=== PATIENT | female | born 1940 | race Caucasian/White ===

== ENCOUNTER 2019-05-05 12:39 | Inpatient (IN) | payer MEDICARE, OTHER, SELFPAY ==
[2019-05-05] VITALS (7 sets, daily range): BP systolic 130–175; BP diastolic 50–62; PULSE 75–90; RESP 14–16; TEMP 36.8–36.9; O2SAT 96–100; BMI 29.8; BMI 29.5
--- NOTE | 2019-05-05 12:52 | DI.RAD.S_ITS ---
PROCEDURE: XR HIP W PEL IF DONE LT 2V INDICATIONS: mechanical fall with L hip pain TECHNIQUE: AP pelvis with lateral view(s) of the left hip(s). COMPARISON: None. FINDINGS: Bones: Right femoral pin fixation is present. There is an intertrochanteric fracture of the left femur with minimal displacement. Fracture extends to the proximal humerus. Soft tissues: The visualized bowel gas pattern is normal. No suspicious soft tissue calcifications. IMPRESSION: Intertrochanteric left hip fracture. Dictated by: Karmen Denis M.D. on 05/05/2019 at 13:41 Approved by: Karmen Denis M.D. on 05/05/2019 at 13:42
--- NOTE | 2019-05-05 13:44 | ED_ITS ---
HPI - Extremity Injury (Lower) General Chief Complaint: Fall Stated Complaint: Mechanical Fall Time Seen by Provider: 05/05/19 12:40 Source: patient and EMS Mode of arrival: EMS Limitations: no limitations History of Present Illness HPI Narrative: 79-year-old female nonsmoker with history of diabetes presents by EMS for evaluation of a ground level fall and left hip pain as the result. She was at a local cultural event when she was walking, turned and caught her feet on the ground and fell forward striking her left hip. She denies any head neck or back pain. She also says that her left elbow hurts a bit but she has full range of motion. She denies any numbness, tingling or weakness. She takes no blood thinners. MD complaint: hip injury Onset (ago): minute(s) Type of Injury: blunt Place: street/outdoors Severity: moderate Relieving factors: immobilization Exacerbating factors: movement Context: fall Associated symptoms: swelling and unable to bear weight Other symptoms: none Related Data Home Medications Medication Instructions Recorded Confirmed atorvastatin [Lipitor] 20 mg PO HS #0 02/11/12 calcium carbonate 1,500 mg PO QDAY #0 02/11/12 ibuprofen 400 mg PO PRN #0 02/11/12 insulin aspart U-100 [Novolog 0 unit SQ TIDCC #0 02/11/12 Flexpen U-100 Insulin] insulin glargine [Lantus U-100 13 unit SQ QDAY #0 02/11/12 Insulin] latanoprost [Xalatan] 1 drp OPHTH HS #0 02/11/12 lisinopril 20 mg PO QDAY #0 02/11/12 prednisolone acetate 2 drp OPHTH BID #0 02/11/12 triamterene-hydrochlorothiazid 1 cap PO QDAY #0 02/11/12 [Dyazide] Allergies Allergy/AdvReac Type Severity Reaction Status Date / Time No Known Drug Allergies Allergy Verified 05/05/19 14:18 Review of Systems Constitutional Constitutional: Denies chills, Denies fatigue, Denies fever(s), Denies frequent falls, Denies lethargy and Denies weakness Eyes Eyes: Denies change in vision, Denies eye discharge, Denies irritation and Denies loss of vision ENT Ears, Nose, Mouth, and Throat: Denies change in voice, Denies dizziness, Denies neck pain, Denies sore throat and Denies throat swelling Cardiovascular Cardiovascular: Denies chest pain, Denies irregular heart rhythm, Denies lightheadedness, Denies palpitations, Denies dyspnea, Denies dyspnea on exertion and Denies orthopnea Respiratory Respiratory: Denies cough, Denies dyspnea, Denies dyspnea on exertion and Denies wheezing Gastrointestinal Gastrointestinal: Denies abdominal pain, Denies change in bowel habits, Denies diarrhea, Denies nausea and Denies vomiting Genitourinary Genitourinary: Denies hematuria, Denies flank pain, Denies urinary incontinence and Denies urinary urgency Musculoskeletal Musculoskeletal: Denies back pain, Reports joint swelling, Reports limited range of motion, Denies muscle weakness, Denies neck pain, Denies numbness and Denies tingling Integumentary/Breasts Skin/Breast: Denies pruritus, Denies erythema, Denies rash and Denies wounds Neurologic Neurologic: Denies behavioral changes, Denies confusion, Denies dizziness, Denies frequent falls, Denies loss of vision, Denies numbness, Denies tingling and Denies weakness Psychiatric Psychiatric: Denies anxiety, Denies behavioral changes, Denies confusion, Denies depression, Denies homicidal ideation and Denies suicidal ideation Endocrine Endocrine: Denies fatigue, Denies flushing and Denies palpitations Hematologic/Lymphatic Hematologic/Lymphatic: Denies easy bruising Allergic/Immunologic Allergic/Immunologic: Denies urticaria, Denies throat swelling and Denies wheezing Patient History Medical History Blindness left eye category 4, normal vision right eye (Acute) Glaucoma (Acute) Hyperlipidemia (Acute) Hypertension (Acute) Left tibial fracture (Acute) Type 1 diabetes (Acute) Surgical History History of total right hip arthroplasty (Acute) Family History (Updated 05/05/19 @ 18:05 by Mary Ann Garcia MD) Father Suicide Mother Myocardial infarction Social History household members: none Smoking Status: Never smoker alcohol intake: current Exam Narrative Exam Narrative: GENERAL: [79] year old patient appears stated age. Well- nourished, well-developed patient, in mild distress. HEAD: Atraumatic. Normocephalic. EYES: Pupils equal round and reactive. Extraocular motions intact. No scleral icterus. No injection or drainage. ENT: Nose without bleeding, purulent drainage. Throat without erythema, tonsillar hypertrophy or exudate. Airway patent. NECK: Trachea midline. Non tender CARDIOVASCULAR: Regular rate and rhythm without murmurs, gallops, or rubs. RESPIRATORY: Clear to auscultation. Breath sounds equal bilaterally. No wheezes, rales, or rhonchi. GASTROINTESTINAL: Abdomen soft, non-tender, nondistended. EXTREMITIES: Left hip tender to palpate anteriorly with shortening and external rotation. Closed and neurovascularly intact. Also pain in the left elbow with full but painful range of motion, closed and neurovascularly intact. BACK: Nontender without deformity or crepitance. No flank tenderness. NEURO: AOx3. SKIN: No rash or erythema of visible areas Initial Vital Signs Initial Vital Signs: Vital Signs Temperature 98.4 F 05/05/19 12:45 Pulse Rate 84 05/05/19 12:45 Respiratory Rate 16 05/05/19 12:45 Blood Pressure 175/53 H 05/05/19 12:45 Pulse Oximetry 96 05/05/19 12:45 Procedures Orthopedic Splinting/Casting Injury #1: Side: left Upper Extremity Injury Location: elbow Upper Extremity Immobilizer: sling/shoulder immobilizer Post splinting neuro exam: intact Post splinting vascular exam: intact Placed by: Nursing Course Orders Ordered: ED Orders 05/05/19 12:52 XR hip w pel if done LT 2V Stat 05/05/19 13:50 Basic Metabolic Panel Stat Complete Blood Count AUTO DIFF Stat 05/05/19 14:45 CT abdomen pelvis w con Stat Acetaminophen (Tylenol) 650 mg PO Q6HR PRN PRN Reason: As Needed for Fever/Mild Pain Atorvastatin Calcium (Lipitor) 20 mg PO BEDTIME ROBERT Bisacodyl (Dulcolax) 10 mg LA DAILY PRN PRN Reason: Constipation Dextrose (D50w) 25 gm IV PRN PRN; Protocol PRN Reason: Hypoglycemia Hydromorphone HCl (Dilaudid) 0.5 mg IV Q6HR PRN PRN Reason: Pain, Moderate (4-6) Lactated Ringer's (Lactated Ringers) 1,000 mls @ 100 mls/hr IV CONT ROBERT Last Admin: 05/05/19 17:54 Dose: 100 mls/hr Documented by: BRITTANYANTJennifer Insulin Aspart (Novolog Flexpen) 4 unit SUBCUT AC [facility] Insulin Glargine (Lantus Solostar (Pen)) 8 unit SUBCUT BEDTIME [facility] Latanoprost (Xalatan 0.005% Ophth) 1 drops EYE-BOTH BEDTIME [facility] Lisinopril (Zestril) 30 mg PO DAILY [facility] Magnesium Hydroxide (Milk Of Magnesia) 30 ml PO DAILY PRN PRN Reason: Constipation Naloxone HCl (Narcan) 0.2 mg IV Q2MIN PRN PRN Reason: Opiate Reversal Ondansetron HCl (Zofran) 4 mg IV Q8HR PRN PRN Reason: Nausea And Vomiting Oxycodone/Acetaminophen (Percocet 5/325) 1 tab PO Q4HR PRN PRN Reason: Pain, Moderate (4-6) Sennosides (Senna) 17.2 mg PO BEDTIME [facility] Discontinued Medications Fentanyl (Sublimaze) 25 mcg IV NOW ONE Stop: 05/05/19 15:42 Last Admin: 05/05/19 15:52 Dose: 25 mcg Documented by: DONTE Hydromorphone HCl (Dilaudid) 0.5 mg IV Q6HR PRN PRN Reason: Pain, Moderate (4-6) Last Admin: 05/05/19 17:53 Dose: 0.5 mg Documented by: HENNY Insulin Aspart (Novolog Flexpen) 0 unit SUBCUT AC [facility]; Protocol Insulin Glargine (Lantus Solostar (Pen)) 12 unit SUBCUT BEDTIME [facility] Consultations Consultation #1: orthopedics called, will admit to medicine and be available in consult. Consultation #2: Dr. Garcia happy to admit Vital Signs Vital signs: Vital Signs - 8 hr 05/05/19 12:45 05/05/19 13:32 05/05/19 14:11 Temperature 98.4 F 98.4 F Pulse Rate 84 84 84 Respiratory Rate 16 15 15 Blood Pressure [Left Arm] 175/53 H 168/52 H Pulse Oximetry 96 100 100 MDM - Extremity Injury (Lower) Lab Data Result diagrams: 05/05/19 13:50 05/05/19 13:50 Labs: Lab Results 05/05/19 05/05/19 Range/Units 13:50 13:50 WBC 7.7 (4.5-11.0) X10^3/uL RBC 3.32 L (4.0-5.2) X10^6/uL Hgb 10.2 L (12.0-16.0) g/dL Hct 30.2 L (36-46) % MCV 91.0 (80-100) fL MCH 30.6 (26-34) PG MCHC 33.6 (30-36) % RDW 13.7 (11.6-14.8) % Plt Count 223 (150-400) X10^3/uL Neut % (Auto) 59.7 (50-75) % Lymph % (Auto) 28.8 (25-40) % [place] % (Auto) 9.0 (3-14) % Eos % (Auto) 1.9 L (2-4) % Baso % (Auto) 0.6 (0-2) % Neut # (Auto) 4600 (6232-5630) /uL Lymph # (Auto) 2200 (4781-8752) /uL [place] # (Auto) 700 (0-900) /uL Eos # (Auto) 100 (0-450) /uL Baso # (Auto) 0 (0-100) /uL Sodium 138 (137-145) mmol/L Potassium 4.9 (3.4-5.1) mmol/L Chloride 105 (98-107) mmol/L Carbon Dioxide 25 (22-32) mmol/L BUN 45 H (7-17) mg/dL Creatinine 1.10 H (0.52-1.04) mg/dL Estimated GFR 48.2 L (>60) mL/min BUN/Creatinine Ratio 40.9 H (6-22) Glucose 254 H (80-110) mg/dL Calcium 9.4 (8.4-10.2) mg/dL Imaging Data Pelvis / Hip: Radiologist's impression: [address] [address] XRay Report Signed Patient: Meredith Fuentes [facility]#: [id number] : 2Acct:[id number] Age/Sex: 79 / FDate of Service: 05/05/19 Loc: ED Accession Number: [id number] Procedure: XR hip w pel if done LT 2V Ordering Provider: Joshua Allen D.O. PROCEDURE: XR HIP W PEL IF DONE LT 2V INDICATIONS: mechanical fall with L hip pain TECHNIQUE: AP pelvis with lateral view(s) of the left hip(s). COMPARISON: None. FINDINGS: Bones: Right femoral pin fixation is present. There is an intertrochanteric fracture of the left femur with minimal displacement. Fracture extends to the proximal humerus. Soft tissues: The visualized bowel gas pattern is normal. No suspicious soft tissue calcifications. IMPRESSION: Intertrochanteric left hip fracture. Dictated by: Karmen Denis M.D. on 05/05/2019 at 13:41 Approved by: Karmen Denis M.D. on 05/05/2019 at 13:42 CT scan - pelvis: Radiologist's impression: [place] [address] CT Scan Report Signed Patient: Meredith Fuentes SMR#: [id number] : 2Acct:[id number] Age/Sex: 79 / FDate of Service: 05/05/19 Loc: GP50D-6 Accession Number: [id number] Procedure: CT abdomen pelvis w con Ordering Provider: Joshua Allen D.O. PROCEDURE: CT ABDOMEN PELVIS W CON INDICATIONS: Left hip fracture,fell TECHNIQUE: After the administration of intravenous contrast, 5 mm thick sections acquired from the diaphragm to the symphysis. 5 mm coronal and sagittal reformats were acquired. For radiation dose reduction, the following was used: automated exposure control, adjustment of mA and/or kV according to patient size. [facility], 05/05/2019, 12:56. FINDINGS: Image quality: Excellent. ABDOMEN: Lung bases: Lung bases are clear. Heart size is normal. A small hiatal hernia is incidentally noted. Solid organs: Liver is normal in size and enhancement. Gallbladder demonstrates no significant CT abnormality. Biliary system is non dilated. Pancreas enhances normally. Spleen is normal in size and enhancement. No adrenal nodules. Kidneys demonstr ate normal size and enhancement, without hydronephrosis. Peritoneum and bowel: Bowel loops demonstrate normal wall thickness and caliber. No free fluid or air. Incidental note is made of a normal-appearing appendix. Nodes and vessels: No retroperitoneal or mesenteric adenopathy by size c riteria. Aorta and inferior vena cava are normal in size. Dense atherosclerotic calcification is seen. Miscellaneous: No ventral hernias. PELVIS: Genitourinary: Bladder wall thickness is normal. Miscellaneous: No inguinal hernias or adenopathy. Bones: There is a comminuted, moderately displaced fracture of the intertrochanteric left femoral neck, as is demonstrated by plain film. No dislocation can be seen. There is hardware seen of the contralateral right proximal femur, without nik abnormality seen. Relatively prominent lumbar spine degenerative changes are seen. There are several levels of bridging endplate osteophytes throughout the visualized spine. No suspicious bony lesions. No significant vertebral body compression fractures. IMPRESSION: There is a moderately displaced, comminuted fractures of the intertrochanteric left femoral neck, as previously demonstrated. No additional acute fractures are detected. Incidental note is made of: Small hiatal hernia Numerous levels of bridging spinal endplate osteophytes are seen. Normal appendix Unremarkable right proximal femur hardware Dictated by: Jose Armando Marie M.D. on 05/05/2019 at 13:48 Approved by: Jose Armando Marie M.D. on 05/05/2019 at 13:53 Elbow Xray: Radiologist's impression: [place] [address] XRay Report Signed Patient: Meredith Fuentes [facility]#: [id number] : 2Acct:[id number] Age/Sex: 79 / FDate of Service: 05/05/19 Loc: LQ55E-2 Accession Number: [id number] Procedure: XR elbow LT min 3V Ordering Provider: Joshua Allen D.O. PROCEDURE: XR ELBOW LT MIN 3V INDICATIONS: fall with elbow pain TECHNIQUE: 3 views of the elbow were acquired. COMPARISON: None. FINDINGS: Bones: Radial head fracture with intra-articular extension. There is suspected olecranon fracture, markedly displaced however evaluation of the suboptimal due to difficulties with patient positioning in particular the lateral view Soft tissues: No elbow joint effusion. No suspicious soft tissue calcifications. IMPRESSION: Intra-articular radial head fracture. Prominent soft tissue swelling. Also suspect markedly displaced olecranon fracture however suboptimal evaluation due to positioning. Recommend followup short interval radiographs after pain is better controlled, or cross-sectional imaging could be performed. Dictated by: Hugo Gay M.D. on 05/05/2019 at 15:35 Approved by: Hugo Gay M.D. on 05/05/2019 at 15:39 Discharge Plan Departure Patient Disposition: Admitted As Inpatient Clinical Impression: Closed fracture of left hip Qualifiers: Encounter type: initial encounter Qualified Code(s): S72.002A - Fracture of unspecified part of neck of left femur, initial encounter for closed fracture Discharge Date/Time: 05/05/19 16:18 Admit Date/Time: 05/05/19 14:25 Admit Provider: Mary Ann Garcia
[2019-05-05 14:16] LABS: Add Manual Diff / Slide Review NO; Basophils Absolute Auto 0 /uL (0-100); Basophils Percent Auto 0.6 % (0-2); Eosinophils Absolute Auto 100 /uL (0-450); Eosinophils Percent Auto 1.9 % (2-4); Hematocrit 30.2 % (36-46); Hemoglobin 10.2 g/dL (12.0-16.0); Lymphocytes Absolute Auto 2200 /uL (1100-4500); Lymphocytes Percent Auto 28.8 % (25-40); Mean Corpuscular HGB Conc 33.6 % (30-36); Mean Corpuscular Hemoglobin 30.6 PG (26-34); Monocytes Absolute Auto 700 /uL (0-900); Neutrophils Absolute Auto 4600 /uL (1500-7000); Neutrophils Percent Auto 59.7 % (50-75); Platelet Count 223 X10^3/uL (150-400); Red Blood Cell Count 3.32 X10^6/uL (4.0-5.2); Red Cell Distribution Width 13.7 % (11.6-14.8); White Blood Cell Count 7.7 X10^3/uL (4.5-11.0)
[2019-05-05 14:22] LABS: BUN Creatinine Ratio 40.9 (6-22); Blood Urea Nitrogen 45 mg/dL (7-17); Calcium 9.4 mg/dL (8.4-10.2); Carbon Dioxide 25 mmol/L (22-32); Chloride 105 mmol/L (98-107); Estimated Glomerular Filt Rate 48.2 mL/min (>60); Glucose 254 mg/dL (80-110); HEMOLYSIS < 15 (0-50); Potassium 4.9 mmol/L (3.4-5.1); Sodium 138 mmol/L (137-145)
--- NOTE | 2019-05-05 14:45 | DI.CT.S_ITS ---
PROCEDURE: CT ABDOMEN PELVIS W CON INDICATIONS: Left hip fracture,fell TECHNIQUE: After the administration of intravenous contrast, 5 mm thick sections acquired from the diaphragm to the symphysis. 5 mm coronal and sagittal reformats were acquired. For radiation dose reduction, the following was used: automated exposure control, adjustment of mA and/or kV according to patient size. COMPARISON: [facility], [facility], XR HIP W PEL IF DONE LT 2V, 05/05/2019, 12:56. FINDINGS: Image quality: Excellent. ABDOMEN: Lung bases: Lung bases are clear. Heart size is normal. A small hiatal hernia is incidentally noted. Solid organs: Liver is normal in size and enhancement. Gallbladder demonstrates no significant CT abnormality. Biliary system is non dilated. Pancreas enhances normally. Spleen is normal in size and enhancement. No adrenal nodules. Kidneys demonstrate normal size and enhancement, without hydronephrosis. Peritoneum and bowel: Bowel loops demonstrate normal wall thickness and caliber. No free fluid or air. Incidental note is made of a normal-appearing appendix. Nodes and vessels: No retroperitoneal or mesenteric adenopathy by size criteria. Aorta and inferior vena cava are normal in size. Dense atherosclerotic calcification is seen. Miscellaneous: No ventral hernias. PELVIS: Genitourinary: Bladder wall thickness is normal. Miscellaneous: No inguinal hernias or adenopathy. Bones: There is a comminuted, moderately displaced fracture of the intertrochanteric left femoral neck, as is demonstrated by plain film. No dislocation can be seen. There is hardware seen of the contralateral right proximal femur, without nik abnormality seen. Relatively prominent lumbar spine degenerative changes are seen. There are several levels of bridging endplate osteophytes throughout the visualized spine. No suspicious bony lesions. No significant vertebral body compression fractures. IMPRESSION: There is a moderately displaced, comminuted fractures of the intertrochanteric left femoral neck, as previously demonstrated. No additional acute fractures are detected. Incidental note is made of: Small hiatal hernia Numerous levels of bridging spinal endplate osteophytes are seen. Normal appendix Unremarkable right proximal femur hardware Dictated by: Jose Armando Marie M.D. on 05/05/2019 at 13:48 Approved by: Jose Armando Marie M.D. on 05/05/2019 at 13:53
--- NOTE | 2019-05-05 14:48 | DI.RAD.S_ITS ---
PROCEDURE: XR ELBOW LT MIN 3V INDICATIONS: fall with elbow pain TECHNIQUE: 3 views of the elbow were acquired. COMPARISON: None. FINDINGS: Bones: Radial head fracture with intra-articular extension. There is suspected olecranon fracture, markedly displaced however evaluation of the suboptimal due to difficulties with patient positioning in particular the lateral view Soft tissues: No elbow joint effusion. No suspicious soft tissue calcifications. IMPRESSION: Intra-articular radial head fracture. Prominent soft tissue swelling. Also suspect markedly displaced olecranon fracture however suboptimal evaluation due to positioning. Recommend followup short interval radiographs after pain is better controlled, or cross-sectional imaging could be performed. Dictated by: Hugo Gay M.D. on 05/05/2019 at 15:35 Approved by: Hugo Gay M.D. on 05/05/2019 at 15:39
[2019-05-05] MEDS: fentaNYL 100 MCG/2 ML INJ 25 MCG IV (15:52)
--- NOTE | 2019-05-05 16:39 | PC.NURSE ---
Addendum entered by Brittany Mesa R.N. 05/05/19 23:36: Tearful @ 2145 and reports pain 9/10. States pain meds worked up until this time and now is in significant pain. Discussed with hospitalist Luis TREVINO, and dilluis eduardo iv order changed from every 6 hours to every 4 hours prn. Pt reports immediate relief upon being medicated. Able to rest quietly. Anticipates surgery in a.m. Pt reports is now taking nothing by mouth in preparation for surgery and declines any oral intake. Discussed with pt nothing after midnight as option for surgery, but pt declines stating taking nothing by mouth until after a.m. surgery. IV fluids infusing as ordered to right ac iv site. BL calf scd's in place. Addendum entered by Brittany Mesa R.N. 05/05/19 23:36: Tearful @ [id number] Addendum entered by Brittany Mesa R.N. 05/05/19 19:53: Sling placed to LUE as per ortho orders. Skin assessment completed with assistance turning pt in bed. Lengthwise pillows placed under legs BL. Calf scd's in place. Ice to left groin where pt confirms pain 5/10 and left arm. Pt reports pain most significant to LLE with movement. No neurovascular compromise or deficit. Pt has h/o impaired eyesight and hearing. Requests frequently explanations of care/interventions by staff. Addendum entered by Brittany Mesa R.N. 05/05/19 17:14: Dr. Garcia in to see patient. Original Note: Pt to room 215 from E.R. awake, alert, conversant. Increase in pain to LLE and LUE with movement. Transfer board and several staff members to transfer pt from stretcher to bed. Prefers flat lying in bed. 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 States able to read lips. States pain in affected extremities 3-4/10 when movement ceases. Son is present @ bedside.
--- NOTE | 2019-05-05 17:42 | P.HP_ITS ---
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 The patient reports she has difficulty with ambulation ( chronically). She is unsteady on her feet and has difficulty with her balance. She goes to outpatient therapy for this.. [place] she went to step up on the curb, it was slippery, she lost her balance ,and fell. The patient had an x-ray of her hip and sustained a left intratrochanteric fracture, she has also sustained a nondisplaced radial head fracture on the left as well. Patient denies loss of consciousness, headache, shortness of breath, chest pain or palpitations. She is blind in her left eye. Her only medical complaint is intermittant urinary urgency at night. She has no fever, chills, or cough. She is essentially pain free lying in bed. She does get occassional sharp spasms of pain. CT Scan of the hip confirmed the intratrochanteric fracture. Patient is admitted to the hospital for definitive surgical treatment. As the patient is a type 1 diabetic requiring managment of her insulin, the hospitalists will assist with management of her perioperative course. Patient History Medical History (Updated 05/05/19 @ 18:13 by Mary Ann Garcia MD) Blindness left eye category 4, normal vision right eye (Acute) Glaucoma (Acute) Hyperlipidemia (Acute) Hypertension (Acute) Left tibial fracture (Acute) Type 1 diabetes (Acute) Surgical History (Updated 05/05/19 @ 18:03 by Mary Ann Garcia MD) History of total right hip arthroplasty (Acute) Family & Social History Family History (Updated 05/05/19 @ 18:04 by Mary Ann Garcia MD) Father Suicide Mother Myocardial infarction Safety & Behavioral: Feels Safe in Current Yes Environment Been Physically Hurt or No Threatened By a Person Tobacco & Substance use: Smoking Status Never smoker alcohol intake frequency 0-2 drinks per day Substance Use Type does not use Meds Home Medications and Allergies Home Medications Medication Instructions Recorded Confirmed Type atorvastatin [Lipitor] 20 mg PO HS #0 02/11/12 History calcium carbonate 1,500 mg PO QDAY #0 02/11/12 History ibuprofen 400 mg PO PRN #0 02/11/12 History insulin aspart U-100 [Novolog 0 unit SQ TIDCC #0 02/11/12 History Flexpen U-100 Insulin] insulin glargine [Lantus U-100 13 unit SQ QDAY #0 02/11/12 History Insulin] latanoprost [Xalatan] 1 drp OPHTH HS #0 02/11/12 History lisinopril 20 mg PO QDAY #0 02/11/12 History prednisolone acetate 2 drp OPHTH BID #0 02/11/12 History triamterene-hydrochlorothiazid 1 cap PO QDAY #0 02/11/12 History [Dyazide] Allergies Allergy/AdvReac Type Severity Reaction Status Date / Time No Known Drug Allergies Allergy Verified 05/05/19 14:18 Review of Systems Review of Systems ROS Unobtainable: All systems reviewed & are unremarkable except as noted in HPI and below Exam Vital Signs (past 8 hours): - 05/05/19 12:45 05/05/19 13:32 05/05/19 14:11 Temperature 98.4 F 98.4 F Pulse Rate 84 84 84 Respiratory Rate 16 15 15 Blood Pressure [Left Arm] 175/53 H 168/52 H Pulse Oximetry 96 100 100 05/05/19 15:58 05/05/19 16:01 Temperature Pulse Rate 75 77 Respiratory Rate 16 Blood Pressure [Left Arm] 143/50 H Pulse Oximetry 99 99 Oxygen Delivery Method Room Air Narrative Exam Narrative: Pleasant elderly female lying in bed in no obvious distress HEENT: Normocephalic atraumatic, left eye with a dense cataract, patient is blind in the left eye right eye reveals no erythema or exudate, oropharynx is clear, neck is supple, there is no appreciable adenopathy Lungs: Clear to auscultation without crackles rhonchi or wheezes Cardiac exam: Regular rate and rhythm normal S1-S2 with a 2/6 systolic ejection murmur Abdomen: Soft nontender nondistended, no hepatosplenomegaly Extremities: Left leg externally rotated, right leg with no edema, pulses are intact, left forearm tender to palpation Musculature: Normal bulk and tone of upper and lower extremities Skin exam: No lesion Psychiatric exam: Patient is awake alert appropriate, she has no delusions or hallucinations Neuro exam: Patient is blind in the left eye, extraocular muscles are intact, she has no facial asymmetry, tongue is midline, strength is symmetric and equal in the lower extremity on the right and right upper extremity, she is unable to move the left leg due to her fracture or left arm is weak due to her fracture, sensation is grossly intact, gait is not assessed Objective Labs Result Diagrams: 05/05/19 13:50 05/05/19 13:50 Labs: Laboratory Results - last 24 hr 05/05/19 05/05/19 13:50 13:50 WBC 7.7 RBC 3.32 L Hgb 10.2 L Hct 30.2 L MCV 91.0 MCH 30.6 MCHC 33.6 RDW 13.7 Plt Count 223 Neut % (Auto) 59.7 Lymph % (Auto) 28.8 [place] % (Auto) 9.0 Eos % (Auto) 1.9 L Baso % (Auto) 0.6 Neut # (Auto) 4600 Lymph # (Auto) 2200 [place] # (Auto) 700 Eos # (Auto) 100 Baso # (Auto) 0 Sodium 138 Potassium 4.9 Chloride 105 Carbon Dioxide 25 BUN 45 H Creatinine 1.10 H Estimated GFR 48.2 L BUN/Creatinine Ratio 40.9 H Glucose 254 H Calcium 9.4 Assessment & Plan Assessment and plan (1) Closed fracture of left hip: Problem details: Impression 1. 79-year-old female status post ground level fall admitted for a left intertrochanteric fracture, most likely related to underlying osteoporosis. -patient is here for definitive surgery, -anticipate surgery tomorrow, orthopedic surgery, Dr. Pitts has been consulted by the ER, -DVT prophylaxis per surgery, anticipate b.i.d. dosing of aspirin -low-dose Dilaudid, Tylenol, Percocet for pain -pelvic x-ray confirms a left intratrochanteric fracture, CT of the abdomen and pelvis confirms of left intertrochanteric fracture as well 2. Nondisplaced left radial head fracture, sling will be put in place. -pain medications as above 3. Type 1 diabetes, will continue the patient's home dosing of basal bolus insulin. -patient will get blood sugars AC and HS, continue her Lantus at 12 units, will continue her pre meal insulin she was taking at home. 4. Hypertension, blood pressure elevated, likely related to underlying pain. Will continue her usual dosing of lisinopril. Will hold her hydrochlorothiazide here in the hospital 5. Hyperlipidemia, present on admission -continue home dose of atorvastatin 6. Osteoporosis, present on admission, likely the etiology of her fracture. Will resume calcium at discharge. Consider vitamin-D as an outpatient, will defer bisphosphonates at this time 7 anemia, etiology unclear, -will obtain iron studies, consider oral iron with vitamin-C postoperatively 8. Stage III chronic renal insufficiency, present on admission -will avoid nephrotoxin agents and continue to monitor closely Patient reports she is DNR, will note that on her record accordingly. Qualifiers: Encounter type: initial encounter Qualified Code(s): S72.002A - Fracture of unspecified part of neck of left femur, initial encounter for closed fracture Current visit: Yes Status: Acute
[2019-05-05] MEDS: HYDROMORPHONE 1 MG INJ 0.5 MG IV (17:53)
[2019-05-05] MEDS: LACTATED RINGERS 1,000 ML 100 ML IV (17:54)
--- NOTE | 2019-05-05 19:16 | PM.CN ---
History of Present Illness Consult details Date Patient Seen: 05/05/19 Time Patient Seen: 19:16 Chief complaint: Mechanical Fall Reason for consult: Left intertrochanteric hip fracture, left olecranon fracture Narrative: Patient is a 79-year-old female who had a ground level fall onto her left side. She sustained a left intertrochanteric femur fracture as well as a displaced left olecranon fracture. Pain is well controlled the patient is resting comfortably in bed. She is neurovascular intact in the left upper extremity and left lower extremities. [facility] Medical History Blindness left eye category 4, normal vision right eye (Acute) Glaucoma (Acute) Hyperlipidemia (Acute) Hypertension (Acute) Left tibial fracture (Acute) Type 1 diabetes (Acute) Surgical History History of total right hip arthroplasty (Acute) Family History (Updated 05/05/19 @ 18:05 by Mary Ann Garcia MD) Father Suicide Mother Myocardial infarction Social History household members: none Smoking Status: Never smoker alcohol intake: current Meds Home Medications and Allergies Home Medications Medication Instructions Recorded Confirmed Type atorvastatin [Lipitor] 20 mg PO HS #0 02/11/12 History calcium carbonate 1,500 mg PO QDAY #0 02/11/12 History ibuprofen 400 mg PO PRN #0 02/11/12 History insulin aspart U-100 [Novolog 0 unit SQ TIDCC #0 02/11/12 History Flexpen U-100 Insulin] insulin glargine [Lantus U-100 13 unit SQ QDAY #0 02/11/12 History Insulin] latanoprost [Xalatan] 1 drp OPHTH HS #0 02/11/12 History lisinopril 20 mg PO QDAY #0 02/11/12 History prednisolone acetate 2 drp OPHTH BID #0 02/11/12 History triamterene-hydrochlorothiazid 1 cap PO QDAY #0 02/11/12 History [Dyazide] Allergies Allergy/AdvReac Type Severity Reaction Status Date / Time No Known Drug Allergies Allergy Verified 05/05/19 14:18 Review of Systems Review of Systems ROS Unobtainable: All systems reviewed & are unremarkable except as noted in HPI and below Exam Vital Signs (past 8 hours): - 05/05/19 12:45 05/05/19 13:32 05/05/19 14:11 Temperature 98.4 F 98.4 F Pulse Rate 84 84 84 Respiratory Rate 16 15 15 Blood Pressure Blood Pressure [Left Arm] 175/53 H 168/52 H Pulse Oximetry 96 100 100 05/05/19 15:58 05/05/19 16:01 05/05/19 17:30 Temperature 98.2 F Pulse Rate 75 77 89 Respiratory Rate 16 16 Blood Pressure 138/51 L Blood Pressure [Left Arm] 143/50 H Pulse Oximetry 99 99 98 Oxygen Delivery Method Room Air Oxygen Flow Rate 0 Narrative Exam Narrative: No skin breaks the left hip. Neurovascular intact left lower extremity 5/5 dorsiflexion plantar flexion EHL. Large ecchymosis and swelling of the left elbow. With palpable defect in the olecranon. Objective Imaging CT scan - pelvis: My impression: CT scan of pelvis reveals a left intertrochanteric femur fracture 3 part in nature with displacement of the lesser trochanter. pelvis x-ray: My impression: Intact right DHS plate with healed intertrochanteric fracture right hip. Displaced 3 part intertrochanteric fracture of the left hip. elbow x-ray: My impression: Displaced olecranon fracture. Small nondisplaced fracture of the radial head. The elbow is reduced. Labs Result Diagrams: 05/05/19 13:50 05/05/19 13:50 Labs: Laboratory Results - last 24 hr 05/05/19 05/05/19 13:50 13:50 WBC 7.7 RBC 3.32 L Hgb 10.2 L Hct 30.2 L MCV 91.0 MCH 30.6 MCHC 33.6 RDW 13.7 Plt Count 223 Neut % (Auto) 59.7 Lymph % (Auto) 28.8 [place] % (Auto) 9.0 Eos % (Auto) 1.9 L Baso % (Auto) 0.6 Neut # (Auto) 4600 Lymph # (Auto) 2200 [place] # (Auto) 700 Eos # (Auto) 100 Baso # (Auto) 0 Sodium 138 Potassium 4.9 Chloride 105 Carbon Dioxide 25 BUN 45 H Creatinine 1.10 H Estimated GFR 48.2 L BUN/Creatinine Ratio 40.9 H Glucose 254 H Calcium 9.4 Assessment & Plan Assessment & Plan narrative: Patient is a 79-year-old female who had a ground level fall earlier today. She sustained a displaced 3 part intertrochanteric hip fracture. She also sustained a displaced olecranon fracture of the left elbow. Plan is to go to the OR tomorrow for supplementary nail of the intertrochanteric femur fracture as well as open reduction internal fixation left olecranon fracture. I had a long discussion with the patient regarding the risks and benefits of surgery. Patient demonstrates understanding of these risks. Nonweightbearing left upper extremity nonweightbearing left lower extremity Time Spent With Patient Time with patient: 15-24 minutes
[2019-05-05 21:18] LABS: Cholesterol 200 mg/dL (140-199); HDL Cholesterol 72 mg/dL (40-60); LDL Cholesterol Calculated 117 mg/dL (<100); Triglycerides 55 mg/dL (35-150)
[2019-05-05 21:32] LABS: Hemoglobin A1C% w Est Avg Glu 6.8 % (4.0-6.0)
[2019-05-05] MEDS: HYDROMORPHONE 0.5 MG INJ IV (21:56)
[2019-05-05] MEDS: LATANOPROST 0.005% OPHTH 2.5 ML 1 DROPS EYE-BOTH (22:00)
[2019-05-05] MEDS: INSULIN GLARGINE 100 UNIT/ML 3ML PEN 8 UNIT SUBCUT (22:03)
--- NOTE | 2019-05-05 23:40 | PC.NURSE ---
Pt to room 215 from E.R. @ 2845. Requires slider board to transfer from stretcher to bed. Pain to left hip with movement. LUE immobilized in splint as per ortho instructions. Strong left radial pulse. Left LE externally rotated and shortened. Skin assessment done with second RN. Scattered bruises to thighs/abdomen r/t pt's own insulin injections. Ice to left UE and LLE. Pillow to support LLE for comfort and left elbow for comfort. Pt's son comes and goes in pt's room. Pt was medicated with dilaudid for pain with good results. Required additional pain meds prior to 6 hour order as per Dr. Garcia. This was discussed with hospitalist Luis TREVINO, and ordered changed to every 4 hours. Pt reports nothing by mouth in preparation for a.m. surgery. Declines evening meds. Took bites of evening meal prior to 2100. Lantus insulin given. IV fluids infusing as ordered with BL calf scd's in place. Pt admits to full sensation to all extremities. No neurovascular compromise or deficit. 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 This remains unchanged.
[2019-05-06] VITALS (21 sets, daily range): BP systolic 100–153; BP diastolic 48–102; PULSE 79–100; RESP 10–19; TEMP 36.3–37.3; O2SAT 85–100; BMI 29.5
--- NOTE | 2019-05-06 | DI.RAD.S_ITS ---
PROCEDURE: XR HIP W PEL IF DONE RT 2V INDICATIONS: LT HIP NAILING FINDINGS: 6 limited intraoperative fluoroscopic restored images of the left hip were obtained for intraoperative hardware localization purposes. These images are not meant for diagnostic purposes. Intraoperative findings related to an open reduction and internal fixation procedure of an intertrochanteric proximal left femur fracture are evident. IMPRESSION: Intraoperative images obtained during the patient's left hip ORIF. Dictated by: Avinash Canales M.D. on 05/06/2019 at 11:20 Approved by: Avinash Canales M.D. on 05/06/2019 at 11:22
[2019-05-06] MEDS: HYDROMORPHONE 0.5 MG INJ IV ×2 (01:44→06:01)
[2019-05-06] MEDS: LACTATED RINGERS 1,000 ML 100 ML IV ×3 (03:41→22:15)
[2019-05-06 06:11] LABS: Add Manual Diff / Slide Review NO; Basophils Absolute Auto 100 /uL (0-100); Basophils Percent Auto 0.9 % (0-2); Eosinophils Absolute Auto 0 /uL (0-450); Eosinophils Percent Auto 0.8 % (2-4); Hemoglobin 8.9 g/dL (12.0-16.0); Lymphocytes Absolute Auto 1700 /uL (1100-4500); Mean Corpuscular HGB Conc 34.1 % (30-36); Mean Corpuscular Volume 91.1 fL (80-100); Monocytes Absolute Auto 600 /uL (0-900); Monocytes Percent Auto 9.9 % (3-14); Neutrophils Absolute Auto 3500 /uL (1500-7000); Neutrophils Percent Auto 59.4 % (50-75); Platelet Count 185 X10^3/uL (150-400); Red Blood Cell Count 2.86 X10^6/uL (4.0-5.2); Red Cell Distribution Width 13.8 % (11.6-14.8); White Blood Cell Count 5.8 X10^3/uL (4.5-11.0)
[2019-05-06 06:20] LABS: Blood Urea Nitrogen 36 mg/dL (7-17); Calcium 9.1 mg/dL (8.4-10.2); Carbon Dioxide 25 mmol/L (22-32); Chloride 107 mmol/L (98-107); Estimated Glomerular Filt Rate > 60.0 mL/min (>60); Glucose 287 mg/dL (80-110); HEMOLYSIS < 15 (0-50); Potassium 4.8 mmol/L (3.4-5.1); Sodium 138 mmol/L (137-145)
[2019-05-06] MEDS: INSULIN ASPART 100 UNIT/ML INSULN PEN SUBCUT ×4 (08:30→22:12)
--- NOTE | 2019-05-06 08:42 | PT-IP ANOTE ---
pt scheduled to have surgery today. will f/u after surgery
[2019-05-06] MEDS: LACTATED RINGERS 1,000 ML 42 ML IV ×2 (09:06→15:21)
--- NOTE | 2019-05-06 09:30 | OT.IP.TRT ---
Current Diagnoses Fracture of unspecified part of neck of left femur, initial encounter for closed fracture (05/05/19) Surgery Performed Operation Date: 05/06/19 09:00 Actual Procedures p Intertrochanteric femur nail(Left) - Armani Pitts MD s Open reduction internal fixation of olecranon(Left) - Armani Pitts MD Occupational Therapy Treatment Note M3 OT- IP Subjective and Pain Start: 05/06/19 09:33 Freq: Status: Active Protocol: Document 05/06/19 09:34 CGR (Rec: 05/06/19 09:34 CGR [id number]) OT- Subjective Occupational Therapy Visit Type Type Administrative Note Notes Per chart review, pt is planned for 05/06/19 L hip nailing and ORIF of the L olecranon. Will hold today and see s/p sx.
[2019-05-06] MEDS: CEFAZOLIN 2 GM/100 ML FROZ.PIGGY IV ×2 (09:45→17:39)
--- NOTE | 2019-05-06 10:35 | PC.NURSE ---
Patient is A&Ox3. She states that [place] and [place] on [place] stairs, or did not see that a stair was present and then just fell. She stated that her pain was 5/10 when comfortable and 10/10 with moving. She did have some pain medication prior on noc shift. Did not complain of pain before leaving for surgery, she left her room at 0840 and was comfortable when leaving. BS this morning 282 and 4u of novolog given and aware and okayed to give.
--- NOTE | 2019-05-06 10:46 | SUR.OPER ---
Head on donut. Supine on fracture table with operative leg secured in traction. Other leg secured in padded stirrup. Left arm across chest on pillow, secured with sheet. Right arm secured on armboard with foam.
--- NOTE | 2019-05-06 12:51 | SUR.OPER ---
Lateral on padded OR bed, head on pillow, gel axillary roll in place, bottom leg bent with gel pad under knee to foot, upper leg straight and supported with pillows. Upper arm supported by pillows and secured over bottom arm to padded arm board. Safety belt at hip, tape over blanket lower legs.
[2019-05-06] MEDS: BUPIVACAINE 0.25% W/ EPI 30 ML VIAL INJ (12:56)
--- NOTE | 2019-05-06 14:12 | P.OP_ITS ---
Operative Date/Time/Diagnoses Date of procedure: 05/06/19 Time of procedure: 14:12 Pre-op diagnosis: Left intertrochanteric fracture, left olecranon fracture Post-op diagnosis: same Procedure & Clinicians Procedure: Surgical stabilization of left intertrochanteric fracture with a short cephalomedullary nail. Open reduction internal fixation of left olecranon fracture. Same procedure as scheduled: Yes Indications: Left intertrochanteric femur fracture Left olecranon fracture Surgeon: Armani Pitts Care Assistant: Roland Laird Anesthesia Type: General Operative Notes Findings: Displaced left intertrochanteric femur fracture displaced left olecranon fracture. Closure Type: primary Specimen(s): none sent Prosthetic devices, grafts, tissues, transplants, or devices: Zuimmer natural nail 130 degree CCD short nail 105 mm lag screw 22.5 mm bolt Resendiz and Nephew E the OS left olecranon 2 hole plate 3x 2.7 mm cortical screws: 24 mm, 50 mm, 50 mm 2 x 3.5 mm cortical screws: 24 mm, 26 mm, 2x 2.7 mm locking screws: 12 mm, 16 mm, Applied: cast(s) Estimated Blood Loss (mL): 200 Blood products transfused: none Procedure in detail: The patient was met in the preoperative holding area where the site and side of surgery were marked by the MD. All last minute questions were answered. Patient was brought back in the operating room. She was induced under general anesthesia and intubated. After this was complete she was transferred onto the [place] table. The right leg was placed in a well leg marcos. Taking care not to flex past 90?. The left foot was placed into a 100 table boot. C-arm was then brought in and the intertrochanteric fracture was reduced using gentle traction internal rotation and adduction. The site was prepped with ChloraPrep. Next a shower drape was placed. A 5 cm incision just proximal to the greater trochanter was made over the left hip in line with the femur. A starting awl was then used to gain a start site for our threaded drill tip guidewire. Starting site was at the tip of the greater trochanter in the posterior aspect of the middle 1/3. The wire was then advanced down to the level of the lesser troch, checked on tangential views. The starting Reamer was then used to open the canal over the guidewire and the guidewire and starting Reamer were removed. A ball-tip guidewire was then placed down the center of the femur and flexible reamers were used to ream up from a a starting 10 mm to 12.5 mm flexible Reamer going up by half sizes. A 130 degree CCD short nail was then selected and placed over the guidewire and malleted into place. The guidewire was removed The guidance arm was then used to place a guidewire through the nail up into the head through the 130 degree slot. The tip of the wire was then checked on tangential views making sure not to enter into the joint. The wire length was measured at 110 mm. We reamed to 105 mm of depth. We then selected 105 mm lag screw this was placed under fluoroscopic guidance. We then placed the locking bolt through the top of the nail to full tightness, and then turned it back 1/2 turn to allow the screw to compress. We then used this guidance arm again to place a 22.5 both through the end of the nail. The guide arm was then removed final x-rays were obtained the wounds were thoroughly irrigated the proximal incision was closed using a 1. Vicryl in the deep fascial layer followed by 2 0 Vicryl in subcutaneous layer and a 3 0 nylon in a horizontal mattress fashion the stab incisions for the lag screw in interlock bolts were closed using 2 0 Vicryl in the subcutaneous layer followed by 3-0 nylon. Aquacel dressings were placed. Drapes were then removed patient was then transferred from the [place] table onto a operating table. A beanbag was used to place the patient in a right lateral decubitus position all bony prominences were well padded. Back table instrumentation was then all changed. The left upper extremity is then prepped and draped in the normal sterile fashion a curvilinear incision over the olecranon was then made centered over the fracture site and curving to the radial side to avoid making incision right through the tip of the skin at the olecranon. Electrocautery dissection was then used down to the layer of periosteum at the olecranon the fracture site was then cleaned using a 15. Blade and irrigation the fracture was distracted we will look inside the elbow joint I did not see any cartilage pieces or any other loose bodies within the joint we irrigated the joint thoroughly with normal saline. We then reduced the olecranon fracture with the elbow in extension and a [id number] clamp. A left Resendiz Nephew EOS olecranon 2 hole plate was then selected. This was provisionally placed with K-wires. Fluoroscopy was used to check our positioning and were satisfied with our reduction and placement of the plate. The proximal screw holes were used in a compression fashion to reduce the fracture and hold the plate down to bone. We then placed a distal cortical screw to pull the plate down to the ulnar shaft. We then placed 1 more cortical screw distally followed by 2 locking screws in the proximal segment of the o lecranon fracture. K-wires were then removed. The elbow had free range of motion without any crepitance or mechanical blocks. The wound was then irrigated and 1. Vicryl was used to close the deep fascial layer over the olecranon plate and 2 0 Vicryl in the subcutaneous layer followed by 3 0 nylons in horizontal mattress fashion. Xeroform and 4 x 4 were placed and then a posterior slab splint was placed in 90 degree position. Drapes were then removed patient was transferred onto a hospital bed and taken to PACU in stable condition. Complications: none Post-operative Condition: stable Disposition: PACU Plan for aftercare: Patient is weight-bearing as tolerated on the left lower extremity. She is nonweightbearing on the left upper extremity. We will have her return to clinic in 2 weeks time for suture removal and wound check.
[2019-05-06] MEDS: BENZOCAINE/MENTHOL 1 LOZ PKT 1 EACH PO (14:15)
[2019-05-06] MEDS: HYDROMORPHONE 2 MG INJ 0.5 MG IV ×4 (14:15→14:35)
[2019-05-06] MEDS: fentaNYL 100 MCG/2 ML INJ 50 MCG IV ×2 (14:30→14:40)
--- NOTE | 2019-05-06 14:58 | SUR.PHASEI ---
pt continues to c/o sore throat, comfort measures ice chips, throat lozenge, medication and respiratory treatment given for sore throat.
[2019-05-06] MEDS: RACEPINEPHRINE 0.5 ML NEB INH (15:02)
--- NOTE | 2019-05-06 15:13 | SUR.PHASEI ---
pt appears more comfortable , is able to drift off to sleep. remains on 2 L O2 by NC, no further drainage noted on hip dressing, foot is warm and pink with brisk capillary refill, left arm remains on pillow, sling on, able to wiggle fingers and thumb freely.
--- NOTE | 2019-05-06 16:08 | PM.PN.1 ---
Subjective Subjective Date Patient Seen: 05/06/19 Interval history: The patient is a 79-year-old female type 1 diabetic, hypertension hyperlipidemia, left eye blind this who is status post ORIF of the left olecranon and intramedullary nail placed of the left hip. The patient just return from the perioperative area. Blood sugars are elevated at 349. She will be receiving insulin currently. She apparently had difficult intubation. She is unsure whether she will be able to eat her dinner. She is cold but does not have any complaints of pain. Exam Vital Signs (past 8 hours): - 05/06/19 09:13 05/06/19 14:07 05/06/19 14:12 Temperature 98.6 F 97.8 F Pulse Rate 83 100 H 81 Respiratory Rate 15 19 18 Blood Pressure 136/50 L 140/48 L 153/102 H Pulse Oximetry 97 98 97 05/06/19 14:20 05/06/19 14:30 05/06/19 14:40 Temperature Pulse Rate 81 82 87 Respiratory Rate 18 12 12 Blood Pressure 142/58 H 137/63 125/50 L Pulse Oximetry 96 100 99 05/06/19 14:59 05/06/19 15:03 05/06/19 15:15 Temperature 97.6 F 98.3 F Pulse Rate 87 90 86 Respiratory Rate 15 10 L Blood Pressure 144/67 H 121/54 L Pulse Oximetry 100 96 95 05/06/19 15:30 05/06/19 15:45 Temperature 97.7 F Pulse Rate 85 87 Respiratory Rate 14 16 Blood Pressure 130/53 L 145/66 H Pulse Oximetry 95 95 Oxygen Delivery Method Nasal Cannula Oxygen Flow Rate 0 Narrative Exam Narrative: Pleasant female lying in bed Lungs: Clear to auscultation Cardiac exam: Regular rate and rhythm normal S1-S2 with a 2/6 systolic ejection murmur Abdomen: Soft nontender nondistended Extremities: Left arm and bandage, left hip dressing is dry Objective Labs Result Diagrams: 05/06/19 05:58 05/06/19 05:58 Labs: Laboratory Results - last 24 hr 05/05/19 05/05/19 05/06/19 13:50 13:50 05:58 WBC 5.8 RBC 2.86 L Hgb 8.9 L Hct 26.0 L MCV 91.1 MCH 31.0 MCHC 34.1 RDW 13.8 Plt Count 185 Neut % (Auto) 59.4 Lymph % (Auto) 29.0 [place] % (Auto) 9.9 Eos % (Auto) 0.8 L Baso % (Auto) 0.9 Neut # (Auto) 3500 Lymph # (Auto) 1700 [place] # (Auto) 600 Eos # (Auto) 0 Baso # (Auto) 100 Sodium Potassium Chloride Carbon Dioxide BUN Creatinine Estimated GFR BUN/Creatinine Ratio Glucose Hemoglobin A1c 6.8 H Calcium Triglycerides 55 Cholesterol 200 H LDL Cholesterol, Calc 117 H HDL Cholesterol 72 H 05/06/19 05:58 WBC RBC Hgb Hct MCV MCH MCHC RDW Plt Count Neut % (Auto) Lymph % (Auto) [place] % (Auto) Eos % (Auto) Baso % (Auto) Neut # (Auto) Lymph # (Auto) [place] # (Auto) Eos # (Auto) Baso # (Auto) Sodium 138 Potassium 4.8 Chloride 107 Carbon Dioxide 25 BUN 36 H Creatinine 0.90 Estimated GFR > 60.0 BUN/Creatinine Ratio 40.0 H Glucose 287 H Hemoglobin A1c Calcium 9.1 Triglycerides Cholesterol LDL Cholesterol, Calc HDL Cholesterol Assessment & Plan Assessment & Plan narrative: Impression 1. 79-year-old female who had a ground level fall resulting in a left hip and left elbow fracture. The patient is status post left olecranon ORIF, in addition to placement of a left hip nail. Patient likely has low velocity fall with fractures related to underlying osteoporosis. She previously was on calcium but developed hypercalcemia. She is not on a bisphosphonate. She is not on vitamin-D. Discussed with the patient. Would consider adding a bisphosphonate 2 weeks postop, and adding vitamin-D and calcium at this time if she can tolerate . 2. Type 1 diabetes, present on admission. The patient is normally on Lantus 12 units at night, 4 units of aspirate before breakfast, 8 units of aspirate before lunch, and 8 units of aspirate before dinner. Her appetite is somewhat poor after surgery. The blood sugars remain elevated. The patient will be placed back on her usual nighttime Lantus dosing. Her pre meal insulin will be adjusted based on her diet. In addition the patient has correctional insulin as needed as well. 3. Hypertension, will resume lisinopril 4. Hyperlipidemia, resume atorvastatin 5. Anemia, suspect acute blood loss anemia, hemoglobin 8.9, should her hemoglobin drop any further would consider a transfusion at that time. Will repeat her laboratory studies in the morning. Will transfuse for hemoglobin of less than 8.
--- NOTE | 2019-05-06 18:23 | PC.NURSE ---
Addendum entered by Addie Key R.N. 05/06/19 23:31: Pt desat with sleep, 2L NC applied sats increased to 99%. R.T. notified for eval. Sats return to high 90's while awake. Original Note: Pt arrived from PACU at approx 1600; Awake but drowsy. Able to follow commands. Aquacel to L Hip with small drainage. L arm in sling. Weak L pedal pulse. strong L. radial pulse. Denies pain. Dr. Garcia in for rounding. IVF reconnected and infusing at 100 ml/hr. Bed alarm on. Supportive family at bedside.
[2019-05-06 19:29] LABS: HEMOLYSIS 20 (0-50); Iron 27 ug/dL (37-170)
[2019-05-06 19:39] LABS: Percent Iron Saturation 11 % (15-50); Total Iron Binding Capacity 236 ug/dL (265-497); Transferrin 182 mg/dL (206-381)
[2019-05-06] MEDS: INSULIN GLARGINE 100 UNIT/ML 3ML PEN 12 UNIT SUBCUT (22:11)
[2019-05-06] MEDS: LATANOPROST 0.005% OPHTH 2.5 ML 1 DROPS EYE-BOTH (22:13)
[2019-05-06] MEDS: ATORVASTATIN 20 MG TABLET PO (22:13)
[2019-05-06] MEDS: SENNOSIDES 8.6 MG TABLET 17.2 MG PO (22:14)
[2019-05-07] VITALS (12 sets, daily range): BP systolic 102–145; BP diastolic 43–62; PULSE 88–100; RESP 14–22; TEMP 36.6–37.5; O2SAT 94–100
[2019-05-07] MEDS: CEFAZOLIN 2 GM/100 ML FROZ.PIGGY IV (01:59)
[2019-05-07] MEDS: ONDANSETRON 4 MG/2 ML INJ IV (02:48)
[2019-05-07] MEDS: INSULIN ASPART 100 UNIT/ML INSULN PEN SUBCUT ×7 (03:05→21:17)
--- NOTE | 2019-05-07 03:48 | PC.NURSE ---
Addendum entered by Lora Atkins R.N. 05/07/19 06:40: 0430 Patient started complaining again of feeling as though something stuck in throat/chest. Trying to make herself vomit with use of yankour and pushing on throat. Perspiring and anxious. Jumana TREVINO, called to bedside for exam. Verbal order to place NG but unsuccessful. Patient denies nausea and drainage in suction cannister is a adams/green color. Is coughing but not vomiting. Denies SOB and O2 sat is 97%. Administered Solu-medrol after which patient became more calm and stated sensation of something being stuck has resolved. Administered Ativan for anxiety. Also rechecked CBG and was 378. Xray taken. Patient fell asleep and noted sat dropped to 83% so restarted oxygen; cannula placed in mouth as patient is breathing through her mouth. Currently asleep. 0635 Jumana TREVINO, informed of critical h&h as well as low UOP of 150cc this shift. Original Note: Patient is alert and oriented. 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 Breath sounds CTA. Was on oxygen at shift change with sat of 99% and currently has oxygen off and sats 92-96%. HRR and telemetry reading at 0000 was SR. Earlier skin was warm and moist and patient thought blood sugar was low so was checked and was at 370. Was continually clearing throat with drooling and occasional spitting up of clear fluid. Stated she shouldn't have eaten the meatloaf last evening and claims she has something stuck. Intermittently pressing on throat trying to get it unstuck. Patient denying nausea but did administer Zofran to see if would help to alleviate the problem. Discussed situation with Jumana TREVINO, who came to patient room to assess. BIOLOGY DEPARTMENT CHAIR used Yankour to suction back of mouth which caused patient to gag and vomited 100+cc adams liquid after which she felt that the problem had resolved and is no longer clearing throat. CBG rechecked since was elevated earlier and now is 386 so consulted with BELINDA and patient was given addtional sliding scale coverage per verbal order of BELINDA. BT present and abdomen is soft; passing flatus. Indwelling catheter is patent. Splint/dressing to left UE is intact with no noted drainage; arm is in sling and patient has good CMS. Upper left hip Aquacel dressing with previous outlined drainage noted with no increase. Lower left hip Aquacel dressing is CDI. CMS intact bilateral LE. Had RN take off SCD's at shift change and refusing them at this time. Fall risk score is high and bed alarm is activated.
[2019-05-07] MEDS: HYDROMORPHONE 0.5 MG INJ IV (04:19)
--- NOTE | 2019-05-07 04:45 | DI.RAD.S_ITS ---
PROCEDURE: XR ACUTE ABDOMEN SERIES INDICATIONS: vomiting, difficulty breathing TECHNIQUE: One view chest and two views of the abdomen were acquired. COMPARISON: [facility], CT, CT ABDOMEN PELVIS W CON, 05/05/2019, 14:27. FINDINGS: Surgical changes and devices: Postoperative changes related to previous bilateral humeral ORIF's and bilateral femoral ORIF's are evident. Chest: Lungs are clear. Heart size is normal. No pleural effusions. No pneumoperitoneum. Abdomen: No air-filled distended small bowel loops are identified demonstrating air-fluid levels. Air and stool are seen overlying the expected locations of the colon. No suspicious calcifications. Visualized solid organ contours appear normal. Bones: No suspicious bony lesions. Severe degenerative changes of the lumbar spine are noted. IMPRESSION: 1. No acute cardiopulmonary process. 2. No bowel obstruction. Dictated by: Avinash Canales M.D. on 05/07/2019 at 7:43 Approved by: Avinash Canales M.D. on 05/07/2019 at 7:44
[2019-05-07] MEDS: SODIUM CHLORIDE NASAL SPRAY 1 SPRAY NASAL (05:00)
[2019-05-07] MEDS: methylPREDNISolone 125 MG/2 ML VIAL IV (05:03)
[2019-05-07] MEDS: LORazepam 2 MG/ML INJ 1 MG IV (05:25)
--- NOTE | 2019-05-07 05:39 | PM.EVENT ---
Event Note Date Patient Seen: 05/07/19 Time Patient Seen: 05:39 Event Note: Patient has had to acute overnight events related to which causes something being stuck in her chest, pointing to midsternum. Initially was concerned that it may the dinner she had last evening. States she has difficulty breathing. Having some dry heaving and vomiting. Yanker to suction was hooked up and attempted to suction patient, she did have approximatelly 200-300 cc of emesis (bile, non-bloody) with stimulation of gag reflex. She felt better, she sensation she was feeling earlier improved. She was able to rest. In about an hour, had second event with similar complaints, but felt it was worse. She is hoarse, coughing, trying to clear her throught. No overt vomiting (just dry heaving) this time or stridor. No overt stridor. However, she is feelign as if something is stuck in her throat. She did have difficult intubation. Thoat was examined, there is swelling and erythema, but no occuusion noted. Patient is now also anxious due to difficulty breathing. She is not hypoxic. Attempted to suction not helpful this time. Also try to put NGT down to potentially decompress the abdomen, but unable to advance. Patient was given 125 mg of Solu-Medrol. Stat xr of chest abdomen ordered. She seemed to have improved with a dose of steroids. Patient was also given 1 mg of Ativan. Able to rest afterwards. Her blood sugars have been elevated earlier in the evening and she received an additional dose per sliding scale insulin. She is type 1 diabetic. Will add serum ketones to make sure she is not going into DKA.
[2019-05-07 06:21] LABS: Add Manual Diff / Slide Review NO; Basophils Absolute Auto 0 /uL (0-100); Basophils Percent Auto 0.3 % (0-2); Eosinophils Absolute Auto 0 /uL (0-450); Eosinophils Percent Auto 0.2 % (2-4); Lymphocytes Absolute Auto 1400 /uL (1100-4500); Lymphocytes Percent Auto 17.9 % (25-40); Mean Corpuscular HGB Conc 33.9 % (30-36); Mean Corpuscular Hemoglobin 31.1 PG (26-34); Mean Corpuscular Volume 91.8 fL (80-100); Monocytes Absolute Auto 800 /uL (0-900); Monocytes Percent Auto 9.6 % (3-14); Neutrophils Absolute Auto 5800 /uL (1500-7000); Platelet Count 152 X10^3/uL (150-400); Red Blood Cell Count 2.14 X10^6/uL (4.0-5.2); Red Cell Distribution Width 13.4 % (11.6-14.8)
[2019-05-07 06:25] LABS: Hematocrit 19.7 % (36-46); Hemoglobin 6.7 g/dL (12.0-16.0)
[2019-05-07 06:28] LABS: Blood Urea Nitrogen 42 mg/dL (7-17); Calcium 7.8 mg/dL (8.4-10.2); Carbon Dioxide 26 mmol/L (22-32); Chloride 95 mmol/L (98-107); Estimated Glomerular Filt Rate 36.5 mL/min (>60); Glucose 363 mg/dL (80-110); HEMOLYSIS < 15 (0-50); Potassium 4.6 mmol/L (3.4-5.1); Sodium 127 mmol/L (137-145)
[2019-05-07 06:29] LABS: Ketones (Beta-Hydroxybutyrate) 0.46 mmol/L (<0.27)
--- NOTE | 2019-05-07 08:50 | PT-IP ANOTE ---
On chart review, pt's Hgb 6.7 and Hct 19.7. She will be transfused this morning. Will check for appropriateness of PT eval this afternoon.
--- NOTE | 2019-05-07 09:01 | OT.IP.TRT ---
Current Diagnoses Fracture of unspecified part of neck of left femur, initial encounter for closed fracture (05/05/19) Surgery Performed Operation Date: 05/06/19 09:00 Actual Procedures p Intertrochanteric femur nail(Left) - Armani Pitts MD s Open reduction internal fixation of olecranon(Left) - Armani Pitts MD Occupational Therapy Treatment Note M3 OT- IP Subjective and Pain Start: 05/06/19 09:33 Freq: Status: Active Protocol: Document 05/07/19 09:00 CGR (Rec: 05/07/19 09:01 CGR [id number]) OT- Subjective Occupational Therapy Visit Type Type Administrative Note Notes On chart review, pt's Hgb 6.7 and Hct 19.7. She will be transfused this morning. Pt also had an event last night with difficulty breathing. Will hold at this time and follow up as able.
--- NOTE | 2019-05-07 09:38 | PM.PN.1 ---
Subjective Subjective Date Patient Seen: 05/07/19 Time Patient Seen: 09:38 Interval history: Patient states that her throat was feeling better. She does not have significant pain in her elbow. And she does not have any significant pain in her left hip. She is neurovascular intact distally. Exam Vital Signs (past 8 hours): - 05/07/19 04:00 05/07/19 07:40 Temperature 98.1 F 98.9 F Pulse Rate 91 H 100 H Respiratory Rate 18 22 Blood Pressure 102/43 L 121/56 L Pulse Oximetry 94 100 Oxygen Delivery Method Room Air Oxygen Flow Rate 2 Narrative Exam Narrative: Neurovascularly intact in the left hand. Splint in place to left elbow. Patient is able dorsiflex plantar flex and fire EHL of the left foot. Dressings at the left hip are clean dry intact without strike-through Objective Labs Result Diagrams: 05/07/19 06:45 05/07/19 05:58 Labs: Laboratory Results - last 24 hr 05/06/19 05/06/19 05/07/19 18:01 18:01 05:58 WBC 8.0 RBC 2.14 L Hgb 6.7 L* Hct 19.7 L* MCV 91.8 MCH 31.1 MCHC 33.9 RDW 13.4 Plt Count 152 Neut % (Auto) 72.0 Lymph % (Auto) 17.9 L [place] % (Auto) 9.6 Eos % (Auto) 0.2 L Baso % (Auto) 0.3 Neut # (Auto) 5800 Lymph # (Auto) 1400 [place] # (Auto) 800 Eos # (Auto) 0 Baso # (Auto) 0 Sodium Potassium Chloride Carbon Dioxide BUN Creatinine Estimated GFR BUN/Creatinine Ratio Glucose Calcium Iron 27 L TIBC 236 L % Saturation 11 L Transferrin 182 L Ferritin 438.0 H Ketones Blood Type Antibody Screen Crossmatch 05/07/19 05/07/19 05/07/19 05:58 05:58 06:45 WBC RBC Hgb Hct MCV MCH MCHC RDW Plt Count Neut % (Auto) Lymph % (Auto) [place] % (Auto) Eos % (Auto) Baso % (Auto) Neut # (Auto) Lymph # (Auto) [place] # (Auto) Eos # (Auto) Baso # (Auto) Sodium 127 L D Potassium 4.6 Chloride 95 L Carbon Dioxide 26 BUN 42 H Creatinine 1.40 H Estimated GFR 36.5 L BUN/Creatinine Ratio 30.0 H Glucose 363 H Calcium 7.8 L Iron TIBC % Saturation Transferrin Ferritin Ketones 0.46 H Blood Type A Positive Antibody Screen Negative Crossmatch See Detail 05/07/19 06:45 WBC RBC Hgb 7.0 L Hct MCV MCH MCHC RDW Plt Count Neut % (Auto) Lymph % (Auto) [place] % (Auto) Eos % (Auto) Baso % (Auto) Neut # (Auto) Lymph # (Auto) [place] # (Auto) Eos # (Auto) Baso # (Auto) Sodium Potassium Chloride Carbon Dioxide BUN Creatinine Estimated GFR BUN/Creatinine Ratio Glucose Calcium Iron TIBC % Saturation Transferrin Ferritin Ketones Blood Type Antibody Screen Crossmatch Assessment & Plan Assessment & Plan narrative: Patient is a 79-year-old female who sustained a ground level fall and sustained a left olecranon fracture and a left intertrochanteric femur fracture. She is now postop day 1 from open reduction internal fixation of her olecranon fracture and a cephalo-medullary nail for left hip. Transfuse patient Nonweightbearing left upper extremity Weightbearing as tolerated left lower extremity Time Spent With Patient Time with patient: less than 15 minutes
--- NOTE | 2019-05-07 11:28 | P.PN_ITS ---
Subjective Subjective Date Patient Seen: 05/07/19 Interval history: The patient had difficult night. During her surgery yesterday she required multiple attempts at intubation. Last night she developed a sensation like something was stuck in her throat. She had emesis multiple times. And received Solu-Medrol for throat swelling her symptoms have resolved. It she is now able to eat. She reports that her pain in her elbow and left hip are well controlled. She is not short of breath. She has no abdominal pain. The patient is concerned about her elevated blood but otherwise is in no acute distress Exam Vital Signs (past 8 hours): - 05/07/19 04:00 05/07/19 07:40 05/07/19 09:00 Temperature 98.1 F 98.9 F 98.9 F Pulse Rate 91 H 100 H 100 H Respiratory Rate 18 22 22 Blood Pressure 102/43 L 121/56 L 121/56 L Pulse Oximetry 94 100 05/07/19 10:29 05/07/19 10:44 Temperature 98.9 F 99.3 F Pulse Rate 100 H 98 H Respiratory Rate 22 16 Blood Pressure 121/56 L 138/56 L Pulse Oximetry Oxygen Delivery Method Room Air Oxygen Flow Rate 2 Narrative Exam Narrative: Pleasant female resting comfortably in no obvious distress Lungs: Clear to auscultation Cardiac exam: Regular rate and rhythm normal S1-S2 with a 2/6 systolic ejection Abdomen: Soft and nontender Extremities: Left arm in a sling, left lower extremity with a dressing in place, no edema noted in the lower extremities Objective Labs Result Diagrams: 05/07/19 06:45 05/07/19 05:58 Labs: Laboratory Results - last 24 hr 05/06/19 05/06/19 05/07/19 18:01 18:01 05:58 WBC 8.0 RBC 2.14 L Hgb 6.7 L* Hct 19.7 L* MCV 91.8 MCH 31.1 MCHC 33.9 RDW 13.4 Plt Count 152 Neut % (Auto) 72.0 Lymph % (Auto) 17.9 L [place] % (Auto) 9.6 Eos % (Auto) 0.2 L Baso % (Auto) 0.3 Neut # (Auto) 5800 Lymph # (Auto) 1400 [place] # (Auto) 800 Eos # (Auto) 0 Baso # (Auto) 0 Sodium Potassium Chloride Carbon Dioxide BUN Creatinine Estimated GFR BUN/Creatinine Ratio Glucose Calcium Iron 27 L TIBC 236 L % Saturation 11 L Transferrin 182 L Ferritin 438.0 H Ketones Blood Type Antibody Screen Crossmatch 05/07/19 05/07/19 05/07/19 05:58 05:58 06:45 WBC RBC Hgb Hct MCV MCH MCHC RDW Plt Count Neut % (Auto) Lymph % (Auto) [place] % (Auto) Eos % (Auto) Baso % (Auto) Neut # (Auto) Lymph # (Auto) [place] # (Auto) Eos # (Auto) Baso # (Auto) Sodium 127 L D Potassium 4.6 Chloride 95 L Carbon Dioxide 26 BUN 42 H Creatinine 1.40 H Estimated GFR 36.5 L BUN/Creatinine Ratio 30.0 H Glucose 363 H Calcium 7.8 L Iron TIBC % Saturation Transferrin Ferritin Ketones 0.46 H Blood Type A Positive Antibody Screen Negative Crossmatch See Detail 05/07/19 06:45 WBC RBC Hgb 7.0 L Hct MCV MCH MCHC RDW Plt Count Neut % (Auto) Lymph % (Auto) [place] % (Auto) Eos % (Auto) Baso % (Auto) Neut # (Auto) Lymph # (Auto) [place] # (Auto) Eos # (Auto) Baso # (Auto) Sodium Potassium Chloride Carbon Dioxide BUN Creatinine Estimated GFR BUN/Creatinine Ratio Glucose Calcium Iron TIBC % Saturation Transferrin Ferritin Ketones Blood Type Antibody Screen Crossmatch Assessment & Plan Assessment & Plan narrative: Impression 1. Acute blood loss anemia, patient is receiving 2 units of packed RBCs now. She also has evidence of iron deficiency. The patient will receive IV Venofer, in addition to her blood. 2. Dysphagia, odynophagia, a following difficult intubation during surgery yesterday. This is completely resolved. The patient is able to eat this morning and has no more complaints of difficulty swallowing. Suspect she may have had some laryngeal swelling after multiple intubation attempts. This seems to have resolved. 3. Status post ground level fall, resulting in a left olecranon fracture and left hip fracture. The patient is postop day 1 ORIF of the left elbow and pinning of the left hip. This most likely is related to underlying osteoporosis. The patient will be started on calcium a 1000 mg per day, will continue her on vitamin-D. Would recommend starting a bisphosphonate as an outpatient 2 weeks after surgery. 4. Hypertension, continue usual antihypertensive therapy 5. Hyperlipidemia continue statin 6. Type 1 diabetes, suboptimal will secondary to NPO status, steroids, hospitalization now that the patient's diet has resumed will continue her usual home insulin regimen. Patient is on basal insulin of 12 units of Lantus at night which will be continued. She will continue with pre meal Humalog, and have added correctional insulin to this as well. Expect that her blood sugars will be elevate briefly over the next few days given the steroids. However once she is eating and back on her regular regimen would expect that her sugars to improved. 7. Disposition anticipate the patient will be discharged to alf once fully recovered from her surgeries and transfusion.
--- NOTE | 2019-05-07 11:45 | PC.NURSE ---
Addendum entered by Sneha Benítez R.N. 05/07/19 13:13: Pt's bs at lunch time 420s. 9U of novolog insulin given. Pt will also have an iv iron infusion after 2u of blood is infused, was timed for 1130 but okayed this to be done after 2nd unit of blood infused. Just checked patients blood pressure on her r.upper arm and readings were low 100s/28 and 90s /28. Pt is a&ox3 and talking, no complaints of feeling dizzy. First unit of blood almost done, pt has been tolerating this well. Dr is aware of low bp and states that this does not sound correct. Rechecked BP in l.lower ankle and reading was 90s/40s and pt is stable. Resting comfortably at this time. Original Note: Pt is A&Ox3. She was on 2l of O2 and sats 100%. Taken off of nasal cannula and sats have remained above 94%. Pt npo this am as her throat was soar from being intubated several times before going in to surgery. She has not had any nausea or emesis. 5u of Novolog insulin given, 4u held as pt was npo this morning. Pts dressings x2 to L.hip cdi, with small amount of drainage to upper dressing. L.arm is in splint that is intact. Sling is present. Pts son in room, He is slightly anxious in the room and this makes pt more anxious but he helpful to his mother. First unit of blood infusing and pt is tolerating well. Park patent putting out yellow urine. Family members in visiting pt now.
[2019-05-07] MEDS: CHOLECALCIFEROL (VITAMIN D3) 1,000 UNIT TABLET 2000 UNIT PO (13:02)
--- NOTE | 2019-05-07 13:39 | CM.DANOTE ---
DCP Assessment: EMR reviewed: Patient is a 79 yr old female who was admitted to for fractures and surgical repairs to both the Lt arm and Lt Hip. Patient doesn't currently have a PCP. CM/RN gave patient a Senior resources guide to patient as well as a list of medicare approved providers in [facility]. CM/RN met with patient at the bedside and explained CM Role. Patient was alert and oriented x3 during CM visit. Patients Son (DPOA) Jeffrey was present at meeting. Patient currently lives alone in a one story house. Patient has osteoporosis and has fallen multiple times in the recent past. CM/RN asked the patient and family what their idea would be for when the patient D/C from the hospital. Patient stated she wanted to go home but is open to a short stay at a SNF if needed. CM/RN provided the patient with medicare approved SNF list and patients first choice is [facility] and then [facility]. PT/OT evaluations pending. CM/RN sent clinicals to [facility] and spoke with Christelle who is going to review patients clinicals for possible admission. PASRR completed. CM/RN also contacted [facility] to have [facility] review patients clinicals as well. Insurance: Medicare, [address] [place] [address]. Plan: D/C to SNF when medically stable. CM/RN will follow closely to work on and D/C planning needs that arise to facilitate D/C to SNF when patient is medically cleared. Mavis Resendiz RN Discharge Planning/Care Management Advanced directive, confirm from FAMILY Start: 05/05/19 17:48 Freq: Q24H Status: Active Protocol: Document 05/06/19 12:30 CLL (Rec: 05/06/19 12:32 CLL [id number]) Advance Directive, confirm on record Time 08:00 Person contacted Patient Copy received No Copy received No CM Discharge Assessment Start: 05/07/19 13:34 Freq: Status: Active Protocol: Document 05/07/19 13:35 HS (Rec: 05/07/19 13:39 HS [id number]) Discharge Planning Assessment Assigned Technical Data Analyst Mavis Resendiz RN DPOA/Assigned Designee Name Jeffrey Fuentes (son) Contact Information [phone] Advance Directives? No History Provided By Patient,Family Member Has Patient been admitted in last 30 No days? Prior Living Arrangements House Household Members none Type of transporation used prior to Relies on Others admit Independent with ADL's Yes Is patient alert and oriented? Yes Caregiver for Another No DME Already Rented / Owned FWW / Walker,Cane Patient/Family Preference [facility] Discharge Plan [facility] Facility Referrals Initiated [facility]it[facility]iary If patient plan is SNF: Has PASSR been Yes completed? Medicare Choice List Provided Yes SNF/ Preference [facility] mathieu asha Contact Name/Phone Christelle [phone] Has Agency SNF been contacted Yes Whiteboard Updated in Patient Room with Yes name and ext. # of Technical Data Analyst Review Status In Process Next Review Type Continued Stay Review
--- NOTE | 2019-05-07 16:15 | PT-IP ANOTE ---
Attempted to contact pt for evaluation. Second unit still transfusing with no repeat H&H. Will hold therapy and check again in the morning.
--- NOTE | 2019-05-07 17:01 | PC.NURSE ---
1700: Bailey shift note: End of second unit of PRBCs, no s/sx of transfusion reaction. VSS and afebrile.
[2019-05-07] MEDS: IRON SUCROSE 200 MG in SODIUM CHLORIDE 0.9% 100 ML 220 ML IV (17:19)
[2019-05-07] MEDS: LATANOPROST 0.005% OPHTH 2.5 ML 1 DROPS EYE-BOTH (21:14)
[2019-05-07] MEDS: CALCIUM CARBONATE 500 MG TAB PO (21:14)
[2019-05-07] MEDS: ATORVASTATIN 20 MG TABLET PO (21:14)
[2019-05-07] MEDS: SENNOSIDES 8.6 MG TABLET 17.2 MG PO (21:14)
[2019-05-07] MEDS: ASPIRIN EC 325 MG TABLET PO (21:14)
[2019-05-07] MEDS: INSULIN GLARGINE 100 UNIT/ML 3ML PEN 12 UNIT SUBCUT (21:17)
[2019-05-08] VITALS (7 sets, daily range): BP systolic 106–129; BP diastolic 42–74; PULSE 78–89; RESP 16–18; TEMP 36.6–37.2; O2SAT 91–95
--- NOTE | 2019-05-08 03:16 | PC.NURSE ---
Addendum entered by Kacie Presley R.N. 05/08/19 06:32: recheck BG of 379, no further orders. Pt rested in bed without complaints of pain overnight. Turned q2hrs with use of bonnie bed. Dressing to left hip x2 intact, shadow on upper dressing stable, no increase in amount noted. H&H improved overnight, values rising. Na level improved to 136 this morning, remains in 1200cc FWR. Original Note: Pt 0300 BG 388, recheck at this time for BG value of 324. BELINDA Watson notified. Verbal order to treat BG with sliding scale order for BG >350. Will admin insulin and recheck in one hour. Pt asymptomatic for hyperglycemia.
[2019-05-08] MEDS: SODIUM CHLORIDE 0.9% FLUSH 10 ML IV ×3 (03:22→21:55)
[2019-05-08] MEDS: INSULIN ASPART 100 UNIT/ML INSULN PEN SUBCUT ×8 (03:25→21:59)
[2019-05-08 05:27] LABS: Add Manual Diff / Slide Review NO; Basophils Absolute Auto 0 /uL (0-100); Basophils Percent Auto 0.1 % (0-2); Eosinophils Absolute Auto 0 /uL (0-450); Hematocrit 28.7 % (36-46); Lymphocytes Absolute Auto 1500 /uL (1100-4500); Lymphocytes Percent Auto 16.1 % (25-40); Mean Corpuscular HGB Conc 34.8 % (30-36); Mean Corpuscular Hemoglobin 30.7 PG (26-34); Mean Corpuscular Volume 88.2 fL (80-100); Monocytes Absolute Auto 1400 /uL (0-900); Monocytes Percent Auto 14.5 % (3-14); Neutrophils Absolute Auto 6600 /uL (1500-7000); Neutrophils Percent Auto 69.3 % (50-75); Platelet Count 165 X10^3/uL (150-400); Red Blood Cell Count 3.25 X10^6/uL (4.0-5.2); Red Cell Distribution Width 14.9 % (11.6-14.8); White Blood Cell Count 9.5 X10^3/uL (4.5-11.0)
[2019-05-08 05:43] LABS: BUN Creatinine Ratio 37.8 (6-22); Blood Urea Nitrogen 34 mg/dL (7-17); Calcium 8.2 mg/dL (8.4-10.2); Carbon Dioxide 28 mmol/L (22-32); Chloride 101 mmol/L (98-107); Estimated Glomerular Filt Rate > 60.0 mL/min (>60); Glucose 386 mg/dL (80-110); HEMOLYSIS < 15 (0-50); Potassium 4.5 mmol/L (3.4-5.1); Sodium 136 mmol/L (137-145)
[2019-05-08] MEDS: CHOLECALCIFEROL (VITAMIN D3) 1,000 UNIT TABLET 2000 UNIT PO (08:33)
[2019-05-08] MEDS: CALCIUM CARBONATE 500 MG TAB PO ×2 (08:33→21:54)
[2019-05-08] MEDS: LISINOPRIL 10 MG TABLET 30 MG PO (08:34)
[2019-05-08] MEDS: ASPIRIN EC 325 MG TABLET PO ×2 (08:34→21:54)
--- NOTE | 2019-05-08 09:47 | PM.PNPO.1 ---
Subjective Subjective Date Patient Seen: 05/08/19 Time Patient Seen: 09:47 Interval history: Pain is [id number]. Denies fever chills. No nausea vomiting Exam Vital Signs (past 8 hours): - 05/08/19 03:00 05/08/19 08:00 Temperature 97.9 F 97.8 F Pulse Rate 78 78 Respiratory Rate 16 16 Blood Pressure 129/48 L 116/42 L Pulse Oximetry 91 93 Oxygen Delivery Method Room Air Oxygen Flow Rate 0 Narrative Exam Narrative: 79-year-old female in no apparent distress resting comfortably in bed. Motor functions intact distal left upper extremity. Sensation grossly intact to light touch. Left arm as warm and dry. Left lower leg motor function is grossly intact as well as sensation. Dressings are clean, dry and intact. Objective Labs Result Diagrams: 05/08/19 05:14 05/08/19 05:14 Labs: Laboratory Results - last 24 hr 05/07/19 05/08/19 05/08/19 06:45 05:14 05:14 WBC 9.5 RBC 3.25 L Hgb 10.0 L Hct 28.7 L MCV 88.2 D MCH 30.7 MCHC 34.8 RDW 14.9 H Plt Count 165 Neut % (Auto) 69.3 Lymph % (Auto) 16.1 L [place] % (Auto) 14.5 H Eos % (Auto) 0.0 L Baso % (Auto) 0.1 Neut # (Auto) 6600 Lymph # (Auto) 1500 [place] # (Auto) 1400 H Eos # (Auto) 0 Baso # (Auto) 0 Sodium 136 L Potassium 4.5 Chloride 101 Carbon Dioxide 28 BUN 34 H Creatinine 0.90 Estimated GFR > 60.0 BUN/Creatinine Ratio 37.8 H Glucose 386 H Calcium 8.2 L Blood Type A Positive Antibody Screen Negative Crossmatch See Detail Assessment & Plan Post-op Postoperative Procedures: Procedures Operation Date: 05/06/19 09:00 Actual Procedures Side Surgeon p Intertrochanteric femur nail Left Armani Pitts MD s Open reduction internal fixation of olecranon Left Armani Pitts MD Postop day 2. Patient to be nonweightbearing left upper extremity. Patient may be weight-bearing as tolerated left lower extremity. Patient has acute blood loss anemia and received 2 units of packed red blood cells yesterday. Patient will need retirement facility placement and will be discharged in the next day or 2 once medically stable per hospitalist.
--- NOTE | 2019-05-08 10:33 | PC.NURSE ---
Addendum entered by Lisa Hanks R.N. 05/08/19 14:35: PAIN - states buttock area discomfort 5 on scale 0/10, discussed medications and given percocet 5/325mg x 1 tab prior to mobilization with phys therapy. Addendum entered by Lisa Hanks R.N. 05/08/19 11:39: MS/PAIN - phys and occup therapy in and pt was able to dangle, using a quad walker, stood and tsf to chair, discussed pain mgt and declines tylenol or any narcotic at this time. Original Note: AM NOTE - pt awake, repositioned for breakfast, supported l elbow w/pillow, wearing osorio wrap w/spint over, aquacell dsgs x2 l hip w/small shadow drainage, +cms feet, wiggles toes, some edema fingers, skin color pink, LUMBEE L ear, communicates easily w/lip reading, denies pain and declines any pain medication or tylenol, will let RN know if needed, whitmore w/clear yellow urine.
--- NOTE | 2019-05-08 10:54 | CM.DPC ---
Addendum entered by Gina Jordan R.N. 05/08/19 14:05: Spoke to Kelly at [facility] [place]. She would like to come and see patient tomorrow, if able. Let her know that she originally wanted [facility], but is going back and forth between [facility] and [facility]. Both facilities will accept. Original Note: DCP Cont: Met with patient, sister was in room as well. Introduced self and role. Patient stated, she wishes she could just go home, but understands that skilled may be needed for short term. Patient stated, [facility] is her first choice, confirmed. [facility] could also accept. Spoke with Queta at [facility] and mentioned that patient should be discharged tomorrow. P: DCP to follow closely. Patient will go to [facility] when she is medically stable. Gina Jordan RN/[employer]
--- NOTE | 2019-05-08 11:01 | OT.IP.EVAL ---
Current Diagnoses Fracture of unspecified part of neck of left femur, initial encounter for closed fracture (05/05/19) Surgery Performed Operation Date: 05/06/19 09:00 Actual Procedures p Intertrochanteric femur nail(Left) - Armani Pitts MD s Open reduction internal fixation of olecranon(Left) - Armani Pitts MD Past Medical History (Last Reviewed 05/05/19 @ 19:17 by Armani Pitts MD) Blindness left eye category 4, normal vision right eye (Acute) Glaucoma (Acute) Hyperlipidemia (Acute) Hypertension (Acute) Left tibial fracture (Acute) Type 1 diabetes (Acute) Surgical History (Last Reviewed 05/05/19 @ 19:17 by Armani Pitts MD) History of total right hip arthroplasty (Acute) Occupational Therapy Inpatient Evaluation/Re-Eval M1 PT/OT-IP Prior Functional Status Start: 05/07/19 08:27 Freq: NEEDED Status: Active Protocol: Document 05/08/19 13:05 [facility] (Rec: 05/08/19 13:34 [facility] [id number]) Medical Review Prior Functional Status Medical History Reviewed Yes Communication Independent. Mobility and Gait Pt states independent without a device. Activities of Daily Living and IADL's Pt states independent with ADL and IADl needs. Social History Household Members none Living Arrangements House Number of Floors (Floors) One Floor Number of Stairs To Enter/Railing? 1 step and left rail going up. Home Environment High Toilet,Walk in Shower Home Equipment Front Wheel Walker,Straight Cane,Grab Bars In Shower M2 OT-IP Current Condition Start: 05/06/19 09:33 Freq: Status: Active Protocol: Document 05/08/19 13:05 [facility] (Rec: 05/08/19 13:34 [facility] [id number]) Occupational Therapy Current Condition Current Condition Evaluation Date 05/08/19 Treatment Diagnosis Left intertrocanteric hp fx, left olecranon fx Diagnosis Onset Date 05/05/19 Post Operative Precautions Other Precautions LUE in sling, left elbow with posterior slab splint on. Weight Bearing Status Weight Bearing Status Non-Weight Bearing Allowed Weight Bearing Amount (enter % NWB for LUE or #) (%) WBAT for LLE M3 OT- IP Subjective and Pain Start: 05/06/19 09:33 Freq: Status: Active Protocol: Document 05/08/19 13:05 [facility] (Rec: 05/08/19 13:34 [facility] [id number]) OT- Subjective Occupational Therapy Visit Type Type Initial Evaluation Visit Start Time 11:01 Visit Stop Time 11:52 Total Visit Minutes 51 Occupational Therapy Visit Comments Patient Comments Pt wanting to get up. PT and OT present for Ot/PT evals. Patient/Caregiver Goals Pt wanting to go home but realizes will need to go to skilled rehab prior to going home. OT Pain Assessment Pain When Pain Assessed At Rest Pain Present Pain Present Denied Pain M4 OT- IP ADL's Start: 05/06/19 09:33 Freq: Status: Active Protocol: Document 05/08/19 13:05 [facility] (Rec: 05/08/19 13:34 [facility] [id number]) OT [id number] Comments OT Self-Feeding Comments Pt able to bring cup to mouth independently. Pt needing assist for set-up for tray items as left arm in sling. OT ADL-Grooming General Evaluation Grooming Ability Standby Assistance Areas Needing Assistance Retrieving/Set-up of Grooming Items Comments OT Grooming Comments Grooming while seated in recliner. OT ADL-Oral Care General Eval Oral Care Ability Independent OT ADL-Dressing General Eval Upper Body Dressing Ability Maximum Assistance Lower Body Dressing Ability Maximum Assistance Comments OT Dressing Comments MAXA for all sling management needs and able to readjust sling for proper fit. Educated pt that the sling can be taken off daily for hygiene needs. OT ADL-Toileting Comments OT Toileting Comments Pt has whitmore in. OT ADL-Bathing Comments OT Bathing Comments Not performed. M6 OT- IP Functional Cognition Start: 05/06/19 09:33 Freq: Status: Active Protocol: Document 05/08/19 13:05 [facility] (Rec: 05/08/19 13:34 [facility] [id number]) Cognitive Factors Limiting Selfcare Function Cognitive Ability Level of Alertness Alert Patient Orientation Name,Place,Situation Attention Span Ability Capable of Focused Attention, Capable of Sustained Attention Ability to Follow Commands Able to Follow One Step Commands Problem Solving Ability Needs Assist to Identify Solutions Cognitive Comments Cognitive Assessment Comments Pt needing concrete simple commands to follow. Pt needing step by step instructions to use van-walker and for safety awareness of coming to stand and lower herself to recliner. OT- Vision and Hearing OT- Hearing Assessment OT- Hearing Assessment Left Ear Impaired OT- Vision Assessment Vision History Blindness Visual Acuity Glasses All The Time Vision Assessment Comments Left eye blind. M7 OT- IP Mobility and Balance Start: 05/06/19 09:33 Freq: Status: Active Protocol: Document 05/08/19 13:05 [facility] (Rec: 05/08/19 13:34 [facility] [id number]) OT- Bed Mobility Assessment Supine to Sit Supine to Sit Assist Maximum Assistance,2 Person Assistance OT-Transfer Assessment Sit to and From Stand Sit to and from Stand Moderate Assistance,2 Person Assistance Transfers Transfer Ability Moderate Assistance,2 Person Assistance Technique Transfer Destination Bed,Chair Devices Transfer Assistive Devices Van Walker Orthotic/Prosthetic Devices or Brace: No Comments Mobility Comments Assist to stand and assist to hold and guide van-walker and to assist for balance and help lower to the recliner. OT- Gait Assessment Comments Gait Ability Comments Transfer only at this time. OT- Balance Assessment Sitting Balance and Reactions Static Sitting Balance Ability Fair Comments Other Balance Tests/Deviations/Treatment Initially sitting at the edge : of the bed needing CHANEL to help keep forwards, however pt feet not able to touch the foot due to bed too high. M8 OT- IP Objective Assessments Start: 05/06/19 09:33 Freq: Status: Active Protocol: Document 05/08/19 13:05 [facility] (Rec: 05/08/19 13:34 [facility] [id number]) OT Gross Range of Motion Upper Extremity Range of Motion Assessment Bilaterally Impaired ROM Impairments RUE shoulder flexion 0-75 LUE shoulder flexion 0-70. OT Strength Comments Strength Comments RUE 4/5 OT- Coordination Assessment Upper Extremity Finger Tapping Test Within Functional Limits OT-Muscle Tone Assessment Muscle Tone WNL Yes OT Sensation Assessment Edema Edema Present Edema Comments Left hand and arm swollen. M9 OT- IP Assessment and Plan Start: 05/06/19 09:33 Freq: Status: Active Protocol: Document 05/08/19 13:05 [facility] (Rec: 05/08/19 13:34 [facility] [id number]) OT Summary Assessment and Plan Potential Rehabilitation Potential Good Analytic Complexity at Evaluation Moderate Summary OT Impairments Pain,Range of Motion,Strength, Balance,Functional Cognition, Functional Mobility,Self- Feeding,Grooming,Dressing, Toileting,Bathing,Toilet Transfers,Shower Transfers Progress Towards Goals Slow Progress due to Medical Issues,Slow Progress due to Activity Tolerance Assessment Summary Pt MOD complexity due to recent fall with left intertrocanteric hip and olecranon fx and now needing extensive assist for ADl and functional mobility needs. Pt NWB to LUE will benefit from skilled rehab to increase safety, independence with mobility and ADl needs prior to going home. Goals Self-Feeding Goal Independent Grooming Goal Independent Dressing Goal Independent Toileting Goal Independent Bathing Goal Standby Assistance Toilet Transfer Goal Independent Shower Transfer Goal Standby Assistance Patient/Caregiver Education Goal Demonstrate Post-Op Precautions Days to Meet Goals 15 Frequency of Treatment Frequency Of Treatment Once a Day Treatment Plan OT Treatment Plan ADL Training,Functional Cognition Training,Functional Mobility,Patient/Family Education,Discharge Planning Other Treatment Recommendations and Next Training for sling management Treatment Focus needs. Discharge Recommendations OT Discharge Recommendations SNF Rehab Home Equipment Needs defer to SNF
--- NOTE | 2019-05-08 11:47 | PT.IIE ---
Current Diagnoses Fracture of unspecified part of neck of left femur, initial encounter for closed fracture (05/05/19) Surgery Performed Operation Date: 05/06/19 09:00 Actual Procedures p Intertrochanteric femur nail(Left) - Armani Pitts MD s Open reduction internal fixation of olecranon(Left) - Armani Pitts MD Surgical History (Last Reviewed 05/05/19 @ 19:17 by Armani Pitts MD) History of total right hip arthroplasty (Acute) Medical History (Last Reviewed 05/05/19 @ 19:17 by Armani Pitts MD) Blindness left eye category 4, normal vision right eye (Acute) Glaucoma (Acute) Hyperlipidemia (Acute) Hypertension (Acute) Left tibial fracture (Acute) Type 1 diabetes (Acute) Physical Therapy Inpatient Evaluation/Re-Eval M1 PT/OT-IP Prior Functional Status Start: 05/07/19 08:27 Freq: NEEDED Status: Active Protocol: Document 05/08/19 13:05 [facility] (Rec: 05/08/19 13:34 [facility] [id number]) Medical Review Prior Functional Status Medical History Reviewed Yes Communication Independent. Mobility and Gait Pt states independent without a device. Activities of Daily Living and IADL's Pt states independent with ADL and IADl needs. Social History Household Members none Living Arrangements House Number of Floors (Floors) One Floor Number of Stairs To Enter/Railing? 1 step and left rail going up. Home Environment High Toilet,Walk in Shower Home Equipment Front Wheel Walker,Straight Cane,Grab Bars In Shower M2 PT-IP Current Condition Start: 05/07/19 08:27 Freq: NEEDED Status: Active Protocol: Document 05/08/19 11:47 [facility] (Rec: 05/08/19 18:59 [facility] [id number]) Physical Therapy Current Condition Current Condition Evaluation Date 05/08/19 Treatment Diagnosis left femur fx with nailing, left olecranon fx with ORIF Onset Date 05/05/19 Precautions Brace left elbow is splinted post-op , sling in use to discourage use of left elbow, no shoulder restrictions Other Precautions left hip is WBAT left elbow is NWB Blood transfusion needed after surgery 05/07/19 Weight Bearing Status Weight Bearing Status Non-Weight Bearing M3 PT-IP Subjective Start: 05/07/19 08:27 Freq: NEEDED Status: Active Protocol: Document 05/08/19 11:47 [facility] (Rec: 05/08/19 18:59 DL [id number]) Subjective Physical Therapy Visit Type Type Initial Evaluation Visit Start Time 11:00 Visit Stop Time 11:47 Total Visit Minutes 47 Number of GIN OPERATOR Visits 0 Physical Therapy Visit Comments Patient Comments She reports feeling better over-all Patient Goals Get better so she can go home Therapy Pain Assessment Pain When Pain Assessed During Mobility Pain Present Pain Present Pain Reported Location Left Hip Intensity 2 Scale Used Numeric (1 - 10) Description Aching Pain Management Techniques Re-positioning M4 PT-IP Mobility and Gait Start: 05/07/19 08:27 Freq: NEEDED Status: Active Protocol: Document 05/08/19 11:47 [facility] (Rec: 05/08/19 18:59 [facility] [id number]) PT-Bed Mobility Assessment Supine to Sit Supine to Sit Moderate Assistance Scooting Scooting to Edge of Bed Moderate Assistance Scooting Up and Down in Bed Dependent PT-Transfer Assessment Sit to and From Stand Sit to and from Stand Minimal Assistance,Moderate Assistance,2 Person Assistance ,Use of Upper Extremities Equipment Transfer Assistive Device Gait Belt,Van Walker Transfers Transfer Destination Chair Transfer Technique Stand Step Pivot Transfer Ability Level of Assist Minimal Assistance,Moderate Assistance,2 Person Assistance Comments Mobility Comments pt up to recliner, she prefers to sit upright due to buttock pain after days in bed, she has friends/family visiting, Transfer performed to right side this visit with pt scooting feet and small steps. Gait Assessment Comments Gait Comments pt unable to advance to gait today due to difficulty taking steps, weakness with weight bearing on left LE PT-Balance Assessment Sitting Balance and Reactions Static Sitting Balance Ability Good Dynamic Sitting Balance Ability Fair Standing Balance and Reactions Static Standing Balance Ability Fair Dynamic Standing Balance Ability Poor Device Used van-walker M5 PT-IP Objective Assessments Start: 05/07/19 08:27 Freq: NEEDED Status: Active Protocol: Document 05/08/19 11:47 [facility] (Rec: 05/08/19 18:59 [facility] [id number]) Orientation Orientation/Cognition Level of Alertness Alert Orientation Name,Age,Birthday,Month,Date, Year,Day of Week,Place, Situation Language Function Ability Hard of Hearing Safety Awareness Understands Safety Issues Memory Description No Deficits Noted Comments blind left eye, pt wearing glasses, she is talkative and motivated to increase her activity Gross Range of Motion Upper Extremity ROM Assessment Bilaterally Impaired Impairments shoulder elevation limited bilaterally, right 90-100 degrees and left 80-90 degrees , no ROM left elbow post-op with splint in place Lower Extremity ROM Assessment Left Impaired Impairments pain limits left hip ROM and knee flexion Strength Upper Extremity Strength Assessment Left Impaired Shoulder left moving functionally, hx shoulder fx Elbow unable post-op on left Lower Extremity Strength Assessment Left Impaired Hip flexion 3-/5, needs assist to move left LE in bed Knee ext 4-/5 Ankle DF 4+/5 Coordination Assessment Gross Coordination Gross Coordination WNL Sensation Assessment Sensation Gross Sensation Right LE Impaired,Left LE Impaired Light Touch Intact Sensation Description Numbness Comments Sensation Comments 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 Muscle Tone Muscle Tone WNL Yes M6 PT-IP Treatment Start: 05/07/19 08:27 Freq: NEEDED Status: Active Protocol: Document 05/08/19 11:47 [facility] (Rec: 05/08/19 18:59 [facility] [id number]) Physical Therapy Treatment Exercises Exercises Ankle Pumps Education Education Provided Weight Bearing Status,Safety Other Treatments Other Treatment Performed reviewed wearing of her sling and limitations of left UE post-op M7 PT-IP Assessment and Plan Start: 05/07/19 08:27 Freq: NEEDED Status: Active Protocol: Document 05/08/19 11:47 [facility] (Rec: 05/08/19 18:59 [facility] [id number]) PT Summary Assessment and Plan Potential Rehabilitation Potential Good Status of Condition at Evaluation Evolving Summary Impairments Pain,ROM,Strength,Balance, Sensation,Bed Mobility, Transfers,Gait,Activity Tolerance Assessment Summary Meredith is alert and very motivated to get out of bed. She reports very little pain today except for her buttock area from prolonged time in bed. She needs two person assist to transfer up to recliner with hemiwalker. She has significant functional weakness in left LE post-op and is unable to use left UE functionally due to post-op restrictions. Pt left up in recliner with nursing aware. She is unable to go home alone at this time. She could benefit from SNF rehab at discharge. Goals Bed Mobility Goal Minimal Assistance Transfer Goal Moderate Assistance Gait Goal Moderate Assistance,Van Walker Gait Distance 5 feet Other Goals all mobility with van-walker Days to Meet Goals 4 Frequency of Treatment Frequency Of Treatment Twice a Day Treatment Plan Physical Therapy Treatment Plan Bed Mobility Training,Transfer Training,Gait Training, Therapeutic Exercise,Balance Retraining,Post Op Education, Discharge Planning,Hot or Cold Pack,Neuromuscular Re-ed Recommendations To Nursing Amount of Assist Needed 2 Person Assist Discharge Recommendations PT Discharge Recommendations SNF Rehab Equipment Needed for Home Before defer to SNF rehab Discharge
[2019-05-08] MEDS: OXYCODONE/ACETAMINOPHEN 5/325 TABLET 1 TAB PO ×2 (14:34→21:54)
--- NOTE | 2019-05-08 15:15 | PT.IPTN ---
Current Diagnoses Fracture of unspecified part of neck of left femur, initial encounter for closed fracture (05/05/19) Surgery Performed Operation Date: 05/06/19 09:00 Actual Procedures p Intertrochanteric femur nail(Left) - Armani Pitts MD s Open reduction internal fixation of olecranon(Left) - Armani Pitts MD Physical Therapy Treatment Note M2 PT-IP Current Condition Start: 05/07/19 08:27 Freq: NEEDED Status: Active Protocol: Document 05/08/19 11:47 DLM (Rec: 05/08/19 18:59 DLM [id number]) Physical Therapy Current Condition Current Condition Evaluation Date 05/08/19 Treatment Diagnosis left femur fx with nailing, left olecranon fx with ORIF Onset Date 05/05/19 Precautions Brace left elbow is splinted post-op , sling in use to discourage use of left elbow, no shoulder restrictions Other Precautions left hip is WBAT left elbow is NWB Blood transfusion needed after surgery 05/07/19 Weight Bearing Status Weight Bearing Status Non-Weight Bearing M3 PT-IP Subjective Start: 05/07/19 08:27 Freq: NEEDED Status: Active Protocol: Document 05/08/19 15:15 DLM (Rec: 05/08/19 19:09 DL [id number]) Subjective Physical Therapy Visit Type Type Treatment Note Visit Start Time 14:50 Visit Stop Time 15:15 Total Visit Minutes 25 Number of INSURANCE OFFICE MANAGER Visits 0 Physical Therapy Visit Comments Patient Comments She took pain medication and she feels it helped Therapy Pain Assessment Pain When Pain Assessed During Mobility Pain Present Pain Present Pain Reported Location Left Hip Intensity 2 Scale Used Numeric (1 - 10) Description Aching Pain Management Techniques Re-positioning M4 PT-IP Mobility and Gait Start: 05/07/19 08:27 Freq: NEEDED Status: Active Protocol: Document 05/08/19 15:15 DLM (Rec: 05/08/19 19:09 DL [id number]) PT-Bed Mobility Assessment Scooting Scooting to Edge of Bed Moderate Assistance,Maximum Assistance PT-Transfer Assessment Sit to and From Stand Sit to and from Stand Moderate Assistance,1 Person Assistance,Use of Upper Extremities Equipment Transfer Assistive Device Gait Belt,Van Walker Transfers Transfer Destination Bed,Chair Transfer Technique Stand Step Pivot Transfer Ability Level of Assist Moderate Assistance,2 Person Assistance,Use of Upper Extremities Comments Mobility Comments She has more difficulty with transfers to her left side. She needs mod assist of two people to transfer to left and min assist of two people to transfer to her right side. Recommend nursing use right transfers whenever possible. Pt scoots feet and takes small steps with left during transfers but has difficulty weight bearing on left LE to take functional steps with right. Pt left up in recliner this visit per her request. Gait Assessment Comments Gait Comments pt unable to advance to gait today due to difficulty taking steps, weakness with weight bearing on left LE PT-Balance Assessment Sitting Balance and Reactions Static Sitting Balance Ability Good Dynamic Sitting Balance Ability Fair Standing Balance and Reactions Static Standing Balance Ability Fair Dynamic Standing Balance Ability Fair Device Used van-walker M5 PT-IP Objective Assessments Start: 05/07/19 08:27 Freq: NEEDED Status: Active Protocol: Document 05/08/19 11:47 DLM (Rec: 05/08/19 18:59 DLM [id number]) Orientation Orientation/Cognition Level of Alertness Alert Orientation Name,Age,Birthday,Month,Date, Year,Day of Week,Place, Situation Language Function Ability Hard of Hearing Safety Awareness Understands Safety Issues Memory Description No Deficits Noted Comments blind left eye, pt wearing glasses, she is talkative and motivated to increase her activity Gross Range of Motion Upper Extremity ROM Assessment Bilaterally Impaired Impairments shoulder elevation limited bilaterally, right 90-100 degrees and left 80-90 degrees , no ROM left elbow post-op with splint in place Lower Extremity ROM Assessment Left Impaired Impairments pain limits left hip ROM and knee flexion Strength Upper Extremity Strength Assessment Left Impaired Shoulder left moving functionally, hx shoulder fx Elbow unable post-op on left Lower Extremity Strength Assessment Left Impaired Hip flexion 3-/5, needs assist to move left LE in bed Knee ext 4-/5 Ankle DF 4+/5 Coordination Assessment Gross Coordination Gross Coordination WNL Sensation Assessment Sensation Gross Sensation Right LE Impaired,Left LE Impaired Light Touch Intact Sensation Description Numbness Comments Sensation Comments 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 Muscle Tone Muscle Tone WNL Yes M6 PT-IP Treatment Start: 05/07/19 08:27 Freq: NEEDED Status: Active Protocol: Document 05/08/19 15:15 DLM (Rec: 05/08/19 19:09 DLM [id number]) Physical Therapy Treatment Exercises Exercises Ankle Pumps Education Education Provided Weight Bearing Status,Safety Other Treatments Other Treatment Performed reviewed wearing of her sling and limitations of left UE post-op Ther EX- seated knee extension Static standing training with van-walker and CG/min of two people. M7 PT-IP Assessment and Plan Start: 05/07/19 08:27 Freq: NEEDED Status: Active Protocol: Document 05/08/19 15:15 DLM (Rec: 05/08/19 19:09 DLM [id number]) PT Summary Assessment and Plan Summary Impairments Pain,ROM,Strength,Balance, Sensation,Bed Mobility, Transfers,Gait,Activity Tolerance Progress Towards Goals Progressing Toward Goals Assessment Summary Meredith has tolerated sitting up in recliner well today. She is happy to be out of bed. She continues to need two person assist for transfers. She shows improved ability to transfer to right side and needs more assistance to transfer to her left side. Continue to recommend SNF rehab at discharge. Goals Bed Mobility Goal Minimal Assistance Transfer Goal Moderate Assistance Gait Goal Moderate Assistance,Van Walker Gait Distance 5 feet Other Goals all mobility with van-walker Days to Meet Goals 4 Frequency of Treatment Frequency Of Treatment Twice a Day Treatment Plan Physical Therapy Treatment Plan Bed Mobility Training,Transfer Training,Gait Training, Therapeutic Exercise,Balance Retraining,Post Op Education, Discharge Planning,Hot or Cold Pack,Neuromuscular Re-ed Recommendations To Nursing Amount of Assist Needed 2 Person Assist Discharge Recommendations PT Discharge Recommendations SNF Rehab
--- NOTE | 2019-05-08 17:29 | P.PN_ITS ---
Subjective Subjective Date Patient Seen: 05/08/19 Interval history: Patient is a 79-year-old female status post left hip fracture repair and ORIF of left olecranon fracture. Also postop had developed laryngeal edema which was treated with Solu-Medrol and has resolved. Patient able to get out of bed to chair this morning with assistance. She denies pain. Exam Vital Signs (past 8 hours): - 05/08/19 12:00 Temperature 98.3 F Pulse Rate 89 Respiratory Rate 16 Blood Pressure 116/46 L Pulse Oximetry 94 Oxygen Delivery Method Room Air Oxygen Flow Rate 0 Narrative Exam Narrative: General: Alert and pleasant in no acute distress Lungs: Clear to auscultation Heart: Regular rhythm Extremities: Left elbow dressing and arm in sling, left thigh dressing is dry and intact with expected postop left thigh swelling Objective Labs Result Diagrams: 05/08/19 05:14 05/08/19 05:14 Labs: Laboratory Results - last 24 hr 05/08/19 05/08/19 05:14 05:14 WBC 9.5 RBC 3.25 L Hgb 10.0 L Hct 28.7 L MCV 88.2 D MCH 30.7 MCHC 34.8 RDW 14.9 H Plt Count 165 Neut % (Auto) 69.3 Lymph % (Auto) 16.1 L [place] % (Auto) 14.5 H Eos % (Auto) 0.0 L Baso % (Auto) 0.1 Neut # (Auto) 6600 Lymph # (Auto) 1500 [place] # (Auto) 1400 H Eos # (Auto) 0 Baso # (Auto) 0 Sodium 136 L Potassium 4.5 Chloride 101 Carbon Dioxide 28 BUN 34 H Creatinine 0.90 Estimated GFR > 60.0 BUN/Creatinine Ratio 37.8 H Glucose 386 H Calcium 8.2 L Assessment & Plan Assessment & Plan narrative: Patient is a 79-year-old female status post left hip fracture repair and ORIF of left olecranon fracture. Also postop had developed laryngeal edema which was treated with Solu-Medrol and has resolved. 1. 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 Acute laryngeal edema postop, resolved 3. Type 1 diabetes -hemoglobin A1c 6.8 indicating good long-term control -blood sugars elevated greater than 300 associated with postop status and dose of Solu-Medrol, expect sugars will gradually improved -continue basal and bolus insulin 4. Hypertension and hyperlipidemia, chronic and controlled -continue current medication 5. Acute blood loss anemia secondary to fractures -improved H&H status post 2 units PRBC Patient is medically stable and likely ready for discharge to rehab facility tomorrow, Wednesday
[2019-05-08] MEDS: ATORVASTATIN 20 MG TABLET PO (21:54)
[2019-05-08] MEDS: SENNOSIDES 8.6 MG TABLET 17.2 MG PO (21:54)
[2019-05-08] MEDS: LATANOPROST 0.005% OPHTH 2.5 ML 1 DROPS EYE-BOTH (21:54)
[2019-05-08] MEDS: INSULIN GLARGINE 100 UNIT/ML 3ML PEN 12 UNIT SUBCUT (21:59)
[2019-05-09 05:30] VITALS: BP 126/49; PULSE 80; RESP 18; TEMP 36.7; O2SAT 96
[2019-05-09 08:00] VITALS: BP 135/52; PULSE 82; RESP 15; TEMP 36.9; O2SAT 95
[2019-05-09] MEDS: INSULIN ASPART 100 UNIT/ML INSULN PEN SUBCUT ×4 (08:25→12:03)
[2019-05-09] MEDS: CALCIUM CARBONATE 500 MG TAB PO (08:29)
[2019-05-09] MEDS: LISINOPRIL 10 MG TABLET 30 MG PO (08:29)
[2019-05-09] MEDS: SODIUM CHLORIDE 0.9% FLUSH 10 ML IV (08:30)
[2019-05-09] MEDS: ASPIRIN EC 325 MG TABLET PO (08:30)
[2019-05-09] MEDS: CHOLECALCIFEROL (VITAMIN D3) 1,000 UNIT TABLET 2000 UNIT PO (08:30)
[2019-05-09] MEDS: MAGNESIUM HYDROXIDE 30 ML UDC PO (08:31)
--- NOTE | 2019-05-09 09:37 | PC.NURSE ---
Addendum entered by Lisa Hanks R.N. 05/09/19 12:40: DC - report called to NICOLETTE Lamb at [facility] [phone]. Addendum entered by Lisa Hanks R.N. 05/09/19 12:15: TSF - after pt ate soup and roll, given 8 units novalog, 650mg tylenol for the transport to [facility], pt did not have clothing that would fit over leg, occup therapy dressed in new gown and bed bath provided, belongings gathered, including cell phone, glasses, hearing aid and x 1 spare battery, personal care items, no scripts, packet info provided to transport personnel. Addendum entered by Lisa Hanks R.N. 05/09/19 09:55: GI - with phys therapy assistance, rolled to side and dulcolax suppos admin, phys therapy to mobilize to chair. Original Note: AM NOTE - pt is alert, denies pain now, discussed medications and declines this am prior to phys therapy, hr reg, +bt, discussed bm, narcotics and constipation, given mom at breakfast, and suppos later if needed, [place] w/clear, conc urine.
--- NOTE | 2019-05-09 09:45 | PT.IPTN ---
Current Diagnoses Fracture of unspecified part of neck of left femur, initial encounter for closed fracture (05/05/19) Surgery Performed Operation Date: 05/06/19 09:00 Actual Procedures p Intertrochanteric femur nail(Left) - Armani Pitts MD s Open reduction internal fixation of olecranon(Left) - Armani Pitts MD Physical Therapy Treatment Note M2 PT-IP Current Condition Start: 05/07/19 08:27 Freq: NEEDED Status: Discharge Protocol: Document 05/08/19 11:47 DLM (Rec: 05/08/19 18:59 DLM [id number]) Physical Therapy Current Condition Current Condition Evaluation Date 05/08/19 Treatment Diagnosis left femur fx with nailing, left olecranon fx with ORIF Onset Date 05/05/19 Precautions Brace left elbow is splinted post-op , sling in use to discourage use of left elbow, no shoulder restrictions Other Precautions left hip is WBAT left elbow is NWB Blood transfusion needed after surgery 05/07/19 Weight Bearing Status Weight Bearing Status Non-Weight Bearing M3 PT-IP Subjective Start: 05/07/19 08:27 Freq: NEEDED Status: Discharge Protocol: Document 05/09/19 09:45 CLB (Rec: 05/09/19 12:54 CLB [id number]) Subjective Physical Therapy Visit Type Type Treatment Note Visit Start Time 09:45 Visit Stop Time 10:21 Total Visit Minutes 36 Number of SHELLFISH MEAT SEPARATOR OPERATOR Visits 1 Physical Therapy Visit Comments Patient Comments Pt's buttocks hurting and pt wanted to transfer to chair. Therapy Pain Assessment Pain When Pain Assessed During Mobility Pain Present Pain Present Pain Reported M4 PT-IP Mobility and Gait Start: 05/07/19 08:27 Freq: NEEDED Status: Discharge Protocol: Document 05/09/19 09:45 CLB (Rec: 05/09/19 12:54 CLB [id number]) PT-Bed Mobility Assessment Rolling Type of Rolling Bilateral Level of Assist Maximal Assistance Supine to Sit Supine to Sit Moderate Assistance Scooting Scooting to Edge of Bed Moderate Assistance,Maximum Assistance PT-Transfer Assessment Sit to and From Stand Sit to and from Stand Moderate Assistance,1 Person Assistance,Use of Upper Extremities Equipment Transfer Assistive Device Gait Belt,Van Walker Transfers Transfer Destination Bed,Chair,Bedside Commode Transfer Ability Level of Assist Moderate Assistance,2 Person Assistance,Use of Upper Extremities Comments Mobility Comments Assisted RN with bed mobility to give pt suppository. Pt improving with use of van walker. Pt uses shuffle of feet to stand pivot to chair. Pt felt the need for BM, chair was moved and BSC was placed behind pt. Pt had BM and required Mod A x2 for standing balance while LOGISTICS MANAGER performed pericare. Left pt in chair with LOGISTICS MANAGER present in room to assist pt. RN informed pt had BM. Gait Assessment Comments Gait Comments pt unable to advance to gait today due to difficulty taking steps, weakness with weight bearing on left LE M5 PT-IP Objective Assessments Start: 05/07/19 08:27 Freq: NEEDED Status: Discharge Protocol: Document 05/08/19 11:47 DLM (Rec: 05/08/19 18:59 DLM [id number]) Orientation Orientation/Cognition Level of Alertness Alert Orientation Name,Age,Birthday,Month,Date, Year,Day of Week,Place, Situation Language Function Ability Hard of Hearing Safety Awareness Understands Safety Issues Memory Description No Deficits Noted Comments blind left eye, pt wearing glasses, she is talkative and motivated to increase her activity Gross Range of Motion Upper Extremity ROM Assessment Bilaterally Impaired Impairments shoulder elevation limited bilaterally, right 90-100 degrees and left 80-90 degrees , no ROM left elbow post-op with splint in place Lower Extremity ROM Assessment Left Impaired Impairments pain limits left hip ROM and knee flexion Strength Upper Extremity Strength Assessment Left Impaired Shoulder left moving functionally, hx shoulder fx Elbow unable post-op on left Lower Extremity Strength Assessment Left Impaired Hip flexion 3-/5, needs assist to move left LE in bed Knee ext 4-/5 Ankle DF 4+/5 Coordination Assessment Gross Coordination Gross Coordination WNL Sensation Assessment Sensation Gross Sensation Right LE Impaired,Left LE Impaired Light Touch Intact Sensation Description Numbness Comments Sensation Comments 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 Muscle Tone Muscle Tone WNL Yes M6 PT-IP Treatment Start: 05/07/19 08:27 Freq: NEEDED Status: Discharge Protocol: Document 05/08/19 15:15 DLM (Rec: 05/08/19 19:09 DLM [id number]) Physical Therapy Treatment Exercises Exercises Ankle Pumps Education Education Provided Weight Bearing Status,Safety Other Treatments Other Treatment Performed reviewed wearing of her sling and limitations of left UE post-op Ther EX- seated knee extension Static standing training with van-walker and CG/min of two people. M7 PT-IP Assessment and Plan Start: 05/07/19 08:27 Freq: NEEDED Status: Discharge Protocol: Document 05/09/19 09:45 CLB (Rec: 05/09/19 12:54 CLB [id number]) PT Summary Assessment and Plan Summary Impairments Pain,ROM,Strength,Balance, Sensation,Bed Mobility, Transfers,Gait,Activity Tolerance Progress Towards Goals Progressing Toward Goals Assessment Summary Pt continues to require Mod A x2 with bed mobility and transfers. Pt requires cues for hand placement during sit< >stand for safety. Pt able to transfer to right well but fatigued quickly today and didn't tolerate further therapy. Goals Bed Mobility Goal Minimal Assistance Transfer Goal Moderate Assistance Gait Goal Moderate Assistance,Van Walker Gait Distance 5 feet Other Goals all mobility with van-walker Days to Meet Goals 4 Frequency of Treatment Frequency Of Treatment Twice a Day Treatment Plan Physical Therapy Treatment Plan Bed Mobility Training,Transfer Training,Gait Training, Therapeutic Exercise,Balance Retraining,Post Op Education, Discharge Planning,Hot or Cold Pack,Neuromuscular Re-ed Recommendations To Nursing Amount of Assist Needed 2 Person Assist Discharge Recommendations PT Discharge Recommendations SNF Rehab
[2019-05-09] MEDS: BISACODYL 10 MG SUPP PR (09:46)
--- NOTE | 2019-05-09 10:18 | P.DS_ITS ---
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 The patient reports she has difficulty with ambulation ( chronically). She is unsteady on her feet and has difficulty with her balance. She goes to outpatient therapy for this.. [place] went to step up on the curb, it was slippery, she lost her balance ,and fell. The patient had an x-ray of her hip and sustained a left intratrochanteric fracture, she has also sustained a nondisplaced radial head fracture on the left as well. Patient denies loss of consciousness, headache, shortness of breath, chest pain or palpitations. She is blind in her left eye. Her only medical complaint is intermittant urinary urgency at night. She has no fever, chills, or cough. She is essentially pain free lying in bed. She does get occassional sharp spasms of pain. CT Scan of the hip confirmed the intratrochanteric fracture. Patient is admitted to the hospital for definitive surgical treatment. As the patient is a type 1 diabetic requiring managment of her insulin, the hospitalists will assist with management of her perioperative course. Discharge Providers Provider Date of admission: 05/05/19 14:25 Discharge Date: 05/09/19 Consults: 05/05/19 17:32 Consult to Occupational Therapy Evaluate & Treat Comment: Physician Instructions: Evaluate and treat Consult to Physical Therapy Evaluate & Treat Comment: Physician Instructions: Evaluate and Treat Consult to Physician Routine Comment: Consulting Provider: Armani Pitts Reason for consultation: hip fracture Has provider been notified: Yes 05/06/19 14:07 Consult to Physical Therapy Evaluate & Treat Comment: MADELINE THURSTON Physician Instructions: Evaluate and Treat Discharge provider: Tarik Patino MD Summary Hospital Course Discharge Diagnosis: 1. Acute osteoporotic fracture of the left olecranon 2. Acute osteoporotic fracture of the left hip 3. Acute blood loss anemia secondary to fractures 4. Acute laryngeal edema postop secondary to difficult intubation 5. Type 1 diabetes with acute hyperglycemia, long-term good control Surgeon: Dr. Armani Pitts Procedures: ORIF left olecranon fracture Left hip fracture repair with cephalomedullary nail Hospital Course: Patient had successful repair of left hip fracture and left olecranon fracture. Postop complicated by laryngeal edema secondary to in tubation and causing difficulty swallowing. Patient received 1 dose of Solu- Medrol 125 mg IV. She is doing fine since then. Blood sugars have been persistently elevated postop in 300 range. Patient's long-term diabetes control is very good with hemoglobin A1c 6.8 and I expect sugars will gradually normalized over the course of next 1-2 weeks. Blood pressure has been well controlled on medication. She did received 2 units PRBC for blood loss anemia secondary to fractures. She is getting PT and OT which will be continued at rehab. Patient requested we keep the Park catheter in as she still has difficulty getting up to commode but catheter should be removed at nursing facility in the next couple of days when patient hopefully more ambulatory. Exam Vital Signs (past 8 hours): - 05/09/19 05:30 05/09/19 08:00 Temperature 98.1 F 98.5 F Pulse Rate 80 82 Respiratory Rate 18 15 Blood Pressure 126/49 L 135/52 L Pulse Oximetry 96 95 Oxygen Delivery Method Room Air Oxygen Flow Rate 0 Objective Labs Result Diagrams: 05/08/19 05:14 05/08/19 05:14 Discharge Plan Discharge Plan Patient Disposition: SNF Transfer to: [facility] Consult as needed: Dental, Hearing, Mental health, Podiatry and Vision Discharge orders & Medications Prescriptions: New acetaminophen 325 mg Tablet 650 mg PO Q6HR PRN (Reason: As Needed For Fever/Mild Pain) Qty: 30 RF: 0 Novolog Flexpen U-100 Insulin 100 unit/mL (3 mL) Insulin Pen See Rx Instructions .ROUTE .COMPLEX Qty: 15 RF: 0 Continued atorvastatin [Lipitor] 20 MG tablet 20 mg PO BEDTIME Qty: 0 RF: 0 latanoprost [Xalatan] 0.005 % drops 1 drp OPHTH BEDTIME Qty: 0 RF: 0 calcium carbonate 500 MG tablet 1,500 mg PO QDAY Qty: 0 RF: 0 lisinopril 30 mg tablet 30 mg PO DAILY RF: 0 triamterene-hydrochlorothiazid 37.5-25 mg tablet 1 tab PO DAILY RF: 0 Changed Lantus U-100 Insulin 100 UNIT/1 ML solution 13 unit SQ BEDTIME Qty: 0 RF: 0 ibuprofen 400 MG tablet 400 mg PO TID PRN (Reason: pain) Qty: 0 RF: 0 Novolog Flexpen U-100 Insulin 100 UNIT/1 ML insulin pen 4 unit subcut TIDCC Qty: 0 RF: 0 Discontinued insulin lispro [Humalog KwikPen Insulin] 100 unit/mL insulin pen 0 unit SUBCUT DIRECTED RF: 0 Follow up/Referrals: Armani Pitts MD [Physician] - 2 Weeks Discharge Health Status Multidrug resistant organism: No MDRO Precautions: [place] Diet/Activity/Treatments Diet: Diet as Tolerated Liquid consistency: Normal/Thin Food texture: Regular Catheter: 2-way Park Catheter comment: remove catheter in 1-2 days when pt more ambulatory [facility] Reason for rehabilitation: Post-operative therapy Rehab type: Physical therapy and Occupational therapy
--- NOTE | 2019-05-09 11:27 | OT.IP.TRT ---
Current Diagnoses Fracture of unspecified part of neck of left femur, initial encounter for closed fracture (05/05/19) Surgery Performed Operation Date: 05/06/19 09:00 Actual Procedures p Intertrochanteric femur nail(Left) - Armani Pitts MD s Open reduction internal fixation of olecranon(Left) - Armani Pitts MD Occupational Therapy Treatment Note M2 OT-IP Current Condition Start: 05/06/19 09:33 Freq: Status: Active Protocol: Document 05/08/19 13:05 [facility] (Rec: 05/08/19 13:34 [facility] [id number]) Occupational Therapy Current Condition Current Condition Evaluation Date 05/08/19 Treatment Diagnosis Left intertrocanteric hp fx, left olecranon fx Diagnosis Onset Date 05/05/19 Post Operative Precautions Other Precautions LUE in sling, left elbow with posterior slab splint on. Weight Bearing Status Weight Bearing Status Non-Weight Bearing Allowed Weight Bearing Amount (enter % NWB for LUE or #) (%) WBAT for LLE M3 OT- IP Subjective and Pain Start: 05/06/19 09:33 Freq: Status: Active Protocol: Document 05/09/19 12:24 [facility] (Rec: 05/09/19 12:32 [facility] [id number]) OT- Subjective Occupational Therapy Visit Type Type Treatment Note Visit Start Time 11:27 Visit Stop Time 11:51 Total Visit Minutes 24 Occupational Therapy Visit Comments Patient Comments Pt getting ready to go to skilled rehab today. OT Pain Assessment Pain When Pain Assessed At Rest Pain Present Pain Present Denied Pain M4 OT- IP ADL's Start: 05/06/19 09:33 Freq: Status: Active Protocol: Document 05/09/19 12:24 [facility] (Rec: 05/09/19 12:32 [facility] [id number]) OT ADL-Dressing General Eval Upper Body Dressing Ability Maximum Assistance Comments OT Dressing Comments Educated pt on the sequence to be able to richelle/doff arm sling. Due to limited mobility of LUE, pt will continue to need at least MODA to richelle the arm sling. OT ADL-Toileting Comments OT Toileting Comments Pt has [place] in. OT ADL-Bathing General Evaluation Bathing Ability Moderate Assistance Comments OT Bathing Comments Assist to wash/ dry under right arm due to limited use of LUE. Pt able to sponge top half of her body while sitting in the recliner. M6 OT- IP Functional Cognition Start: 05/06/19 09:33 Freq: Status: Active Protocol: Document 05/09/19 12:24 [facility] (Rec: 05/09/19 12:32 [facility] [id number]) Cognitive Factors Limiting Selfcare Function Cognitive Ability Level of Alertness Alert Patient Orientation Name,Place,Situation Attention Span Ability Capable of Focused Attention, Capable of Sustained Attention Ability to Follow Commands Able to Follow One Step Commands Memory Description Short Term Impaired Problem Solving Ability Unable to Identify Errors, Needs Assist to Identify Solutions Cognitive Comments Cognitive Assessment Comments Pt very forgetful and immediately forgot what she was doing after getting distracted by conversation with PA. M9 OT- IP Assessment and Plan Start: 05/06/19 09:33 Freq: Status: Active Protocol: Document 05/09/19 12:24 [facility] (Rec: 05/09/19 12:32 [facility] [id number]) OT Summary Assessment and Plan Potential Rehabilitation Potential Good Analytic Complexity at Evaluation Moderate Summary OT Impairments Pain,Range of Motion,Strength, Balance,Functional Cognition, Functional Mobility,Self- Feeding,Grooming,Dressing, Toileting,Bathing,Toilet Transfers,Shower Transfers Progress Towards Goals Slow Progress due to Activity Tolerance,Slow Progress due to Cognition Assessment Summary Pt needing more cues to follow directions today and more distracted. Pt motivated to go to skilled rehab to get stronger and improve with independence for ADl and functional mobility needs. Goals Self-Feeding Goal Independent Grooming Goal Independent Dressing Goal Independent Toileting Goal Independent Bathing Goal Standby Assistance Toilet Transfer Goal Independent Shower Transfer Goal Standby Assistance Patient/Caregiver Education Goal Demonstrate Post-Op Precautions Days to Meet Goals 14 Frequency of Treatment Frequency Of Treatment Once a Day Treatment Plan OT Treatment Plan ADL Training,Functional Cognition Training,Functional Mobility,Patient/Family Education,Discharge Planning Discharge Recommendations OT Discharge Recommendations SNF Rehab Home Equipment Needs defer to SNF
--- NOTE | 2019-05-09 11:40 | CM.DPC ---
DCP Cont: Patient is to go to [facility] today. Did received discharge orders. Spoke to Queta at [facility] who is expecting patient today. She stated that they can pick her up at 12:30 or 1630. Stated that ideal time would be 12:30. Updated nurse, Lisa, she is aware. Patient is aware as well. Faxed over signed med sheet, PASSR, and discharge summary to [facility]. Gave nurse, Lisa, name and number to give report. P: Patient will be discharged today to [facility]. Gina Jordan RN/Department Mgr
[2019-05-09 12:00] VITALS: BP 105/51; PULSE 82; TEMP 37.1; O2SAT 95
[2019-05-09] MEDS: ACETAMINOPHEN 325 MG TABLET 650 MG PO (12:02)
--- NOTE | 2019-05-09 17:38 | PM.PN.1 ---
Subjective Subjective Date Patient Seen: 05/09/19 Time Patient Seen: 08:00 Interval history: No acute events overnight. Patient doing well, with no complaints. Patient denies fever, chills, shortness of breath, chest pain, calf pain. Exam Vital Signs (past 8 hours): - 05/09/19 12:00 Temperature 98.7 F Pulse Rate 82 Blood Pressure 105/51 L Pulse Oximetry 95 Oxygen Delivery Method Room Air Oxygen Flow Rate 0 Narrative Exam Narrative: Pleasant 79 year old female is sitting comfortably in chair, in no apparent distress. A&Ox3. Splint on L elbow is in place with sling. L Radial pulse 2+. Sensory function grossly intact to light touch on L UE/LE. Posterior tibialis 2+ LE b/l. Calves soft, warm, compressible, nttp. Patient can actively dorsiflex/plantar flex b/l. Dressings CDI on L LE. Objective Labs Result Diagrams: 05/08/19 05:14 05/08/19 05:14 Assessment & Plan Assessment & Plan narrative: Patient will be discharged to SNF today. Patient will arrange follow up with office in 2 weeks.
== END 2019-05-09 12:20 | DRG 481 ==
LOC: ED 14:23 → AC 14:25
PROVIDERS: Nurse Practitioner Gerontology; Orthopaedic Surgery Adult Reconstructive Orthopaedic Surgery; Admitting Provider Internal Medicine; Emergency Provider Emergency Medicine; Visit Provider Internal Medicine
PROC: 0QS706Z Reposition Left Upper Femur with Intramedullary Internal Fixation Device, Open Approach (ICD-10-PCS; CPT 27245; principal; 2019-05-06 09:00)
PROC: 0RSM04Z Reposition Left Elbow Joint with Internal Fixation Device, Open Approach (ICD-10-PCS; 2019-05-06 09:00)
DX: M80.052A Age-related osteoporosis with current pathological fracture, left femur, initial encounter for fracture (principal); D62 Acute posthemorrhagic anemia; E87.1 Hypo-osmolality and hyponatremia; M80.032A Age-related osteoporosis with current pathological fracture, left forearm, initial encounter for fracture; I12.9 Hypertensive chronic kidney disease with stage 1 through stage 4 chronic kidney disease, or unspecified chronic kidney disease; N18.3 Chronic kidney disease, stage 3 (moderate); E10.22 Type 1 diabetes mellitus with diabetic chronic kidney disease; R13.10 Dysphagia, unspecified; J38.4 Edema of larynx; E78.5 Hyperlipidemia, unspecified; H54.40 Blindness, one eye, unspecified eye; H40.9 Unspecified glaucoma; W18.30XA Fall on same level, unspecified, initial encounter; T88.4XXA Failed or difficult intubation, initial encounter
CPT/HCPCS: 36415; 36430; 51701; 73080; 73502; 74022; 74177; 76000; 80048; 80061; 82009; 82728; 82962; 83036; 83540; 83550; 85018; 85025; 86850; 86900; 86901; 93005; 94640; 94762; 96374; 97162; 97166; 97530; 97535; 99283; 99284; P9016; J0330; J0690; J1100; J1170; J1756; J2060; J2405; J2704; J2930; J3010

== ENCOUNTER → 2019-09-05 11:32 | Outpatient (CLI) | payer MEDICARE, OTHER, SELFPAY ==
[2019-05-05 17:24] VITALS: BMI 29.5
[2019-09-05 12:36] LABS: Hematocrit 33.3 % (36-46)
[2019-09-05 12:48] LABS: Hemoglobin A1C% w Est Avg Glu 6.7 % (4.0-6.0)
[2019-09-05 13:28] LABS: BUN Creatinine Ratio 40.5 (6-22); Blood Urea Nitrogen 34 mg/dL (7-17); Carbon Dioxide 26 mmol/L (22-32); Chloride 103 mmol/L (98-107); Estimated Glomerular Filt Rate > 60.0 mL/min (>60); Glucose 170 mg/dL (80-110); HEMOLYSIS < 15 (0-50); Sodium 137 mmol/L (137-145)
[2019-09-05 13:29] LABS: Potassium 5.5 mmol/L (3.4-5.1)
== END ==
PROVIDERS: PCP Student in an Organized Health Care Education/Training Program; Referring Provider Student in an Organized Health Care Education/Training Program; Visit Provider Student in an Organized Health Care Education/Training Program
DX: E10.9 Type 1 diabetes mellitus without complications (principal); I10 Essential (primary) hypertension; D50.0 Iron deficiency anemia secondary to blood loss (chronic)
CPT/HCPCS: 36415; 80048; 83036; 85014; 85018

== ENCOUNTER → 2020-02-29 09:34 | Outpatient (CLI) | payer MEDICARE, OTHER, SELFPAY ==
[2019-05-05 17:24] VITALS: BMI 29.5
[2020-02-29 10:00] LABS: Hemoglobin 10.6 g/dL (12.0-16.0); Mean Corpuscular HGB Conc 33.2 % (30-36); Mean Corpuscular Hemoglobin 30.6 PG (26-34); Mean Corpuscular Volume 92.3 fL (80-100); Platelet Count 260 X10^3/uL (150-400); Red Blood Cell Count 3.47 X10^6/uL (4.0-5.2); Red Cell Distribution Width 14.3 % (11.6-14.8); White Blood Cell Count 6.8 X10^3/uL (4.5-11.0)
[2020-02-29 10:11] LABS: Creatinine Urine Random 34.3 mg/dL
[2020-02-29 10:15] LABS: Microalbumi Creatinin Ratio Ur 75.8 ug/mg CR (<30); Microalbumin Urine Random 2.6 mg/dL (0-1.6)
[2020-02-29 10:18] LABS: Hemoglobin A1C% w Est Avg Glu 6.4 % (4.0-6.0)
[2020-02-29 10:22] LABS: Alanine Aminotransferase 15 IU/L (<35); Albumin 4.4 g/dL (3.5-5.0); Albumin Globulin Ratio 1.4 (1.0-2.8); Alkaline Phosphatase 125 U/L (38-126); Aspartate Aminotransferase 23 IU/L (14-36); BUN Creatinine Ratio 37.2 (6-22); Bilirubin Total 0.6 mg/dL (0.2-1.3); Blood Urea Nitrogen 35 mg/dL (7-17); Calcium 9.8 mg/dL (8.4-10.2); Carbon Dioxide 28 mmol/L (22-32); Chloride 102 mmol/L (98-107); Cholesterol 206 mg/dL (140-199); Estimated Glomerular Filt Rate 57.6 mL/min (>60); Globulin 3.2 g/dL (1.7-4.1); Glucose 94 mg/dL (80-110); HDL Cholesterol 95 mg/dL (40-60); HEMOLYSIS < 15 (0-50); LDL Cholesterol Calculated 95 mg/dL (<100); Potassium 4.9 mmol/L (3.4-5.1); Sodium 138 mmol/L (137-145); Total Protein 7.6 g/dL (6.3-8.2); Triglycerides 78 mg/dL (35-150)
[2020-03-01 09:33] LABS: Reticulocyte Count, Percent 0.8 % (1.06-2.63)
[2020-03-01 09:37] LABS: HEMOLYSIS < 15 (0-50); Iron 82 ug/dL (37-170)
[2020-03-01 09:48] LABS: Percent Iron Saturation 29 % (15-50); Total Iron Binding Capacity 283 ug/dL (265-497); Transferrin 229 mg/dL (206-381)
[2020-03-01 10:14] LABS: Ferritin 458 ng/mL (11-264)
[2020-03-01 10:45] LABS: Vitamin B12 417 pg/mL (239-931)
== END ==
PROVIDERS: PCP Student in an Organized Health Care Education/Training Program; Referring Provider Student in an Organized Health Care Education/Training Program; Visit Provider Student in an Organized Health Care Education/Training Program
DX: D64.9 Anemia, unspecified (principal); E10.9 Type 1 diabetes mellitus without complications; E78.5 Hyperlipidemia, unspecified; I10 Essential (primary) hypertension; Z79.899 Other long term (current) drug therapy
CPT/HCPCS: 36415; 80053; 80061; 82043; 82570; 82607; 82728; 82746; 83036; 83540; 83550; 85027; 85045

== ENCOUNTER → 2020-06-11 09:32 | Outpatient (CLI) | payer MEDICARE, OTHER, SELFPAY ==
[2019-05-05 17:24] VITALS: BMI 29.5
[2020-06-11 10:54] LABS: Creatinine Urine Random 31.5 mg/dL
[2020-06-11 10:58] LABS: Microalbumi Creatinin Ratio Ur 177.7 ug/mg CR (<30); Microalbumin Urine Random 5.6 mg/dL (0-1.6)
== END ==
PROVIDERS: PCP Student in an Organized Health Care Education/Training Program; Referring Provider Student in an Organized Health Care Education/Training Program; Visit Provider Student in an Organized Health Care Education/Training Program
DX: E10.9 Type 1 diabetes mellitus without complications (principal)
CPT/HCPCS: 82043; 82570

== ENCOUNTER → 2020-09-05 12:46 | Outpatient (CLI) | payer MEDICARE, OTHER, SELFPAY ==
[2019-05-05 17:24] VITALS: BMI 29.5
--- NOTE | 2020-09-05 12:49 | DI.RAD.S_ITS ---
PROCEDURE: XR HIP W PEL IF DONE LT 2V INDICATIONS: L HIP PAIN TECHNIQUE: AP pelvis with lateral view(s) of the left hip(s). COMPARISON: [facility], CR, XR PELVIS WITH LATERAL HIP LEFT, 07/04/2019, 12:04. [facility], CR, XR HIP W PEL IF DONE RT 2V, 05/06/2019, 11:15. FINDINGS: Bones: Patient is status post bilateral hip internal fixation. Healed left intertrochanteric fracture is seen. No gross hardware loosening or failure. No acute fracture or dislocation. Bilateral hip joint osteoarthritic changes are seen. No evidence of avascular necrosis of femoral head. Degenerative disc disease in visualized lower lumbar spine is seen. Soft tissues: The visualized bowel gas pattern is normal. No suspicious soft tissue calcifications. IMPRESSION: Healed left intertrochanteric fracture. No gross hardware complication. No acute fracture or dislocation. Bilateral hip joint osteoarthritis. No evidence of avascular necrosis of femoral head. Dictated by: Gabe Turner M.D. on 09/05/2020 at 13:24 Approved by: Gabe Turner M.D. on 09/05/2020 at 13:26
== END ==
PROVIDERS: PCP Student in an Organized Health Care Education/Training Program; Referring Provider Physician Assistant; Visit Provider Physician Assistant
DX: M25.552 Pain in left hip (principal); M16.0 Bilateral primary osteoarthritis of hip
CPT/HCPCS: 73502

== ENCOUNTER → 2020-09-13 17:26 | Outpatient (CLI) | payer MEDICARE, OTHER, SELFPAY ==
[2019-05-05 17:24] VITALS: BMI 29.5
[2020-09-13 18:20] LABS: Hematocrit 32.2 % (36-46); Hemoglobin 10.6 g/dL (12.0-16.0); Mean Corpuscular HGB Conc 32.9 % (30-36); Mean Corpuscular Hemoglobin 30.5 PG (26-34); Mean Corpuscular Volume 92.5 fL (80-100); Platelet Count 317 X10^3/uL (150-400); Red Blood Cell Count 3.48 X10^6/uL (4.0-5.2); Red Cell Distribution Width 13.1 % (11.6-14.8); White Blood Cell Count 7.3 X10^3/uL (4.5-11.0)
[2020-09-13 18:49] LABS: BUN Creatinine Ratio 40.2 (6-22); Blood Urea Nitrogen 37 mg/dL (7-17)
[2020-09-13 18:50] LABS: Hemoglobin A1C% w Est Avg Glu 6.3 % (4.0-6.0)
== END ==
PROVIDERS: PCP Student in an Organized Health Care Education/Training Program; Referring Provider Student in an Organized Health Care Education/Training Program; Visit Provider Student in an Organized Health Care Education/Training Program
DX: E10.9 Type 1 diabetes mellitus without complications (principal); D64.9 Anemia, unspecified
CPT/HCPCS: 36415; 82565; 83036; 84520; 85027

== ENCOUNTER → 2021-03-12 11:17 | Outpatient (CLI) | payer MEDICARE, OTHER, SELFPAY ==
[2019-05-05 17:24] VITALS: BMI 29.5
[2021-03-12 12:20] LABS: Hematocrit 32.8 % (36-46); Hemoglobin 10.7 g/dL (12.0-16.0); Mean Corpuscular HGB Conc 32.5 % (30-36); Mean Corpuscular Hemoglobin 30.3 PG (26-34); Platelet Count 254 X10^3/uL (150-400); Red Blood Cell Count 3.52 X10^6/uL (4.0-5.2); Red Cell Distribution Width 14.2 % (11.6-14.8); White Blood Cell Count 6.5 X10^3/uL (4.5-11.0)
[2021-03-12 12:26] LABS: Appearance Urine UA CLEAR; Bilirubin Urine UA NEGATIVE (NEGATIVE); Color Urine UA YELLOW; Glucose Urine UA NEGATIVE (Negative); Ketones Urine UA NEGATIVE (NEGATIVE); Leukocyte Esterase Urine UA 3+ (NEGATIVE); Nitrite Urine UA NEGATIVE (Negative); Occult Blood Urine UA TRACE-LYSED (Negative); Protein Urine UA NEGATIVE (Negative); Specific Gravity Urine UA <=1.005 (1.000-1.035); Urobilinogen Urine UA 0.2 E.U./dL (0.2)
[2021-03-12 12:29] LABS: pH Urine UA 6.5 (4.5-8.0)
[2021-03-12 12:42] LABS: Hemoglobin A1C% w Est Avg Glu 6.6 % (4.0-6.0)
[2021-03-12 12:43] LABS: Amorphous Sediment Urine 2+; Bacteria Urine Moderate (10-30); Culture Indicated Urine Cult Not Indicated; RBC Urine 1-5/HPF (0-5/HPF); Squamous Epithelial Cell Urine 10-30 /HPF (0-5/HPF); WBC Urine 5-10/HPF (0-5/HPF)
[2021-03-12 12:49] LABS: BUN Creatinine Ratio 42.2 (6-22); Blood Urea Nitrogen 35 mg/dL (7-17); Calcium 9.8 mg/dL (8.4-10.2); Carbon Dioxide 28 mmol/L (22-32); Chloride 103 mmol/L (98-107); Estimated Glomerular Filt Rate > 60.0 mL/min (>60); Glucose 202 mg/dL (80-110); HEMOLYSIS < 15 (0-50); Potassium 4.9 mmol/L (3.4-5.1); Sodium 137 mmol/L (137-145)
[2021-03-12 18:14] LABS: Creatinine Urine Random 37.7 mg/dL
[2021-03-12 18:19] LABS: Microalbumi Creatinin Ratio Ur 95.4 ug/mg CR (<30); Microalbumin Urine Random 3.6 mg/dL (0-1.6)
== END ==
PROVIDERS: PCP Student in an Organized Health Care Education/Training Program; Referring Provider Student in an Organized Health Care Education/Training Program; Visit Provider Student in an Organized Health Care Education/Training Program
DX: N18.30 Chronic kidney disease, stage 3 unspecified (principal); D63.1 Anemia in chronic kidney disease; E10.9 Type 1 diabetes mellitus without complications; I10 Essential (primary) hypertension; M18.30 Unilateral post-traumatic osteoarthritis of first carpometacarpal joint, unspecified hand; N18.31 Chronic kidney disease, stage 3a; R30.0 Dysuria
CPT/HCPCS: 36415; 80048; 81001; 82043; 82570; 83036; 85027

== ENCOUNTER → 2021-07-01 08:56 | Outpatient (CLI) | payer MEDICARE, OTHER, SELFPAY ==
[2019-05-05 17:24] VITALS: BMI 29.5
[2021-07-01 10:16] LABS: Hemoglobin A1C% w Est Avg Glu 6.5 % (4.0-6.0)
[2021-07-01 10:32] LABS: BUN Creatinine Ratio 34.3 (6-22); Blood Urea Nitrogen 34 mg/dL (7-17); Estimated Glomerular Filt Rate 54.1 mL/min (>60)
== END ==
PROVIDERS: PCP Student in an Organized Health Care Education/Training Program; Referring Provider Student in an Organized Health Care Education/Training Program; Visit Provider Student in an Organized Health Care Education/Training Program
DX: E10.22 Type 1 diabetes mellitus with diabetic chronic kidney disease (principal); N18.30 Chronic kidney disease, stage 3 unspecified; N18.2 Chronic kidney disease, stage 2 (mild)
CPT/HCPCS: 36415; 82565; 83036; 84520

== ENCOUNTER → 2022-01-22 09:47 | Outpatient (CLI) | payer MEDICARE, OTHER, SELFPAY ==
[2019-05-05 17:24] VITALS: BMI 29.5
[2022-01-22 11:22] LABS: Creatinine Urine Random 15.3 mg/dL
[2022-01-22 11:27] LABS: Microalbumi Creatinin Ratio Ur 169.9 ug/mg CR (<30); Microalbumin Urine Random 2.6 mg/dL (0-1.6)
[2022-01-22 11:32] LABS: Hematocrit 31.6 % (36-46); Hemoglobin 10.5 g/dL (12.0-16.0); Mean Corpuscular HGB Conc 33.1 % (30-36); Mean Corpuscular Hemoglobin 31.1 PG (26-34); Platelet Count 220 X10^3/uL (150-400); Red Blood Cell Count 3.36 X10^6/uL (4.0-5.2); White Blood Cell Count 5.8 X10^3/uL (4.5-11.0)
[2022-01-22 11:38] LABS: Hemoglobin A1C% w Est Avg Glu 6.9 % (4.0-6.0)
[2022-01-22 12:43] LABS: BUN Creatinine Ratio 40.2 (6-22); Blood Urea Nitrogen 33 mg/dL (7-17); Cholesterol 205 mg/dL (140-199); Estimated Glomerular Filt Rate > 60 mL/min (>60); HDL Cholesterol 85 mg/dL (40-60); LDL Cholesterol Calculated 109 mg/dL (<100); Triglycerides 57 mg/dL (35-150)
== END ==
PROVIDERS: PCP Student in an Organized Health Care Education/Training Program; Referring Provider Student in an Organized Health Care Education/Training Program; Visit Provider Student in an Organized Health Care Education/Training Program
DX: E10.22 Type 1 diabetes mellitus with diabetic chronic kidney disease (principal); E10.69 Type 1 diabetes mellitus with other specified complication; E78.2 Mixed hyperlipidemia; N18.2 Chronic kidney disease, stage 2 (mild); N18.30 Chronic kidney disease, stage 3 unspecified; D63.1 Anemia in chronic kidney disease
CPT/HCPCS: 36415; 80061; 82043; 82565; 82570; 83036; 84520; 85027

== ENCOUNTER → 2022-08-24 09:58 | Outpatient (CLI) | payer MEDICARE, OTHER, SELFPAY ==
[2019-05-05 17:24] VITALS: BMI 29.5
[2022-08-24 11:15] LABS: Creatinine Urine Random 21.5 mg/dL
[2022-08-24 11:16] LABS: BUN Creatinine Ratio 30.6 (6-22); Blood Urea Nitrogen 19 mg/dL (7-17); Estimated Glomerular Filt Rate > 60 mL/min (>60)
[2022-08-24 11:33] LABS: Microalbumi Creatinin Ratio Ur 1730.2 ug/mg CR (<30); Microalbumin Urine Random 37.2 mg/dL (0-1.6)
== END ==
PROVIDERS: PCP Student in an Organized Health Care Education/Training Program; Referring Provider Student in an Organized Health Care Education/Training Program; Visit Provider Student in an Organized Health Care Education/Training Program
DX: E10.22 Type 1 diabetes mellitus with diabetic chronic kidney disease (principal); N18.31 Chronic kidney disease, stage 3a
CPT/HCPCS: 36415; 82043; 82565; 82570; 83036; 84520

== ENCOUNTER 2022-12-02 01:39 | Inpatient (IN) | payer MEDICARE, OTHER, SELFPAY ==
[2022-11-09 16:42] VITALS: BMI 29.5
[2022-12-02] VITALS (11 sets, daily range): BP systolic 142–168; BP diastolic 55–86; PULSE 73–96; RESP 16–30; TEMP 36.6; O2SAT 93–97; BMI 27.4
--- NOTE | 2022-12-02 01:50 | ED.GENADULT ---
HPI - General Adult General Chief complaint: Upper Respiratory Symptoms Stated complaint: SOB Time Seen by Provider: 12/02/22 01:46 Source: patient and family Mode of arrival: Wheelchair Limitations: no limitations History of Present Illness HPI narrative: Patient is an 82-year-old female. She is an insulin-dependent diabetic. History of hypertension. No prior cardiac history. Is here for evaluation of shortness of breath. She states she was at a normal state of health until about 0700 hours last evening. She would a fairly sudden onset of shortness of breath. She denies any cough. Denies chest pain. No fevers. She states that it is feels like she can take a deep breath. She does have some lower extremity swelling but this is not necessarily new for her. No prior history of coronary artery disease. No prior history of heart failure. No recent travel. She denies abdominal pain nausea vomiting or diarrhea. No urinary symptoms. No skin rashes. No prior underlying lung pathology. Related Data Home Medications Medication Instructions Recorded Confirmed latanoprost 0.005 % eye drops 1 drp OPHTH BEDTIME ##0 02/10/11/09/22 (Xalatan) prednisolone acetate 1 % eye 1 drp EYE-LEFT .QD 06/11/21 11/09/22 drops,suspension insulin lispro sliding scale SUBCUT 05/21/22 11/09/22 Previous Rx's Medication Instructions Recorded [employer] Insulin Syringe #100 ea 05/04/22 Unifine Pen Tips #250 ea 05/04/22 atorvastatin 20 mg tablet (Lipitor) 20 mg PO BEDTIME #90 tabs 05/04/22 hydralazine 50 mg tablet 50 mg PO QID #120 tabs 08/12/22 insulin glargine 100 unit/mL 8 unit (0.08 mL) SUBCUT BEDTIME 08/24/22 subcutaneous solution (Lantus #10 mL U-100 Insulin) insulin lispro 100 unit/mL 5 unit (0.05 mL) SUBCUT TIDWMEAL 08/24/22 subcutaneous pen (Humalog KwikPen #15 mL (U-100) Insulin) Allergies Allergy/AdvReac Type Severity Reaction Status Date / Time No Known Drug Allergies Allergy Verified 11/09/22 16:13 Review of Systems Review of Systems ROS Unobtainable: All systems reviewed & are unremarkable except as noted in HPI and below Patient History Medical History Blindness left eye category 4, normal vision right eye Closed fracture of left hip Essential hypertension Glaucoma Hearing loss (~1944) Left tibial fracture Osteoporosis (~1999) Ptosis of both eyelids Retinal detachment (~2000) Thyroid nodule (~2019) Surgical History Anesthesia History of cataract removal with insertion of prosthetic lens History of elbow surgery History of eye surgery History of shoulder surgery History of total right hip arthroplasty Family History Father Suicide Mother Myocardial infarction Grandfather History of heart disease Family/Other Diabetes mellitus Social History household members: none Smoking Status: Never smoker alcohol intake: current Smoking Status: Never smoker alcohol intake frequency: 0-2 drinks per day Alcohol type: wine Substance Use Type: does not use Exam Initial Vital Signs Initial Vital Signs: Vital Signs Temperature 97.8 F 12/02/22 01:50 Pulse Rate 95 H 12/02/22 01:50 Respiratory Rate 20 12/02/22 01:50 Blood Pressure 144/66 H 12/02/22 01:50 Pulse Oximetry 97 12/02/22 01:50 Oxygen Delivery Method Room Air 12/02/22 01:50 Const General: cooperative, comfortable and No ill appearing HENMT Head: normal to inspection and normocephalic Resp Effort & Inspection: normal respiratory effort Auscultation: clear to auscultation bilaterally, no rhonchi and no wheezes Cardio Rate: regular rate Rhythm: regular rhythm GI Inspection: normal to inspection and non-distended Neuro General: patient alert, patient awake, patient oriented x3 and moves all extremities Speech: speech normal Extrem General: normal to inspection and capillary refill normal Scores GCS Esthela coma scale eye opening: Spontaneous Esthela coma scale verbal response: Orientated Esthela coma scale motor response: Obey commands Harrison coma scale total score: 15 Course Orders Ordered: ED Orders 12/02/22 01:56 XR chest 1V Stat EKG-12 Lead Stat 12/02/22 02:05 Complete Blood Count AUTO DIFF Stat Comprehensive Metabolic Panel Stat D Dimer Stat Lipase Stat MG [Magnesium] Stat NT-proBNP (BNP-Adult 18+) Stat Procalcitonin Stat Troponin & CK Cardiac Panel Stat 12/02/22 03:21 CT angio chest PE protocol Stat 12/02/22 04:10 Troponin & CK Cardiac Panel Stat 12/02/22 05:10 Respiratory Panel (Film Array) Stat Acetaminophen (Acetaminophen 325 Mg Tablet) 650 mg PO Q6H PRN PRN Reason: Fever/Mild Pain (1-3) Calcium Carbonate (Calcium Carbonate 500 Mg Tab) 1,000 mg PO Q4HR PRN PRN Reason: Dyspepsia Dextrose (Dextrose 50 % In Water 25 Gm/50 Ml Syringe) 25 gm IV PRN PRN; Protocol PRN Reason: Hypoglycemia Heparin Sodium (Porcine) (Heparin 5,000 Unit/Ml Vial) 5,000 unit SUBCUT BID ROBERT Insulin Human Lispro (Insulin Lispro 100 Unit/Ml 3ml Vial) 0 unit SUBCUT ACHS ROBERT; Protocol Magnesium Hydroxide (Magnesium Hydroxide 30 Ml Udc) 30 ml PO DAILY PRN PRN Reason: Constipation Naloxone HCl (Naloxone 0.4 Mg/Ml Vial) 0.2 mg IV Q2MIN PRN PRN Reason: Opiate Reversal Discontinued Medications Furosemide (Furosemide 40 Mg/4 Ml Vial) 40 mg IV NOW ONE Stop: 12/02/22 05:03 Last Admin: 12/02/22 05:09 Dose: 40 mg Documented By: LIZZETTE Vital Signs Vital signs: Vital Signs - 8 hr 12/02/22 01:50 12/02/22 03:06 12/02/22 03:30 Temperature 97.8 F Pulse Rate 95 H 90 92 H Respiratory Rate 20 21 25 H Blood Pressure 144/66 H Pulse Oximetry 97 95 95 Oxygen Delivery Method Room Air 12/02/22 04:00 12/02/22 04:30 12/02/22 04:47 Temperature Pulse Rate 89 87 Respiratory Rate 25 H 20 Blood Pressure 151/68 H Pulse Oximetry 94 96 Oxygen Delivery Method 12/02/22 04:47 12/02/22 05:00 12/02/22 05:00 Temperature Pulse Rate 96 H 94 H Respiratory Rate 23 30 H Blood Pressure 168/81 H Pulse Oximetry 95 95 Oxygen Delivery Method Medical Decision Making Medical Records Medical records reviewed: Yes I reviewed the patient's medical records. Lab Data Lab results reviewed: Yes I reviewed the patient's lab results. 12/02/22 02:05 12/02/22 02:05 Labs: Lab Results 12/02/22 12/02/22 12/02/22 Range/Units 02:05 02:05 02:05 WBC 5.4 (4.5-11.0) X10^3/uL RBC 3.26 L (4.0-5.2) X10^6/uL Hgb 9.6 L (12.0-16.0) g/dL Hct 29.0 L (36-46) % MCV 88.9 (80-100) fL MCH 29.6 (26-34) PG MCHC 33.3 (30-36) % RDW 16.2 H (11.6-14.8) % Plt Count 218 (150-400) X10^3/uL Neut % (Auto) 55.2 (50-75) % Lymph % (Auto) 31.6 (25-40) % Hutchinson % (Auto) 10.5 (3-14) % Eos % (Auto) 2.4 (2-4) % Baso % (Auto) 0.3 (0-2) % Neut # (Auto) 3000 (2260-1755) /uL Lymph # (Auto) 1700 (3998-8893) /uL Hutchinson # (Auto) 600 (0-900) /uL Eos # (Auto) 100 (0-450) /uL Baso # (Auto) 0 (0-100) /uL D-Dimer 2360 H (<500) ng/ml Sodium 134 L (137-145) mmol/L Potassium 4.3 (3.4-5.1) mmol/L Chloride 103 (98-107) mmol/L Carbon Dioxide 25 (22-32) mmol/L BUN 27 H (7-17) mg/dL Creatinine 0.92 (0.52-1.04) mg/dL Estimated GFR > 60 (>60) mL/min BUN/Creatinine Ratio 29.3 H (6-22) Glucose 287 H (80-110) mg/dL Calcium 8.7 (8.4-10.2) mg/dL Magnesium (1.6-2.3) mg/dL Total Bilirubin 0.8 (0.2-1.3) mg/dL AST 33 (14-36) IU/L ALT 25 (<35) IU/L Alkaline Phosphatase 139 H (38-126) U/L Total Creatine Kinase 79 (30-135) U/L CK-MB (CK-2) TNP CK-MB (CK-2) Rel Index TNP Troponin I 0.054 H (0.01-0.034) ng/mL NT-Pro-B Natriuret Pep 4600 H (<450) pg/mL Total Protein 7.2 (6.3-8.2) g/dL Albumin 3.9 (3.5-5.0) g/dL Globulin 3.3 (1.7-4.1) g/dL Albumin/Globulin Ratio 1.2 (1.0-2.8) Lipase 345 H (23-300) U/L 12/02/22 12/02/22 Range/Units 02:05 04:10 WBC (4.5-11.0) X10^3/uL RBC (4.0-5.2) X10^6/uL Hgb (12.0-16.0) g/dL Hct (36-46) % MCV (80-100) fL MCH (26-34) PG MCHC (30-36) % RDW (11.6-14.8) % Plt Count (150-400) X10^3/uL Neut % (Auto) (50-75) % Lymph % (Auto) (25-40) % Hutchinson % (Auto) (3-14) % Eos % (Auto) (2-4) % Baso % (Auto) (0-2) % Neut # (Auto) (5575-6770) /uL Lymph # (Auto) (7139-0412) /uL Hutchinson # (Auto) (0-900) /uL Eos # (Auto) (0-450) /uL Baso # (Auto) (0-100) /uL D-Dimer (<500) ng/ml Sodium (137-145) mmol/L Potassium (3.4-5.1) mmol/L Chloride (98-107) mmol/L Carbon Dioxide (22-32) mmol/L BUN (7-17) mg/dL Creatinine (0.52-1.04) mg/dL Estimated GFR (>60) mL/min BUN/Creatinine Ratio (6-22) Glucose (80-110) mg/dL Calcium (8.4-10.2) mg/dL Magnesium 1.6 (1.6-2.3) mg/dL Total Bilirubin (0.2-1.3) mg/dL AST (14-36) IU/L ALT (<35) IU/L Alkaline Phosphatase (38-126) U/L Total Creatine Kinase 75 (30-135) U/L CK-MB (CK-2) TNP CK-MB (CK-2) Rel Index TNP Troponin I 0.060 H (0.01-0.034) ng/mL NT-Pro-B Natriuret Pep (<450) pg/mL Total Protein (6.3-8.2) g/dL Albumin (3.5-5.0) g/dL Globulin (1.7-4.1) g/dL Albumin/Globulin Ratio (1.0-2.8) Lipase (23-300) U/L Imaging Data Chest x-ray: Radiologist's Impression: Findings most consistent with congestive heart failure versus fluid overload with a right pleural effusion Right lower lobe airspace disease which may be secondary to pneumonia/aspiration or asymmetric pulmonary edema. An infectious/inflammatory process is favored CT scan - chest: Radiologist's Impression: No evidence of pulmonary embolism Bilateral pleural effusions with right lower lobe consolidation and bilateral ground-glass opacities. Airspace disease maybe secondary to pulmonary edema or maybe infectious in etiology ECG Data Attestation: I personally reviewed and interpreted this ECG as follows: Prior ECG tracings: available for review Interpretation: Sinus rhythm Ventricular rate 89 Normal axis Normal QRS Normal QTC ST depressions V5 V6 MDM Narrative Medical decision making narrative: Patient denies chest pain. She is not hypoxic. Respiratory rates in the low 20s. She is afebrile. Has a nonproductive cough. I have low suspicion for an infectious etiology. No antibiotics were administered here in the emergency department. She does have ST depressions in V5 and V6 which are new compared to prior EKG however there are no ST elevations. She does have a troponin that is greater than the 99th percentile however less than the acute myocardial infarction cut off. A 2 hour repeat is relatively unchanged. She does have an elevated BNP. She does have lower extremity edema which she states is not necessarily new for her. She has a chest x-ray which shows pulmonary edema. CT scan of the chest shows no signs of pulmonary embolism but once again shows what is most likely pulmonary edema. Patient states she is no history of coronary artery disease. Has never had a heart attack. No history of heart failure. She is not on diuretics. Given her age, elevated troponin, elevated BNP in her symptoms patient does require admission to the hospital for further evaluation to include diuresis and also echocardiogram. I did discuss this with the patient and her son who is at bedside. The patient is a full code per discussion here in the ER. I then discussed the case with Dr. Chiu hospitalist who is on-call who will admit for further evaluation and treatment. Discharge Plan Departure Patient Disposition: Admitted As Inpatient Clinical Impression: Breath shortness, Elevated troponin, Pulmonary edema Admit Date/Time: 12/02/22 05:06 Admit Provider: Tarik Chiu
--- NOTE | 2022-12-02 01:56 | DI.RAD.S_ITS ---
PROCEDURE: XR CHEST 1V INDICATIONS: SOB TECHNIQUE: One view of the chest was acquired. COMPARISON: [facility], CT, CT ANGIO CHEST PE PROTOCOL, 12/02/2022, 3:38. FINDINGS: Surgical changes and devices: Bilateral hardware at the humeri. Lungs and pleura: Prominent pulmonary markings. Small right pleural effusion. Trace left pleural effusion. No pneumothorax. Mild opacity at the right lower lobe. Mediastinum: Mediastinal contours appear normal. Heart size is prominent. Bones and chest wall: No suspicious bony lesions. Prior rib fractures. Overlying soft tissues appear unremarkable. IMPRESSION: Findings most consistent with fluid overload/CHF. Small right and trace left pleural effusions. Right lower lobe airspace opacity. This could be due to atelectasis, pneumonia, or aspiration pneumonia. This report is concordant with the overnight preliminary interpretation. Dictated by: Otoniel Willams M.D. on 12/02/2022 at 8:12 Approved by: Otoniel Willams M.D. on 12/02/2022 at 8:17
[2022-12-02 02:09] LABS: Add Manual Diff / Slide Review NO; Basophils Absolute Auto 0 /uL (0-100); Basophils Percent Auto 0.3 % (0-2); Eosinophils Absolute Auto 100 /uL (0-450); Eosinophils Percent Auto 2.4 % (2-4); Hemoglobin 9.6 g/dL (12.0-16.0); Lymphocytes Absolute Auto 1700 /uL (1100-4500); Lymphocytes Percent Auto 31.6 % (25-40); Mean Corpuscular HGB Conc 33.3 % (30-36); Mean Corpuscular Hemoglobin 29.6 PG (26-34); Mean Corpuscular Volume 88.9 fL (80-100); Monocytes Absolute Auto 600 /uL (0-900); Monocytes Percent Auto 10.5 % (3-14); Neutrophils Absolute Auto 3000 /uL (1500-7000); Neutrophils Percent Auto 55.2 % (50-75); Platelet Count 218 X10^3/uL (150-400); Red Blood Cell Count 3.26 X10^6/uL (4.0-5.2); Red Cell Distribution Width 16.2 % (11.6-14.8); White Blood Cell Count 5.4 X10^3/uL (4.5-11.0)
[2022-12-02 02:21] LABS: Alanine Aminotransferase 25 IU/L (<35); Albumin 3.9 g/dL (3.5-5.0); Albumin Globulin Ratio 1.2 (1.0-2.8); Alkaline Phosphatase 139 U/L (38-126); Aspartate Aminotransferase 33 IU/L (14-36); BUN Creatinine Ratio 29.3 (6-22); Bilirubin Total 0.8 mg/dL (0.2-1.3); Blood Urea Nitrogen 27 mg/dL (7-17); Calcium 8.7 mg/dL (8.4-10.2); Carbon Dioxide 25 mmol/L (22-32); Chloride 103 mmol/L (98-107); Creatine Kinase 79 U/L (30-135); Estimated Glomerular Filt Rate > 60 mL/min (>60); Globulin 3.3 g/dL (1.7-4.1); Glucose 287 mg/dL (80-110); HEMOLYSIS < 15 (0-50); Lipase 345 U/L (23-300); Potassium 4.3 mmol/L (3.4-5.1); Sodium 134 mmol/L (137-145); Total Protein 7.2 g/dL (6.3-8.2)
[2022-12-02 02:32] LABS: NT-proBNP (BNP-Adult 18+) 4600 pg/mL (<450); Troponin I 0.054 ng/mL (0.01-0.034)
[2022-12-02 03:11] LABS: D Dimer 2360 ng/ml (<500)
[2022-12-02 03:12] LABS: Magnesium 1.6 mg/dL (1.6-2.3)
--- NOTE | 2022-12-02 03:21 | DI.CT.S_ITS ---
PROCEDURE: CT ANGIO CHEST PE PROTOCOL INDICATIONS: sudden shortenss of breath TECHNIQUE: After the administration of intravenous contrast, 2 mm thick sections acquired from the pulmonary apices to the posterior costophrenic angles. 3-dimensional maximum intensity projection (MIP) coronal and sagittal reformats were then acquired through the thorax. For radiation dose reduction, the following was used: automated exposure control, adjustment of mA and/or kV according to patient size. COMPARISON: [facility], CR, XR CHEST 1V, 12/02/2022, 1:53. FINDINGS: Image quality: Excellent. Pulmonary arteries: Pulmonary arteries are normal in size, and demonstrate no intraluminal filling defects to suggest central pulmonary embolism. Lungs and pleura: Moderate right and small left pleural effusions. Interlobular septal thickening. Bronchial wall thickening. Bibasilar opacity. Platelike opacity at the right major fissure in the right middle lobe. Expiratory image acquisition. Central airways are clear. Right lower lobe pulmonary nodule measuring 0.4 cm, (5/176). Mediastinum: Heart size is prominent, without pericardial effusion. Three-vessel coronary artery calcifications. Precarinal node measuring 1.2 cm, (4/49), favor reactive etiology. Thoracic aorta is normal in caliber and enhancement. Esophagus is normal in caliber, without hiatal hernia. Bones and chest wall: No suspicious bony lesions. Ribs and thoracic spine appear intact throughout. Humeri hardware. Subcentimeter right thyroid nodule. No axillary or supraclavicular adenopathy. Abdomen: Visualized upper abdominal solid organs appear normal in the early arterial phase of enhancement. IMPRESSION: 1. No pulmonary embolism. 2. Platelike and bibasilar opacity. Favor atelectasis and/or edema over pneumonia. 3. Fluid overload/CHF. Moderate right and small left pleural effusions. 4. Precarinal lymph node measuring 1.2 cm. Favor reactive etiology. This report is concordant with the overnight preliminary interpretation. Dictated by: Otoniel Willams M.D. on 12/02/2022 at 8:17 Approved by: Otoniel Willams M.D. on 12/02/2022 at 8:29
[2022-12-02 04:29] LABS: Creatine Kinase 75 U/L (30-135)
[2022-12-02] MEDS: FUROSEMIDE 40 MG/4 ML VIAL IV (05:09)
--- NOTE | 2022-12-02 05:27 | DI.ECHO.S_ITS ---
[place] [facility]---------+ [facility] +---------+ : : [address] : : : : [id number] : : : : Phone: [phone]+ Echocardiogram Report + + :Name: CHILO FERGUSON Study Date: 12/02/2022 Height: 63.5 in: :[facility] ReadingLocation: Weight: 160 lb : : Gender: Female BSA: 1.8 m2 : :: 1940 Age: 82 yrs BP: 166/73 mmHg: :Reason For Study: PULMONARY EDEMA : :Ordering Physician: SALONI, : :ALBER Neri Performed By: Abi Fong : :Referring: ALBER GUALLPA : + + Interpretation Summary The patient had occasional PVCs during the exam. The ejection fraction is estimated to be 45-50%. Grade II diastolic dysfunction. The left atrium is mildly dilated. The right ventricle is normal in size and function. There is mild mitral regurgitation. Pulmonary artery pressures cannot be estimated because of the lack of a measurable TR jet velocity but the IVC suggests a CVP of around 8 mmHg. Procedure: A two-dimensional transthoracic echocardiogram with color flow and Doppler was performed. The study quality was technically adequate. There is no prior echocardiogram noted for this patient. The patient had occasional PVCs during the exam. The heart rate ranged between 82-94 bpm during the study. Left Ventricle: The left ventricle is normal in size and wall thickness. The ejection fraction is estimated to be 45-50%. Diastolic parameters suggest a pseudonormalization pattern, consistent with probable elevated filling pressures. Right Ventricle: The right ventricle is normal in size and function. Atria: The left atrium is mildly dilated. Right atrial size is normal. There is no Doppler evidence for an interatrial shunt. Mitral Valve: The mitral valve leaflets appear mildly thickened, but open well. There is mild mitral annular calcification. There is mild mitral regurgitation. Aortic Valve: The aortic valve is not well visualized. The aortic valve is slightly calcified. There is no aortic valve stenosis. No aortic regurgitation is present. Tricuspid Valve: The tricuspid valve is normal in structure and function. Pulmonary artery pressures cannot be estimated because of the lack of a measurable TR jet velocity but the IVC suggests a CVP of around 8 mmHg. There is trace tricuspid regurgitation. Pulmonic Valve: The pulmonic valve is not well visualized. There is no pulmonic valvular regurgitation. Great Vessels: The aortic root is normal size. The dimensions of the ascending aorta are normal. The IVC is dilated (diameter is greater than 2.1 cm) and it collapses less than 50% with a sniff. This suggests a high right atrial pressure of 15 mm Hg. Pericardium/ Pleura There is no pericardial effusion. There is a small left- sided pleural effusion. MMode/2D Measurements & Calculations LVIDd: 4.6 cm LVOT diam: 2.2 cm LVIDs: 3.4 cm Ao root diam: 2.7 cm FS: 25.5 % asc Aorta Diam: 2.8 cm IVSd: 0.85 cm LVPWd: 0.95 cm LV barclay. diameter/BSA (cm/m^2): 2.6 LV sys. diameter/BSA (cm/m^2): 1.9 LA A2 area: 19.0 cm2 RA long axis: 4.9 cm LA A4 area: 19.2 cm2 RA area: 15.4 cm2 LA length (vol): 5.1 cm RA vol: 41.2 ml LA vol: 61.0 ml RA : 23.3 ml/m2 LA vol index: 34.4 ml/m2 IVC diam: 2.0 cm RVD1 (basal): 3.5 cm RVD2 (mid): 2.9 cm TAPSE: 2.4 cm Doppler Measurements & Calculations Ao V2 max: 121.0 cm/sec LVOT Max Lyndon: 94.6 cm/sec Ao V2 mean: 89.1 cm/sec LV V1 max P.6 mmHg Ao max P.9 mmHg LV V1 VTI: 21.5 cm Ao mean P.5 mmHg SALO(I,D): 2.8 cm2 Ao V2 VTI: 28.2 cm SALO(V,D): 2.9 cm2 sev ratio: 0.76 SALO indexed to BSA (cm^2/m^2): 1.6 MV E max lyndon: 118.6 cm/sec SV(LVOT): 80.1 ml MV A max lyndon: 138.3 cm/sec MV E/A: 0.86 Med Peak E' Lyndon: 6.5 cm/sec E/E' med: 18.2 Lat Peak E' Lyndon: 4.8 cm/sec E/E' lat: 24.6 E/e' average: 21.4 MV dec time: 0.14 sec Reading Physician:08:50 AM
--- NOTE | 2022-12-02 05:29 | PM.HP.1 ---
History of Present Illness History of Present Illness Date Patient Seen: 12/02/22 Time Patient Seen: 05:29 Date of Onset of Symptoms: 12/01/22 Chief complaint: SOB Narrative: The patient is an 82-year-old female with a history of insulin-dependent diabetes and hypertension acute shortness of breath and orthopnea last evening. She had no chest pain. She tried to lie down but her sensation of dyspnea worsened. She got up for a while and then tried to lie down again and had the the same issue. She had no palpitations cardiac problems. She denies recent leg edema. She also denies recent URI symptoms. Because of inability to breathe while lying flat she called her son who then brought her to the hospital. Her chest x-ray revealed pulmonary edema. She would a non acute ECG. She had mild troponin elevated. Her initial troponin was 0.054, her 2nd was 0.060. Her dimer was elevated and her CTPA was negative for pulmonary embolism. It did indicate a possible right lower lobe consolidation, although her procalcitonin was unremarkable and she was afebrile. She was given Lasix in the emergency department, and antibiotics were withheld. She has had some recent changes in blood pressure medications. He notes that recent blood pressures have been low, not she takes very low Ca insulin, 4 or 5 units of short-acting with meals and 5 units of Lantus in the evening. REPLACED BY [facility] Medical History Blindness left eye category 4, normal vision right eye Closed fracture of left hip Essential hypertension Glaucoma Hearing loss (~1944) Left tibial fracture Osteoporosis (~1999) Ptosis of both eyelids Retinal detachment (~2000) Thyroid nodule (~2019) Surgical History Anesthesia History of cataract removal with insertion of prosthetic lens History of elbow surgery History of eye surgery History of shoulder surgery History of total right hip arthroplasty Family History Father Suicide Mother Myocardial infarction Grandfather History of heart disease Family/Other Diabetes mellitus Social History household members: none Smoking Status: Never smoker alcohol intake: current Meds Home Medications and Allergies Home Medications Medication Instructions Recorded Confirmed Type latanoprost 0.005 % eye drops 1 drp OPHTH BEDTIME ##0 02/11/12 11/09/22 History (Xalatan) prednisolone acetate 1 % eye 1 drp EYE-LEFT .QD 06/11/21 11/09/22 History drops,suspension [employer] Insulin Syringe #100 ea 05/04/22 11/09/22 Rx Unifine Pen Tips #250 ea 05/04/22 11/09/22 Rx atorvastatin 20 mg tablet (Lipitor) 20 mg PO BEDTIME #90 tabs 05/04/22 11/09/22 Rx insulin lispro sliding scale SUBCUT 05/21/22 11/09/22 History hydralazine 50 mg tablet 50 mg PO QID #120 tabs 08/12/22 11/09/22 Rx insulin glargine 100 unit/mL 8 unit (0.08 mL) SUBCUT BEDTIME 08/24/22 11/09/22 Rx subcutaneous solution (Lantus #10 mL U-100 Insulin) insulin lispro 100 unit/mL 5 unit (0.05 mL) SUBCUT TIDWMEAL 08/24/22 11/09/22 Rx subcutaneous pen (Humalog KwikPen #15 mL (U-100) Insulin) Allergies Allergy/AdvReac Type Severity Reaction Status Date / Time No Known Drug Allergies Allergy Verified 11/09/22 16:13 Review of Systems Review of Systems Narrative: She denies diarrhea, or urinary symptoms. No recent fevers or chills. No neurologic symptoms. All else reviewed and otherwise unremarkable. Exam Vital Signs (past 8 hours): - 12/02/22 01:50 12/02/22 03:06 12/02/22 03:30 Temperature 97.8 F Pulse Rate 95 H 90 92 H Respiratory Rate 20 21 25 H Blood Pressure 144/66 H Pulse Oximetry 97 95 95 Oxygen Delivery Method Room Air 12/02/22 04:00 12/02/22 04:30 12/02/22 04:47 Temperature Pulse Rate 89 87 Respiratory Rate 25 H 20 Blood Pressure 151/68 H Pulse Oximetry 94 96 Oxygen Delivery Method 12/02/22 04:47 12/02/22 05:00 12/02/22 05:00 Temperature Pulse Rate 96 H 94 H Respiratory Rate 23 30 H Blood Pressure 168/81 H Pulse Oximetry 95 95 Oxygen Delivery Method Oxygen Delivery Method Room Air Const Other: No acute distress. Speaking comfortably. HENMT Other: Atraumatic skull. Normal nose.. Eyes Other: Symmetric pupils. EOMI. Neck Other: Supple, normal range of motion, no JVP. Resp Other: Clear to auscultation. Normal effort. Cardio Other: Regular, without murmur or gallop. GI Other: Soft and nontender. Skin Other: No rash or lesions. Extrem Other: No edema. Normal pulses. Objective ECG Impression: Normal sinus rhythm without acute findings. Imaging Chest x-ray: My impression: Pulmonary edema Radiologist's impression: Pulmonary edema CT scan - chest: Radiologist's impression: Negative for pulmonary embolism, possible right lower lobe opacity. Bilateral ground-glass opacities. Labs 12/02/22 02:05 12/02/22 02:05 Labs: Laboratory Results - last 24 hr 12/02/22 12/02/22 12/02/22 02:05 02:05 02:05 WBC 5.4 RBC 3.26 L Hgb 9.6 L Hct 29.0 L MCV 88.9 MCH 29.6 MCHC 33.3 RDW 16.2 H Plt Count 218 Neut % (Auto) 55.2 Lymph % (Auto) 31.6 [place] % (Auto) 10.5 Eos % (Auto) 2.4 Baso % (Auto) 0.3 Neut # (Auto) 3000 Lymph # (Auto) 1700 [place] # (Auto) 600 Eos # (Auto) 100 Baso # (Auto) 0 D-Dimer 2360 H Sodium 134 L Potassium 4.3 Chloride 103 Carbon Dioxide 25 BUN 27 H Creatinine 0.92 Estimated GFR > 60 BUN/Creatinine Ratio 29.3 H Glucose 287 H Calcium 8.7 Magnesium Total Bilirubin 0.8 AST 33 ALT 25 Alkaline Phosphatase 139 H Total Creatine Kinase 79 CK-MB (CK-2) TNP CK-MB (CK-2) Rel Index TNP Troponin I 0.054 H NT-Pro-B Natriuret Pep 4600 H Total Protein 7.2 Albumin 3.9 Globulin 3.3 Albumin/Globulin Ratio 1.2 Lipase 345 H 12/02/22 12/02/22 02:05 04:10 WBC RBC Hgb Hct MCV MCH MCHC RDW Plt Count Neut % (Auto) Lymph % (Auto) [place] % (Auto) Eos % (Auto) Baso % (Auto) Neut # (Auto) Lymph # (Auto) [place] # (Auto) Eos # (Auto) Baso # (Auto) D-Dimer Sodium Potassium Chloride Carbon Dioxide BUN Creatinine Estimated GFR BUN/Creatinine Ratio Glucose Calcium Magnesium 1.6 Total Bilirubin AST ALT Alkaline Phosphatase Total Creatine Kinase 75 CK-MB (CK-2) TNP CK-MB (CK-2) Rel Index TNP Troponin I 0.060 H NT-Pro-B Natriuret Pep Total Protein Albumin Globulin Albumin/Globulin Ratio Lipase Assessment & Plan Assessment & Plan narrative: -Acute dyspnea with pulmonary edema x-ray, present on admission and active. We will give aspirin, and follow clinically after 1st diuretic dose given. 2D echo to assess status cardiac function, probable discussion with Cardiology after echo results. -Mildly elevated troponin, present on admission and active. Unclear if this represents demand ischemia versus true ischemia. Will trend troponins, start aspirin and assess with echo. -Diabetes mellitus 2, present on admission and active. Carb controlled diet and correctional lispro. -Essential hypertension, present on admission and active. We will continue home med for her med history is confirmed. -Possible right lower lobe consolidation and ground-glass opacities, present on admission and active. Will hold on antibiotics and follow clinically. The patient is full resuscitation. Time Spent With Patient Time with patient: 30 to 49 minutes with 50% spent counseling/coordinating care
[2022-12-02 05:48] LABS: Procalcitonin 0.06 ng/mL (<0.5)
[2022-12-02 06:09] LABS: Add Manual Diff / Slide Review NO; Basophils Absolute Auto 100 /uL (0-100); Basophils Percent Auto 1.4 % (0-2); Eosinophils Absolute Auto 100 /uL (0-450); Eosinophils Percent Auto 0.9 % (2-4); Hematocrit 30.2 % (36-46); Hemoglobin 9.9 g/dL (12.0-16.0); Lymphocytes Absolute Auto 1500 /uL (1100-4500); Lymphocytes Percent Auto 23.6 % (25-40); Mean Corpuscular Hemoglobin 28.8 PG (26-34); Mean Corpuscular Volume 87.4 fL (80-100); Monocytes Absolute Auto 500 /uL (0-900); Monocytes Percent Auto 7.4 % (3-14); Neutrophils Absolute Auto 4200 /uL (1500-7000); Neutrophils Percent Auto 66.7 % (50-75); Platelet Count 208 X10^3/uL (150-400); Red Blood Cell Count 3.45 X10^6/uL (4.0-5.2); Red Cell Distribution Width 16.3 % (11.6-14.8); White Blood Cell Count 6.3 X10^3/uL (4.5-11.0)
[2022-12-02 06:28] LABS: Adenovirus Not Detected (Not Detect); B. parapertussis Not Detected (Not Detecte); Bordetella pertussis Not Detected (Not Detecte); Chlamydophila pneumoniae Not Detected (Not Detect); Coronavirus 229E Not Detected (Not Detect); Coronavirus HKU1 Not Detected (Not Detect); Coronavirus NL 63 Not Detected (Not Detect); Coronavirus OC43 Not Detected (Not Detect); Human Metapneumovirus Not Detected (Not Detect); Human Rhinovirus/Enterovirus Not Detected (Not Detect); Influenza A Not Detected (Not Detect); Influenza B Not Detected (Not Detect); Mycoplasma pneumoniae Not Detected (Not Detect); Parainfluenza Virus 1 Not Detected (Not Detect); Parainfluenza Virus 2 Not Detected (Not Detect); Parainfluenza Virus 3 Not Detected (Not Detect); Parainfluenza Virus 4 Not Detected (Not Detect); Respiratory Syncytial Virus Not Detected (Not Detect); SARS- CoV-2 Not Detected (Not Detecte)
[2022-12-02 06:28] LABS: BUN Creatinine Ratio 34.7 (6-22); Blood Urea Nitrogen 26 mg/dL (7-17); Calcium 8.7 mg/dL (8.4-10.2); Carbon Dioxide 23 mmol/L (22-32); Chloride 102 mmol/L (98-107); Estimated Glomerular Filt Rate > 60 mL/min (>60); Glucose 298 mg/dL (80-110); HEMOLYSIS < 15 (0-50); Potassium 4.4 mmol/L (3.4-5.1); Sodium 135 mmol/L (137-145)
[2022-12-02 06:40] LABS: Troponin I 0.108 ng/mL (0.01-0.034)
[2022-12-02] MEDS: INSULIN LISPRO 100 UNIT/ML 3ML VIAL SUBCUT ×2 (08:43→16:54)
[2022-12-02] MEDS: HEPARIN 5,000 UNIT/ML VIAL 5000 UNIT SUBCUT (08:43)
--- NOTE | 2022-12-02 10:10 | PM.EVENT ---
Event Note Event Note (Rapid Response, Code, or fall): 82 F admitted overnight with acute dyspnea. Troponins rising this morning. Had nausea and brief episode of chest pain. 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 There are new ST depressions inferolateral leads along with new q-waves. Asa 324 ordered, along with heparin infusion and statin. Recommended for transfer to higher level of care for urgent LHC. EF 45-50% with grade II diastolic dysfunction. Bed search underway. Will make NPO.
[2022-12-02 10:34] LABS: PTT Partial Thromboplastin Tim 32 SECONDS (26-36)
[2022-12-02] MEDS: HEPARIN 5,000 UNIT/ML VIAL 4000 UNIT IV (10:44)
[2022-12-02] MEDS: ASPIRIN 81 MG CHEW TAB 324 MG PO (10:44)
[2022-12-02] MEDS: HEPARIN DRIP 25,000 UNIT/500 ML IV.SOLN 17.418 UNIT IV (10:45)
--- NOTE | 2022-12-02 10:49 | PM.DS.1 ---
History of Present Illness History of Present Illness Date Patient Seen: 12/02/22 Time Patient Seen: 10:50 Date of Onset of Symptoms: 12/01/22 Chief complaint: SOB Narrative: Per admitting provider, The patient is an 82-year-old female with a history of insulin-dependent diabetes and hypertension, left eye blindness who presented with acute shortness of breath and orthopnea last evening. She had no chest pain. She tried to lie down but her sensation of dyspnea worsened. She got up for a while and then tried to lie down again and had the the same issue. She had no palpitations cardiac problems. She denies recent leg edema. She also denies recent URI symptoms. Because of inability to breathe while lying flat she called her son who then brought her to the hospital. Her chest x-ray revealed pulmonary edema. She would a non acute ECG. She had mild troponin elevated. Her initial troponin was 0.054, her 2nd was 0.060. Her dimer was elevated and her CTPA was negative for pulmonary embolism. It did indicate a possible right lower lobe consolidation, although her procalcitonin was unremarkable and she was afebrile. She was given Lasix in the emergency department, and antibiotics were withheld. She has had some recent changes in blood pressure medications. He notes that recent blood pressures have been low, not she takes very low Ca insulin, 4 or 5 units of short-acting with meals and 5 units of Lantus in the evening. Discharge Providers Provider Date of admission: 12/02/22 05:06 Discharge Date: 12/02/22 Primary care physician: Trevor Suárez MD Discharge provider: Julioceasr Sanders DO Summary Hospital Course Discharge Diagnosis: NSTEMI with acute diastolic heart failure type 1 diabetes with microalbuminuria Chronic anemia Hospital Course: 82 year old female admitted for acute onset of dyspnea early this morning. Over the course of her brief stay, troponin was initially indeterminant at 0.05 but nata to 1.42, and EKG with new worsening ST depressions inferolaterally and new q waves. She did develop nausea and vomiting with chest discomfort that quickly resolved without medication. Chest xray initially consistent with heart failure, CTA performed given elevated D-dimer was negative for PE but showed possible RLL consolidation vs edema. She was given furosemide initially. Discussed with cardiology whom recommended asa, statin, and heparin infusion for NSTEMI with transfer for urgent [facility]. Echocardiogram was performed early today which showed EF 45-50%, grade II diastolic dysfunction and mild MR. Discussed with Dr. Caro (telephone order supervisor) at [facility], whom agreed and patient was accepted by hospitalist service at [facility] for further management of NSTEMI. She is on a heparin infusion at the time of transfer. Other evaluation for acute dyspnea included a negative respiratory panel, and procalcitonin that was negative at 0.06. There was no leukocytosis. She had no signs or symptoms of GI bleeding and hg has been stable between 10-11 as an outpatient, and was 9.9 this morning. Time Spent with Patient Time spent: Greater than 30 minutes Exam Vital Signs (past 8 hours): - 12/02/22 03:06 12/02/22 03:30 12/02/22 04:00 Pulse Rate 90 92 H 89 Respiratory Rate 21 25 H 25 H Blood Pressure Pulse Oximetry 95 95 94 Oxygen Flow Rate 12/02/22 04:30 12/02/22 04:47 12/02/22 04:47 Pulse Rate 87 96 H Respiratory Rate 20 23 Blood Pressure 151/68 H Pulse Oximetry 96 95 Oxygen Flow Rate 12/02/22 05:00 12/02/22 05:00 12/02/22 05:30 Pulse Rate 94 H Respiratory Rate 30 H Blood Pressure 168/81 H 166/73 H Pulse Oximetry 95 Oxygen Flow Rate 12/02/22 05:30 12/02/22 09:24 Pulse Rate 91 H 87 Respiratory Rate 28 H 16 Blood Pressure 161/86 H Pulse Oximetry 95 95 Oxygen Flow Rate 0 Oxygen Delivery Method Room Air Oxygen Flow Rate 0 Narrative Exam Narrative: General:? Patient is well developed and well nourished, appears acutely ill, mildly lethargic. HEENT:? Normocephalic, atraumatic, oral pharynx is clear and mucous membranes are moist. Neck: supple and symmetric, trachea is midline, no cervical adenopathy. Negative for JVD Chest:? Normal AP diameter and contour without kyphoscoliosis, no tachypnea, equal chest rise bilaterally. Lungs:?bibasilar rhonchi, without wheezing. Cardio:?RRR no m/r/g. Abdomen: S NT ND. Musculoskeletal:? Muscle strength and tone are equal within normal limits, no deformity. Extremities: No edema or joint effusions. No cyanosis or clubbing. Skin:? Pale,? Warm to touch,dry and intact without rashes, ulcerations or petechiae.? Neuro:? Alert and orientated x3,? sensation to touch intact in all extremities, no gross deficits noted of cranial nerves. Psych:? Patient has a well-kept appearance, appropriate affect, mental status attitude thought context and judgment are appropriate for age. Objective ECG Impression: new ST depressions inferolateral leads with new q-waves, consistent with NSTEMI Imaging Echo: Radiologist's impression: [facility] +---------+ : ? :? [address] ? : ? : : ? :? [place], [place] ? : ? : : ? :? [id number] ? : ? : : ? : ? Phone: [phone] : ? : +---------[phone]? [phone]? +---------+ ? Echocardiogram Report + + :Name: CHILO FERGUSON ? Study Date: 12/02/2022? Height: 63.5 in: :[facility] ? ? ? ReadingLocation:? Weight: 160 lb : : ? Gender: Female? BSA: 1.8 m2? ? : :: 1940 ? Age: 82 yrs ? BP: 166/73 mmHg: :Reason For Study: PULMONARY EDEMA? : :Ordering Physician: SALONI ? : :TARIK Neri ? Performed By: Abi Fong ? : :Referring: TARIK GUALLPA? : + + Interpretation Summary The patient had occasional PVCs during the exam. ? The ejection fraction is estimated to be 45-50%. Grade II diastolic dysfunction. The left atrium is mildly dilated. The right ventricle is normal in size and function. There is mild mitral regurgitation. Pulmonary artery pressures cannot be estimated because of the lack of a measurable TR jet velocity but the IVC suggests a CVP of around 8 mmHg. ? Procedure: ? A two-dimensional transthoracic echocardiogram with color flow and Doppler was performed. The study quality was technically adequate. There is no prior echocardiogram noted for this patient. The patient had occasional PVCs during the exam. The heart rate ranged between 82-94 bpm during the study. Left Ventricle: ? The left ventricle is normal in size and wall thickness. The ejection fraction is estimated to be 45-50%. Diastolic parameters suggest a pseudonormalization pattern, consistent with probable elevated filling pressures. Right Ventricle: ? The right ventricle is normal in size and function. Atria: ? The left atrium is mildly dilated. Right atrial size is normal. There is no Doppler evidence for an interatrial shunt. Mitral Valve: ? The mitral valve leaflets appear mildly thickened, but open well. There is mild mitral annular calcification. There is mild mitral regurgitation. Aortic Valve: ? The aortic valve is not well visualized. The aortic valve is slightly calcified. There is no aortic valve stenosis. No aortic regurgitation is present. Tricuspid Valve: ? The tricuspid valve is normal in structure and function. Pulmonary artery pressures cannot be estimated because of the lack of a measurable TR jet velocity but the IVC suggests a CVP of around 8 mmHg. There is trace tricuspid regurgitation. Pulmonic Valve: ? The pulmonic valve is not well visualized. There is no pulmonic valvular regurgitation. Great Vessels: ? The aortic root is normal size. The dimensions of the ascending aorta are normal. The IVC is dilated (diameter is greater than 2.1 cm) and it collapses less than 50% with a sniff. This suggests a high right atrial pressure of 15 mm Hg. Pericardium/ Pleura ? There is no pericardial effusion. There is a small left- sided pleural effusion. ? MMode/2D Measurements & Calculations LVIDd: 4.6 cm ? LVOT diam: 2.2 cm LVIDs: 3.4 cm ? Ao root diam: 2.7 cm FS: 25.5 %? asc Aorta Diam: 2.8 cm IVSd: 0.85 cm LVPWd: 0.95 cm LV barclay. diameter/BSA (cm/m^2): 2.6 LV sys. diameter/BSA (cm/m^2): 1.9 ? LA A2 area: 19.0 cm2? RA long axis: 4.9 cm LA A4 area: 19.2 cm2? RA area: 15.4 cm2 LA length (vol): 5.1 cm ? RA vol: 41.2 ml LA vol: 61.0 ml ? RA : 23.3 ml/m2 LA vol index: 34.4 ml/m2? IVC diam: 2.0 cm ? RVD1 (basal): 3.5 cm RVD2 (mid): 2.9 cm TAPSE: 2.4 cm ? Doppler Measurements & Calculations Ao V2 max: 121.0 cm/sec ? LVOT Max Lyndon: 94.6 cm/sec Ao V2 mean: 89.1 cm/sec ? LV V1 max P.6 mmHg Ao max P.9 mmHg ? LV V1 VTI: 21.5 cm Ao mean P.5 mmHg? SALO(I,D): 2.8 cm2 Ao V2 VTI: 28.2 cm? SALO(V,D): 2.9 cm2 ? sev ratio: 0.76 ? SALO indexed to BSA (cm^2/m^2): 1.6 ? MV E max lyndon: 118.6 cm/sec? SV(LVOT): 80.1 ml MV A max lyndon: 138.3 cm/sec MV E/A: 0.86 Med Peak E' Lyndon: 6.5 cm/sec E/E' med: 18.2 Lat Peak E' Lyndon: 4.8 cm/sec E/E' lat: 24.6 E/e' average: 21.4 MV dec time: 0.14 sec ? Reading Physician:08:50 AM Labs 12/02/22 05:50 12/02/22 05:50 Labs: Laboratory Results - last 24 hr 12/02/22 12/02/22 12/02/22 02:05 02:05 02:05 WBC 5.4 RBC 3.26 L Hgb 9.6 L Hct 29.0 L MCV 88.9 MCH 29.6 MCHC 33.3 RDW 16.2 H Plt Count 218 Neut % (Auto) 55.2 Lymph % (Auto) 31.6 [place] % (Auto) 10.5 Eos % (Auto) 2.4 Baso % (Auto) 0.3 Neut # (Auto) 3000 Lymph # (Auto) 1700 [place] # (Auto) 600 Eos # (Auto) 100 Baso # (Auto) 0 APTT D-Dimer 2360 H Sodium 134 L Potassium 4.3 Chloride 103 Carbon Dioxide 25 BUN 27 H Creatinine 0.92 Estimated GFR > 60 BUN/Creatinine Ratio 29.3 H Glucose 287 H Calcium 8.7 Magnesium Total Bilirubin 0.8 AST 33 ALT 25 Alkaline Phosphatase 139 H Total Creatine Kinase 79 CK-MB (CK-2) TNP CK-MB (CK-2) Rel Index TNP Troponin I 0.054 H NT-Pro-B Natriuret Pep 4600 H Total Protein 7.2 Albumin 3.9 Globulin 3.3 Albumin/Globulin Ratio 1.2 Lipase 345 H Procalcitonin Chlamy pneumoniae PCR Adenovirus (PCR) B. pertussis DNA (PCR) B.parapertussis DNA PCR Coronavirus OC43 (PCR) Coronavirus HKU1 (PCR) Coronavirus 229E (PCR) SARS-CoV-2 (PCR) Coronavirus NL63 (PCR) Human Metapneumovir PCR Influenza Type A (PCR) Influenza Type B (PCR) M. pneumoniae (PCR) Parainfluenza 1 (PCR) Parainfluenza 2 (PCR) Parainfluenza 3 (PCR) Parainfluenza 4 (PCR) RSV (PCR) Entero/Rhino (PCR) 12/02/22 12/02/22 12/02/22 02:05 02:05 04:10 WBC RBC Hgb Hct MCV MCH MCHC RDW Plt Count Neut % (Auto) Lymph % (Auto) [place] % (Auto) Eos % (Auto) Baso % (Auto) Neut # (Auto) Lymph # (Auto) [place] # (Auto) Eos # (Auto) Baso # (Auto) APTT D-Dimer Sodium Potassium Chloride Carbon Dioxide BUN Creatinine Estimated GFR BUN/Creatinine Ratio Glucose Calcium Magnesium 1.6 Total Bilirubin AST ALT Alkaline Phosphatase Total Creatine Kinase 75 CK-MB (CK-2) TNP CK-MB (CK-2) Rel Index TNP Troponin I 0.060 H NT-Pro-B Natriuret Pep Total Protein Albumin Globulin Albumin/Globulin Ratio Lipase Procalcitonin 0.06 Chlamy pneumoniae PCR Adenovirus (PCR) B. pertussis DNA (PCR) B.parapertussis DNA PCR Coronavirus OC43 (PCR) Coronavirus HKU1 (PCR) Coronavirus 229E (PCR) SARS-CoV-2 (PCR) Coronavirus NL63 (PCR) Human Metapneumovir PCR Influenza Type A (PCR) Influenza Type B (PCR) M. pneumoniae (PCR) Parainfluenza 1 (PCR) Parainfluenza 2 (PCR) Parainfluenza 3 (PCR) Parainfluenza 4 (PCR) RSV (PCR) Entero/Rhino (PCR) 12/02/22 12/02/22 12/02/22 05:10 05:50 05:50 WBC 6.3 RBC 3.45 L Hgb 9.9 L Hct 30.2 L MCV 87.4 MCH 28.8 MCHC 33.0 RDW 16.3 H Plt Count 208 Neut % (Auto) 66.7 Lymph % (Auto) 23.6 L [place] % (Auto) 7.4 Eos % (Auto) 0.9 L Baso % (Auto) 1.4 Neut # (Auto) 4200 Lymph # (Auto) 1500 [place] # (Auto) 500 Eos # (Auto) 100 Baso # (Auto) 100 APTT D-Dimer Sodium 135 L Potassium 4.4 Chloride 102 Carbon Dioxide 23 BUN 26 H Creatinine 0.75 Estimated GFR > 60 BUN/Creatinine Ratio 34.7 H Glucose 298 H Calcium 8.7 Magnesium Total Bilirubin AST ALT Alkaline Phosphatase Total Creatine Kinase CK-MB (CK-2) CK-MB (CK-2) Rel Index Troponin I NT-Pro-B Natriuret Pep Total Protein Albumin Globulin Albumin/Globulin Ratio Lipase Procalcitonin Chlamy pneumoniae PCR Not detected Adenovirus (PCR) Not detected B. pertussis DNA (PCR) Not detected B.parapertussis DNA PCR Not detected Coronavirus OC43 (PCR) Not detected Coronavirus HKU1 (PCR) Not detected Coronavirus 229E (PCR) Not detected SARS-CoV-2 (PCR) Not detected Coronavirus NL63 (PCR) Not detected Human Metapneumovir PCR Not detected Influenza Type A (PCR) Not detected Influenza Type B (PCR) Not detected M. pneumoniae (PCR) Not detected Parainfluenza 1 (PCR) Not detected Parainfluenza 2 (PCR) Not detected Parainfluenza 3 (PCR) Not detected Parainfluenza 4 (PCR) Not detected RSV (PCR) Not detected Entero/Rhino (PCR) Not detected 12/02/22 12/02/22 12/02/22 05:50 09:50 10:10 WBC RBC Hgb Hct MCV MCH MCHC RDW Plt Count Neut % (Auto) Lymph % (Auto) [place] % (Auto) Eos % (Auto) Baso % (Auto) Neut # (Auto) Lymph # (Auto) [place] # (Auto) Eos # (Auto) Baso # (Auto) APTT 32 D-Dimer Sodium Potassium Chloride Carbon Dioxide BUN Creatinine Estimated GFR BUN/Creatinine Ratio Glucose Calcium Magnesium Total Bilirubin AST ALT Alkaline Phosphatase Total Creatine Kinase CK-MB (CK-2) CK-MB (CK-2) Rel Index Troponin I 0.108 H 1.420 H* NT-Pro-B Natriuret Pep Total Protein Albumin Globulin Albumin/Globulin Ratio Lipase Procalcitonin Chlamy pneumoniae PCR Adenovirus (PCR) B. pertussis DNA (PCR) B.parapertussis DNA PCR Coronavirus OC43 (PCR) Coronavirus HKU1 (PCR) Coronavirus 229E (PCR) SARS-CoV-2 (PCR) Coronavirus NL63 (PCR) Human Metapneumovir PCR Influenza Type A (PCR) Influenza Type B (PCR) M. pneumoniae (PCR) Parainfluenza 1 (PCR) Parainfluenza 2 (PCR) Parainfluenza 3 (PCR) Parainfluenza 4 (PCR) RSV (PCR) Entero/Rhino (PCR) [facility] Medical History Blindness left eye category 4, normal vision right eye Closed fracture of left hip Essential hypertension Glaucoma Hearing loss (~1944) Left tibial fracture Osteoporosis (~2000) Ptosis of both eyelids Retinal detachment (~2000) Thyroid nodule (~2019) Surgical History Anesthesia History of cataract removal with insertion of prosthetic lens History of elbow surgery History of eye surgery History of shoulder surgery History of total right hip arthroplasty Family History Father Suicide Mother Myocardial infarction Grandfather History of heart disease Family/Other Diabetes mellitus Social History household members: none Smoking Status: Never smoker alcohol intake: current Discharge Plan Discharge Plan Patient Disposition: [facility] Hospital Provider Discharge Comment: Please see transfer/discharge summary. Discharge Health Status Multidrug resistant organism: No MDRO Precautions: [place] Diet/Activity/Treatments Diet: Nothing by Mouth Liquid consistency: Normal/Thin Food texture: Regular Activity: Bed rest Other treatments: Heparin infusion Discharge Data Primary Care Provider: Trevor Suárez
[2022-12-02] MEDS: ACETAMINOPHEN 325 MG TABLET 650 MG PO (14:20)
[2022-12-02] MEDS: CALCIUM CARBONATE 500 MG TAB 1000 MG PO (14:21)
[2022-12-02] MEDS: INSULIN GLARGINE 100 UNIT/ML 3ML PEN SUBCUT (15:08)
[2022-12-02] MEDS: MORPHINE 2 MG/ML INJ IV (15:50)
[2022-12-02 18:31] LABS: PTT Partial Thromboplastin Tim 205 SECONDS (26-36)
--- NOTE | 2022-12-02 19:44 | PC.NURSE ---
Addendum entered by Kayleigh Garsia R.N. 12/02/22 19:52: Cont note from below: Order obtained for morphine but didn't want to use it. SI dont like to use medication. Sat was found to be slightly lower at 92-94% and O2 was applied at 2L, sats then increased to 97%. Pt was able to finally admit her upper left back pain wasn't getting any better and she agreed to take some morphine. She reported after the morphine her back pain resolved. She feels floaty but less anxious and more relaxed. Understands she can have more morphine if needed. Dr. Sanders was called results on all three results of trop at 0950, 1325, 1730. Just prior to transfer pt had a run of VT and Dr. Sanders was aware of this. Insulins: Pt was concerned about her blood glucose and having hypoglycemia. She has not eaten today and has a hx of hypoglycemia. She would not take her noon insulin and the Lantus at that time. Gave teaching and pt decided along with her son she would take the Lantus after all and she did take the evening insulin dose. Pt and son were given information on cardiac cath and other various procedures. Heparin vendor management specialist level 204 at 1800. Heparin drip was stopped per protocol. The ambulence crew was here then. Discussed heparin drip and per protocol it is stopped for 1 hour here. than the rate is reduced. Given a copy of current heparin protocol and orders given to the transfer crew. Report was then given to transfer crew. The transfer crew elected to not take the heparin with them since they would be at in about an hour. Report then called to Lucrecia at the transfer center at . Reviewed hospital course. Aware that heparin drip is currently off due to PTT of 204. Reviewed what our orders were for heparin protocol with her. Reported lab values including last trop of 5.9. Discussed patients sensory limitation, she is blind in the lt eye and almost deaf in the lt ear. Must approach the pt from the right, no mask, pt lip reads. She has maintained her NPO status for the day except the meds given per md order. The patient is teary at times. This isnt what she was expecting. Discussed trops and other labs. Tele SR all day until transfer and then had a run of VT. Ida questions were answered. She may return call for any further information if needed. gi Original Note: Cardiac/Transfer: Pt this am vomited as soon as she ate a small amount of bkft. Had midsternal chest pain at that time. RT called for ECG, MD called for incident and if she could have something for nausea. The pain came and went. MD reviewed ecg and was in contact with auto body estimator. Started heparin drip coronary protocol. ASA given per protocol. Labs done prior. During episode stayed in SR, and no c/p reoccured. VSS were stable, HR 62, RR 24, O2 sat was 98% on RA. In the early afternoon pt had some upper left back pain, just below scapula. MD made aware. Recieved Tylenol and TUMS. Order obtaine
== END 2022-12-02 18:00 | disposition short-term general hospital (02) | DRG 280 ==
LOC: ED 05:03 → AC 05:07
PROVIDERS: Internal Medicine; Admitting Provider Hospitalist; Emergency Provider Emergency Medicine; PCP Student in an Organized Health Care Education/Training Program; Referring Provider Emergency Medicine; Visit Provider Hospitalist
DX: I21.4 Non-ST elevation (NSTEMI) myocardial infarction (principal); I50.31 Acute diastolic (congestive) heart failure; I11.0 Hypertensive heart disease with heart failure; E10.9 Type 1 diabetes mellitus without complications; R80.9 Proteinuria, unspecified; Z20.822 Contact with and (suspected) exposure to COVID-19
CPT/HCPCS: 36415; 71045; 71275; 80048; 80053; 82550; 82962; 83690; 83735; 83880; 84145; 84484; 85025; 85379; 85730; 87633; 93005; 93306; 96374; 99284; J1644; J1815; J1940; J2270; Q9967

== ENCOUNTER → 2023-02-23 17:10 | Outpatient (CLI) | payer MEDICARE, OTHER, SELFPAY ==
[2022-12-02 08:03] VITALS: BMI 27.4
[2023-02-23 17:53] LABS: Add Manual Diff / Slide Review NO; Basophils Absolute Auto 100 /uL (0-100); Eosinophils Absolute Auto 400 /uL (0-450); Eosinophils Percent Auto 5.1 % (2-4); Hematocrit 31.2 % (36-46); Hemoglobin 10.5 g/dL (12.0-16.0); Lymphocytes Absolute Auto 3400 /uL (1100-4500); Lymphocytes Percent Auto 45.3 % (25-40); Mean Corpuscular HGB Conc 33.7 % (30-36); Mean Corpuscular Hemoglobin 29.2 PG (26-34); Mean Corpuscular Volume 86.7 fL (80-100); Monocytes Absolute Auto 700 /uL (0-900); Monocytes Percent Auto 9.6 % (3-14); Neutrophils Absolute Auto 2900 /uL (1500-7000); Platelet Count 310 X10^3/uL (150-400); Red Cell Distribution Width 19.1 % (11.6-14.8); White Blood Cell Count 7.5 X10^3/uL (4.5-11.0)
[2023-02-23 18:08] LABS: BUN Creatinine Ratio 33.8 (6-22); Blood Urea Nitrogen 24 mg/dL (7-17); Calcium 9.1 mg/dL (8.4-10.2); Carbon Dioxide 30 mmol/L (22-32); Chloride 94 mmol/L (98-107); Estimated Glomerular Filt Rate > 60 mL/min (>60); Glucose 300 mg/dL (80-110); HEMOLYSIS < 15 (0-50); Potassium 4.2 mmol/L (3.4-5.1); Sodium 131 mmol/L (137-145)
[2023-02-23 18:14] LABS: Hemoglobin A1C% w Est Avg Glu 8.7 % (4.0-6.0)
== END ==
PROVIDERS: PCP Family Medicine; Referring Provider Family Medicine; Visit Provider Family Medicine
DX: E10.22 Type 1 diabetes mellitus with diabetic chronic kidney disease (principal); D63.1 Anemia in chronic kidney disease; N18.30 Chronic kidney disease, stage 3 unspecified; N18.31 Chronic kidney disease, stage 3a
CPT/HCPCS: 36415; 80048; 83036; 85025

== ENCOUNTER 2023-05-28 09:51 | Emergency (ER) | payer MEDICARE, OTHER, SELFPAY ==
[2022-12-02 08:03] VITALS: BMI 27.4
[2023-05-28] VITALS (9 sets, daily range): BP systolic 124–148; BP diastolic 54–67; PULSE 63–75; RESP 15–25; TEMP 36.6; O2SAT 94–99; BMI 24.9
--- NOTE | 2023-05-28 10:00 | DI.RAD.S_ITS ---
PROCEDURE: XR CHEST 1V INDICATIONS: Shortness of breath TECHNIQUE: One view of the chest was acquired. COMPARISON: [facility], , XR CHEST 1V, 12/02/2022, 1:53. FINDINGS: Surgical changes and devices: Patient is status post median sternotomy and CABG. Lungs and pleura: There is blunting of the left costophrenic sulcus suggesting small effusion. No pulmonary consolidation. Mediastinum: Mediastinal contours appear normal. Heart size is normal. Bones and chest wall: No suspicious bony lesions. Overlying soft tissues appear unremarkable. IMPRESSION: Probable small left pleural effusion. Dictated by: Anne Garcia M.D. on 05/28/2023 at 10:36 Approved by: Anne Garcia M.D. on 05/28/2023 at 10:36
--- NOTE | 2023-05-28 10:09 | ED.SOB ---
HPI - SOB/Dyspnea General Chief Complaint: Shortness of Breath/Dyspnea Stated Complaint: chest pain Time Seen by Provider: 05/28/23 09:57 Source: patient Mode of arrival: Ambulatory Limitations: no limitations History of Present Illness HPI Narrative: Patient is a 83-year-old female history of insulin dependent diabetes recent CABG in December of 2022, hypertension chronic kidney disease presenting today with increasing shortness of breath over the last 2 days. Sounds as though she has been at multiple long turning facilities. Over last couple days she is noticed some increased shortness of breath with exertion similar to when she her [place]. she reports that she was not able to sleep last night she was having some discomfort. At rest she is not having any shortness of breath. She denies any chest pain with rest or exertion. No fever or chills no cough. She is no lower extremity edema. She is followed by Dr. Burgess. Related Data Home Medications Medication Instructions Recorded Confirmed latanoprost 0.005 % eye drops 1 drp OPHTH BEDTIME ##0 02/11/12 05/25/23 (Xalatan) acetaminophen 500 mg tablet 500 mg PO Q4H PRN 01/12/23 05/25/23 (Tylenol Extra Strength) insulin syringe-needle U-100 0.3 #10 ea 01/12/23 05/25/23 mL 30 gauge x 11/03 (TRUEplus Insulin) Previous Rx's Medication Instructions Recorded pen needle, diabetic 31 gauge x #400 ea 01/12/2311/03 (Unifine Pentips Plus) lancets 28 gauge (Safety Lancets) #400 ea 01/14/23 pen needle, diabetic 29 gauge x #100 ea 01/14/23 1/ (1st Tier Unifine Pentips) pen needle, diabetic 29 gauge x #300 ea 01/14/23 1/ (1st Tier Unifine Pentips) aspirin 81 mg chewable tablet 1 tab PO DAILY #30 tabs 01/18/23 prednisolone acetate 1 % eye 1 drp EYE-BOTH DAILY #5 mL 03/26/23 drops,suspension atorvastatin 80 mg tablet 80 mg PO ONCE PM for cholesterol 05/25/23 #90 ea clopidogrel 75 mg tablet 75 mg PO DAILY heart disease #90 05/25/23 tabs furosemide 20 mg tablet 20 mg PO DAILY for edema #90 ea 05/25/23 insulin glargine U-300 conc 300 8 unit (0.0267 mL) SUBCUT DAILY 05/25/23 unit/mL (3 mL) subcutaneous pen diabetes #3 mL (T[place] Max U-300 SoloStar) insulin lispro-aabc 100 unit/mL See Rx Instructions SUBCUT 05/25/23 subcutaneous pen (Farhat FerraroSaulo .COMPLEX #15 mL U-100 Insulin) losartan 50 mg tablet 50 mg PO DAILY blood pressure #90 05/25/23 tabs metoprolol succinate 25 mg 25 mg PO DAILY for blood pressure 05/25/23 tablet,extended release 24 hr #90 tabs pantoprazole 40 mg tablet,delayed 40 mg PO DAILY heartburn #90 tabs 05/25/23 release potassium chloride 10 mEq 10 meq PO DAILY #90 tabs 05/25/23 tablet,extended release Allergies Allergy/AdvReac Type Severity Reaction Status Date / Time No Known Drug Allergies Allergy Verified 05/28/23 10:00 Patient History Medical History CAD (coronary artery disease) Ptosis of both eyelids Essential hypertension Osteoporosis (~1999) Retinal detachment (~2000) Hearing loss (~1944) Thyroid nodule (~2018) Left tibial fracture Glaucoma Blindness left eye category 4, normal vision right eye Closed fracture of left hip Surgical History H/O three vessel coronary artery bypass Anesthesia History of shoulder surgery History of elbow surgery History of eye surgery History of cataract removal with insertion of prosthetic lens History of total right hip arthroplasty Family History Father Suicide Mother Myocardial infarction Grandfather History of heart disease Family/Other Diabetes mellitus Social History household members: none Smoking Status: Never smoker alcohol intake: current Smoking Status: Never smoker alcohol intake frequency: holidays/special occasions only Alcohol type: wine Substance Use Type: does not use Exam Initial Vital Signs Initial Vital Signs: Vital Signs Temperature 97.9 F 05/28/23 09:53 Pulse Rate 75 05/28/23 09:53 Respiratory Rate 15 05/28/23 09:53 Blood Pressure 128/62 05/28/23 09:53 Pulse Oximetry 97 05/28/23 09:53 Oxygen Delivery Method Room Air 05/28/23 09:53 GENERAL: Alert pleasant hard of hearing 83-year-old female and in no acute distress. HEENT: Head atraumatic,EOMI, pupils reactive, face symmetric, CARDIOVASCULAR: Regular rate and rhythm without murmurs, rubs or gallops. RESPIRATORY: Breath sounds equal bilaterally, no wheezes rales or rhonchi. Speaks in full sentences no respiratory distress ABDOMEN: Soft, nontender. Normoactive bowel sounds all 4 quadrants. No guarding or rebound. EXTREMITIES: Normal range of motion, no clubbing or pitting edema. Neurovascularly intact NEUROLOGICAL: Alert and oriented x4.Normal gait and speech. SKIN: Warm, dry, no laceration, no petechiae, no rashes or lesions. Course Orders Ordered: ED Orders 05/28/23 10:00 XR chest 1V Stat Complete Blood Count AUTO DIFF Stat Comprehensive Metabolic Panel Stat Lactate (Lactic Acid) Stat NT-proBNP (BNP-Adult 18+) Stat Prothrombin Time INR Stat Troponin I Stat Measure peak expiratory flow ONCE RT Consult Eval and Treat NOW 05/28/23 10:04 EKG-12 Lead Stat 05/28/23 12:13 Urinalysis and Microscopic Stat 05/28/23 12:20 Trop I [Troponin I] Stat Discontinued Medications Furosemide (Furosemide 40 Mg/4 Ml Vial) 40 mg IV NOW ONE Stop: 05/28/23 11:20 Last Admin: 05/28/23 11:33 Dose: 40 mg Documented By: CTS Vital Signs Vital signs: Vital Signs - 8 hr 05/28/23 11:00 05/28/23 11:30 05/28/23 11:30 Pulse Rate 71 63 Respiratory Rate 25 H Blood Pressure 148/67 H Pulse Oximetry 99 Oxygen Delivery Method 05/28/23 12:00 05/28/23 12:00 05/28/23 13:27 Pulse Rate 63 Respiratory Rate Blood Pressure 137/65 Pulse Oximetry 99 94 Oxygen Delivery Method 05/28/23 13:28 05/28/23 13:28 Pulse Rate 72 Respiratory Rate Blood Pressure 124/54 L Pulse Oximetry 97 Oxygen Delivery Method Room Air MDM - SOB/Dyspnea Lab Data 05/28/23 10:00 05/28/23 10:00 Labs: Lab Results 1205/28/23 05/28/23 Range/Units 10:00 12:13 12:20 WBC 8.0 (4.5-11.0) X10^3/uL RBC 3.45 L (4.0-5.2) X10^6/uL Hgb 10.4 L (12.0-16.0) g/dL Hct 30.9 L (36-46) % MCV 89.5 (80-100) fL MCH 30.1 (26-34) PG MCHC 33.7 (30-36) % RDW 14.5 (11.6-14.8) % Plt Count 292 (150-400) X10^3/uL Neut % (Auto) 54.1 (50-75) % Lymph % (Auto) 32.1 (25-40) % [place] % (Auto) 11.1 (3-14) % Eos % (Auto) 2.1 (2-4) % Baso % (Auto) 0.6 (0-2) % Neut # (Auto) 4400 (5738-3435) /uL Lymph # (Auto) 2600 (7164-4002) /uL [place] # (Auto) 900 (0-900) /uL Eos # (Auto) 200 (0-450) /uL Baso # (Auto) 0 (0-100) /uL PT 12.3 (9.4-12.5) SECONDS INR 1.1 (0.9-1.3) Sodium 137 (137-145) mmol/L Potassium 3.6 (3.4-5.1) mmol/L Chloride 101 (98-107) mmol/L Carbon Dioxide 28 (22-32) mmol/L BUN 23 H (7-17) mg/dL Creatinine 0.82 (0.52-1.04) mg/dL Estimated GFR > 60 (>60) mL/min BUN/Creatinine Ratio 28.0 H (6-22) Glucose 116 H (80-110) mg/dL Lactate 2.4 H 1.3 (0.7-2.1) mmol/L Calcium 9.4 (8.4-10.2) mg/dL Total Bilirubin 0.9 (0.2-1.3) mg/dL AST 25 (14-36) IU/L ALT 15 (<35) IU/L Alkaline Phosphatase 180 H (38-126) U/L Troponin I 0.015 < 0.012 (0.01-0.034) ng/mL NT-Pro-B Natriuret Pep 5070 H (<450) pg/mL Total Protein 7.9 (6.3-8.2) g/dL Albumin 4.0 (3.5-5.0) g/dL Globulin 3.9 (1.7-4.1) g/dL Albumin/Globulin Ratio 1.0 (1.0-2.8) Urine Color Yellow Urine Appearance Clear Urine pH 6.5 (4.5-8.0) Ur Specific [place] 1.010 (1.000-1.035) Urine Protein Negative (Negative) Urine Glucose (UA) Negative (Negative) g/dL Urine Ketones Negative (NEGATIVE) Urine Occult Blood Negative (Negative) Urine Nitrate Negative (Negative) Urine Bilirubin Negative (NEGATIVE) Urine Urobilinogen 0.2 (0.2) E.U./dL Ur Leukocyte Esterase Negative (NEGATIVE) Urine RBC 0-1/hpf (0-5/HPF) Urine WBC None seen (0-5/HPF) Ur Squamous Epith Cells 0-1 /hpf D (0-5/HPF) Urine Bacteria None seen (None) Ur Culture Indicated? Cult not indicated Imaging Data Chest x-ray: Radiologist's Impression: PROCEDURE: XR CHEST 1V INDICATIONS: Shortness of breath TECHNIQUE: One view of the chest was acquired. COMPARISON: [facility], , XR CHEST 1V, 12/02/2022, 1:53. FINDINGS: Surgical changes and devices: Patient is status post median sternotomy and CABG. Lungs and pleura: There is blunting of the left costophrenic sulcus suggesting small effusion. No pulmonary consolidation. Mediastinum: Mediastinal contours appear normal. Heart size is normal. Bones and chest wall: No suspicious bony lesions. Overlying soft tissues appear unremarkable. IMPRESSION: Probable small left pleural effusion. Dictated by: Anne Garcia M.D. on 05/28/2023 at 10:36 ECG Data Interpretation: Normal sinus rhythm rate 71 GA interval 146 QRS [address] changes or T-wave inversions, seems improved from previous MDM Narrative Medical decision making narrative: Patient reggie 83-year-old female who presents today with increasing shortness of breath over the last 2 days. She is not in any respiratory distress on exam she has very mild crackles but not hypoxic. Chest x-ray shows small left pleural effusion. BNP elevated 5070 previously 4600. She is on Lasix 20 mg once a day she reports that she actually took 40 this morning. She has negative troponins. Lactate initially is 2.4 which improved 1.3. No evidence of infection. She does not have a fever. At this time she is a history of CABG she is negative troponins no EKG changes shortness of breath over the last 2 days with an elevated BNP consistent with congestive heart failure. Low suspicion for pulmonary embolism. She actually reports that she is breathing better after 40 of Lasix given to her in the ED. We discussed with both her and son at bedside increasing Lasix for the next 1-2 days. At this time no need for admission. Discharge Plan Departure Patient Disposition: Home Clinical Impression: Congestive heart failure Instructions: Heart Failure Activity Restrictions/Additional Instructions: *You have been diagnosed with congestive heart failure *What to do: At this time blood work and after overall reassuring. *Continue to take medications as directed Lasix 20 mg twice a day for 2 days then return to once daily *Follow up with your primary care provider in 2-3 days or call [phone] *Return to ER if you should have [or] any new, worsening or concerning symptoms Prescriptions: No Action latanoprost [Xalatan] 0.005 % drops 1 drp OPHTH BEDTIME Qty: 0 aspirin 81 mg tablet,chewable 1 tab PO DAILY Qty: 30 11RF prednisolone acetate 1 % drops,suspension 1 drp EYE-BOTH DAILY Qty: 5 0RF acetaminophen [Tylenol Extra Strength] 500 mg tablet 500 mg PO Q4H PRN (DME) insulin syringe-needle U-100 [TRUEplus Insulin] 0.3 mL 30 gauge x 5/16 syringe See Rx Instructions .ROUTE .MEDSUPPLY Qty: 10 Patient Comments: [NO ORIGINAL SIG] Rx Instructions: As directed (DME) pen needle, diabetic [Unifine Pentips Plus] 31 gauge x 5/16 needle See Rx Instructions .ROUTE .MEDSUPPLY Qty: 400 3RF Rx Instructions: use daily with lantus and TID with Lispro, as directeed (DME) lancets [Safety Lancets] 28 gauge misc See Rx Instructions .Route Qty: 400 3RF Rx Instructions: test 3-4 times daily as needed (DME) pen needle, diabetic [1st Tier Unifine Pentips] 29 gauge x 1/2 needle See Rx Instructions .Route Qty: 100 3RF Rx Instructions: use with lantus insulin pen as directed (DME) pen needle, diabetic [1st Tier Unifine Pentips] 29 gauge x 1/2 needle See Rx Instructions .Route Qty: 300 3RF Rx Instructions: TID with kwikpen humalog Toujeo Max U-300 SoloStar 300 unit/mL (3 mL) insulin pen 8 unit SUBCUT DAILY Qty: 3 11RF Lyumjev KwikPen U-100 Insulin 100 unit/mL insulin pen See Rx Instructions SUBCUT .COMPLEX Qty: 15 11RF Rx Instructions: subcutaneously; 4 units before breakfast, 5 units before lunch and dinner, plus sliding scale as needed losartan 50 mg tablet 50 mg PO DAILY Qty: 90 3RF atorvastatin 80 mg tablet 80 mg PO ONCE PM Qty: 90 3RF clopidogrel 75 mg tablet 75 mg PO DAILY Qty: 90 3RF furosemide 20 mg tablet 20 mg PO DAILY Qty: 90 3RF metoprolol succinate 25 mg tablet extended release 24 hr 25 mg PO DAILY Qty: 90 3RF pantoprazole 40 mg tablet,delayed release (DR/EC) 40 mg PO DAILY Qty: 90 3RF potassium chloride 10 mEq tablet extended release 10 meq PO DAILY Qty: 90 3RF Rx Instructions: while on lasix Referrals: Maurisio Burgess DO [Primary Care Provider] - Stand Alone Forms: Patient Portal/API
[2023-05-28 10:48] LABS: Add Manual Diff / Slide Review NO; Basophils Absolute Auto 0 /uL (0-100); Basophils Percent Auto 0.6 % (0-2); Eosinophils Absolute Auto 200 /uL (0-450); Eosinophils Percent Auto 2.1 % (2-4); Hematocrit 30.9 % (36-46); Hemoglobin 10.4 g/dL (12.0-16.0); Lymphocytes Absolute Auto 2600 /uL (1100-4500); Lymphocytes Percent Auto 32.1 % (25-40); Mean Corpuscular HGB Conc 33.7 % (30-36); Mean Corpuscular Hemoglobin 30.1 PG (26-34); Mean Corpuscular Volume 89.5 fL (80-100); Monocytes Absolute Auto 900 /uL (0-900); Monocytes Percent Auto 11.1 % (3-14); Neutrophils Absolute Auto 4400 /uL (1500-7000); Neutrophils Percent Auto 54.1 % (50-75); Platelet Count 292 X10^3/uL (150-400); Red Blood Cell Count 3.45 X10^6/uL (4.0-5.2); Red Cell Distribution Width 14.5 % (11.6-14.8)
[2023-05-28 10:59] LABS: Lactate (Lactic Acid) 2.4 mmol/L (0.7-2.1)
[2023-05-28 11:00] LABS: INR 1.1 (0.9-1.3); Prothrombin Time 12.3 SECONDS (9.4-12.5)
[2023-05-28 11:01] LABS: Alanine Aminotransferase 15 IU/L (<35); Alkaline Phosphatase 180 U/L (38-126); Aspartate Aminotransferase 25 IU/L (14-36); Bilirubin Total 0.9 mg/dL (0.2-1.3); Blood Urea Nitrogen 23 mg/dL (7-17); Calcium 9.4 mg/dL (8.4-10.2); Carbon Dioxide 28 mmol/L (22-32); Chloride 101 mmol/L (98-107); Estimated Glomerular Filt Rate > 60 mL/min (>60); Globulin 3.9 g/dL (1.7-4.1); Glucose 116 mg/dL (80-110); HEMOLYSIS < 15 (0-50); Potassium 3.6 mmol/L (3.4-5.1); Sodium 137 mmol/L (137-145); Total Protein 7.9 g/dL (6.3-8.2)
[2023-05-28 11:12] LABS: NT-proBNP (BNP-Adult 18+) 5070 pg/mL (<450); Troponin I 0.015 ng/mL (0.01-0.034)
--- NOTE | 2023-05-28 11:22 | PC.NURSE ---
Pt screaming in room. Arrived to find patient lying sideways on bed with back against rail. Pt ripped off all cardiac leads. states she needs to use the restroom. advised to please use call mosley instead of screaming from room and attempting to get up herself. Walker provided and assisted to bathroom. urine sample obtained however toilet paper contaminated sample. assisted back to bed by INTERNATIONAL LOGISTICS COORDINATOR.
[2023-05-28] MEDS: FUROSEMIDE 40 MG/4 ML VIAL IV (11:33)
--- NOTE | 2023-05-28 11:41 | PC.NURSE ---
Addendum entered by Rachael Chiu CNA 05/28/23 12:18: assisted pt. from bathroom to pt. room with walker. helped pt. reposition on bed provided pillow to pt. back for support. and two warm blankets. encouraged pt. to use call light, call light within reach of pt. Original Note: MARKETING DATABASE CONSULTANT note: assisted pt. from bathroom to pt. room. pt. requested to sit in chair instead of on the bed and stated i breathe better sitting up, then pt. requested to have me bring her son Joseph in to pt. room. This riprap placing supervisor put pt. bp cuff and pulse ox back on pt. and clipped pt. call light to pt. gown so that pt. will have access to it. left pt. room with door open and son joseph at bedside
[2023-05-28 12:21] LABS: Reflexed Lactate in 2 Hours Y
[2023-05-28 12:40] LABS: Appearance Urine UA CLEAR; Bilirubin Urine UA NEGATIVE (NEGATIVE); Color Urine UA YELLOW; Glucose Urine UA NEGATIVE (Negative); Ketones Urine UA NEGATIVE (NEGATIVE); Leukocyte Esterase Urine UA NEGATIVE (NEGATIVE); Nitrite Urine UA NEGATIVE (Negative); Occult Blood Urine UA NEGATIVE (Negative); Protein Urine UA NEGATIVE (Negative); Urobilinogen Urine UA 0.2 E.U./dL (0.2)
[2023-05-28 12:43] LABS: pH Urine UA 6.5 (4.5-8.0)
[2023-05-28 12:49] LABS: Lactate 2HR (Lactic Acid Rflx) 1.3 mmol/L (0.7-2.1)
[2023-05-28 12:51] LABS: Bacteria Urine None Seen; Culture Indicated Urine Cult Not Indicated; RBC Urine 0-1/HPF (0-5/HPF); Squamous Epithelial Cell Urine 0-1 /HPF (0-5/HPF); WBC Urine None Seen (0-5/HPF)
[2023-05-28 13:01] LABS: Troponin I < 0.012 ng/mL (0.01-0.034)
== END 2023-05-28 13:33 | disposition home or self-care (01) ==
PROVIDERS: Emergency Provider Emergency Medicine; PCP Family Medicine
DX: I13.0 Hypertensive heart and chronic kidney disease with heart failure and stage 1 through stage 4 chronic kidney disease, or unspecified chronic kidney disease (principal); I50.9 Heart failure, unspecified; N18.9 Chronic kidney disease, unspecified; E11.22 Type 2 diabetes mellitus with diabetic chronic kidney disease; Z79.4 Long term (current) use of insulin; Z95.1 Presence of aortocoronary bypass graft
CPT/HCPCS: 36415; 71045; 80053; 81001; 83605; 83880; 84484; 85025; 85610; 93005; 96374; 99284; J1940

== ENCOUNTER 2023-05-28 20:24 | Inpatient (IN) | payer MEDICARE, OTHER, SELFPAY ==
[2022-12-02 08:03] VITALS: BMI 27.4
[2023-05-28] VITALS (9 sets, daily range): BP systolic 107–110; BP diastolic 46–53; PULSE 76–86; RESP 19–40; O2SAT 94–100
--- NOTE | 2023-05-28 20:45 | PC.NURSE ---
pt here with multiple complaints was seen earlier and dx with CHF states she went home and instead of taking the lasix she took her hydralizine unknown dose or time, pts bp 109/53 pt resp even and unlabored with O2 sat 100%, pt speaking in complete sentences but states she can't get enough air in, reassured pt she was getting an adequate amount, pt also c/o left hip pain with no deformity, or injury noted
--- NOTE | 2023-05-28 21:10 | ED.EXTPRO ---
HPI - Extremity Problem General Chief complaint: Extremity Problem,Nontraumatic Stated complaint: edema Time Seen by Provider: 05/28/23 20:53 Source: patient, family and EMS Mode of arrival: EMS Limitations: no limitations History of Present Illness HPI Narrative: Patient is an 83-year-old female. History of coronary artery disease, CHF. Chronic left hip pain. Was seen here earlier today for shortness of breath. Was given Lasix. Was discharged home. She states that after being discharged home she is still short of breath and potentially worse. No fevers. No cough. She has left hip pain but this is not necessarily new for her. No recent falls. She is here with her son. There is some concern that maybe she took 4 of her hydralazine tablets thinking that it was for of her furosemide. Review of the medical record shows that during her last primary care doctor visit there was some concern about medication compliance and confusion with medications at home. She is having some mild chest pressure but this is more when she gets up and walks. No sinus congestion. Not on blood thinners for her knowledge. Related Data Home Medications Medication Instructions Recorded Confirmed latanoprost 0.005 % eye drops 1 drp OPHTH BEDTIME ##0 02/10/05/25/23 (Xalatan) acetaminophen 500 mg tablet 500 mg PO Q4H PRN 01/12/23 05/25/23 (Tylenol Extra Strength) insulin syringe-needle U-100 0.3 #10 ea 01/12/23 05/25/23 mL 30 gauge x 11/03 (TRUEplus Insulin) Previous Rx's Medication Instructions Recorded pen needle, diabetic 31 gauge x #400 ea 01/12/2316 (Unifine Pentips Plus) lancets 28 gauge (Safety Lancets) #400 ea 01/14/23 pen needle, diabetic 29 gauge x #100 ea 01/14/23 1/2 (1st Tier Unifine Pentips) pen needle, diabetic 29 gauge x #300 ea 01/14/23 12 (1st Tier Unifine Pentips) aspirin 81 mg chewable tablet 1 tab PO DAILY #30 tabs 01/18/23 prednisolone acetate 1 % eye 1 drp EYE-BOTH DAILY #5 mL 03/26/23 drops,suspension atorvastatin 80 mg tablet 80 mg PO ONCE PM for cholesterol 05/25/23 #90 ea clopidogrel 75 mg tablet 75 mg PO DAILY heart disease #90 05/25/23 tabs furosemide 20 mg tablet 20 mg PO DAILY for edema #90 ea 05/25/23 insulin glargine U-300 conc 300 8 unit (0.0267 mL) SUBCUT DAILY 05/25/23 unit/mL (3 mL) subcutaneous pen diabetes #3 mL (Toujeo Max U-300 SoloStar) insulin lispro-aabc 100 unit/mL See Rx Instructions SUBCUT 05/25/23 subcutaneous pen (Lytai [place] .COMPLEX #15 mL U-100 Insulin) losartan 50 mg tablet 50 mg PO DAILY blood pressure #90 05/25/23 tabs metoprolol succinate 25 mg 25 mg PO DAILY for blood pressure 05/25/23 tablet,extended release 24 hr #90 tabs pantoprazole 40 mg tablet,delayed 40 mg PO DAILY heartburn #90 tabs 05/25/23 release potassium chloride 10 mEq 10 meq PO DAILY #90 tabs 05/25/23 tablet,extended release Allergies Allergy/AdvReac Type Severity Reaction Status Date / Time No Known Drug Allergies Allergy Verified 05/28/23 10:00 Review of Systems Review of Systems ROS Unobtainable: All systems reviewed & are unremarkable except as noted in HPI and below Patient History Medical History CAD (coronary artery disease) Ptosis of both eyelids Essential hypertension Osteoporosis (~2000) Retinal detachment (~2000) Hearing loss (~1944) Thyroid nodule (~2019) Left tibial fracture Glaucoma Blindness left eye category 4, normal vision right eye Closed fracture of left hip Surgical History H/O three vessel coronary artery bypass Anesthesia History of shoulder surgery History of elbow surgery History of eye surgery History of cataract removal with insertion of prosthetic lens History of total right hip arthroplasty Family History Father Suicide Mother Myocardial infarction Grandfather History of heart disease Family/Other Diabetes mellitus Social History household members: none Smoking Status: Never smoker alcohol intake: current Smoking Status: Never smoker alcohol intake frequency: holidays/special occasions only Alcohol type: wine Substance Use Type: does not use Exam Initial Vital Signs Initial Vital Signs: Vital Signs Pulse Rate 82 05/28/23 20:32 Respiratory Rate 28 H 05/28/23 20:32 Pulse Oximetry 100 05/28/23 20:32 Const General: cooperative and healthy appearing HENDE Head: normal to inspection and normocephalic Resp Effort & Inspection: tachypneic Auscultation: rales Cardio Rate: regular rate Rhythm: regular rhythm GI Inspection: normal to inspection Skin General: no rashes or lesions noted Neuro General: patient alert, patient awake and patient oriented x3 Extrem General: edema Other: Discomfort with palpation of the posterior aspect of the left hip Course Orders Ordered: ED Orders 05/28/23 21:32 XR chest 1V Stat EKG-12 Lead Stat 05/28/23 21:33 XR hip w pel if done LT 2V Stat 05/28/23 21:50 Basic Metabolic Panel Stat Complete Blood Count AUTO DIFF Stat D Dimer Stat NT-proBNP (BNP-Adult 18+) Stat Troponin & CK Cardiac Panel Stat 05/28/23 23:05 Respiratory Panel (Film Array) Stat 05/28/23 23:57 CT angio chest PE protocol Stat Discontinued Medications Furosemide (Furosemide 40 Mg/4 Ml Vial) 40 mg IV NOW ONE Stop: 05/28/23 23:58 Last Admin: 05/29/23 01:12 Dose: 40 mg Documented By: MARYURI Morphine Sulfate (Morphine 2 Mg/Ml Inj) 2 mg IV NOW ONE Stop: 05/28/23 21:34 Last Admin: 05/28/23 21:40 Dose: 2 mg Documented By: MARYURI Vital Signs Vital signs: Vital Signs - 8 hr 05/28/23 20:32 05/28/23 20:36 05/28/23 21:00 Pulse Rate 82 82 83 Respiratory Rate 28 H 20 29 H Blood Pressure 109/53 L Pulse Oximetry 100 98 96 Oxygen Delivery Method Room Air 05/28/23 21:00 05/28/23 21:01 05/28/23 21:01 Pulse Rate 83 Respiratory Rate 31 H Blood Pressure 110/46 L 107/52 L Pulse Oximetry 94 Oxygen Delivery Method 05/28/23 21:30 05/28/23 22:02 05/28/23 22:30 Pulse Rate 86 84 79 Respiratory Rate 40 H 28 H Blood Pressure Pulse Oximetry 97 95 95 Oxygen Delivery Method 05/28/23 23:00 05/28/23 23:30 05/29/23 00:00 Pulse Rate 76 76 79 Respiratory Rate 23 19 23 Blood Pressure Pulse Oximetry 95 97 97 Oxygen Delivery Method 05/29/23 00:30 05/29/23 01:00 Pulse Rate 76 75 Respiratory Rate 24 21 Blood Pressure Pulse Oximetry 99 98 Oxygen Delivery Method MDM - Extremity (Nontraumatic) Medical Records Attestation: I reviewed the patient's medical records. Lab Data 05/28/23 21:50 05/28/23 21:50 Labs: Lab Results 05/28/23 05/28/23 Range/Units 21:50 23:05 WBC 7.9 (4.5-11.0) X10^3/uL RBC 3.20 L (4.0-5.2) X10^6/uL Hgb 9.6 L (12.0-16.0) g/dL Hct 28.6 L (36-46) % MCV 89.4 (80-100) fL MCH 30.0 (26-34) PG MCHC 33.6 (30-36) % RDW 14.7 (11.6-14.8) % Plt Count 270 (150-400) X10^3/uL Neut % (Auto) 79.4 H D (50-75) % Lymph % (Auto) 12.8 L (25-40) % [place] % (Auto) 6.9 (3-14) % Eos % (Auto) 0.4 L (2-4) % Baso % (Auto) 0.5 (0-2) % Neut # (Auto) 6300 (2699-8688) /uL Lymph # (Auto) 1000 L (0420-3455) /uL [place] # (Auto) 500 (0-900) /uL Eos # (Auto) 0 (0-450) /uL Baso # (Auto) 0 (0-100) /uL D-Dimer 2159 H (<500) ng/ml Sodium 134 L (137-145) mmol/L Potassium 4.2 (3.4-5.1) mmol/L Chloride 98 (98-107) mmol/L Carbon Dioxide 23 (22-32) mmol/L BUN 29 H (7-17) mg/dL Creatinine 1.40 H (0.52-1.04) mg/dL Estimated GFR 38 L (>60) mL/min BUN/Creatinine Ratio 20.7 (6-22) Glucose 388 H D (80-110) mg/dL Calcium 9.0 (8.4-10.2) mg/dL Total Creatine Kinase 51 (30-135) U/L Troponin I 0.013 (0.01-0.034) ng/mL NT-Pro-B Natriuret Pep 5570 H (<450) pg/mL Chlamy pneumoniae PCR Not detected (Not Detect) Adenovirus (PCR) Not detected (Not Detect) B.parapertussis DNA PCR Not detected (Not Detecte) Coronavirus OC43 (PCR) Not detected (Not Detect) Coronavirus HKU1 (PCR) Not detected (Not Detect) Coronavirus 229E (PCR) Not detected (Not Detect) SARS-CoV-2 (PCR) Detected H (Not Detecte) Coronavirus NL63 (PCR) Not detected (Not Detect) Human Metapneumovir PCR Not detected (Not Detect) Influenza Type A (PCR) Not detected (Not Detect) Influenza Type B (PCR) Not detected (Not Detect) M. pneumoniae (PCR) Not detected (Not Detect) Parainfluenza 1 (PCR) Not detected (Not Detect) Parainfluenza 2 (PCR) Not detected (Not Detect) Parainfluenza 3 (PCR) Not detected (Not Detect) Parainfluenza 4 (PCR) Not detected (Not Detect) RSV (PCR) Not detected (Not Detect) Entero/Rhino (PCR) Not detected (Not Detect) Imaging Data Chest x-ray: Radiologist's Impression: PROCEDURE: XR CHEST 1V INDICATIONS: SOB TECHNIQUE: One view of the chest was acquired. COMPARISON: [facility], CR, XR CHEST 1V, 05/28/2023, 10:00. [facility], , XR CHEST 1V, 12/02/2022, 1:53. FINDINGS: Surgical changes and devices: Sternotomy wires and mediastinal clips are present. Postsurgical changes are seen in the proximal humeri bilaterally. Lungs and pleura: Lungs are mildly hyperexpanded. Mildly prominent bilateral nurse tissue markings. No focal consolidation. No pleural effusion or pneumothorax. Mediastinum: Cardiac silhouette is enlarged. Bones and chest wall: No suspicious bony lesions. Overlying soft tissues appear unremarkable. IMPRESSION: Cardiomegaly and bilateral interstitial prominence may indicate mild interstitial edema. No focal consolidation is seen. Extremity x-ray #1: Radiologist's Impression: PROCEDURE: XR HIP W PEL IF DONE LT 2V INDICATIONS: Severe pain no specific injury TECHNIQUE: AP pelvis with lateral view of the left hip. COMPARISON: [facility], CR, XR HIP W PEL IF DONE LT 2V, 09/05/2020, 12:51. [facility], CR, XR HIP W PEL IF DONE LT 2V, 05/05/2019, 12:56. FINDINGS: Bones: Generalized osteopenia. Postsurgical changes are seen in the proximal femurs bilaterally. No recurrent femoral fracture is seen. Mild cortical abnormality of the left inferior pubic ramus could represent age-indeterminate fracture versus artifact related overlapping osseous structures. There appears to be loss of L4 vertebral body height when compared to the radiographs from 09/05/2020. No suspicious bony lesions. Soft tissues: The visualized bowel gas pattern is normal. No suspicious soft tissue calcifications. IMPRESSION: 1. Questionable irregularity of the left inferior pubic ramus may be secondary to an age-indeterminate fracture or artifact related to patient rotation and overlapping osseous structures. 2. Postsurgical changes in the bilateral proximal femurs. No recurrent femoral fracture is seen. 3. Moderate age indeterminate compression deformity of the L4 vertebral body is new when compared to the remote prior radiographs from 09/05/2020. 4. Generalized osteopenia. Approved by: Braden Rodriguez M.D. on 05/28/2023 at 22:43 CT scan - chest: Radiologist's Impression: PROCEDURE: CT ANGIO CHEST PE PROTOCOL INDICATIONS: Chest pain, shortness of breath, tachycardia TECHNIQUE: After the administration of intravenous contrast, 2 mm thick sections acquired from the pulmonary apices to the posterior costophrenic angles. 3-dimensional maximum intensity projection (MIP) coronal and sagittal reformats were then acquired through the thorax. For radiation dose reduction, the following was used: automated exposure control, adjustment of mA and/or kV according to patient size. COMPARISON: [facility], CT, CT ANGIO CHEST PE PROTOCOL, 12/02/2022, 3:38. FINDINGS: Image quality: Diagnostic. Pulmonary arteries: Pulmonary arteries are normal in size, and demonstrate no intraluminal filling defects to suggest central pulmonary embolism. Lungs and pleura: Mild respiratory motion. Bibasilar atelectasis. No suspicious consolidation. Right lower lobe 4 mm pulmonary nodule appears unchanged (185/5) and is considered benign. Small bilateral pleural effusions. No pneumothorax. Central and peripheral airways are patent. Mediastinum: Heart size is moderately enlarged, without pericardial effusion. Severe coronary artery calcifications. No mediastinal or hilar adenopathy. Thoracic aorta is normal in caliber and enhancement. Esophagus is normal in caliber, without hiatal hernia. Bones and chest wall: Sternotomy wires and mediastinal clips are noted. No suspicious bony lesions. Multiple subacute or chronic bilateral rib fractures are noted. Postsurgical changes are noted in the proximal humeri bilaterally. No axillary or supraclavicular adenopathy. Right posterior thyroid nodule is seen. Recommend correlation with prior FNA results. Upper Abdomen: Visualized upper abdominal solid organs appear normal in the early arterial phase of enhancement. IMPRESSION: 1. No acute pulmonary embolus. 2. Moderate cardiomegaly. 3. Small bilateral pleural effusions with atelectasis of the adjacent lung bases. ECG Data Attestation EKG: I personally reviewed and interpreted this ECG as follows: Interpretation: Sinus rhythm Ventricular rate 81 Normal axis Normal QRS LVH No ST T wave changes MDM Narrative Medical decision making narrative: Patient does have clinical exam findings consistent with CHF she is having quite a bit of orthopnea and dyspnea on exertion and lower extremity edema. Her BNP during this visit is 500 points higher than what it was earlier today. She is mildly hypotensive which is not surprising if she took 4 of her hydralazine tablets. Patient was having quite a bit of left hip pain. There was some question of a remote pubic rami fracture although I am not convinced that this is what is causing her discomfort. She was given pain medicine. This did seem to improve her breathing somewhat. Her son states that she sometimes becomes very ?dramatic? when it comes to her pain and this potentially could be causing some of her problems breathing. Tried to ambulate her here in the ER she became very dyspneic. Was never hypoxic. Was given Lasix. CT scan shows no signs of pulmonary embolism. Low suspicion this is ACS. Nonischemic EKG. Patient's COVID was positive as well. I suspect that her breathing is a positive COVID status and also an underlying CHF and fluid overload. Discussed the case with Dr. Orozco hospitalist on-call who will admit for further evaluation treatment. Discharge Plan Departure Patient Disposition: Admitted As Inpatient Clinical Impression: CHF (congestive heart failure), COVID-19, Dyspnea on exertion Admit Date/Time: 05/29/23 01:19 Admit Provider: Blaise Orozco
--- NOTE | 2023-05-28 21:32 | DI.RAD.S_ITS ---
PROCEDURE: XR CHEST 1V INDICATIONS: SOB TECHNIQUE: One view of the chest was acquired. COMPARISON: [facility], CR, XR CHEST 1V, 05/28/2023, 10:00. [facility], CR, XR CHEST 1V, 12/02/2022, 1:53. FINDINGS: Surgical changes and devices: Sternotomy wires and mediastinal clips are present. Postsurgical changes are seen in the proximal humeri bilaterally. Lungs and pleura: Lungs are mildly hyperexpanded. Mildly prominent bilateral nurse tissue markings. No focal consolidation. No pleural effusion or pneumothorax. Mediastinum: Cardiac silhouette is enlarged. Bones and chest wall: No suspicious bony lesions. Overlying soft tissues appear unremarkable. IMPRESSION: Cardiomegaly and bilateral interstitial prominence may indicate mild interstitial edema. No focal consolidation is seen. Approved by: Braden Rodriguez M.D. on 05/28/2023 at 22:13
--- NOTE | 2023-05-28 21:33 | DI.RAD.S_ITS ---
PROCEDURE: XR HIP W PEL IF DONE LT 2V INDICATIONS: Severe pain no specific injury TECHNIQUE: AP pelvis with lateral view of the left hip. COMPARISON: [facility], CR, XR HIP W PEL IF DONE LT 2V, 09/05/2020, 12:51. [facility], CR, XR HIP W PEL IF DONE LT 2V, 05/05/2019, 12:56. FINDINGS: Bones: Generalized osteopenia. Postsurgical changes are seen in the proximal femurs bilaterally. No recurrent femoral fracture is seen. Mild cortical abnormality of the left inferior pubic ramus could represent age-indeterminate fracture versus artifact related overlapping osseous structures. There appears to be loss of L4 vertebral body height when compared to the radiographs from 09/05/2020. No suspicious bony lesions. Soft tissues: The visualized bowel gas pattern is normal. No suspicious soft tissue calcifications. IMPRESSION: 1. Questionable irregularity of the left inferior pubic ramus may be secondary to an age-indeterminate fracture or artifact related to patient rotation and overlapping osseous structures. 2. Postsurgical changes in the bilateral proximal femurs. No recurrent femoral fracture is seen. 3. Moderate age indeterminate compression deformity of the L4 vertebral body is new when compared to the remote prior radiographs from 09/05/2020. 4. Generalized osteopenia. Approved by: Braden Rodriguez M.D. on 05/28/2023 at 22:43
[2023-05-28] MEDS: MORPHINE 2 MG/ML INJ IV (21:40)
[2023-05-28 22:00] LABS: Add Manual Diff / Slide Review NO; Basophils Absolute Auto 0 /uL (0-100); Basophils Percent Auto 0.5 % (0-2); Eosinophils Absolute Auto 0 /uL (0-450); Eosinophils Percent Auto 0.4 % (2-4); Hematocrit 28.6 % (36-46); Hemoglobin 9.6 g/dL (12.0-16.0); Lymphocytes Absolute Auto 1000 /uL (1100-4500); Lymphocytes Percent Auto 12.8 % (25-40); Mean Corpuscular HGB Conc 33.6 % (30-36); Mean Corpuscular Volume 89.4 fL (80-100); Monocytes Absolute Auto 500 /uL (0-900); Monocytes Percent Auto 6.9 % (3-14); Neutrophils Absolute Auto 6300 /uL (1500-7000); Neutrophils Percent Auto 79.4 % (50-75); Platelet Count 270 X10^3/uL (150-400); Red Cell Distribution Width 14.7 % (11.6-14.8); White Blood Cell Count 7.9 X10^3/uL (4.5-11.0)
[2023-05-28 22:08] LABS: D Dimer 2159 ng/ml (<500)
[2023-05-28 22:11] LABS: BUN Creatinine Ratio 20.7 (6-22); Blood Urea Nitrogen 29 mg/dL (7-17); Carbon Dioxide 23 mmol/L (22-32); Chloride 98 mmol/L (98-107); Creatine Kinase 51 U/L (30-135); Estimated Glomerular Filt Rate 38 mL/min (>60); Glucose 388 mg/dL (80-110); HEMOLYSIS < 15 (0-50); Potassium 4.2 mmol/L (3.4-5.1); Sodium 134 mmol/L (137-145)
[2023-05-28 22:23] LABS: NT-proBNP (BNP-Adult 18+) 5570 pg/mL (<450); Troponin I 0.013 ng/mL (0.01-0.034)
--- NOTE | 2023-05-28 23:50 | PC.NURSE ---
pt states after ambulation she is feeling SOB because she has not recovered after the walk
--- NOTE | 2023-05-28 23:57 | DI.CT.S_ITS ---
PROCEDURE: CT ANGIO CHEST PE PROTOCOL INDICATIONS: Chest pain, shortness of breath, tachycardia TECHNIQUE: After the administration of intravenous contrast, 2 mm thick sections acquired from the pulmonary apices to the posterior costophrenic angles. 3-dimensional maximum intensity projection (MIP) coronal and sagittal reformats were then acquired through the thorax. For radiation dose reduction, the following was used: automated exposure control, adjustment of mA and/or kV according to patient size. COMPARISON: [facility], CT, CT ANGIO CHEST PE PROTOCOL, 12/02/2022, 3:38. FINDINGS: Image quality: Diagnostic. Pulmonary arteries: Pulmonary arteries are normal in size, and demonstrate no intraluminal filling defects to suggest central pulmonary embolism. Lungs and pleura: Mild respiratory motion. Bibasilar atelectasis. No suspicious consolidation. Right lower lobe 4 mm pulmonary nodule appears unchanged (185/5) and is considered benign. Small bilateral pleural effusions. No pneumothorax. Central and peripheral airways are patent. Mediastinum: Heart size is moderately enlarged, without pericardial effusion. Severe coronary artery calcifications. No mediastinal or hilar adenopathy. Thoracic aorta is normal in caliber and enhancement. Esophagus is normal in caliber, without hiatal hernia. Bones and chest wall: Sternotomy wires and mediastinal clips are noted. No suspicious bony lesions. Multiple subacute or chronic bilateral rib fractures are noted. Postsurgical changes are noted in the proximal humeri bilaterally. No axillary or supraclavicular adenopathy. Right posterior thyroid nodule is seen. Recommend correlation with prior FNA results. Upper Abdomen: Visualized upper abdominal solid organs appear normal in the early arterial phase of enhancement. IMPRESSION: 1. No acute pulmonary embolus. 2. Moderate cardiomegaly. 3. Small bilateral pleural effusions with atelectasis of the adjacent lung bases. Approved by: Braden Rodriguez M.D. on 05/29/2023 at 0:46
[2023-05-29] VITALS (56 sets, daily range): BP systolic 61–122; BP diastolic 27–60; PULSE 60–120; RESP 16–58; TEMP 36.4–36.9; O2SAT 84–99; BMI 23.4
[2023-05-29 01:10] LABS: Adenovirus Not Detected (Not Detect); B. parapertussis Not Detected (Not Detecte); Bordetella pertussis Not Detected (Not Detect); Chlamydophila pneumoniae Not Detected (Not Detect); Coronavirus 229E Not Detected (Not Detect); Coronavirus HKU1 Not Detected (Not Detect); Coronavirus NL 63 Not Detected (Not Detect); Coronavirus OC43 Not Detected (Not Detect); Human Metapneumovirus Not Detected (Not Detect); Human Rhinovirus/Enterovirus Not Detected (Not Detect); Influenza A Not Detected (Not Detect); Influenza B Not Detected (Not Detect); Mycoplasma pneumoniae Not Detected (Not Detect); Parainfluenza Virus 1 Not Detected (Not Detect); Parainfluenza Virus 2 Not Detected (Not Detect); Parainfluenza Virus 3 Not Detected (Not Detect); Parainfluenza Virus 4 Not Detected (Not Detect); Respiratory Syncytial Virus Not Detected (Not Detect)
[2023-05-29] MEDS: FUROSEMIDE 40 MG/4 ML VIAL IV ×2 (01:12→06:04)
[2023-05-29 01:14] LABS: SARS- CoV-2 Detected (Not Detecte)
--- NOTE | 2023-05-29 03:03 | P.HP_ITS ---
History of Present Illness History of Present Illness Date Patient Seen: 05/29/23 Time Patient Seen: 03:03 Chief complaint: edema Narrative: The pt is a 83 yo female who has been having increasingly SOB and weakness and was evaluated in our ER earlier today on 05/28. She was evaluated and told she had CHF exacerbation and sent home. She was told to increase her lasix at home but in her confused state, she took 4 Hydralazine tabs rather than the lasix. She came back to the ER tonight with complaints of continued fatigue, weakness and swelling in her legs. SInce he BNP was elevated still, the ER provider decided we should admit her t the ER. She was not dsypneic during my interview, she denies any fevers, chills, CP or pressure, no N/V/or myalgias. Has not been exposed to known illness, upto date on immunizations. FORMERLY [facility], [facility] Medical History CAD (coronary artery disease) Ptosis of both eyelids Essential hypertension Osteoporosis (~1999) Retinal detachment (~2000) Hearing loss (~1944) Thyroid nodule (~2018) Left tibial fracture Glaucoma Blindness left eye category 4, normal vision right eye Closed fracture of left hip Surgical History H/O three vessel coronary artery bypass Anesthesia History of shoulder surgery History of elbow surgery History of eye surgery History of cataract removal with insertion of prosthetic lens History of total right hip arthroplasty Family History Father Suicide Mother Myocardial infarction Grandfather History of heart disease Family/Other Diabetes mellitus Social History household members: none Smoking Status: Never smoker alcohol intake: current Meds Home Medications and Allergies Home Medications Medication Instructions Recorded Confirmed Type latanoprost 0.005 % eye drops 1 drp OPHTH BEDTIME ##0 02/11/12 05/25/23 History (Xalatan) acetaminophen 500 mg tablet 500 mg PO Q4H PRN 01/12/23 05/25/23 History (Tylenol Extra Strength) insulin syringe-needle U-100 0.3 #10 ea 01/12/23 05/25/23 History mL 30 gauge x 5/16 (TRUEplus Insulin) pen needle, diabetic 31 gauge x #400 ea 01/12/23 05/25/23 Rx 5/16 (Unifine Pentips Plus) lancets 28 gauge (Safety Lancets) #400 ea 01/14/23 05/25/23 Rx pen needle, diabetic 29 gauge x #100 ea 01/14/23 05/25/23 Rx 1/2 (1st Tier Unifine Pentips) pen needle, diabetic 29 gauge x #300 ea 01/14/23 05/25/23 Rx 1/2 (1st Tier Unifine Pentips) aspirin 81 mg chewable tablet 1 tab PO DAILY #30 tabs 01/18/23 05/25/23 Rx prednisolone acetate 1 % eye 1 drp EYE-BOTH DAILY #5 mL 03/26/23 05/25/23 Rx drops,suspension atorvastatin 80 mg tablet 80 mg PO ONCE PM for cholesterol 05/25/23 05/25/23 Rx #90 ea clopidogrel 75 mg tablet 75 mg PO DAILY heart disease #90 05/25/23 05/25/23 Rx tabs furosemide 20 mg tablet 20 mg PO DAILY for edema #90 ea 05/25/23 05/25/23 Rx insulin glargine U-300 conc 300 8 unit (0.0267 mL) SUBCUT DAILY 05/25/23 05/25/23 Rx unit/mL (3 mL) subcutaneous pen diabetes #3 mL (Toujeo Max U-300 SoloStar) insulin lispro-aabc 100 unit/mL See Rx Instructions SUBCUT 05/25/23 05/25/23 Rx subcutaneous pen (Farhat Troy .COMPLEX #15 mL U-100 Insulin) losartan 50 mg tablet 50 mg PO DAILY blood pressure #90 05/25/23 05/25/23 Rx tabs metoprolol succinate 25 mg 25 mg PO DAILY for blood pressure 05/25/23 05/25/23 Rx tablet,extended release 24 hr #90 tabs pantoprazole 40 mg tablet,delayed 40 mg PO DAILY heartburn #90 tabs 05/25/23 05/25/23 Rx release potassium chloride 10 mEq 10 meq PO DAILY #90 tabs 05/25/23 05/25/23 Rx tablet,extended release Allergies Allergy/AdvReac Type Severity Reaction Status Date / Time No Known Drug Allergies Allergy Verified 05/28/23 10:00 Exam Vital Signs (past 8 hours): - 05/28/23 20:32 05/28/23 20:36 05/28/23 21:00 Temperature Pulse Rate 82 82 83 Respiratory Rate 28 H 20 29 H Blood Pressure 109/53 L Pulse Oximetry 100 98 96 Oxygen Delivery Method Room Air Oxygen Flow Rate 05/28/23 21:00 05/28/23 21:01 05/28/23 21:01 Temperature Pulse Rate 83 Respiratory Rate 31 H Blood Pressure 110/46 L 107/52 L Pulse Oximetry 94 Oxygen Delivery Method Oxygen Flow Rate 05/28/23 21:30 05/28/23 22:02 05/28/23 22:30 Temperature Pulse Rate 86 84 79 Respiratory Rate 40 H 28 H Blood Pressure Pulse Oximetry 97 95 95 Oxygen Delivery Method Oxygen Flow Rate 05/28/23 23:00 05/28/23 23:30 05/29/23 00:00 Temperature Pulse Rate 76 76 79 Respiratory Rate 23 19 23 Blood Pressure Pulse Oximetry 95 97 97 Oxygen Delivery Method Oxygen Flow Rate 05/29/23 00:30 05/29/23 01:00 05/29/23 01:14 Temperature Pulse Rate 76 75 Respiratory Rate 24 21 Blood Pressure 119/55 L Pulse Oximetry 99 98 Oxygen Delivery Method Oxygen Flow Rate 05/29/23 01:14 05/29/23 01:30 05/29/23 01:30 Temperature Pulse Rate 77 76 Respiratory Rate 33 H 23 Blood Pressure 120/59 L Pulse Oximetry 84 L 96 Oxygen Delivery Method Oxygen Flow Rate 05/29/23 01:33 05/29/23 02:06 Temperature 98.5 F 97.6 F Pulse Rate 80 Respiratory Rate 17 Blood Pressure 121/41 L Pulse Oximetry 96 Oxygen Delivery Method Oxygen Flow Rate 0 Oxygen Delivery Method Room Air Oxygen Flow Rate 0 Const General: cooperative, healthy appearing and comfortable Resp Effort & Inspection: normal respiratory effort Auscultation: clear to auscultation bilaterally Cardio Rate: regular rate Rhythm: regular rhythm GI Inspection: normal to inspection Auscultation: normal bowel sounds Extrem General: no clubbing, cyanosis or edema Objective Labs 05/28/23 21:50 05/28/23 21:50 Labs: Laboratory Results - last 24 hr 05/28/23 05/28/23 21:50 23:05 WBC 7.9 RBC 3.20 L Hgb 9.6 L Hct 28.6 L MCV 89.4 MCH 30.0 MCHC 33.6 RDW 14.7 Plt Count 270 Neut % (Auto) 79.4 H D Lymph % (Auto) 12.8 L Brown % (Auto) 6.9 Eos % (Auto) 0.4 L Baso % (Auto) 0.5 Neut # (Auto) 6300 Lymph # (Auto) 1000 L Brown # (Auto) 500 Eos # (Auto) 0 Baso # (Auto) 0 D-Dimer 2159 H Sodium 134 L Potassium 4.2 Chloride 98 Carbon Dioxide 23 BUN 29 H Creatinine 1.40 H Estimated GFR 38 L BUN/Creatinine Ratio 20.7 Glucose 388 H D Calcium 9.0 Total Creatine Kinase 51 Troponin I 0.013 NT-Pro-B Natriuret Pep 5570 H Chlamy pneumoniae PCR Not detected Adenovirus (PCR) Not detected B.parapertussis DNA PCR Not detected Coronavirus OC43 (PCR) Not detected Coronavirus HKU1 (PCR) Not detected Coronavirus 229E (PCR) Not detected SARS-CoV-2 (PCR) Detected H Coronavirus NL63 (PCR) Not detected Human Metapneumovir PCR Not detected Influenza Type A (PCR) Not detected Influenza Type B (PCR) Not detected M. pneumoniae (PCR) Not detected Parainfluenza 1 (PCR) Not detected Parainfluenza 2 (PCR) Not detected Parainfluenza 3 (PCR) Not detected Parainfluenza 4 (PCR) Not detected RSV (PCR) Not detected Entero/Rhino (PCR) Not detected Assessment & Plan Assessment and plan (1) COVID-19: Status: Acute (2) CHF (congestive heart failure): Status: Acute (3) H/O three vessel coronary artery bypass: Status: Acute (4) Chronic kidney disease (CKD) stage G3a/A2, moderately decreased glomerular filtration rate (GFR) between 45-59 mL/min/1.73 square meter and albuminuria creatinine ratio between 30-299 mg/g: Status: Acute Plan THe pt is medically stable, on RA, no edema on exam, but will monitor overnight on telemetry, start on lasix 40 mg IV Q6 hrs, monitor I/O's, daily weights, in respiratory isolation due to her + COVID status. no steroids at this time due to be on RA and essentially asymptomatic. Will need to re-evaluate home meds in the morning. labs reviewed, DIscussed with the ER provider.
[2023-05-29] MEDS: ATORVASTATIN 20 MG TABLET 80 MG PO ×2 (03:09→21:05)
[2023-05-29 04:36] LABS: Add Manual Diff / Slide Review NO; Basophils Absolute Auto 100 /uL (0-100); Basophils Percent Auto 1.1 % (0-2); Eosinophils Absolute Auto 0 /uL (0-450); Eosinophils Percent Auto 0.1 % (2-4); Hematocrit 29.2 % (36-46); Hemoglobin 9.9 g/dL (12.0-16.0); Lymphocytes Absolute Auto 1100 /uL (1100-4500); Lymphocytes Percent Auto 17.7 % (25-40); Mean Corpuscular HGB Conc 33.7 % (30-36); Mean Corpuscular Hemoglobin 30.5 PG (26-34); Mean Corpuscular Volume 90.5 fL (80-100); Monocytes Absolute Auto 300 /uL (0-900); Monocytes Percent Auto 4.7 % (3-14); Neutrophils Absolute Auto 4800 /uL (1500-7000); Neutrophils Percent Auto 76.4 % (50-75); Platelet Count 264 X10^3/uL (150-400); Red Blood Cell Count 3.23 X10^6/uL (4.0-5.2); Red Cell Distribution Width 14.8 % (11.6-14.8); White Blood Cell Count 6.3 X10^3/uL (4.5-11.0)
[2023-05-29 04:42] LABS: Blood Urea Nitrogen 35 mg/dL (7-17); Calcium 9.2 mg/dL (8.4-10.2); Carbon Dioxide 23 mmol/L (22-32); Chloride 93 mmol/L (98-107); Estimated Glomerular Filt Rate 32 mL/min (>60); HEMOLYSIS < 15 (0-50); Potassium 4.4 mmol/L (3.4-5.1); Sodium 131 mmol/L (137-145)
[2023-05-29 04:43] LABS: Glucose 513 mg/dL (80-110)
[2023-05-29 04:50] LABS: NT-proBNP (BNP-Adult 18+) 5600 pg/mL (<450)
[2023-05-29] MEDS: INSULIN REGULAR 100 UNIT/ML 3 ML VIAL 10 UNIT IV (06:01)
[2023-05-29] MEDS: PANTOPRAZOLE DR 20 MG TABLET PO (06:05)
[2023-05-29] MEDS: INSULIN LISPRO 100 UNIT/ML 3ML VIAL 20 UNIT SUBCUT (07:45)
[2023-05-29] MEDS: INSULIN GLARGINE 100 UNIT/ML 3ML PEN 20 UNIT SUBCUT (08:42)
[2023-05-29] MEDS: INSULIN LISPRO 100 UNIT/ML 3ML VIAL SUBCUT ×4 (08:42→21:21)
[2023-05-29] MEDS: POTASSIUM CHLORIDE 10 MEQ TAB PO (08:43)
[2023-05-29] MEDS: CLOPIDOGREL 75 MG TABLET PO (08:43)
[2023-05-29] MEDS: ASPIRIN 81 MG CHEW TAB PO (08:43)
[2023-05-29] MEDS: PANTOPRAZOLE DR 40 MG TABLET PO (08:43)
[2023-05-29] MEDS: SODIUM CHLORIDE 0.9% 500 ML IV (10:40)
[2023-05-29] MEDS: SODIUM CHLORIDE 0.9% 500 ML 1000 ML IV (12:33)
--- NOTE | 2023-05-29 14:38 | CM.DANOTE ---
Patient is an 83 yo female who was admitted on 05/29/23 for Edema/SOB. Pt has [place] and [place] for [place] and her PCP is Dr. Maurisio Burgess. EMR was reviewed. Per MD, pt currently in the ED and was discharged home with recommendation to take lasix and pt accidentally took a different medication and therefore did not get improvement in her SOB. Pt currently in ICU due to bp/heart rate and sugars in the 500s. COVID+ Pt currently on room air and no PT/OT ordered at this time due to pt's orthostatics and not yet medically stable. Pt may or may not need PT eval. SW met with pt in room and explained role after she was moved to ICU and pt confirms that she lives at home alone between [place] and [facility]. Pt is independent at baseline and has local supportive son, who unfortunately has a broken wrist currently so limited with physical assist, and her supportive local cousin Maryann. Pt's sister is also listed on her contacts. Pt states she was last admitted in November 2022 this year and was transferred to [facility] and had to have cardiac surgery and was then discharged to [facility] for 21 days and then went to [facility] for Respite Stay for a couple months and recently discharged back home. Pt is quite motivated and she states stubborn and is very hopeful to d/c home with cousin Maryann to stay with her as she says her cousin also has COVID currently. SW discussed HH and pt does not feel that HH needed at this time but would be willing to consider if recommended. Plan: SW to follow closely to confirm safe plan of d/c home with family assist and to stay and r/o any HH or SNF needs when pt more medically appropriate. CRISTINA Christianson Discharge Planning/Care Management CM Discharge Assessment Start: 05/29/23 14:35 Freq: Status: Active Protocol: Document 05/29/23 14:35 BF (Rec: 05/29/23 14:38 BF [id number]) Discharge Planning Assessment Assigned Bedspread Inspector CRISTINA Evans DPOA/Assigned Designee Name samuel Wolf Advance Directives? Yes Advance Directives on File Yes History Provided By Patient,Family Member,Medical Record Has Patient been admitted in last 30 No days? Prior Living Arrangements House Household Members none Type of transporation used prior to Relies on Others admit Independent with ADL's Yes Is patient alert and oriented? Yes Caregiver for Another No Comment Pt hopeful for home with cousin, currently does not want HH or SNF Barriers to Discharge No Comment Pt is currently COVID+ Discharge Plan Home Transportation Arrangement family to transport if safe for home Additional Comment r/o HH Whiteboard Updated in Patient Room with Yes name and ext. # of Bedspread Inspector Review Status In Process Please Provide Date Initial DC 05/29/23 Assessment Was Performed Next Review Type Continued Stay Review
[2023-05-29] MEDS: SODIUM CHLORIDE 0.9% 1,000 ML 75 ML IV ×2 (18:03→19:48)
[2023-05-29] MEDS: SODIUM CHLORIDE 0.9% 1,000 ML 1000 ML IV (18:30)
--- NOTE | 2023-05-29 20:20 | PC.NURSE ---
C/O severe back pain which is relieved by changing position turning to the right side.
--- NOTE | 2023-05-29 20:59 | PM.PN.1 ---
Subjective Subjective Interval history: 83-year-old female with coronary artery disease, status post three-vessel bypass in December of this year, insulin-dependent diabetes mellitus, CKD 3, hypertension who was admitted earlier this morning with acute COVID-19 infection and congestive heart failure. She presented to the emergency department yesterday and received 40 mg of IV Lasix. She returned home and due to confusion with her medications at some point took a total of 8 tablets of hydralazine 25 mg. Family who was at bedside note it was sometime between 2 and 5:00 p.m.. She subsequently returned to the emergency department later in the evening and was given additional 40 mg of Lasix for presumed CHF exacerbation. She was admitted early this morning with ongoing orders for IV Lasix, but she had not yet received a dose. Shortly after change of shift this morning, her blood sugars were significantly elevated in the 500 range. She had received a single dose of regular insulin 10 units IV from the professor of mathematics, but blood sugars remained 500. She subsequently had some mild asymptomatic hypotension as well. Exam Vital Signs (past 8 hours): - 05/29/23 13:26 05/29/23 13:30 05/29/23 14:00 Pulse Rate Blood Pressure 83/32 L 84/32 L 79/32 L Pulse Oximetry Oxygen Delivery Method Oxygen Flow Rate 05/29/23 14:00 05/29/23 15:11 05/29/23 15:20 Pulse Rate Blood Pressure 100/50 L 101/50 L Pulse Oximetry 96 Oxygen Delivery Method Room Air Oxygen Flow Rate 0 05/29/23 15:30 05/29/23 15:40 05/29/23 15:50 Pulse Rate Blood Pressure 107/53 L 110/56 L 104/52 L Pulse Oximetry Oxygen Delivery Method Oxygen Flow Rate 05/29/23 16:00 05/29/23 16:10 05/29/23 16:15 Pulse Rate Blood Pressure 104/52 L 107/53 L 112/53 L Pulse Oximetry Oxygen Delivery Method Oxygen Flow Rate 05/29/23 16:30 05/29/23 16:45 05/29/23 17:00 Pulse Rate Blood Pressure 99/55 L 97/50 L 99/52 L Pulse Oximetry Oxygen Delivery Method Oxygen Flow Rate 05/29/23 17:15 05/29/23 17:30 05/29/23 17:45 Pulse Rate Blood Pressure 93/44 L 99/44 L 101/49 L Pulse Oximetry Oxygen Delivery Method Oxygen Flow Rate 05/29/23 18:01 05/29/23 18:05 05/29/23 18:07 Pulse Rate Blood Pressure 61/27 L 64/27 L 70/31 L Pulse Oximetry Oxygen Delivery Method Oxygen Flow Rate 05/29/23 18:08 05/29/23 18:15 05/29/23 18:28 Pulse Rate Blood Pressure 75/38 L 70/36 L Pulse Oximetry 96 Oxygen Delivery Method Room Air Oxygen Flow Rate 05/29/23 18:28 05/29/23 18:30 05/29/23 20:17 Pulse Rate 61 Blood Pressure 70/36 L 92/45 L Pulse Oximetry 96 Oxygen Delivery Method Room Air Oxygen Flow Rate Oxygen Delivery Method Room Air Oxygen Flow Rate 0 Narrative Exam Narrative: GEN: Very pleasant elderly female, Alert and oriented x 3, NAD HEENT:NC, Face symmetric CHEST: Respiratory excursions symmetric, coarse but CTAB CV: RRR, no M/R/G ABD: Soft, NT/ND, BT present in all 4 quadrants, no organomegaly or masses EXTR: warm, well perfused, no C/C/E SKIN: warm and dry, no rash NEURO: Alert and oriented x 3, nonfocal Objective Labs 05/29/23 04:15 05/29/23 04:15 Labs: Laboratory Results - last 24 hr 05/28/23 05/28/23 05/29/23 21:50 23:05 04:15 WBC 7.9 6.3 RBC 3.20 L 3.23 L Hgb 9.6 L 9.9 L Hct 28.6 L 29.2 L MCV 89.4 90.5 MCH 30.0 30.5 MCHC 33.6 33.7 RDW 14.7 14.8 Plt Count 270 264 Neut % (Auto) 79.4 H D 76.4 H Lymph % (Auto) 12.8 L 17.7 L Hooker % (Auto) 6.9 4.7 Eos % (Auto) 0.4 L 0.1 L Baso % (Auto) 0.5 1.1 Neut # (Auto) 6300 4800 Lymph # (Auto) 1000 L 1100 Hooker # (Auto) 500 300 Eos # (Auto) 0 0 Baso # (Auto) 0 100 D-Dimer 2159 H Sodium 134 L 131 L Potassium 4.2 4.4 Chloride 98 93 L Carbon Dioxide 23 23 BUN 29 H 35 H Creatinine 1.40 H 1.59 H Estimated GFR 38 L 32 L BUN/Creatinine Ratio 20.7 22.0 Glucose 388 H D 513 H* Calcium 9.0 9.2 Total Creatine Kinase 51 Troponin I 0.013 NT-Pro-B Natriuret Pep 5570 H 5600 H Chlamy pneumoniae PCR Not detected Adenovirus (PCR) Not detected B.parapertussis DNA PCR Not detected Coronavirus OC43 (PCR) Not detected Coronavirus HKU1 (PCR) Not detected Coronavirus 229E (PCR) Not detected SARS-CoV-2 (PCR) Detected H Coronavirus NL63 (PCR) Not detected Human Metapneumovir PCR Not detected Influenza Type A (PCR) Not detected Influenza Type B (PCR) Not detected M. pneumoniae (PCR) Not detected Parainfluenza 1 (PCR) Not detected Parainfluenza 2 (PCR) Not detected Parainfluenza 3 (PCR) Not detected Parainfluenza 4 (PCR) Not detected RSV (PCR) Not detected Entero/Rhino (PCR) Not detected PFSH Medical History CAD (coronary artery disease) Ptosis of both eyelids Essential hypertension Osteoporosis (~2000) Retinal detachment (~2000) Hearing loss (~1944) Thyroid nodule (~2019) Left tibial fracture Glaucoma Blindness left eye category 4, normal vision right eye Closed fracture of left hip Surgical History H/O three vessel coronary artery bypass Anesthesia History of shoulder surgery History of elbow surgery History of eye surgery History of cataract removal with insertion of prosthetic lens History of total right hip arthroplasty Family History Father Suicide Mother Myocardial infarction Grandfather History of heart disease Family/Other Diabetes mellitus Social History household members: none Smoking Status: Never smoker alcohol intake: current Assessment & Plan Assessment & Plan narrative: 1. COVID-19 She is overall doing reasonably well. She is stable on room air. No indication for steroids or antivirals. Will continue droplet precautions. 2. Reported congestive heart failure Patient does not have any clinical symptoms of congestive heart failure. Specifically, she is no edema, no significant pulmonary edema. She did have an elevated BNP, which was also present earlier this year. In November, her BNP was 4600. Here it has ranged from 1885-4984. Due to hypotension this morning, furosemide was held and plan was in place for ongoing monitoring. There is no echocardiogram available for review, but I suspect there is 1 at the hospital where she had her CABG. I am uncertain where this was performed but would recommend records be obtained tomorrow 3. Hypotension Initially, it was felt to be reflective of diuresis. She put out 1100 cc of urine overnight with the 2 doses of furosemide, plus whatever she may have urinated at home between her 2 ER visits. However, she continued to have low blood pressure and upon further discussion with family, it became clear that she had taken 200 mg of hydralazine accidentally. She thought it was furosemide when she took it. I suspect her hypotension is due to a combination of the excessive dose of hydralazine and the diuresis. She was given 2 500 cc boluses of normal saline. Blood pressure would briefly increased and then go back down. She remained asymptomatic. Ultimately, decision was made to transfer to the ICU for further monitoring. I did hope we could give some pressors briefly through peripheral IV until the effects of the hydralazine wore off, but I was advised that the hospital policy does not permit this. However, given that she is asymptomatic and perfusing well, I do not feel a central line is indicated. For now will continue to closely monitor and continue IV fluids at 75 cc/hour until her blood pressure improves. 4. Diabetes mellitus type 2, uncontrolled severe hyperglycemia She was given a 20 unit dose of lispro this morning as well as a 20 unit dose of Lantus with overall improvement in her blood sugars. A recent hemoglobin A1c was 9.8%, showing poor control overall. She had not received any steroids in the emergency department. I am not entirely certain why her blood sugar was so high, but there was a report that she may have had a large amount of orange juice during the hour she was home. Her baseline Lantus dose is 8 units daily. As noted I did change that to 20 units daily. This will require close monitoring to avoid hypoglycemia. 5. CKD 3 versus SOBIA CKD 3 as listed on admission. Her GFR however in November and on the morning of May 28 were all greater than 60. Last evening, it was down to 38 and today it is 32. This certainly could be a response to over-diuresis. As above, will give gentle IV fluids. Code status Full Prophylaxis On Lovenox Disposition Transferred to ICU. No E ICU consult at this time.
[2023-05-29] MEDS: LATANOPROST 0.005% OPHTH 2.5 ML 1 DROPS EYE-BOTH (21:05)
[2023-05-29] MEDS: SENNOSIDES 8.6 MG TABLET 17.2 MG PO (21:06)
[2023-05-29] MEDS: HYDROCODONE/ACET 5/325 TABLET 1 TAB PO (21:20)
[2023-05-30] VITALS (15 sets, daily range): BP systolic 116–162; BP diastolic 54–68; PULSE 59–68; RESP 18; TEMP 36.7–37; O2SAT 87–98
[2023-05-30] MEDS: INSULIN LISPRO 100 UNIT/ML 3ML VIAL SUBCUT (08:33)
[2023-05-30] MEDS: ASPIRIN 81 MG CHEW TAB PO (08:36)
[2023-05-30] MEDS: CLOPIDOGREL 75 MG TABLET PO (08:36)
[2023-05-30] MEDS: METOPROLOL ER 25 MG TABLET PO (08:36)
[2023-05-30] MEDS: POTASSIUM CHLORIDE 10 MEQ TAB PO (08:36)
[2023-05-30] MEDS: INSULIN GLARGINE 100 UNIT/ML 3ML PEN 20 UNIT SUBCUT (08:37)
[2023-05-30] MEDS: SPIRONOLACTONE 25 MG TABLET PO (08:38)
[2023-05-30] MEDS: PANTOPRAZOLE DR 40 MG TABLET PO (08:38)
[2023-05-30] MEDS: LOSARTAN 50 MG TABLET PO (08:38)
--- NOTE | 2023-05-30 09:09 | PM.DS.1 ---
History of Present Illness History of Present Illness Date Patient Seen: 05/29/23 Time Patient Seen: 03:03 Chief complaint: edema Narrative: The pt is a 83 yo female who has been having increasingly SOB and weakness and was evaluated in our ER earlier today on 05/28. She was evaluated and told she had CHF exacerbation and sent home. She was told to increase her lasix at home but in her confused state, she took 4 Hydralazine tabs rather than the lasix. She came back to the ER tonight with complaints of continued fatigue, weakness and swelling in her legs. SInce he BNP was elevated still, the ER provider decided we should admit her t the ER. She was not dsypneic during my interview, she denies any fevers, chills, CP or pressure, no N/V/or myalgias. Has not been exposed to known illness, upto date on immunizations. Discharge Providers Provider Date of admission: 05/29/23 01:19 Discharge Date: 05/30/23 Primary care physician: Maurisio Burgess DO Discharge provider: Donald Martin DO Summary Hospital Course Discharge Diagnosis: 1. COVID-19 She is overall doing reasonably well. She is stable on room air. No indication for steroids or antivirals. Will continue droplet precautions. 2. Reported congestive heart failure Patient does not have any clinical symptoms of congestive heart failure. Specifically, she is no edema, no significant pulmonary edema. She did have an elevated BNP, which was also present earlier this year. In November, her BNP was 4600. Here it has ranged from 6889-1832. Due to hypotension this morning, furosemide was held and plan was in place for ongoing monitoring. Last echo in November 2022 with EF 45-50%, mild MR 3. Hypotension Initially, it was felt to be reflective of diuresis. She put out 1100 cc of urine overnight with the 2 doses of furosemide, plus whatever she may have urinated at home between her 2 ER visits. However, she continued to have low blood pressure and upon further discussion with family, it became clear that she had taken 200 mg of hydralazine accidentally. She thought it was furosemide when she took it. I suspect her hypotension is due to a combination of the excessive dose of hydralazine and the diuresis. She was given 2 500 cc boluses of normal saline. Blood pressure would briefly increased and then go back down. She remained asymptomatic. Ultimately, decision was made to transfer to the ICU for further monitoring. I did hope we could give some pressors briefly through peripheral IV until the effects of the hydralazine wore off, but I was advised that the hospital policy does not permit this. However, given that she is asymptomatic and perfusing well, I do not feel a central line is indicated. For now will continue to closely monitor and continue IV fluids at 75 cc/hour until her blood pressure improves. 4. Diabetes mellitus type 2, uncontrolled severe hyperglycemia She was given a 20 unit dose of lispro this morning as well as a 20 unit dose of Lantus with overall improvement in her blood sugars. A recent hemoglobin A1c was 9.8%, showing poor control overall. She had not received any steroids in the emergency department. I am not entirely certain why her blood sugar was so high, but there was a report that she may have had a large amount of orange juice during the hour she was home. Her baseline Lantus dose is 8 units daily. As noted I did change that to 20 units daily. This will require close monitoring to avoid hypoglycemia. 5. CKD 3 versus SOBIA CKD 3 as listed on admission. Her GFR however in November and on the morning of May 28 were all greater than 60. Last evening, it was down to 38 and today it is 32. This certainly could be a response to over-diuresis. As above, will give gentle IV fluids. Hospital Course: Admitted for SOB and found to be COVID positive. Given diuretics and improved. No echo repeated as she had no peripheral edema and prior echo only 6mo ago. Home meds resumed. Exam Vital Signs (past 8 hours): - 05/30/23 01:30 05/30/23 02:00 05/30/23 02:00 Temperature Pulse Rate 62 60 Blood Pressure 120/55 L Pulse Oximetry 96 96 96 Oxygen Delivery Method Room Air Oxygen Flow Rate 0 05/30/23 02:00 05/30/23 02:00 05/30/23 02:30 Temperature Pulse Rate 60 63 Blood Pressure 120/55 L Pulse Oximetry 96 87 L Oxygen Delivery Method Oxygen Flow Rate 05/30/23 03:00 05/30/23 03:30 05/30/23 04:00 Temperature Pulse Rate 63 63 68 Blood Pressure Pulse Oximetry 97 97 98 Oxygen Delivery Method Oxygen Flow Rate 05/30/23 04:01 05/30/23 04:01 05/30/23 06:00 Temperature 98.6 F Pulse Rate 67 Blood Pressure 132/60 Pulse Oximetry 97 96 Oxygen Delivery Method Room Air Oxygen Flow Rate 05/30/23 06:00 05/30/23 08:00 05/30/23 08:00 Temperature Pulse Rate 59 L Blood Pressure 162/68 H Pulse Oximetry 96 98 Oxygen Delivery Method Room Air Room Air Oxygen Flow Rate 0 0 05/30/23 08:36 05/30/23 08:38 Temperature Pulse Rate 66 66 Blood Pressure 147/61 H 147/61 H Pulse Oximetry Oxygen Delivery Method Oxygen Flow Rate Oxygen Delivery Method Room Air Oxygen Flow Rate 0 Narrative Exam Narrative: GEN: Very pleasant elderly female, Alert and oriented x 3, NAD HEENT:NC, Face symmetric CHEST: Respiratory excursions symmetric, coarse but CTAB CV: RRR, no M/R/G ABD: Soft, NT/ND, BT present in all 4 quadrants, no organomegaly or masses EXTR: warm, well perfused, no C/C/E SKIN: warm and dry, no rash NEURO: Alert and oriented x 3, nonfocal Objective Labs 05/29/23 04:15 05/29/23 04:15 PFSH Medical History CAD (coronary artery disease) Ptosis of both eyelids Essential hypertension Osteoporosis (~2000) Retinal detachment (~2000) Hearing loss (~1944) Thyroid nodule (~2019) Left tibial fracture Glaucoma Blindness left eye category 4, normal vision right eye Closed fracture of left hip Surgical History H/O three vessel coronary artery bypass Anesthesia History of shoulder surgery History of elbow surgery History of eye surgery History of cataract removal with insertion of prosthetic lens History of total right hip arthroplasty Family History Father Suicide Mother Myocardial infarction Grandfather History of heart disease Family/Other Diabetes mellitus Social History household members: none Smoking Status: Never smoker alcohol intake: current Discharge Plan Discharge Plan Patient Disposition: Home Provider Discharge Comment: You were found to have COVID, which is likely why were were feeling poorly. Discharge orders & Medications Prescriptions: Continued latanoprost [Xalatan] 0.005 % drops 1 drp OPHTH BEDTIME Qty: 0 aspirin 81 mg tablet,chewable 1 tab PO DAILY Qty: 30 11RF prednisolone acetate 1 % drops,suspension 1 drp EYE-BOTH DAILY Qty: 5 0RF acetaminophen [Tylenol Extra Strength] 500 mg tablet 500 mg PO Q4H PRN (DME) insulin syringe-needle U-100 [TRUEplus Insulin] 0.3 mL 30 gauge x 5/16 syringe See Rx Instructions .ROUTE .MEDSUPPLY Qty: 10 Patient Comments: [NO ORIGINAL SIG] Rx Instructions: As directed (DME) pen needle, diabetic [Unifine Pentips Plus] 31 gauge x 5/16 needle See Rx Instructions .ROUTE .MEDSUPPLY Qty: 400 3RF Rx Instructions: use daily with lantus and TID with Lispro, as directeed (DME) lancets [Safety Lancets] 28 gauge misc See Rx Instructions .Route Qty: 400 3RF Rx Instructions: test 3-4 times daily as needed (DME) pen needle, diabetic [1st Tier Unifine Pentips] 29 gauge x 1/2 needle See Rx Instructions .Route Qty: 100 3RF Rx Instructions: use with lantus insulin pen as directed (DME) pen needle, diabetic [1st Tier Unifine Pentips] 29 gauge x 1/2 needle See Rx Instructions .Route Qty: 300 3RF Rx Instructions: TID with kwikpen humalog Toujeo Max U-300 SoloStar 300 unit/mL (3 mL) insulin pen 8 unit SUBCUT DAILY Qty: 3 11RF Lyumjev KwikPen U-100 Insulin 100 unit/mL insulin pen See Rx Instructions SUBCUT .COMPLEX Qty: 15 11RF Rx Instructions: subcutaneously; 4 units before breakfast, 5 units before lunch and dinner, plus sliding scale as needed losartan 50 mg tablet 50 mg PO DAILY Qty: 90 3RF atorvastatin 80 mg tablet 80 mg PO ONCE PM Qty: 90 3RF clopidogrel 75 mg tablet 75 mg PO DAILY Qty: 90 3RF furosemide 20 mg tablet 20 mg PO DAILY Qty: 90 3RF metoprolol succinate 25 mg tablet extended release 24 hr 25 mg PO DAILY Qty: 90 3RF pantoprazole 40 mg tablet,delayed release (DR/EC) 40 mg PO DAILY Qty: 90 3RF potassium chloride 10 mEq tablet extended release 10 meq PO DAILY Qty: 90 3RF Rx Instructions: while on lasix Follow up/Referrals: Maurisio Burgess DO [Primary Care Provider] - 2 Weeks Visit Report/Discharge Packet Stand Alone Forms: Patient Portal/API, Stroke Signs & Symptoms Discharge Data Primary Care Provider: Maurisio Burgess
--- NOTE | 2023-05-30 10:36 | PC.NURSE ---
Discharge: Pt A&Ox4, [place]. Pt expresses desire to discharge. Provider at bedside. Pt IV d/c'd, telemetry removed. Education provided to pt on medication management, ways to prevent medication mistakes, family agreeable to assist pt in dispensing medications to prevent issues, educated on stroke s/s, worsening symptoms. Pt reports having appt already scheduled for 06/02 with PCP. Pt wheeled via wheelchair to private vehicle at approximately 0955
--- NOTE | 2023-05-30 10:55 | CM.DPC ---
DCP Continued SECURITY ASSURANCE ANALYST reviewed EMR. Per provider, would like patient to d/c with for med management needs. SECURITY ASSURANCE ANALYST placed verbal read back order. SECURITY ASSURANCE ANALYST entered room and introduced self and role. Pt eager to d/c. [facility]able to [facility], reports [facility] had [facility]. Pt pulling at IV. SECURITY ASSURANCE ANALYST notified RN pt pulling at IV. RN entered room to investigate. SECURITY ASSURANCE ANALYST spoke with intake at [facility]. Unable to review officially over weekend but will notify team Wednesday. SECURITY ASSURANCE ANALYST emailed Elvia at [facility] H&P, FS, and dc summary and CC'd Cassi and SECURITY ASSURANCE ANALYST team to confirm [facility] acceptance Wednesday. SECURITY ASSURANCE ANALYST faxed face to face and order. Plan: pt to d/c home with family support, [facility] to follow pending acceptance. CM team will follow up with [facility] wednesday. CRISTINA Sutton
== END 2023-05-30 09:55 | disposition home or self-care (01) | DRG 178 ==
LOC: ED 21:28 → AC 05-29 01:20 → ICU 05-29 14:07
PROVIDERS: Admitting Provider Internal Medicine; Emergency Provider Emergency Medicine; PCP Family Medicine; Referring Provider Emergency Medicine; Visit Provider Internal Medicine
DX: U07.1 COVID-19 (principal); I13.0 Hypertensive heart and chronic kidney disease with heart failure and stage 1 through stage 4 chronic kidney disease, or unspecified chronic kidney disease; N17.9 Acute kidney failure, unspecified; N18.31 Chronic kidney disease, stage 3a; I50.9 Heart failure, unspecified; I25.10 Atherosclerotic heart disease of native coronary artery without angina pectoris; E11.22 Type 2 diabetes mellitus with diabetic chronic kidney disease; I95.9 Hypotension, unspecified; E11.65 Type 2 diabetes mellitus with hyperglycemia; H40.9 Unspecified glaucoma; T46.5X5A Adverse effect of other antihypertensive drugs, initial encounter; Z79.4 Long term (current) use of insulin; Z95.1 Presence of aortocoronary bypass graft
CPT/HCPCS: 36415; 71045; 71275; 73502; 80048; 80053; 81001; 82550; 82962; 83605; 83880; 84484; 85025; 85379; 85610; 87633; 93005; 93010; 96374; 96375; 99284; J1815; J1940; J2270

== ENCOUNTER → 2023-06-01 12:10 | Outpatient (CLI) | payer MEDICARE, OTHER, SELFPAY ==
[2023-05-29 03:14] VITALS: BMI 23.4
== END ==
PROVIDERS: PCP Family Medicine; Visit Provider Physician Assistant
DX: R10.2 Pelvic and perineal pain (principal)
CPT/HCPCS: 87086

== ENCOUNTER → 2023-06-02 14:52 | Outpatient (CLI) | payer MEDICARE, OTHER, SELFPAY ==
[2023-05-29 03:14] VITALS: BMI 23.4
--- NOTE | 2023-06-02 14:54 | DI.RAD.S_ITS ---
PROCEDURE: XR HIP W PEL IF DONE LT 2V INDICATIONS: continued pain left side posterior TECHNIQUE: 2 views of the hip were acquired. COMPARISON: [facility], CR, XR HIP W PEL IF DONE LT 2V, 05/28/2023, 21:54. FINDINGS: Bones: And bilateral femoral neck screws with associated sideplate on the bright and femoral nail in the left. Hardware in good position. No evidence of failure or loosening. Para osteopenia no acute fracture. Moderate bilateral hip joint space narrowing. Soft tissues: Diffuse atherosclerotic vascular calcification noted. IMPRESSION: Bilateral hip instrumentation without acute fracture or hardware failure. Approved by: Miles Garcia M.D. on 06/02/2023 at 16:39
[2023-06-02 17:50] LABS: HEMOLYSIS < 15 (0-50); Iron 47 ug/dL (37-170)
[2023-06-02 18:04] LABS: Percent Iron Saturation 19 % (15-50); Total Iron Binding Capacity 243 ug/dL (265-497); Transferrin 222 mg/dL (206-381)
[2023-06-02 18:21] LABS: Ferritin 353 ng/mL (11-264)
[2023-06-02 18:35] LABS: Vitamin B12 971 pg/mL (239-931)
== END ==
PROVIDERS: PCP Family Medicine; Referring Provider Physician Assistant; Visit Provider Physician Assistant
DX: M25.552 Pain in left hip; N18.30 Chronic kidney disease, stage 3 unspecified; D63.1 Anemia in chronic kidney disease
CPT/HCPCS: 36415; 73502; 82607; 82728; 83540; 83550

== ENCOUNTER 2023-06-23 21:25 | Emergency (ER) | payer MEDICARE, OTHER, SELFPAY ==
[2023-05-29 03:14] VITALS: BMI 23.4
--- NOTE | 2023-06-23 | DI.RAD.S_ITS ---
PROCEDURE: XR CHEST 1V INDICATIONS: S TECHNIQUE: One view of the chest was acquired. COMPARISON: [facility], CR, XR CHEST 1V, 05/28/2023, 21:33. [facility], CR, XR CHEST 1V, 05/28/2023, 10:00. FINDINGS: Surgical changes and devices: Median sternotomy wires. Lungs and pleura: Lungs are clear. No pleural effusions or pneumothorax. Mediastinum: Mediastinal contours appear normal. Heart size is enlarged, stable. Bones and chest wall: No suspicious bony lesions. Overlying soft tissues appear unremarkable. IMPRESSION: No acute cardiopulmonary abnormality is seen. Dictated by: Keith Valladares M.D. on 06/23/2023 at 22:55 Approved by: Keith Valladares M.D. on 06/23/2023 at 22:55
--- NOTE | 2023-06-23 21:32 | DI.CT.S_ITS ---
PROCEDURE: CT ABDOMEN PELVIS WO CON INDICATIONS: left groin/hip pain TECHNIQUE: Axial sections were acquired from the lung bases to the pubic symphysis. Coronal and sagittal reformats were performed. For radiation dose reduction, the following was used: automated exposure control, adjustment of mA and/or kV according to patient size. COMPARISON: [facility], CT, CT ANGIO CHEST PE PROTOCOL, 05/29/2023, 0:07. FINDINGS: Image quality: Diagnostic. Lower Chest: Small bilateral pleural effusions with adjacent atelectasis versus consolidation. URINARY: Right Kidney: No stones or hydronephrosis. Right Ureter: No hydroureter. Left Kidney: No stones or hydronephrosis. Left Ureter: No hydroureter. Bladder: Normal wall thickness. No stones. ABDOMEN: Liver: No contour-deforming solid mass. Gallbladder: No radiopaque gallstones or wall thickening. Biliary ducts: No biliary dilation. Pancreas: No ductal dilation. Spleen: Size is within normal limits. Adrenal Glands: No adrenal nodules. Stomach and Bowel: Normal colonic caliber, without significant wall thickening. Peritoneum: No abnormal intraperitoneal fluid. No free air. Mild mesenteric edema. Ventral Wall: No hernia. Abdominal Nodes: No enlarged retroperitoneal or mesenteric lymph nodes. Vessels: Aorta and inferior vena cava are normal in size. Extensive atherosclerotic vascular calcifications. PELVIS: Pelvic Organs: Unremarkable. Pelvic Nodes: Unremarkable. Miscellaneous: No inguinal hernias are seen. Bones: Decreased osseous mineralization. ORIF of the bilateral hips without evidence of complication. Degenerative changes of the spine. Old fracture deformity of the left inferior pubic ramus. Moderate compression deformity of the L4 vertebral body without retropulsion. IMPRESSION: 1. No cause for patient's symptoms is identified. 2. ORIF of the bilateral hips without evidence of complication. Old fracture deformity of the left inferior pubic ramus. 3. Moderate compression deformity of L4 vertebral body without retropulsion. This is of uncertain chronicity, recommend correlation with point tenderness. 4. Small bilateral pleural effusions with adjacent atelectasis versus consolidation is similar to prior. Dictated by: Keith Valladares M.D. on 06/23/2023 at 22:11 Approved by: Keith Valladares M.D. on 06/23/2023 at 22:16
[2023-06-23 21:35] VITALS: BP 203/95; PULSE 67; RESP 20; TEMP 37.1; O2SAT 99; BMI 25.9
--- NOTE | 2023-06-23 21:48 | ED.GENADULT ---
HPI - General Adult General Chief complaint: Extremity Problem,Nontraumatic Stated complaint: Left groin pain, no injury or trauma Time Seen by Provider: 06/23/23 21:28 Source: patient and EMS Mode of arrival: EMS History of Present Illness HPI narrative: 83-year-old woman with history of congestive heart failure, hypertension, coronary artery disease, hyperlipidemia, currently on dual platelet therapy with aspirin and clopidogrel, diabetes and chronic kidney disease presents with upper respiratory symptoms for a couple of days and today increasingly short of breath, tachypneic with a rate in the 40s, oxygen saturations dropping despite her usual 2-3 L of oxygen at home presents today complaining of severe left groin pain. Pain started on June 19 and has increased significantly. She was recently diagnosed with COVID and still having quite a bit of fatigue. Her family has purchased her a reclining chair and she is spending quite a bit of time in the recliner chair. The pain was 10/10 earlier today and she called 911 for transport to the emergency department for further evaluation. She describes no significant trauma. Cough fever nausea, vomiting abdominal pain have all resolved after her recent COVID infection. She is not complaining of chest pain or palpitations Related Data Home Medications Medication Instructions Recorded Confirmed latanoprost 0.005 % eye drops 1 drp OPHTH BEDTIME ##0 02/11/12 06/02/23 (Xalatan) acetaminophen 500 mg tablet 500 mg PO Q4H PRN 01/12/23 06/02/23 (Tylenol Extra Strength) insulin syringe-needle U-100 0.3 #10 ea 01/12/23 06/02/23 mL 30 gauge x 11/03 (TRUEplus Insulin) Previous Rx's Medication Instructions Recorded pen needle, diabetic 31 gauge x #400 ea 01/12/2311/03 (Unifine Pentips Plus) lancets 28 gauge (Safety Lancets) #400 ea 01/14/23 pen needle, diabetic 29 gauge x #100 ea 01/14/23 1 (1st Tier Unifine Pentips) pen needle, diabetic 29 gauge x #300 ea 01/14/2306/22 (1st Tier Unifine Pentips) aspirin 81 mg chewable tablet 1 tab PO DAILY #30 tabs 01/18/23 prednisolone acetate 1 % eye 1 drp EYE-BOTH DAILY #5 mL 03/26/23 drops,suspension atorvastatin 80 mg tablet 80 mg PO ONCE PM for cholesterol 05/25/23 #90 ea clopidogrel 75 mg tablet 75 mg PO DAILY heart disease #90 05/25/23 tabs furosemide 20 mg tablet 20 mg PO DAILY for edema #90 ea 05/25/23 metoprolol succinate 25 mg 25 mg PO DAILY for blood pressure 05/25/23 tablet,extended release 24 hr #90 tabs pantoprazole 40 mg tablet,delayed 40 mg PO DAILY heartburn #90 tabs 05/25/23 release potassium chloride 10 mEq 10 meq PO DAILY #90 tabs 05/25/23 tablet,extended release insulin glargine U-300 conc 300 10 unit (0.0333 mL) SUBCUT DAILY 05/31/23 unit/mL (1.5 mL) subcutaneous pen #3 mL (Toujeo SoloStar U-300 Insulin) insulin lispro-aabc 100 unit/mL See Rx Instructions SUBCUT 06/09/23 subcutaneous pen (Lyumjev KwikPen .COMPLEX #15 mL U-100 Insulin) losartan 100 mg tablet 100 mg PO DAILY blood pressure #90 06/09/23 tabs Allergies Allergy/AdvReac Type Severity Reaction Status Date / Time No Known Drug Allergies Allergy Verified 06/02/23 14:20 Review of Systems Review of Systems Narrative: Pertinent positive and negative findings as per HPI Patient History Medical History CAD (coronary artery disease) Ptosis of both eyelids Essential hypertension Osteoporosis (~2000) Retinal detachment (~2000) Hearing loss (~1944) Thyroid nodule (~2019) Left tibial fracture Glaucoma Blindness left eye category 4, normal vision right eye Closed fracture of left hip Surgical History H/O three vessel coronary artery bypass Anesthesia History of shoulder surgery History of elbow surgery History of eye surgery History of cataract removal with insertion of prosthetic lens History of total right hip arthroplasty Family History Father Suicide Mother Myocardial infarction Grandfather History of heart disease Family/Other Diabetes mellitus Social History household members: none Smoking Status: Never smoker alcohol intake: current Smoking Status: Never smoker alcohol intake frequency: holidays/special occasions only Alcohol type: wine Substance Use Type: does not use Exam Initial Vital Signs Initial Vital Signs: Vital Signs Temperature 98.7 F 06/23/23 21:35 Pulse Rate 67 06/23/23 21:35 Respiratory Rate 20 06/23/23 21:35 Blood Pressure 203/95 H 06/23/23 21:35 Pulse Oximetry 99 06/23/23 21:35 Oxygen Delivery Method Room Air 06/23/23 21:35 General: Older and chronically ill appearing, in no acute distress. Able to give a complete and coherent history. Well-nourished well-developed HEENT: Moist mucous membranes, normal sclera with reactive pupils, Respiratory: Lungs are clear to auscultation, no wheezing no rales no rhonchi. Full and symmetrical air movement Cardiac: Regular rate and rhythm no murmurs no bruits Abdomen: Soft, nontender, no rebound or guarding, no flank pain Groin: She is tender along the left inguinal canal without hernia, erythema or adenopathy appreciated. Skin: Warm and dry, no rashes Neurologic: Grossly neurologically intact with no obvious asymmetries or abnormalities Extremities: With flexion of her left leg and internal and external rotation she complains of left groin pain. When lying flat she states she is not having any pain. Distal pulses are palpable. Left lower extremity is slightly more swollen than the right. She does not have any specific calf tenderness. Psych: Cooperative, appropriate insight and affect Course Orders Ordered: ED Orders 06/23/23 21:32 CT abdomen pelvis wo con Stat Complete Blood Count AUTO DIFF Stat Comprehensive Metabolic Panel Stat D Dimer Stat Vital Signs Vital signs: Vital Signs - 8 hr 06/23/23 21:35 Temperature 98.7 F Pulse Rate 67 Respiratory Rate 20 Blood Pressure 203/95 H Pulse Oximetry 99 Oxygen Delivery Method Room Air Medical Decision Making Lab Data 06/23/23 21:41 06/23/23 21:41 [facility] Narrative Medical decision making narrative: CC: Left groin pain starting June 19, increasing in pain to the point it was described as 03/30 and 911 was called Complicating co-morbidities: Dialysis patient, hypertension, hyperlipidemia, dual platelet therapy recent NSTEMI Data collected from: patient Social determinants of health that may influence the patients condition: Lives at home, dialysis patient Medical records reviewed: Hospital admissions from May and November with NSTEMI and congestive heart failure diagnoses are reviewed Differential considered: Hernia, pathologic fracture, tendinopathy, obstructing low pelvic lesion, DVT Exam documented above, pertinent findings include: Patient has tenderness at the left inguinal canal without hernia, abscess or adenopathy with tenderness to hip flexion, internal and external rotation. No low back or pelvic pain or tenderness. No tenderness over vertebral processes from mid thorax down to sacrum. No tenderness in her lower abdomen. Lab Test results independently reviewed as above. Pertinent findings: CBC shows normal white blood cell count, H&H is slightly lower than her baseline, approximately 1 month ago H&H was 9.9 and 29.2 and today is 8.9 and 26.8. There is no evidence for active bleeding Chemistries show improved creatinine, alkaline phosphatase is slightly elevated at 248, comparison is May 28 and was at 180 Elevated BNP at 4580. This is better than previous numbers and she is a dialysis patient Troponin is undetectable Procalcitonin is not D-dimer is less than her chronic baseline elevated D-dimer and PE study is not indicated today Independently reviewed EKG: Sinus rhythm at a rate of 67, occasional PVC and PAC, normal axis, no acute ischemic changes appreciated Imaging studies independently reviewed: CT scan of the abdomen and pelvis was ordered to see if there may be occult spine pelvis or hip fracture. There are not. Also concern for low pelvic mass or a kidney stone. Neither of these were identified Treatments: With no treatment aside from positioning in the bed, her pain is significantly improved and she would like to be discharged home. Discussion: 83-year-old woman with recent COVID infection still quite fatigued and spending quite a bit of time in a chair with a ?very upright back? became increasingly tender in the left groin area. Her daughter and son-in-law are available shortly after she is brought in by ambulance. They confirm difficulties and musculoskeletal discomforts with current bed and chairs with new bed and chairs, a lift chair and lifting bed, currently ordered and waiting to be delivered. Daughter's concern was more musculoskeletal/positional and seems to be confirmed with pain essentially resolving while she is in a hospital gurney. At this point I do not see any evidence for occult fractures, low pelvic pathology or masses, do not suspect a DVT, there is no evidence of lower extremity infection for inguinal hernia. This is most likely musculoskeletal pain. Findings reviewed with patient and her family. She has a appropriate pain medication at home. Will recommend continued trials of positioning changes. Reassurance was given and she is safe for discharge Discharge Plan Departure Patient Disposition: Home Clinical Impression: Left groin pain Instructions: DI for Musculoskeletal Pain Activity Restrictions/Additional Instructions: Thank you for coming in I am glad that you are getting over your COVID infection, even if you are still weak and recovering it seems to be going well. With the pain that you are experiencing in her left groin, I believe that you and your daughter are correct and that it is positional and musculoskeletal. I am seeing no evidence of infection, hernia, occult fractures in your spine pelvis or hip and no suggestion of a blood clot in your leg. You are doing everything right at this point to help alleviate the pain. I think that the new bed and the new recliner chair will also be helpful. At this point I do not have additional recommendations and I do believe it is safe to go home. Please continue all of your usual medications and scheduled dialysis appointments. If you find that you are getting worse or develop any new symptoms, please feel free to return to the emergency department for further evaluation. Prescriptions: No Action latanoprost [Xalatan] 0.005 % drops 1 drp OPHTH BEDTIME Qty: 0 aspirin 81 mg tablet,chewable 1 tab PO DAILY Qty: 30 11RF prednisolone acetate 1 % drops,suspension 1 drp EYE-BOTH DAILY Qty: 5 0RF Toujeo SoloStar U-300 Insulin 300 unit/mL (1.5 mL) insulin pen 10 unit SUBCUT DAILY Qty: 3 11RF Rx Instructions: inject 10 units subcutaneously once daily losartan 100 mg tablet 100 mg PO DAILY Qty: 90 3RF Lyumjev KwikPen U-100 Insulin 100 unit/mL insulin pen See Rx Instructions SUBCUT .COMPLEX Qty: 15 11RF Rx Instructions: subcutaneously; 4 units before breakfast, 5 units before lunch and dinner, plus sliding scale as needed. Max 5 units sliding scale with each meal (for total of max 15 units of sliding scale per day) acetaminophen [Tylenol Extra Strength] 500 mg tablet 500 mg PO Q4H PRN (DME) insulin syringe-needle U-100 [TRUEplus Insulin] 0.3 mL 30 gauge x 5/16 syringe See Rx Instructions .ROUTE .MEDSUPPLY Qty: 10 Patient Comments: [NO ORIGINAL SIG] Rx Instructions: As directed (DME) pen needle, diabetic [Unifine Pentips Plus] 31 gauge x 5/16 needle See Rx Instructions .ROUTE .MEDSUPPLY Qty: 400 3RF Rx Instructions: use daily with lantus and TID with Lispro, as directeed (DME) lancets [Safety Lancets] 28 gauge misc See Rx Instructions .Route Qty: 400 3RF Rx Instructions: test 3-4 times daily as needed (DME) pen needle, diabetic [1st Tier Unifine Pentips] 29 gauge x 1/2 needle See Rx Instructions .Route Qty: 100 3RF Rx Instructions: use with lantus insulin pen as directed (DME) pen needle, diabetic [1st Tier Unifine Pentips] 29 gauge x 1/2 needle See Rx Instructions .Route Qty: 300 3RF Rx Instructions: TID with kwikpen humalog atorvastatin 80 mg tablet 80 mg PO ONCE PM Qty: 90 3RF clopidogrel 75 mg tablet 75 mg PO DAILY Qty: 90 3RF furosemide 20 mg tablet 20 mg PO DAILY Qty: 90 3RF metoprolol succinate 25 mg tablet extended release 24 hr 25 mg PO DAILY Qty: 90 3RF pantoprazole 40 mg tablet,delayed release (DR/EC) 40 mg PO DAILY Qty: 90 3RF potassium chloride 10 mEq tablet extended release 10 meq PO DAILY Qty: 90 3RF Rx Instructions: while on lasix Referrals: Maurisio Burgess DO [Primary Care Provider] - Stand Alone Forms: Patient Portal/API
[2023-06-23 21:58] LABS: Add Manual Diff / Slide Review NO; Basophils Absolute Auto 100 /uL (0-100); Basophils Percent Auto 1.4 % (0-2); Eosinophils Absolute Auto 200 /uL (0-450); Eosinophils Percent Auto 3.6 % (2-4); Hematocrit 26.8 % (36-46); Hemoglobin 8.9 g/dL (12.0-16.0); Lymphocytes Absolute Auto 2200 /uL (1100-4500); Lymphocytes Percent Auto 33.6 % (25-40); Mean Corpuscular HGB Conc 33.1 % (30-36); Mean Corpuscular Hemoglobin 29.7 PG (26-34); Mean Corpuscular Volume 89.8 fL (80-100); Monocytes Absolute Auto 800 /uL (0-900); Monocytes Percent Auto 12.6 % (3-14); Neutrophils Absolute Auto 3200 /uL (1500-7000); Neutrophils Percent Auto 48.8 % (50-75); Platelet Count 277 X10^3/uL (150-400); Red Blood Cell Count 2.98 X10^6/uL (4.0-5.2); Red Cell Distribution Width 15.6 % (11.6-14.8); White Blood Cell Count 6.5 X10^3/uL (4.5-11.0)
[2023-06-23 22:03] LABS: D Dimer 1997 ng/ml (<500)
[2023-06-23 22:09] VITALS: BP 160/75; PULSE 63; RESP 22
[2023-06-23 22:15] LABS: Lactate (Lactic Acid) 0.6 mmol/L (0.7-2.1)
[2023-06-23 22:16] LABS: Lipase 267 U/L (23-300); Magnesium 1.9 mg/dL (1.6-2.3)
[2023-06-23 22:19] LABS: Appearance Urine UA CLEAR; Bilirubin Urine UA NEGATIVE (NEGATIVE); Color Urine UA YELLOW; Glucose Urine UA NEGATIVE (Negative); Ketones Urine UA NEGATIVE (NEGATIVE); Leukocyte Esterase Urine UA NEGATIVE (NEGATIVE); Nitrite Urine UA NEGATIVE (Negative); Occult Blood Urine UA NEGATIVE (Negative); Protein Urine UA NEGATIVE (Negative); Specific Gravity Urine UA <=1.005 (1.000-1.035); Urobilinogen Urine UA 0.2 E.U./dL (0.2)
[2023-06-23 22:27] LABS: Bacteria Urine Occasional (0-1); Culture Indicated Urine Cult Not Indicated; RBC Urine None Seen (0-5/HPF); Squamous Epithelial Cell Urine 1-5 /HPF (0-5/HPF); WBC Urine None Seen (0-5/HPF)
[2023-06-23 22:27] LABS: NT-proBNP (BNP-Adult 18+) 4580 pg/mL (<450); Troponin I < 0.012 ng/mL (0.01-0.034)
[2023-06-23 22:30] VITALS: BP 170/84; PULSE 63; RESP 23; O2SAT 98
[2023-06-23 22:32] LABS: Procalcitonin 0.08 ng/mL (<0.5)
[2023-06-23 22:41] LABS: Alanine Aminotransferase 12 IU/L (<35); Albumin 3.5 g/dL (3.5-5.0); Alkaline Phosphatase 248 U/L (38-126); BUN Creatinine Ratio 42.7 (6-22); Bilirubin Total 0.6 mg/dL (0.2-1.3); Blood Urea Nitrogen 38 mg/dL (7-17); Calcium 9.1 mg/dL (8.4-10.2); Carbon Dioxide 31 mmol/L (22-32); Chloride 100 mmol/L (98-107); Estimated Glomerular Filt Rate > 60 mL/min (>60); Globulin 3.6 g/dL (1.7-4.1); Glucose 69 mg/dL (80-110); Potassium 4.4 mmol/L (3.4-5.1); Sodium 135 mmol/L (137-145); Total Protein 7.1 g/dL (6.3-8.2)
[2023-06-23 23:16] VITALS: BP 141/75; PULSE 63; RESP 17; O2SAT 97
[2023-06-25 14:52] LABS: Aspartate Aminotransferase 27 IU/L (14-36); HEMOLYSIS 18 (0-50)
== END 2023-06-23 23:16 | disposition home or self-care (01) ==
PROVIDERS: Emergency Provider Emergency Medicine; PCP Family Medicine
DX: R10.9 Unspecified abdominal pain (principal); R07.9 Chest pain, unspecified; Z86.16 Personal history of COVID-19; Z79.899 Other long term (current) drug therapy
CPT/HCPCS: 36415; 71045; 74176; 80053; 81001; 83605; 83690; 83735; 83880; 84145; 84484; 85025; 85379; 87040; 93005; 99283; 99284

== ENCOUNTER 2023-07-15 11:35 | Observation (INO) | payer MEDICARE, OTHER, SELFPAY ==
[2023-05-29 03:14] VITALS: BMI 23.4
[2023-07-15] VITALS (26 sets, daily range): BP systolic 150–197; BP diastolic 62–116; PULSE 53–64; RESP 14–35; TEMP 35.4–37; O2SAT 93–100; BMI 25.2
--- NOTE | 2023-07-15 | DI.CT.S_ITS ---
PROCEDURE: CT ANGIO HEAD AND NECK INDICATIONS: POSSIBLE STROKE TECHNIQUE: After the administration of intravenous contrast, 1 mm thick sections acquired from the aortic arch through the [place]. 3-dimensional fjqkkbp-yffydclam-liqqvvwmbs (MIP) and/or volume rendering reformats were acquired of the central intracranial vasculature and neck separately. For radiation dose reduction, the following was used: automated exposure control, adjustment of mA and/or kV according to patient size. COMPARISON: [facility], CT, CT STROKE, 07/15/2023, 11:42. FINDINGS: Image quality: Diagnostic. BRAIN: CSF spaces: Ventricles are normal in size and shape. Basal cisterns are patent. No extra-axial fluid collections. Brain: No significant abnormality of the brain can be seen. Skull and face: Calvarium and facial bones appear intact, without suspicious lesions. Orbits appear normal. Sinuses: Sinuses and mastoids are clear. HEAD CT ANGIOGRAPHY: Anterior circulation: Intracranial internal carotid arteries are normal in size and flow. The flow within the paired anterior cerebral arteries is normal and symmetric. The flow within the middle cerebral arteries is normal and symmetric. The anterior communicating artery is seen. No aneurysms are seen. Posterior circulation: Visualized portions of the vertebral arteries demonstrate normal caliber, and join to form a normal appearing basilar artery. Flow within the posterior cerebral arteries is normal and symmetric. No aneurysms are seen. NECK CT ANGIOGRAPHY: Carotid system: The great vessels demonstrate a conventional anatomy as they arise from the aortic arch. The origins of the common carotid arteries appear patent. The common carotid arteries demonstrate normal caliber and courses. The bifurcation regions are both widely patent. There is a mild, less than or equal to 50% stenosis of the proximal right internal carotid artery, densely calcified. The left internal carotid is patent. Posterior circulation: The origins of the vertebral arteries both appear widely patent. The more superior extracranial portions of both vertebral arteries also demonstrate normal courses and calibers. They join to form a normal appearing basilar artery. Soft tissues: Visualized neck soft tissues demonstrate no suspicious abnormalities. Bones: No suspicious bony lesions. Visualized cervical spine appears normally aligned. IMPRESSION: 1. Unremarkable CTA head. No stenosis, aneurysm, occlusion, or focal filling defect. 2. 50% or less focal stenosis of the proximal right internal carotid artery. Any quantitative measurements of stenosis were performed using NASCET criteria. Dictated by: Fab Garcia M.D. on 07/15/2023 at 12:14 Approved by: Fab Garcia M.D. on 07/15/2023 at 12:18
--- NOTE | 2023-07-15 | DI.CT.S_ITS ---
PROCEDURE: CT STROKE INDICATIONS: POSSIBLE STROKE TECHNIQUE: Noncontrast 4.5 mm thick angled axial sections acquired from the foramen magnum to the vertex, with coronal reformats. For radiation dose reduction, the following was used: automated exposure control, adjustment of mA and/or kV according to patient size. COMPARISON: None. FINDINGS: Image quality: Diagnostic. CSF spaces: Basal cisterns are patent. No extra-axial fluid collections. The ventricles are symmetric in size and shape. Brain: No intracranial bleeds or masses. There is cerebral volume loss for age, with resultant ventricular and sulcal prominence. There are periventricular and deep white matter chronic small vessel ischemic changes. There is intracranial internal carotid artery atherosclerosis. Skull and face: Calvarium and visualized facial bones appear intact, without suspicious lesions. Sinuses: Visualized sinuses and mastoids are clear. IMPRESSION: No acute intracranial pathology. Comment: [facility] phones were working at the time interpretation. Findings were discussed with Jennifer Chase, of Radiology Administration for [facility] by non-hospital phone, to be directly given to Dr. Garcia on 07/15/2023 at 1158 hours. This study fulfills neurological imaging criteria for inclusion or exclusion of acute stroke therapies based on available published neurological guidelines. Dictated by: Fab Garcia M.D. on 07/15/2023 at 11:53 Approved by: Fab Garcia M.D. on 07/15/2023 at 12:01
--- NOTE | 2023-07-15 11:46 | ED.NEUROSD ---
HPI - Neuro Symptoms/Deficit General Chief Complaint: Neuro Symptoms/Deficit Stated Complaint: Code Stroke, last known well 07/15 Time Seen by Provider: 07/15/23 11:43 History of Present Illness HPI Narrative: Patient 83-year-old female history of congestive heart failure, CABG, coronary artery disease presents today as code stroke. Last well was 8:00 a.m.. She was on the phone with a neighbor they were supposed to go to lunch today. However she was over in her chair. She was not necessarily responding for EMS but did not have any sort of facial droop. She did have some difficulty getting words out but now seems to be communicating well. No obvious focal deficits. No unilateral weakness she is diffuse equally bilaterally. It appears that she was admitted in the hospital May 29 through the . During that admission she had COVID-19 possibly some congestive heart failure. Son at bedside still feels like she is slurring words Related Data Home Medications Medication Instructions Recorded Confirmed latanoprost 0.005 % eye drops 1 drp OPHTH BEDTIME ##0 02/11/12 07/15/23 (Xalatan) acetaminophen 500 mg tablet 500 mg PO Q4H PRN Pain (Scale 01/12/23 07/15/23 (Tylenol Extra Strength) Score 1-3) insulin syringe-needle U-100 0.3 #10 ea 01/12/23 07/15/23 mL 30 gauge x 11/03 (TRUEplus Insulin) insulin glargine U-300 conc 300 10 unit SUBCUT BEDTIME 07/15/23 07/15/23 unit/mL (1.5 mL) subcutaneous pen (Geovanny SolAliciaar U-300 Insulin) prednisolone acetate 1 % eye 1 drp EYE-BOTH BID 07/15/23 07/15/23 drops,suspension Previous Rx's Medication Instructions Recorded pen needle, diabetic 31 gauge x #400 ea 01/12/2311/03 (Unifine Pentips Plus) lancets 28 gauge (Safety Lancets) #400 ea 01/14/23 pen needle, diabetic 29 gauge x #100 ea 01/14/23 12 (1st Tier Unifine Pentips) pen needle, diabetic 29 gauge x #300 ea 01/14/23 12 (1st Tier Unifine Pentips) aspirin 81 mg chewable tablet 1 tab PO DAILY #30 tabs 01/18/23 atorvastatin 80 mg tablet 80 mg PO ONCE PM for cholesterol 05/25/23 #90 ea clopidogrel 75 mg tablet 75 mg PO DAILY heart disease #90 05/25/23 tabs furosemide 20 mg tablet 20 mg PO DAILY for edema #90 ea 05/25/23 metoprolol succinate 25 mg 25 mg PO DAILY for blood pressure 05/25/23 tablet,extended release 24 hr #90 tabs pantoprazole 40 mg tablet,delayed 40 mg PO DAILY heartburn #90 tabs 05/25/23 release potassium chloride 10 mEq 10 meq PO DAILY #90 tabs 05/25/23 tablet,extended release insulin lispro-aabc 100 unit/mL See Rx Instructions SUBCUT 06/09/23 subcutaneous pen (Farhat [place] .COMPLEX #15 mL U-100 Insulin) losartan 100 mg tablet 100 mg PO DAILY blood pressure #90 06/09/23 tabs Allergies Allergy/AdvReac Type Severity Reaction Status Date / Time No Known Drug Allergies Allergy Verified 07/15/23 11:50 Patient History Medical History CAD (coronary artery disease) Ptosis of both eyelids Essential hypertension Osteoporosis (~2000) Retinal detachment (~2000) Hearing loss (~1944) Thyroid nodule (~2019) Left tibial fracture Glaucoma Blindness left eye category 4, normal vision right eye Closed fracture of left hip Surgical History H/O three vessel coronary artery bypass Anesthesia History of shoulder surgery History of elbow surgery History of eye surgery History of cataract removal with insertion of prosthetic lens History of total right hip arthroplasty Family History Father Suicide Mother Myocardial infarction Grandfather History of heart disease Family/Other Diabetes mellitus Social History household members: none Smoking Status: Never smoker alcohol intake: current Smoking Status: Never smoker alcohol intake frequency: holidays/special occasions only Alcohol type: wine Substance Use Type: does not use Exam Initial Vital Signs Initial Vital Signs: Vital Signs Temperature 95.7 F L 07/15/23 11:24 Pulse Rate 54 L 07/15/23 11:24 Respiratory Rate 18 07/15/23 11:24 Blood Pressure 177/74 H 07/15/23 11:24 Pulse Oximetry 97 07/15/23 11:24 Oxygen Delivery Method Room Air 07/15/23 11:24 GENERAL: Alert 83-year-old female and in no acute distress. HEENT: Head atraumatic,EOMI, pupils reactive, face symmetric, moist mucous membranes CARDIOVASCULAR: Regular rate and rhythm without murmurs, rubs or gallops. RESPIRATORY: Breath sounds equal bilaterally, no wheezes rales or rhonchi. ABDOMEN: Soft, nontender. Normoactive bowel sounds all 4 quadrants. No guarding or rebound. EXTREMITIES: Normal range of motion, no clubbing or edema. Neurovascularly intact NEUROLOGICAL: Alert and oriented x4.Normal gait and speech. Cranial nerves II through XII grossly intact. Good [id number]-[id number], good ikwi-zp-ucje, strength equal bilaterally, mild slurring of words sensation in tact to soft touch bilaterally, no visual changes, no facial droop SKIN: Warm, dry, no laceration, no petechiae, no rashes or lesions. Scores NIH Stroke Scale Level of Conciousness: Alert, keenly responsive Ask month/age: Answers both questions correctly. Open/close eyes, close hand: Performs both tasks correctly Best gaze horizontal: Normal Visual richard: No visual loss Facial palsy: Normal symetrical movement Left arm drift: No drift for full 10 sec Right arm drift: No drift for full 10 sec Left leg drift: No drift for full 5 sec Right leg drift: No drift for full 5 sec Limb ataxia: Absent Sensory on face/arms/legs: Normal, no sensory loss Best language: Mild to moderate, slurs some words Dysarthria: Mild to mod,some slurring Extinction or inattention: No abnormality Total NIH Stroke scale score: 2 Course Orders Ordered: ED Orders 07/15/23 11:48 EKG-12 Lead Stat 07/15/23 11:53 Urine Drug Screen, Rapid Stat 07/15/23 11:56 COVID19 -Nasal RAPID Stat 07/15/23 11:57 BNP [NT-proBNP (BNP-Adult 18+)] Stat Complete Blood Count AUTO DIFF Stat Comprehensive Metabolic Panel Stat Ethanol (ETOH) Stat Lactate (Lactic Acid) Stat PTT Partial Thromboplastin Mitesh Stat Prothrombin Time INR Stat Troponin & CK Cardiac Panel Stat Urinalysis and Microscopic Stat 07/15/23 14:44 Chest [XR chest 1V] Stat Acetaminophen (Acetaminophen 325 Mg Tablet) 650 mg PO Q6H PRN PRN Reason: Fever/Mild Pain (1-3) Aspirin (Aspirin Ec 81 Mg Tablet) 81 mg PO DAILY ROBERT Atorvastatin Calcium (Atorvastatin 20 Mg Tablet) 80 mg PO BEDTIME ROBERT Clopidogrel Bisulfate (Clopidogrel 75 Mg Tablet) 75 mg PO DAILY ROBERT Furosemide (Furosemide 20 Mg Tablet) 20 mg PO DAILY [facility] Dextrose (D10w) 100 mls @ 1,200 mls/hr IV PRN PRN PRN Reason: Hypoglycemia Insulin Glargine (Insulin Glargine 100 Unit/Ml 3ml Pen) 20 unit SUBCUT 2100 ROBERT Insulin Human Lispro (Insulin Lispro 100 Unit/Ml 3ml Vial) 7 unit SUBCUT AC [facility] Insulin Human Lispro (Insulin Lispro 100 Unit/Ml 3ml Vial) 0 unit SUBCUT ACHS ROBERT; Protocol Latanoprost (Latanoprost 0.005% Ophth 2.5 Ml) 1 drops EYE-BOTH BEDTIME [facility] Losartan Potassium (Losartan 50 Mg Tablet) 100 mg PO DAILY [facility] Metoprolol Succinate (Metoprolol Er 25 Mg Tablet) 25 mg PO DAILY [facility] Naloxone HCl (Naloxone 0.4 Mg/Ml Vial) 0.2 mg IV Q2MIN PRN PRN Reason: Opiate Reversal Ondansetron HCl (Ondansetron 4 Mg Odt) 4 mg PO Q8HR PRN PRN Reason: Nausea And Vomiting Pantoprazole Sodium (Pantoprazole Dr 40 Mg Tablet) 40 mg PO DAILY [facility] Potassium Chloride (Potassium Chloride 10 Meq Tab) 10 meq PO DAILY [facility] Prednisolone Acetate (Prednisolone Ophth Susp) 1 drops EYE-BOTH BID [facility] Discontinued Medications Aspirin (Aspirin 81 Mg Chew Tab) 324 mg PO NOW ONE Stop: 07/15/23 14:32 Last Admin: 07/15/23 14:47 Dose: 324 mg Documented By: MPO Furosemide (Furosemide 20 Mg Tablet) 20 mg PO DAILY [facility] Last Admin: 07/15/23 17:48 Dose: Not Given Documented By: BT Vital Signs Vital signs: Vital Signs - 8 hr 07/15/23 12:15 07/15/23 12:30 07/15/23 12:30 Pulse Rate 54 L 53 L Respiratory Rate 25 H 20 Blood Pressure 162/65 H Pulse Oximetry 96 93 07/15/23 12:45 07/15/23 13:00 07/15/23 13:00 Pulse Rate 55 L 53 L Respiratory Rate 18 Blood Pressure 171/72 H Pulse Oximetry 94 93 07/15/23 13:15 07/15/23 13:30 07/15/23 13:30 Pulse Rate 58 L 55 L Respiratory Rate 24 Blood Pressure 180/116 H Pulse Oximetry 94 97 07/15/23 13:45 07/15/23 14:00 07/15/23 14:01 Pulse Rate 57 L 56 L Respiratory Rate 22 19 Blood Pressure 186/77 H Pulse Oximetry 96 97 07/15/23 14:01 07/15/23 14:15 07/15/23 14:30 Pulse Rate 56 L 55 L 57 L Respiratory Rate 27 H 20 20 Blood Pressure Pulse Oximetry 97 97 97 07/15/23 14:30 07/15/23 14:45 Pulse Rate 56 L Respiratory Rate 17 Blood Pressure 186/77 H Pulse Oximetry 97 MDM - Neuro Symptoms/Deficit Lab Data 07/15/23 11:57 07/15/23 11:57 Labs: Lab Results 07/15/23 07/15/23 07/15/23 Range/Units 11:53 11:56 11:57 WBC 7.4 (4.5-11.0) X10^3/uL RBC 3.49 L (4.0-5.2) X10^6/uL Hgb 10.4 L (12.0-16.0) g/dL Hct 31.4 L (36-46) % MCV 90.2 (80-100) fL MCH 29.8 (26-34) PG MCHC 33.0 (30-36) % RDW 15.9 H (11.6-14.8) % Plt Count 290 (150-400) X10^3/uL Neut % (Auto) 61.2 (50-75) % Lymph % (Auto) 29.3 (25-40) % [place] % (Auto) 7.3 (3-14) % Eos % (Auto) 1.7 L (2-4) % Baso % (Auto) 0.5 (0-2) % Neut # (Auto) 4500 (0828-1847) /uL Lymph # (Auto) 2200 (8906-4210) /uL [place] # (Auto) 500 (0-900) /uL Eos # (Auto) 100 (0-450) /uL Baso # (Auto) 0 (0-100) /uL PT 12.0 (9.4-12.5) SECONDS INR 1.0 (0.9-1.3) APTT 30 (25.1-36.5) SECONDS Sodium 139 (137-145) mmol/L Potassium 3.6 (3.4-5.1) mmol/L Chloride 101 (98-107) mmol/L Carbon Dioxide 30 (22-32) mmol/L BUN 39 H (7-17) mg/dL Creatinine 0.89 (0.52-1.04) mg/dL Estimated GFR > 60 (>60) mL/min BUN/Creatinine Ratio 43.8 H (6-22) Glucose 113 H (80-110) mg/dL Lactate 0.7 (0.7-2.1) mmol/L Calcium 9.7 (8.4-10.2) mg/dL Total Bilirubin 0.8 (0.2-1.3) mg/dL AST 27 (14-36) IU/L ALT 15 (<35) IU/L Alkaline Phosphatase 297 H (38-126) U/L Total Creatine Kinase 60 (30-135) U/L Troponin I < 0.012 (0.01-0.034) ng/mL NT-Pro-B Natriuret Pep 2110 H (<450) pg/mL Total Protein 8.3 H (6.3-8.2) g/dL Albumin 4.2 (3.5-5.0) g/dL Globulin 4.1 (1.7-4.1) g/dL Albumin/Globulin Ratio 1.0 (1.0-2.8) Urine Color Yellow Urine Appearance Clear Ur Specific [place] 1.010 (1.000-1.035) Urine Protein Negative (Negative) Urine Glucose (UA) Negative (Negative) g/dL Urine Ketones Negative (NEGATIVE) Urine Occult Blood Trace-intact (Negative) Urine Nitrate Negative (Negative) Urine Bilirubin Negative (NEGATIVE) Urine Urobilinogen 0.2 (0.2) E.U./dL Ur Leukocyte Esterase Negative (NEGATIVE) Urine RBC 1-5/hpf (0-5/HPF) Urine WBC None seen (0-5/HPF) Ur Squamous Epith Cells None seen (0-5/HPF) Urine Bacteria None seen (None) Ur Culture Indicated? Cult not indicated Vol Urine Centrifuged 10ml (spun) U Opiates 300ng/mL cut Negative (Negative) Ur Oxycodone Screen Negative (Negative) Urine Methadone Screen Negative (Negative) Ur Barbiturates Screen Negative (Negative) U Tricyclic Antidepress Negative (Negative) Ur Phencyclidine Scrn Negative (Negative) Ur Amphetamines Screen Negative (Negative) U Methamphetamines Scrn Negative (Negative) Ur MDMA Scrn (Ecstasy) Negative (Negative) U Benzodiazepines Scrn Negative (Negative) Urine Cocaine Screen Negative (Negative) U Marijuana (THC) Screen Negative (Negative) Urine pH Normal 5.5 (Normal) Urine Specific [place] Normal (Normal) Ethyl Alcohol < 10 ( - 10) mg/dL Ur Creatinine Normal (Normal) SARS-CoV-2 (PCR) Negative (Negative) Point of Care Testing Glucose POC 101 Imaging Data CTA - brain/neck: Radiologist's Impression: PROCEDURE: CT ANGIO HEAD AND NECK INDICATIONS: POSSIBLE STROKE TECHNIQUE: After the administration of intravenous contrast, 1 mm thick sections acquired from the aortic arch through the [place] of [place]. 3-dimensional ogybbvq-icjfzuihm-evobiqyfts (MIP) and/or volume rendering reformats were acquired of the central intracranial vasculature and neck separately. For radiation dose reduction, the following was used: automated exposure control, adjustment of mA and/or kV according to patient size. COMPARISON: [facility], CT, CT STROKE, 07/15/2023, 11:42. FINDINGS: Image quality: Diagnostic. BRAIN: CSF spaces: Ventricles are normal in size and shape. Basal cisterns are patent. No extra-axial fluid collections. Brain: No significant abnormality of the brain can be seen. Skull and face: Calvarium and facial bones appear intact, without suspicious lesions. Orbits appear normal. Sinuses: Sinuses and mastoids are clear. HEAD CT ANGIOGRAPHY: Anterior circulation: Intracranial internal carotid arteries are normal in size and flow. The flow within the paired anterior cerebral arteries is normal and symmetric. The flow within the middle cerebral arteries is normal and symmetric. The anterior communicating artery is seen. No aneurysms are seen. Posterior circulation: Visualized portions of the vertebral arteries demonstrate normal caliber, and join to form a normal appearing basilar artery. Flow within the posterior cerebral arteries is normal and symmetric. No aneurysms are seen. NECK CT ANGIOGRAPHY: Carotid system: The great vessels demonstrate a conventional anatomy as they arise from the aortic arch. The origins of the common carotid arteries appear patent. The common carotid arteries demonstrate normal caliber and courses. The bifurcation regions are both widely patent. There is a mild, less than or equal to 50% stenosis of the proximal right internal carotid artery, densely calcified. The left internal carotid is patent. Posterior circulation: The origins of the vertebral arteries both appear widely patent. The more superior extracranial portions of both vertebral arteries also demonstrate normal courses and calibers. They join to form a normal appearing basilar artery. Soft tissues: Visualized neck soft tissues demonstrate no suspicious abnormalities. Bones: No suspicious bony lesions. Visualized cervical spine appears normally aligned. IMPRESSION: 1. Unremarkable CTA head. No stenosis, aneurysm, occlusion, or focal filling defect. 2. 50% or less focal stenosis of the proximal right internal carotid artery. Any quantitative measurements of stenosis were performed using NASCET criteria. Dictated by: Fab Garcia M.D. on 07/15/2023 at 12:14 CT scan - head: Radiologist's Impression: PROCEDURE: CT STROKE INDICATIONS: POSSIBLE STROKE TECHNIQUE: Noncontrast 4.5 mm thick angled axial sections acquired from the foramen magnum to the vertex, with coronal reformats. For radiation dose reduction, the following was used: automated exposure control, adjustment of mA and/or kV according to patient size. COMPARISON: None. FINDINGS: Image quality: Diagnostic. CSF spaces: Basal cisterns are patent. No extra-axial fluid collections. The ventricles are symmetric in size and shape. Brain: No intracranial bleeds or masses. There is cerebral volume loss for age, with resultant ventricular and sulcal prominence. There are periventricular and deep white matter chronic small vessel ischemic changes. There is intracranial internal carotid artery atherosclerosis. Skull and face: Calvarium and visualized facial bones appear intact, without suspicious lesions. Sinuses: Visualized sinuses and mastoids are clear. IMPRESSION: No acute intracranial pathology. Comment: [facility] phones were working at the time interpretation. Findings were discussed with Jennifer Chase, of Radiology Administration for [facility] by non-hospital phone, to be directly given to Dr. Garcia on 07/15/2023 at 1158 hours. This study fulfills neurological imaging criteria for inclusion or exclusion of acute stroke therapies based on available published neurological guidelines. Dictated by: Fab Garcia M.D. on 07/15/2023 at 11:53 ECG Data Interpretation: Normal sinus rhythm rate 55 MA interval 168 QRS [address] changes MDM Narrative Medical decision making narrative: Patient 83-year-old female presenting today with code stroke. She was slumped over unresponsive now continuing to have some slurring of speech. Her mental status improved but continues to have the slurring of speech. Nursing noted some mild facial droop but I do not appreciate any. Labs have been reviewed no acute abnormalities CT head and CT angio do not show any acute intracranial hemorrhage or large vessel occlusion, chest x-ray does not show any abnormality Patient is still having some slurring of speech. Concern for CVA versus TIA. Dr. Sanders and updated on patient's symptoms and test results and accepts Discharge Plan Departure Patient Disposition: Admitted as Observation Clinical Impression: CVA (cerebral vascular accident) Admit Date/Time: 07/15/23 14:48 Admit Provider: Juliocesar Sanders
[2023-07-15 12:00] LABS: Urine Volume 10mL (spun)
[2023-07-15 12:02] LABS: Appearance Urine UA CLEAR; Bilirubin Urine UA NEGATIVE (NEGATIVE); Color Urine UA YELLOW; Glucose Urine UA NEGATIVE (Negative); Ketones Urine UA NEGATIVE (NEGATIVE); Leukocyte Esterase Urine UA NEGATIVE (NEGATIVE); Nitrite Urine UA NEGATIVE (Negative); Occult Blood Urine UA TRACE-INTACT (Negative); Protein Urine UA NEGATIVE (Negative); Urobilinogen Urine UA 0.2 E.U./dL (0.2)
[2023-07-15 12:03] LABS: Ur Creatinine Normal (Normal); Ur Specific Gravity Normal (Normal); Urine pH Normal (Normal)
[2023-07-15 12:03] LABS: Add Manual Diff / Slide Review NO; Basophils Absolute Auto 0 /uL (0-100); Basophils Percent Auto 0.5 % (0-2); Eosinophils Absolute Auto 100 /uL (0-450); Eosinophils Percent Auto 1.7 % (2-4); Hematocrit 31.4 % (36-46); Hemoglobin 10.4 g/dL (12.0-16.0); Lymphocytes Absolute Auto 2200 /uL (1100-4500); Lymphocytes Percent Auto 29.3 % (25-40); Mean Corpuscular Hemoglobin 29.8 PG (26-34); Mean Corpuscular Volume 90.2 fL (80-100); Monocytes Absolute Auto 500 /uL (0-900); Monocytes Percent Auto 7.3 % (3-14); Neutrophils Absolute Auto 4500 /uL (1500-7000); Neutrophils Percent Auto 61.2 % (50-75); Platelet Count 290 X10^3/uL (150-400); Red Blood Cell Count 3.49 X10^6/uL (4.0-5.2); Red Cell Distribution Width 15.9 % (11.6-14.8); White Blood Cell Count 7.4 X10^3/uL (4.5-11.0); pH Urine UA 5.5 (4.5-8.0)
[2023-07-15 12:04] LABS: UR Morphine/Opiate cutoff 300 Negative (Negative); Urine Amphetamines Negative (Negative); Urine Barbiturates Negative (Negative); Urine Benzodiazepines Negative (Negative); Urine Cocaine Negative (Negative); Urine MDMA Negative (Negative); Urine Methadone Negative (Negative); Urine Methamphetamines Negative (Negative); Urine Oxycodone Negative (Negative); Urine Phencyclidine Negative (Negative); Urine Tetrahydrocannabinol Negative (Negative); Urine Tricyclic Antidepressant Negative (Negative)
--- NOTE | 2023-07-15 12:04 | PC.NURSE ---
Pt is blind in left eye,pts right pupil is not round and reactive,pt is unsure if that is normal for her.
[2023-07-15 12:06] LABS: Bacteria Urine None Seen; Culture Indicated Urine Cult Not Indicated; PTT Partial Thromboplastin Tim 30 SECONDS (25.1-36.5); RBC Urine 1-5/HPF (0-5/HPF); Squamous Epithelial Cell Urine None Seen (0-5/HPF); WBC Urine None Seen (0-5/HPF)
[2023-07-15 12:09] LABS: Alanine Aminotransferase 15 IU/L (<35); Albumin 4.2 g/dL (3.5-5.0); Alkaline Phosphatase 297 U/L (38-126); Aspartate Aminotransferase 27 IU/L (14-36); BUN Creatinine Ratio 43.8 (6-22); Bilirubin Total 0.8 mg/dL (0.2-1.3); Blood Urea Nitrogen 39 mg/dL (7-17); Calcium 9.7 mg/dL (8.4-10.2); Carbon Dioxide 30 mmol/L (22-32); Chloride 101 mmol/L (98-107); Creatine Kinase 60 U/L (30-135); Estimated Glomerular Filt Rate > 60 mL/min (>60); Ethanol (ETOH) < 10 mg/dL; Globulin 4.1 g/dL (1.7-4.1); Glucose 113 mg/dL (80-110); HEMOLYSIS < 15 (0-50); Lactate (Lactic Acid) 0.7 mmol/L (0.7-2.1); Potassium 3.6 mmol/L (3.4-5.1); Sodium 139 mmol/L (137-145); Total Protein 8.3 g/dL (6.3-8.2)
[2023-07-15 12:19] LABS: Troponin I < 0.012 ng/mL (0.01-0.034)
[2023-07-15 12:24] LABS: COVID19 -Nasal RAPID Negative (Negative)
--- NOTE | 2023-07-15 14:05 | PC.NURSE ---
Pt sitting up in bed and c/o being cold. denies pain. some slurring of speech present. son reports that is not normal for pt. pt a&ox4
--- NOTE | 2023-07-15 14:44 | DI.RAD.S_ITS ---
PROCEDURE: XR CHEST 1V INDICATIONS: stroke TECHNIQUE: One view of the chest was acquired. COMPARISON: [facility], CR, XR CHEST 1V, 06/23/2023, 22:09. [facility], CR, XR CHEST 1V, 05/28/2023, 21:33. FINDINGS: Surgical changes and devices: Bilateral surgery of the humerus. Sternotomy. Lungs and pleura: Lungs are clear. No pleural effusions or pneumothorax. Mediastinum: Mediastinal contours appear normal. Heart size is normal. Bones and chest wall: No suspicious bony lesions. Overlying soft tissues appear unremarkable. IMPRESSION: No acute cardiopulmonary abnormality is seen. Dictated by: Elgin Tripp M.D. on 07/15/2023 at 15:58 Approved by: Elgin Tripp M.D. on 07/15/2023 at 15:58
[2023-07-15] MEDS: ASPIRIN 81 MG CHEW TAB 324 MG PO (14:47)
[2023-07-15 15:07] LABS: NT-proBNP (BNP-Adult 18+) 2110 pg/mL (<450)
--- NOTE | 2023-07-15 15:52 | DI.MRI.S_ITS ---
PROCEDURE: MR HEAD/BRAIN WO CON INDICATIONS: facial droop, poss CVA TECHNIQUE: Non-contrast axial T1 spin echo, axial T2 fast spin echo, sagittal and axial FLAIR, coronal T2 fast spin echo, axial gradient echo, axial diffusion and ADC through the brain. COMPARISON: [facility], CT, CT ANGIO HEAD AND NECK, 07/15/2023, 11:42. FINDINGS: Image quality: Excellent. CSF spaces: Ventricles appear symmetric in size and shape. Basal cisterns are patent. No extra-axial fluid collections. Brain: No intracranial bleeds or mass effects. There is cerebral volume loss for age. There are periventricular and deep white matter chronic small vessel ischemic changes. Brainstem appears normal. Diffusion-weighted images show no acute infarct. No chronic ischemic insults. Normal intravascular flow voids are present. Skull and face: Calvarial bone marrow is normal in signal. Orbits are normal. Sinuses: Sinuses and mastoids are clear. IMPRESSION: No infarct. No acute intracranial pathology. Dictated by: Elgin Tripp M.D. on 07/15/2023 at 18:38 Approved by: Elgin Tripp M.D. on 07/15/2023 at 18:43
--- NOTE | 2023-07-15 16:27 | PM.HP.1 ---
History of Present Illness History of Present Illness Date Patient Seen: 07/15/23 Time Patient Seen: 16:27 Chief complaint: Code Stroke, last known well 0800 07/15 Narrative: This is an 83 year old female, with PMH of CAD (3v CABG in 01/10), HTN, glaucoma, CHFpEF, IDDM who presented with altered mental status and possible facial droop. Patient states she was talking with her niece, and then remembers waking up getting wheeled to the ambulance, is unsure how long her lapse in memory lasted. Per report from her son, he reports worsened speech and left sided facial droop that have now improved since the ER. She is near normal now but still has mild facial asymmetry and speech is not fully back to her usual. Per triage note glucose was in the 60s with EMS, improved to 100 prior to arrival with dextrose. [facility] Medical History CAD (coronary artery disease) Ptosis of both eyelids Essential hypertension Osteoporosis (~1999) Retinal detachment (~2000) Hearing loss (~1944) Thyroid nodule (~2019) Left tibial fracture Glaucoma Blindness left eye category 4, normal vision right eye Closed fracture of left hip Surgical History H/O three vessel coronary artery bypass Anesthesia History of shoulder surgery History of elbow surgery History of eye surgery History of cataract removal with insertion of prosthetic lens History of total right hip arthroplasty Family History Father Suicide Mother Myocardial infarction Grandfather History of heart disease Family/Other Diabetes mellitus Social History household members: none Smoking Status: Never smoker alcohol intake: current Meds Home Medications and Allergies Home Medications Medication Instructions Recorded Confirmed Type latanoprost 0.005 % eye drops 1 drp OPHTH BEDTIME ##0 02/11/12 07/15/23 History (Xalatan) acetaminophen 500 mg tablet 500 mg PO Q4H PRN Pain (Scale 01/12/23 07/15/23 History (Tylenol Extra Strength) Score 1-3) insulin syringe-needle U-100 0.3 #10 ea 01/12/23 07/15/23 History mL 30 gauge x 5/16 (TRUEplus Insulin) pen needle, diabetic 31 gauge x #400 ea 01/12/23 07/15/23 Rx 5/16 (Unifine Pentips Plus) lancets 28 gauge (Safety Lancets) #400 ea 01/14/23 07/15/23 Rx pen needle, diabetic 29 gauge x #100 ea 01/14/23 07/15/23 Rx 1/2 (1st Tier Unifine Pentips) pen needle, diabetic 29 gauge x #300 ea 01/14/23 07/15/23 Rx 1/2 (1st Tier Unifine Pentips) aspirin 81 mg chewable tablet 1 tab PO DAILY #30 tabs 01/18/23 07/15/23 Rx atorvastatin 80 mg tablet 80 mg PO ONCE PM for cholesterol 05/25/23 07/15/23 Rx #90 ea clopidogrel 75 mg tablet 75 mg PO DAILY heart disease #90 05/25/23 07/15/23 Rx tabs furosemide 20 mg tablet 20 mg PO DAILY for edema #90 ea 05/25/23 07/15/23 Rx metoprolol succinate 25 mg 25 mg PO DAILY for blood pressure 05/25/23 07/15/23 Rx tablet,extended release 24 hr #90 tabs pantoprazole 40 mg tablet,delayed 40 mg PO DAILY heartburn #90 tabs 05/25/23 07/15/23 Rx release potassium chloride 10 mEq 10 meq PO DAILY #90 tabs 05/25/23 07/15/23 Rx tablet,extended release insulin lispro-aabc 100 unit/mL See Rx Instructions SUBCUT 06/09/23 07/15/23 Rx subcutaneous pen (Farhat Troy .COMPLEX #15 mL U-100 Insulin) losartan 100 mg tablet 100 mg PO DAILY blood pressure #90 06/09/23 07/15/23 Rx tabs insulin glargine U-300 conc 300 10 unit SUBCUT BEDTIME 07/15/23 07/15/23 History unit/mL (1.5 mL) subcutaneous pen (Toujeo SoloStar U-300 Insulin) prednisolone acetate 1 % eye 1 drp EYE-BOTH BID 07/15/23 07/15/23 History drops,suspension Allergies Allergy/AdvReac Type Severity Reaction Status Date / Time No Known Drug Allergies Allergy Verified 01/25/24 11:50 Review of Systems Review of Systems Narrative: All other systems reviewed with the patient and are negative unless otherwise stated. Exam Vital Signs (past 8 hours): - 07/15/23 11:24 07/15/23 11:44 07/15/23 11:45 Temperature 95.7 F L Pulse Rate 54 L 55 L 56 L Respiratory Rate 18 35 H 30 H Blood Pressure 177/74 H Pulse Oximetry 97 96 95 Oxygen Delivery Method Room Air 07/15/23 11:45 07/15/23 11:58 07/15/23 11:58 Temperature Pulse Rate 54 L Respiratory Rate 34 H Blood Pressure 177/74 H 162/72 H Pulse Oximetry 95 Oxygen Delivery Method 07/15/23 12:00 07/15/23 12:01 07/15/23 12:01 Temperature Pulse Rate 54 L 54 L Respiratory Rate 29 H 28 H Blood Pressure 152/88 H Pulse Oximetry 96 95 Oxygen Delivery Method 07/15/23 12:15 07/15/23 12:30 07/15/23 12:30 Temperature Pulse Rate 54 L 53 L Respiratory Rate 25 H 20 Blood Pressure 162/65 H Pulse Oximetry 96 93 Oxygen Delivery Method 07/15/23 12:45 07/15/23 13:00 07/15/23 13:00 Temperature Pulse Rate 55 L 53 L Respiratory Rate 18 Blood Pressure 171/72 H Pulse Oximetry 94 93 Oxygen Delivery Method 07/15/23 13:15 07/15/23 13:30 07/15/23 13:30 Temperature Pulse Rate 58 L 55 L Respiratory Rate 24 Blood Pressure 180/116 H Pulse Oximetry 94 97 Oxygen Delivery Method 07/15/23 13:45 07/15/23 14:00 07/15/23 14:01 Temperature Pulse Rate 57 L 56 L Respiratory Rate 22 19 Blood Pressure 186/77 H Pulse Oximetry 96 97 Oxygen Delivery Method 07/15/23 14:01 07/15/23 14:15 07/15/23 14:30 Temperature Pulse Rate 56 L 55 L 57 L Respiratory Rate 27 H 20 20 Blood Pressure Pulse Oximetry 97 97 97 Oxygen Delivery Method 07/15/23 14:30 07/15/23 14:45 07/15/23 15:00 Temperature Pulse Rate 56 L 55 L Respiratory Rate 17 25 H Blood Pressure 186/77 H Pulse Oximetry 97 96 Oxygen Delivery Method 07/15/23 15:01 07/15/23 15:15 07/15/23 15:30 Temperature Pulse Rate 59 L 57 L 54 L Respiratory Rate 22 25 H 14 Blood Pressure Pulse Oximetry 96 98 97 Oxygen Delivery Method 07/15/23 15:31 07/15/23 15:31 07/15/23 15:45 Temperature Pulse Rate 54 L 62 Respiratory Rate 15 17 Blood Pressure 193/79 H Pulse Oximetry 96 94 Oxygen Delivery Method Oxygen Delivery Method Room Air Narrative Exam Narrative: General:? Patient is well developed and well nourished, in no distress at this time. HEENT:? Normocephalic, atraumatic, extraocular muscles intact, oral pharynx is clear and mucous membranes are moist. Neck: supple and symmetric, trachea is midline, no cervical adenopathy. Chest:? Normal AP diameter and contour without kyphoscoliosis, no tachypnea, equal chest rise bilaterally. Lungs:? CTA b/l no wheezing rhonchi or rales. Cardio:?RRR no m/r/g. Abdomen: S NT ND Musculoskeletal:? Muscle strength and tone are equal within normal limits, no deformity. Extremities: No edema or joint effusions. No cyanosis or clubbing. Skin:? Pale,? Warm to touch,dry and intact without rashes, ulcerations or petechiae.? Neuro:? Alert and orientated x3,? sensation to touch diminished in bilateral lower extremities (chronic). She has a very subtle slurred speech and facial droop on the L. Psych:? Patient has a well-kept appearance, appropriate affect, mental status attitude thought context and judgment are appropriate for age. Objective ECG Impression: Sinus bradycardia Possible Left atrial enlargement Septal infarct, likely old As interpreted by me. Labs 07/15/23 11:57 07/15/23 11:57 Labs: Laboratory Results - last 24 hr 07/15/23 07/15/23 07/15/23 11:53 11:56 11:57 WBC 7.4 RBC 3.49 L Hgb 10.4 L Hct 31.4 L MCV 90.2 MCH 29.8 MCHC 33.0 RDW 15.9 H Plt Count 290 Neut % (Auto) 61.2 Lymph % (Auto) 29.3 Winkler % (Auto) 7.3 Eos % (Auto) 1.7 L Baso % (Auto) 0.5 Neut # (Auto) 4500 Lymph # (Auto) 2200 Winkler # (Auto) 500 Eos # (Auto) 100 Baso # (Auto) 0 PT 12.0 INR 1.0 APTT 30 Sodium 139 Potassium 3.6 Chloride 101 Carbon Dioxide 30 BUN 39 H Creatinine 0.89 Estimated GFR > 60 BUN/Creatinine Ratio 43.8 H Glucose 113 H Lactate 0.7 Calcium 9.7 Total Bilirubin 0.8 AST 27 ALT 15 Alkaline Phosphatase 297 H Total Creatine Kinase 60 Troponin I < 0.012 NT-Pro-B Natriuret Pep 2110 H Total Protein 8.3 H Albumin 4.2 Globulin 4.1 Albumin/Globulin Ratio 1.0 Urine Color Yellow Urine Appearance Clear Ur Specific Lyons 1.010 Urine Protein Negative Urine Glucose (UA) Negative Urine Ketones Negative Urine Occult Blood Trace-intact Urine Nitrate Negative Urine Bilirubin Negative Urine Urobilinogen 0.2 Ur Leukocyte Esterase Negative Urine RBC 1-5/hpf Urine WBC None seen Ur Squamous Epith Cells None seen Urine Bacteria None seen Ur Culture Indicated? Cult not indicated Vol Urine Centrifuged 10ml (spun) U Opiates 300ng/mL cut Negative Ur Oxycodone Screen Negative Urine Methadone Screen Negative Ur Barbiturates Screen Negative U Tricyclic Antidepress Negative Ur Phencyclidine Scrn Negative Ur Amphetamines Screen Negative U Methamphetamines Scrn Negative Ur MDMA Scrn (Ecstasy) Negative U Benzodiazepines Scrn Negative Urine Cocaine Screen Negative U Marijuana (THC) Screen Negative Urine pH Normal 5.5 Urine Specific Lyons Normal Ethyl Alcohol < 10 Ur Creatinine Normal SARS-CoV-2 (PCR) Negative Assessment & Plan Assessment & Plan narrative: 1. Acute metabolic encepahlopathy likely due to hypoglycemia, improved, possible TIA - MRI brain to r/o CVA. Initial head CT and CT angio are unremarkable. - no obvious signs of acute heart failure - no obvious infectious etiologies - continue home asa, add plavix which she has been on previously after CABG - prior TTEs without PFO, no indication for repeat echo - continue tele to rule out afib. - PT/OT evaluations, speech ordered given continued slurred speech. - Though I suspect hypoglycemia now, glucose was in the 60s with EMS per triage note, improved with dextrose. 2. HTN - allow for permissive HTN initially, but restart home antihypertensives in the AM 3. IDDM - on U-300 at home, will start 20 U of lantus, start with 7 U AC lispro and sliding scale. Reduced due to presenting probable hypoglycemia. Unclear as insulin prescription appears new if she is supposed to be on U-300 insulin? - ACHS glucose - A1c ordered. 4. CAD with PMH of CHFpEF. - continue home furosemide and potassium, no current acute heart failure based on presentation. 5. Glaucoma - continue home prednisolone and latanoprost eye drops. Code: Full, surrogate is patient's son, DPOA I have utilized all available immediate resources to obtain, update, or review the patient's current medications. Additional history obtained via patient's son, discussed with ER provider to contribute to above history, assessment and plan. Dispo: admitted observation, pending above MRI.
[2023-07-15] MEDS: ATORVASTATIN 20 MG TABLET 80 MG PO (21:34)
[2023-07-15] MEDS: INSULIN GLARGINE 100 UNIT/ML 3ML PEN 20 UNIT SUBCUT (21:41)
[2023-07-16] VITALS (13 sets, daily range): BP systolic 120–141; BP diastolic 32–80; PULSE 58–80; RESP 16–20; TEMP 36.2–37; O2SAT 94–99
[2023-07-16 05:25] LABS: Add Manual Diff / Slide Review NO; Basophils Absolute Auto 100 /uL (0-100); Basophils Percent Auto 0.9 % (0-2); Eosinophils Absolute Auto 100 /uL (0-450); Eosinophils Percent Auto 1.2 % (2-4); Hematocrit 27.7 % (36-46); Hemoglobin 9.2 g/dL (12.0-16.0); Lymphocytes Absolute Auto 1800 /uL (1100-4500); Mean Corpuscular HGB Conc 33.2 % (30-36); Mean Corpuscular Hemoglobin 29.8 PG (26-34); Mean Corpuscular Volume 89.9 fL (80-100); Monocytes Absolute Auto 600 /uL (0-900); Monocytes Percent Auto 8.9 % (3-14); Neutrophils Absolute Auto 4200 /uL (1500-7000); Platelet Count 275 X10^3/uL (150-400); Red Blood Cell Count 3.08 X10^6/uL (4.0-5.2); Red Cell Distribution Width 15.7 % (11.6-14.8); White Blood Cell Count 6.8 X10^3/uL (4.5-11.0)
[2023-07-16 05:40] LABS: Hemoglobin A1C% w Est Avg Glu 6.9 % (4.0-6.0)
[2023-07-16 05:41] LABS: BUN Creatinine Ratio 44.7 (6-22); Blood Urea Nitrogen 42 mg/dL (7-17); Carbon Dioxide 33 mmol/L (22-32); Chloride 100 mmol/L (98-107); Estimated Glomerular Filt Rate > 60 mL/min (>60); Glucose 66 mg/dL (80-110); HEMOLYSIS < 15 (0-50); Magnesium 1.9 mg/dL (1.6-2.3); Potassium 3.8 mmol/L (3.4-5.1); Sodium 137 mmol/L (137-145)
[2023-07-16 06:30] LABS: TSH w/ Reflex to FT4 0.26 uIU/mL (0.47-4.68)
[2023-07-16 06:59] LABS: Free T4, Direct Thyroxine 1.48 ng/dL (0.78-2.19)
[2023-07-16] MEDS: DEXTROSE 5%-0.45% NS 1,000 ML 100 ML IV (08:21)
--- NOTE | 2023-07-16 08:30 | PC.NURSE ---
Day shift - @ 0745 took Pt BG had result of 25, Pt states she feels fine, but was diaphoretic and BP 120/43. I reportded findings to Dr. Sanders. I gave Pt 620 ml of orange juice and steve crackers. I stayed by the Pt bedside, for monitoring. @ 0800 BG WAS 56 and I gave Pt 240 ml of apple juice and bluberry yogurt and began D5 NS IV fluids. @ 0815 BG was 63 and Pt is eating breakfast and states she feels fine. Will contine to monitor and take next BG @ 0830.
[2023-07-16] MEDS: METOPROLOL ER 25 MG TABLET PO (10:13)
[2023-07-16] MEDS: POTASSIUM CHLORIDE 10 MEQ TAB PO (10:14)
[2023-07-16] MEDS: LOSARTAN 50 MG TABLET 100 MG PO (10:14)
[2023-07-16] MEDS: FUROSEMIDE 20 MG TABLET PO (10:14)
[2023-07-16] MEDS: PANTOPRAZOLE DR 40 MG TABLET PO (10:14)
[2023-07-16] MEDS: CLOPIDOGREL 75 MG TABLET PO (10:14)
[2023-07-16] MEDS: ASPIRIN EC 81 MG TABLET PO (10:14)
--- NOTE | 2023-07-16 10:32 | PT.IIE ---
Surgical History (Last Reviewed 05/28/23 @ 10:20 by Anjali Garcia DO) Anesthesia H/O three vessel coronary artery bypass History of cataract removal with insertion of prosthetic lens History of elbow surgery History of eye surgery History of shoulder surgery History of total right hip arthroplasty Medical History (Last Reviewed 05/29/23 @ 01:32 by Blaise Kruse DO) Blindness left eye category 4, normal vision right eye CAD (coronary artery disease) Closed fracture of left hip Essential hypertension Glaucoma Hearing loss (~1944) Left tibial fracture Osteoporosis (~1999) Ptosis of both eyelids Retinal detachment (~2000) Thyroid nodule (~2019) Physical Therapy Inpatient Evaluation/Re-Eval M1 PT/OT-IP Prior Functional Status Start: 07/16/23 12:44 Freq: NEEDED Status: Active Protocol: Document 07/16/23 10:32 AB (Rec: 07/16/23 13:05 AB [id number]) Medical Review Prior Functional Status Medical History Reviewed Yes Communication able to make needs known Mobility and Gait pt stated that she was modified independent with all mobilities and ambulation using a 4WW Prior Functional Level (Other details) pt stated that she just finished her HHPT a few weeks ago for LE strengthening Social History Household Members none Living Arrangements House Number of Floors (Floors) One Floor Number of Stairs To Enter/Railing? 1 step to enter with L grab bar by the door Home Environment Standard Height Toilet,Walk in Shower Home Equipment Four Wheel Walker,Shower Seat with Backrest,Hand Held Shower ,Grab Bars In Shower Additional Social History Comment pt has an adjustable bed M2 PT-IP Current Condition Start: 07/16/23 12:44 Freq: NEEDED Status: Active Protocol: Document 07/16/23 10:32 AB (Rec: 07/16/23 13:05 AB [id number]) Physical Therapy Current Condition Current Condition Evaluation Date 07/16/23 Treatment Diagnosis hypoglycemia; difficulty in walking Onset Date 07/15/23 M3 PT-IP Subjective Start: 07/16/23 12:44 Freq: NEEDED Status: Active Protocol: Document 07/16/23 10:32 AB (Rec: 07/16/23 13:05 AB [id number]) Subjective Physical Therapy Visit Type Type Initial Evaluation Visit Start Time 10:32 Visit Stop Time 11:11 Number of PRE BILLING SPECIALIST Visits 0 Physical Therapy Visit Comments Patient Comments agreeable to do PT M4 PT-IP Mobility and Gait Start: 07/16/23 12:44 Freq: NEEDED Status: Active Protocol: Document 07/16/23 10:32 AB (Rec: 07/16/23 13:05 AB [id number]) PT-Bed Mobility Assessment Supine to Sit Supine to Sit Maximum Assistance Sit to Supine Sit to Supine Standby Assistance PT-Transfer Assessment Sit to and From Stand Sit to and from Stand Minimal Assistance,1 Person Assistance,Use of Upper Extremities Equipment Transfer Assistive Device Gait Belt,Front Wheeled Walker Orthotic/Prosthetic Devices or Brace: No Transfers Transfer Destination Bed,Chair Transfer Technique ambulated Transfer Ability Level of Assist Minimal Assistance,1 Person Assistance,Use of Upper Extremities Comments Mobility Comments pt sitting on the chair and agreeable to do PT. obtained PLOF and home set up. pt is [place] and needs repeated cues. pt completed sit to stand min A. pt tends to pull on FWW to get up and has posterior LOB during initial standing requiring min A for steadiness and cues to correct. pt ambulated to the EOB ~ 15 ft using fWW min A. presents with foward bent posture and NBOS. cued for upright posture and increasing step width. min A for controlled descent to EOB. completed sit to supine SBA. instructed pt for supine to sit but pt stated that she needs help, stated that she usually has a blanket and pulls herself with the blanket . cued pt for log roll bed mobility and pt requiring max A for supine to sit. completed sit to stand from EOB min A and again pt tends to pull on FWW. pt ambulated back to the chair using FWW min A. sat on the chair and cues for controlled descent. educated pt for sit<>stand techniques. completed sit<> stand x 5 reps CGa to min A but continues to have increase retrolean during initial standing requiring min A for balance and safety. positioned pt on the chair. call light and table placed within reach. informed pt regarding recommendation for safety frame for the toilet and bed rail to assist with bed mobility. pt understood. Gait Assessment Gait Gait Assistance Required: Minimum Assistance Distance (Feet) 15 Able to Maintain Weight Bearing Status Yes During Gait Assistive Devices Assistive Device Gait Belt,Front Wheeled Walker Orthotic/Prosthetic Devices or Brace: No Gait Deviations General Gait Pattern Decreased Stride Length, Decreased Feet Clearance Factors Limiting Gait Function Factors Limiting Gait Function Decreased Activity Tolerance, Decreased Strength,Difficulty Following Directions,Limited Range of Motion,Poor Balance, Poor Safety Awareness PT-Balance Assessment Sitting Balance and Reactions Static Sitting Balance Ability Good Dynamic Sitting Balance Ability Good Standing Balance and Reactions Static Standing Balance Ability Fair Dynamic Standing Balance Ability Fair Device Used FWW M5 PT-IP Objective Assessments Start: 07/16/23 12:44 Freq: NEEDED Status: Active Protocol: Document 07/16/23 10:32 AB (Rec: 07/16/23 13:05 AB [id number]) Orientation Orientation/Cognition Level of Alertness Alert Language Function Ability Hard of Hearing Safety Awareness Decreased Safety Awareness Memory Description Short Term Impaired Gross Range of Motion Lower Extremity ROM Assessment Within Functional Limits Strength Lower Extremity Strength Hip 4-/5 Knee 4-/5 Muscle Tone Muscle Tone WNL Yes M6 PT-IP Treatment Start: 07/16/23 12:44 Freq: NEEDED Status: Active Protocol: Document 07/16/23 10:32 AB (Rec: 07/16/23 13:05 AB [id number]) Physical Therapy Treatment Education Education Provided Safety M7 PT-IP Assessment and Plan Start: 07/16/23 12:44 Freq: NEEDED Status: Active Protocol: Document 07/16/23 10:32 AB (Rec: 07/16/23 13:05 AB [id number]) PT Summary Assessment and Plan Potential Rehabilitation Potential Fair Status of Condition at Evaluation Stable Summary Impairments Pain,ROM,Strength,Balance, Coordination,Sensation,Tone, Cognition,Bed Mobility, Transfers,Gait,Activity Tolerance Assessment Summary pt is an 83 y/o F who presented to the ED due to slurring of speech. Pt admitted to r/o CVA but also found pt to be hypoglycemic. imaging was unremarkable to CVA. pt currently requiring min A for mobility using FWW. will continue to assess progress for safe d/c plan. pt will need assistance at home and HHPT. Goals Bed Mobility Goal Independent Transfer Goal Independent,Front Wheeled Walker,Four Wheeled Walker Gait Goal Independent,Front Wheel Walker ,Four Wheel Walker Gait Distance 300 Other Goals up/down 1 step L grab bar SBA Days to Meet Goals 5 Frequency of Treatment Frequency Of Treatment Once a Day Treatment Plan Physical Therapy Treatment Plan Bed Mobility Training,Transfer Training,Gait Training, Therapeutic Exercise,Balance Retraining,Discharge Planning, Hot or Cold Pack,Neuromuscular Re-ed,Coordination Retraining Precautions Other Precautions falls Recommendations To Nursing Amount of Assist Needed 1 Person Assist Discharge Recommendations PT Discharge Recommendations Home with Assistance,Home Health Equipment Needed for Home Before FWW if not safe with 4WW Discharge Transportation Needs at Discharge Private Vehicle,Wheelchair/ Cabulance
--- NOTE | 2023-07-16 10:35 | CM.DANOTE ---
Addendum entered by CRISTINA Christianson 07/16/23 14:11: ADD: Per PT, recommending home with assist and HH as pt requiring min assist with some mobility. SW met bedside with pt and cousin Maryann and discussed discharge plan and pt adamant that she is feeling better and is quite stubborn and will be even better tomorrow to d/c home and son and cousin will assist as needed. Pt confirms she would like [facility] referral again since she appreciated their care when she worked with them a couple weeks ago. CC Cassi kindly made [facility] referral and scanned completed F2F into EMR and HH orders completed. [facility] will just need to be alerted when pt discharges. BF Original Note: Patient is an 83 yo female who was admitted on 07/16/23 for TIA/CVA r/o vs Hypoglycemia. Pt has [place] and [place] for [place] and her PCP is Dr. Maurisio Burgess. EMR was reviewed. Per MD, pt with hx of CHF and blind in her L eye and MRI negative and symptoms likely due to blood sugars rather than TIA. PT/OT/ST ordered due to pt's slurred speech, confusion, weakness and pending initial eval. SW met bedside with pt who confirms that she lives at home alone between [place] and [facility]. Pt is independent at baseline and has local supportive son Jeffrey who is also her DPOA and her supportive local cousin Maryann. Pt's sister is also listed on her contacts. Pt states she was last admitted in May 2023 a little over a month ago for Edema/CHF and was discharged home with new [facility] but just completed her HH services that ended a week or two ago. Pt also with a hx of admission in November 2022 and was transferred to [facility] and had to have cardiac surgery and was then discharged to [facility] for 21 days and then went to [facility] for Respite Stay for a couple months and before discharging back home alone. Pt is quite motivated and she states stubborn and plans to d/c back home when medically stable as she does not anticipate any needs once she is feeling better and confirms that son would provide transport home. Plan: SW to follow closely for PT/OT/ST eval and recommendations to confirm safe plan of home with local family support and any further identified discharge planning needs. CRISTINA Christianson Discharge Planning/Care Management CM Discharge Assessment Start: 07/16/23 10:32 Freq: Status: Active Protocol: Document 07/16/23 10:32 BF (Rec: 07/16/23 10:35 BF [id number]) Discharge Planning Assessment Assigned Sail Repairer CRISTINA Evans DPOA/Assigned Designee Name jorge Murphy Advance Directives? Yes Advance Directives on File Yes History Provided By Patient,Family Member,Medical Record Has Patient been admitted in last 30 No days? Comment Last admitted beginning of May 2023 a little over a month ago for Edema Prior Living Arrangements House Household Members none Type of transporation used prior to Relies on Others admit Independent with ADL's Yes Is patient alert and oriented? Yes Needs Assistance With Home Chores / Shopping Caregiver for Another No Comment Recently had [facility] Already Rented / Owned FWW / Walker,Cane Comment Home vs HH pending PT/OT/ST Barriers to Discharge No Discharge Plan Home Transportation Arrangement family to transport if safe for home Referrals Initiated None needed Additional Comment r/o HH pending PT/OT/ST eval and recommendations Whiteboard Updated in Patient Room with Yes name and ext. # of Sail Repairer Review Status In Process Please Provide Date Initial DC 07/16/23 Assessment Was Performed Next Review Type Continued Stay Review
[2023-07-16] MEDS: INSULIN LISPRO 100 UNIT/ML 3ML VIAL SUBCUT ×3 (11:33→17:04)
--- NOTE | 2023-07-16 12:34 | P.PN_ITS ---
Subjective Subjective Interval history: 83 F admitted with encephalopathy and facial droop, now resolved. Likely due to hypoglycemia. She had a glucose in the 20s this morning. She reports multiple issues recently with lows in the morning, leading to her eating quite a bit more to avoid overnight lows. Son is going to bring in [facility] to see if it is indeed the U-300 insulin that is noted in the record. Have cut her lantus back to 10 tonight. Glucose has improved but now in the 400s after juice, d5 infusion, etc given for her hypoglycemia. She feels much better this afternoon, denies complaints. Exam Vital Signs (past 8 hours): - 07/16/23 08:00 07/16/23 08:00 07/16/23 08:29 Temperature 97.2 F L 97.2 F L Pulse Rate 58 L 58 L Respiratory Rate 19 20 Blood Pressure 120/43 L 120/43 L Pulse Oximetry 94 99 94 Oxygen Delivery Method Room Air Oxygen Flow Rate 0 0 0 07/16/23 08:45 07/16/23 10:13 07/16/23 10:14 Temperature Pulse Rate 58 L 58 L Respiratory Rate Blood Pressure 138/48 L 138/49 L 138/49 L Pulse Oximetry Oxygen Delivery Method Oxygen Flow Rate 07/16/23 12:00 Temperature 97.1 F L Pulse Rate 61 Respiratory Rate 20 Blood Pressure 141/42 H Pulse Oximetry 96 Oxygen Delivery Method Oxygen Flow Rate 0 Oxygen Delivery Method Room Air Oxygen Flow Rate 0 Narrative Exam Narrative: General:? Patient is well developed and well nourished, in no distress at this time. HEENT:? Normocephalic, atraumatic, extraocular muscles intact, oral pharynx is clear and mucous membranes are moist. Neck: supple and symmetric, trachea is midline, no cervical adenopathy. Chest:? Normal AP diameter and contour without kyphoscoliosis, no tachypnea, equal chest rise bilaterally. Lungs:? CTA b/l no wheezing rhonchi or rales. Cardio:?RRR no m/r/g. Abdomen: S NT ND Musculoskeletal:? Muscle strength and tone are equal within normal limits, no deformity. Extremities: No edema or joint effusions. No cyanosis or clubbing. Skin:? Pale,? Warm to touch,dry and intact without rashes, ulcerations or petechiae.? Neuro:? Alert and orientated x3,? sensation to touch diminished in bilateral lower extremities (chronic). No facial asymmetry today. Psych:? Patient has a well-kept appearance, appropriate affect, mental status attitude thought context and judgment are appropriate for age. Objective Labs 07/16/23 04:59 07/16/23 04:59 Labs: Laboratory Results - last 24 hr 07/15/23 07/16/23 11:57 04:59 WBC 6.8 RBC 3.08 L Hgb 9.2 L Hct 27.7 L MCV 89.9 MCH 29.8 MCHC 33.2 RDW 15.7 H Plt Count 275 Neut % (Auto) 62.0 Lymph % (Auto) 27.0 Beadle % (Auto) 8.9 Eos % (Auto) 1.2 L Baso % (Auto) 0.9 Neut # (Auto) 4200 Lymph # (Auto) 1800 Beadle # (Auto) 600 Eos # (Auto) 100 Baso # (Auto) 100 Sodium 137 Potassium 3.8 Chloride 100 Carbon Dioxide 33 H BUN 42 H Creatinine 0.94 Estimated GFR > 60 BUN/Creatinine Ratio 44.7 H Glucose 66 L Hemoglobin A1c 6.9 H Calcium 9.0 Magnesium 1.9 NT-Pro-B Natriuret Pep 2110 H TSH 0.26 L Free T4 1.48 PFSH Medical History CAD (coronary artery disease) Ptosis of both eyelids Essential hypertension Osteoporosis (~2000) Retinal detachment (~2001) Hearing loss (~1944) Thyroid nodule (~2019) Left tibial fracture Glaucoma Blindness left eye category 4, normal vision right eye Closed fracture of left hip Surgical History H/O three vessel coronary artery bypass Anesthesia History of shoulder surgery History of elbow surgery History of eye surgery History of cataract removal with insertion of prosthetic lens History of total right hip arthroplasty Family History Father Suicide Mother Myocardial infarction Grandfather History of heart disease Family/Other Diabetes mellitus Social History household members: none Smoking Status: Never smoker alcohol intake: current Assessment & Plan Assessment & Plan narrative: 1. Acute metabolic encepahlopathy likely due to hypoglycemia, improved, possible TIA - MRI brain to r/o CVA was negative. Initial head CT and CT angio are unremarkable. Highly likely hypoglycemia. Son bringing in insulin to confirm U- 300 formulation which may be the etiology of her recent hypogylcemic episodes. - no obvious signs of acute heart failure - no obvious infectious etiologies - continue home asa, add plavix which she has been on previously after CABG - prior TTEs without PFO, no indication for repeat echo - continue tele to rule out afib. - PT/OT evaluations, speech ordered given continued slurred speech. 2. HTN - improved with resumption of her home medications today. 3. IDDM with recurrent hypoglycemia - on U-300 at home per pharmacy records. Gave 20 units last night but glucose in the 20s this AM. Has been having difficulties with overnight lows per patient. - change to lantus, continue at 10 U tonight. Insurance switched from Lantus to [employer] coverage. Will try to check for U-100 insulin coverage instead, rather than U-300. - has endocrine follow up on 07/29. Encouraged patient to seek out information about insulin pump and CGM therapies given her recurrent hypoglycemic episodes. - ACHS glucose - A1c at 6.9%, likely too low given her age and risk of hyperglycemia. 4. CAD with PMH of CHFpEF. - continue home furosemide and potassium, no current acute heart failure based on presentation. 5. Glaucoma - continue home prednisolone and latanoprost eye drops. Code: Full, surrogate is patient's son, DPOA I have utilized all available immediate resources to obtain, update, or review the patient's current medications. Additional history obtained via patient's son, to contribute to above history, assessment and plan. Dispo: admitted observation, if glucose continues to fall will make inpatient, but may be able to discharge home tomorrow.
--- NOTE | 2023-07-16 13:40 | OT.IP.EVAL ---
Past Medical History (Last Reviewed 05/29/23 @ 01:32 by Blaise Kruse DO) Blindness left eye category 4, normal vision right eye CAD (coronary artery disease) Closed fracture of left hip Essential hypertension Glaucoma Hearing loss (~1944) Left tibial fracture Osteoporosis (~1999) Ptosis of both eyelids Retinal detachment (~2000) Thyroid nodule (~2019) Surgical History (Last Reviewed 05/28/23 @ 10:20 by Anjali Garcia DO) Anesthesia H/O three vessel coronary artery bypass History of cataract removal with insertion of prosthetic lens History of elbow surgery History of eye surgery History of shoulder surgery History of total right hip arthroplasty Occupational Therapy Inpatient Evaluation/Re-Eval M1 PT/OT-IP Prior Functional Status Start: 07/16/23 13:50 Freq: NEEDED Status: Active Protocol: Document 07/16/23 13:51 [facility] (Rec: 07/16/23 14:09 [facility] [id number]) Medical Review Prior Functional Status Medical History Reviewed Yes Communication able to make needs known Mobility and Gait pt stated that she was modified independent with all mobilities and ambulation using a 4WW Activities of Daily Living and IADL's Pt states use LB dressing equipment for dressing, and has assist from son and cousin for some IADL needs and meals . Prior Functional Level (Other details) pt stated that she just finished her HHPT a few weeks ago for LE strengthening Social History Household Members none Living Arrangements House Number of Floors (Floors) One Floor Number of Stairs To Enter/Railing? 1 step to enter with L grab bar by the door Home Environment Standard Height Toilet,Walk in Shower Home Equipment Four Wheel Walker,Shower Seat with Backrest,Hand Held Shower ,Long Handled Sponge,Long Handled Shoe Horn,Arc Air Operator,Sock Aid,Grab Bars In Shower Additional Social History Comment pt has an adjustable bed M2 OT-IP Current Condition Start: 07/16/23 13:50 Freq: Status: Active Protocol: Document 07/16/23 13:51 [facility] (Rec: 07/16/23 14:09 [facility] [id number]) Occupational Therapy Current Condition Current Condition Evaluation Date 07/16/23 Treatment Diagnosis Acute metabolic encephalopathy due to hypoglycemia Diagnosis Onset Date 07/15/23 M3 OT- IP Subjective and Pain Start: 07/16/23 13:50 Freq: Status: Active Protocol: Document 07/16/23 13:51 [facility] (Rec: 07/16/23 14:09 [facility] [id number]) OT- Subjective Occupational Therapy Visit Type Type Initial Evaluation Visit Start Time 12:40 Visit Stop Time 13:40 Occupational Therapy Visit Comments Patient Comments Pt agreed to work with OT. Patient/Caregiver Goals To go home. OT Pain Assessment Pain When Pain Assessed At Rest Pain Present Pain Present Denied Pain M4 OT- IP ADL's Start: 07/16/23 13:50 Freq: Status: Active Protocol: Document 07/16/23 13:51 [facility] (Rec: 07/16/23 14:09 [facility] [id number]) OT [id number] Comments OT Self-Feeding Comments Set-up OT ADL-Grooming General Evaluation Grooming Ability Standby Assistance Areas Needing Assistance Combing/Brushing Hair Comments OT Grooming Comments Set-up OT ADL-Oral Care General Eval Oral Care Ability Independent Comments Oral Care Comments Pt able to do while seated on the recliner due to decreased BP. OT ADL-Dressing Comments OT Dressing Comments Pt uses LB dressing equipment for needs at home. OT ADL-Toileting General Evaluation Toileting Ability Moderate Assistance Areas Needing Assistance Perform Perineal Hygiene Comments OT Toileting Comments Pt needing assist for completeness to wipe. CGA for steadying so pt able to pull up her brief up over her hips.Educated pt to be sure to wipe from front to back to prevent risk of UTI's. Also able to show pt toilet paper aid as pt has difficulty to reach to do her hygiene needs. OT ADL-Bathing Comments OT Bathing Comments Not performed. M5 OT- IP IADL's Start: 07/16/23 13:50 Freq: Status: Active Protocol: Document 07/16/23 13:51 [facility] (Rec: 07/16/23 14:09 [facility] [id number]) OT-Instrumental Activities of Daily Living Deficits IADL Deficits Identified Deficits Home Safety Awareness Awareness of Need for Assistance at Home Decreased Awareness Ability to Problem Solve Emergency Able to Problem Solve Situations Medication Management Medication Management Comments Pt's son set-up her pill organizer. Money Management Money Management Caregiver Provides Assistance Meal Preparation Meal Preparation Caregiver Provides Assist Aeroplane Pilot Aeroplane Pilot Caregiver Provides Assist M6 OT- IP Functional Cognition Start: 07/16/23 13:50 Freq: Status: Active Protocol: Document 07/16/23 13:51 [facility] (Rec: 07/16/23 14:09 [facility] [id number]) Cognitive Factors Limiting Selfcare Function Cognitive Ability Level of Alertness Alert Patient Orientation Name,Age,Birthday,Month,Date, Year,Day of Week,Place, Situation Attention Span Ability Capable of Focused Attention, Capable of Sustained Attention Ability to Follow Commands Able to Follow One Step Commands Memory Description Short Term Impaired Safety Awareness Underestimates Need for Assistance Cognitive Tests SLUMS Pt scored 24/30 which implies mild neurocognitive deficits. Pt able to recall 4/5 objects after time passed, not able to state 4 digit number backwards, not able to draw the hour hands of the clock correctly after time given, and able to answer 3/4 questions right after paragraph read. Pt's low sugar reading may also be affecting her thinking at this time. Cognitive Comments Cognitive Assessment Comments Pt surprised that she is not thinking as well as having difficulty with number calculations on the SLUMS. Pt is adamant that she wants to go home and does not feel anyone is needed to assist her . Pt's cousin came in at the end of the session and states able to stay with pt if needed . OT- Vision and Hearing OT- Hearing Assessment OT- Hearing Assessment Left Ear Impaired OT- Vision Assessment Vision History Blindness Visual Acuity Glasses All The Time Vision Assessment Comments Left eye blindness M7 OT- IP Mobility and Balance Start: 07/16/23 13:50 Freq: Status: Active Protocol: Document 07/16/23 13:51 [facility] (Rec: 07/16/23 14:09 [facility] [id number]) OT-Transfer Assessment Sit to and From Stand Sit to and from Stand Standby Assistance Transfers Transfer Ability Contact Guard Assistance Technique Transfer Destination Bed,Bedside Commode Transfer Technique Stand Step Pivot Devices Transfer Assistive Devices Gait Belt,Front Wheeled Walker Comments Mobility Comments BP [id number], standing 102 /37 and feeling woozy, sitting 123/61. Nursing aid notified . Pt able to stand with SBA and needing CGA for transfer as a little unsteady on her feet at this time. OT- Balance Assessment Sitting Balance and Reactions Static Sitting Balance Ability Good Dynamic Sitting Balance Ability Fair Standing Balance and Reactions Static Standing Balance Ability Fair Dynamic Standing Balance Ability Fair M8 OT- IP Objective Assessments Start: 07/16/23 13:50 Freq: Status: Active Protocol: Document 07/16/23 13:51 [facility] (Rec: 07/16/23 14:09 [facility] [id number]) OT Gross Range of Motion Upper Extremity Range of Motion Assessment Bilaterally Impaired OT Strength Upper Extremity Strength Assessment Bilaterally Impaired Comments Strength Comments BUE 4-/5 to 4/5 OT- Coordination Assessment Upper Extremity Finger to Nose Test Within Functional Limits Finger Tapping Test Within Functional Limits OT-Muscle Tone Assessment Muscle Tone WNL Yes OT Sensation Assessment Comments Summary Comments Intact for light touch M9 OT- IP Assessment and Plan Start: 07/16/23 13:50 Freq: Status: Active Protocol: Document 07/16/23 13:51 [facility] (Rec: 07/16/23 14:09 [facility] [id number]) OT Summary Assessment and Plan Potential Rehabilitation Potential Excellent Analytic Complexity at Evaluation Low Summary OT Impairments Strength,Balance,Coordination, Functional Cognition, Functional Mobility,Dressing, Toileting,Bathing,Toilet Transfers,Shower Transfers, Activity Tolerance Progress Towards Goals Slow Progress due to Medical Issues,Slow Progress due to Cognition Assessment Summary Pt low complexity and main barriers are decreased dynamic balance and having some difficulty with memory and problem solving on the SLUMS. Pt's score is 24/30 which implies mild cognitive deficits. Pt's score may also be affected by her fluctuating blood sugars from very low to high at times today. At this time pt would benefit from someone to stay with her initially and then pt to have assist at home for needs. Home health is also suggested for pt. Goals Grooming Goal Independent Dressing Goal Independent,Arc Air Operator,Sock Aid Toileting Goal Independent Bathing Goal Independent Toilet Transfer Goal Independent Shower Transfer Goal Independent Days to Meet Goals 7 Frequency of Treatment Frequency Of Treatment Once a Day Treatment Plan OT Treatment Plan ADL Training,Functional Cognition Training,Functional Mobility,Patient/Family Education,Discharge Planning Discharge Recommendations OT Discharge Recommendations Home with /7 Assist Available,Home Health Home Equipment Needs FWW, toilet paper aid Transportation Needs at Discharge Private Vehicle
[2023-07-16] MEDS: ACETAMINOPHEN 325 MG TABLET 650 MG PO (21:18)
[2023-07-16] MEDS: ATORVASTATIN 20 MG TABLET 80 MG PO (21:18)
[2023-07-16] MEDS: INSULIN GLARGINE 100 UNIT/ML 3ML PEN 10 UNIT SUBCUT (21:21)
[2023-07-17] VITALS (7 sets, daily range): BP systolic 136–158; BP diastolic 40–53; PULSE 64–75; RESP 16–18; TEMP 36–36.9; O2SAT 93–99
[2023-07-17 04:46] LABS: Add Manual Diff / Slide Review NO; Basophils Absolute Auto 100 /uL (0-100); Basophils Percent Auto 1.3 % (0-2); Eosinophils Absolute Auto 100 /uL (0-450); Eosinophils Percent Auto 1.6 % (2-4); Hemoglobin 9.4 g/dL (12.0-16.0); Lymphocytes Absolute Auto 1600 /uL (1100-4500); Lymphocytes Percent Auto 24.6 % (25-40); Mean Corpuscular HGB Conc 33.6 % (30-36); Mean Corpuscular Hemoglobin 30.4 PG (26-34); Mean Corpuscular Volume 90.4 fL (80-100); Monocytes Absolute Auto 600 /uL (0-900); Monocytes Percent Auto 9.1 % (3-14); Neutrophils Absolute Auto 4100 /uL (1500-7000); Neutrophils Percent Auto 63.4 % (50-75); Platelet Count 254 X10^3/uL (150-400); Red Cell Distribution Width 15.8 % (11.6-14.8); White Blood Cell Count 6.5 X10^3/uL (4.5-11.0)
[2023-07-17 04:56] LABS: Blood Urea Nitrogen 45 mg/dL (7-17); Carbon Dioxide 29 mmol/L (22-32); Chloride 99 mmol/L (98-107); Estimated Glomerular Filt Rate 57 mL/min (>60); Glucose 339 mg/dL (80-110); HEMOLYSIS < 15 (0-50); Magnesium 1.8 mg/dL (1.6-2.3); Potassium 4.5 mmol/L (3.4-5.1); Sodium 134 mmol/L (137-145)
[2023-07-17] MEDS: INSULIN LISPRO 100 UNIT/ML 3ML VIAL SUBCUT ×4 (08:43→11:54)
[2023-07-17 09:59] LABS: Glucose 440 mg/dL (80-110)
--- NOTE | 2023-07-17 10:07 | PM.DS.1 ---
History of Present Illness History of Present Illness Chief complaint: Code Stroke, last known well 0800 07/15 Narrative: his is an 83 year old female, with PMH of CAD (3v CABG in 01/10), HTN, glaucoma, CHFpEF, IDDM who presented with altered mental status and possible facial droop. Patient states she was talking with her niece, and then remembers waking up getting wheeled to the ambulance, is unsure how long her lapse in memory lasted. Per report from her son, he reports worsened speech and left sided facial droop that have now improved since the ER. She is near normal now but still has mild facial asymmetry and speech is not fully back to her usual. Per triage note glucose was in the 60s with EMS, improved to 100 prior to arrival with dextrose. Discharge Providers Provider Date of admission: 07/15/23 14:48 Discharge Date: 07/17/23 Primary care physician: Maurisio Burgess DO Consults: 07/15/23 16:44 Consult to Occupational Therapy Evaluate & Treat Comment: Physician Instructions: Evaluate and treat Consult to Physical Therapy Evaluate & Treat Comment: Physician Instructions: Evaluate and Treat 07/15/23 17:30 Consult to Speech Therapy Evaluate & Treat Comment: slurred speech likely CVA Physician Instructions: Evaluate and treat 07/16/23 14:05 Consult to Home Health Routine Comment: encephalopathy, hypoglycemia, HTN Reason For Exam: Set up RN/PT/OT for d/c to home when stable Discharge provider: Tarik Chiu MD Summary Hospital Course Discharge Diagnosis: 1. Acute metabolic encepahlopathy likely due to hypoglycemia, improved, possible TIA - MRI brain to r/o CVA. Initial head CT and CT angio are unremarkable. - no obvious signs of acute heart failure - no obvious infectious etiologies - continue home asa, add plavix which she has been on previously after CABG - prior TTEs without PFO, no indication for repeat echo - continue tele to rule out afib. - PT/OT evaluations, speech ordered given continued slurred speech. - Though I suspect hypoglycemia now, glucose was in the 60s with EMS per triage note, improved with dextrose. 2. HTN - allow for permissive HTN initially, but restart home antihypertensives in the AM 3. IDDM - on U-300 at home, will start 20 U of lantus, start with 7 U AC lispro and sliding scale. Reduced due to presenting probable hypoglycemia. Unclear as insulin prescription appears new if she is supposed to be on U-300 insulin? 4. CAD with PMH of CHFpEF. - continue home furosemide and potassium, no current acute heart failure based on presentation. 5. Glaucoma - continue home prednisolone and latanoprost eye drops. Hospital Course: She was admitted after having transient neurologic symptoms which appeared to correlate to hypoglycemia. She had normal neuroimaging including MRI of the brain and resolution of all symptoms. She notes using a different formulation of insulin and believing that this formulation gave her too much insulin. She believes what she should be on his Lantus 8 HS and lispro 4 or 5 units a.c.. She is willing and able to get new prescriptions for regular Lantus and lispro today and resume this formulation. She denies any other issues such as acute illness, or change her dietary intake. She she would like to go home today and appears to be stable for discharge. Status at Discharge Cognitive/behavioral status at discharge: oriented and at baseline, oriented Functional status at discharge: independent ambulation Overall status at discharge: patient is back to baseline Time Spent with Patient Time spent: Greater than 30 minutes Exam Vital Signs (past 8 hours): - 07/17/23 04:00 07/17/23 05:00 07/17/23 07:53 Temperature 96.8 F L 98.5 F Pulse Rate 64 65 Respiratory Rate 16 16 Blood Pressure 136/47 L 158/53 H Pulse Oximetry 93 93 99 Oxygen Delivery Method Room Air Oxygen Flow Rate 0 Oxygen Delivery Method Room Air Oxygen Flow Rate 0 Narrative Exam Narrative: No acute distress, she has a lisp. This is chronic. EOMI, her left eye is hazy in appearance. This is chronic. Lungs are notable for normal rate and effort. She has normal strength of arms and legs. No facial droop is appreciated. Objective ECG Impression: Sinus bradycardia Possible Left atrial enlargement Septal infarct, likely old Imaging CTA Head and Neck. : Radiologist's impression: 1. Unremarkable CTA head. No stenosis, aneurysm, occlusion, or focal filling defect. 2. 50% or less focal stenosis of the proximal right internal carotid artery. Brain CT normal. MRI - head: Radiologist's impression: No infarct. No acute intracranial pathology. Chest x-ray: Radiologist's impression: No acute cardiopulmonary abnormality is seen. Labs 07/17/23 04:39 07/17/23 09:30 Labs: Laboratory Results - last 24 hr 07/17/23 07/17/23 04:39 09:30 WBC 6.5 RBC 3.10 L Hgb 9.4 L Hct 28.0 L MCV 90.4 MCH 30.4 MCHC 33.6 RDW 15.8 H Plt Count 254 Neut % (Auto) 63.4 Lymph % (Auto) 24.6 L [place] % (Auto) 9.1 Eos % (Auto) 1.6 L Baso % (Auto) 1.3 Neut # (Auto) 4100 Lymph # (Auto) 1600 [place] # (Auto) 600 Eos # (Auto) 100 Baso # (Auto) 100 Sodium 134 L Potassium 4.5 Chloride 99 Carbon Dioxide 29 BUN 45 H Creatinine 1.00 Estimated GFR 57 L BUN/Creatinine Ratio 45.0 H Glucose 339 H D 440 H D Calcium 9.0 Magnesium 1.8 PFSH Medical History CAD (coronary artery disease) Ptosis of both eyelids Essential hypertension Osteoporosis (~1999) Retinal detachment (~2000) Hearing loss (~1944) Thyroid nodule (~2019) Left tibial fracture Glaucoma Blindness left eye category 4, normal vision right eye Closed fracture of left hip Surgical History H/O three vessel coronary artery bypass Anesthesia History of shoulder surgery History of elbow surgery History of eye surgery History of cataract removal with insertion of prosthetic lens History of total right hip arthroplasty Family History Father Suicide Mother Myocardial infarction Grandfather History of heart disease Family/Other Diabetes mellitus Social History household members: none Smoking Status: Never smoker alcohol intake: current Discharge Assessment & Plan Assessment and Plan Assessment: 1. Acute metabolic encepahlopathy likely due to hypoglycemia, improved, possible TIA - MRI brain to r/o CVA. Initial head CT and CT angio are unremarkable. - continue home asa, added plavix which she has been on previously after CABG - prior TTEs without PFO, no indication for repeat echo - continue tele to rule out afib (none noted). 2. HTN - resume usual medications. 3. IDDM - home on 8 lantus HS and 5-6 lispro AC 4. CAD with PMH of CHFpEF. - continue home furosemide and potassium, no current acute heart failure based on presentation. 5. Glaucoma - continue home prednisolone and latanoprost eye drops. Code: Full, surrogate is patient's son, THU Plan of Treatment: She will return home and resume all usual medications including the Plavix that she had been supposed to be taking. She will stop using the insulin from [facility], I have sent new prescriptions for Lantus 8 units HS and lispro 5 units a.c. To [facility]. She will monitor her blood sugars carefully. Discharge Plan Discharge Plan Patient Disposition: Home Provider Discharge Comment: Stable for discharge, no new deficits. Discharge orders & Medications Prescriptions: New insulin lispro [Humalog U-100 Insulin] 100 unit/mL Solution 5 unit SUBCUT AC Qty: 30 2RF insulin glargine [Lantus Solostar U-100 Insulin] 100 unit/mL (3 mL) Insulin Pen 8 unit SUBCUT 2100 Qty: 30 2RF Continued latanoprost [Xalatan] 0.005 % drops 1 drp OPHTH BEDTIME Qty: 0 aspirin 81 mg tablet,chewable 1 tab PO DAILY Qty: 30 11RF losartan 100 mg tablet 100 mg PO DAILY Qty: 90 3RF acetaminophen [Tylenol Extra Strength] 500 mg tablet 500 mg PO Q4H PRN (Reason: Pain (Scale Score 1-3)) (DME) insulin syringe-needle U-100 [TRUEplus Insulin] 0.3 mL 30 gauge x 5/16 syringe See Rx Instructions .ROUTE .MEDSUPPLY Qty: 10 Patient Comments: [NO ORIGINAL SIG] Rx Instructions: As directed (DME) pen needle, diabetic [Unifine Pentips Plus] 31 gauge x 5/16 needle See Rx Instructions .ROUTE .MEDSUPPLY Qty: 400 3RF Rx Instructions: use daily with lantus and TID with Lispro, as directeed (DME) lancets [Safety Lancets] 28 gauge misc See Rx Instructions .Route Qty: 400 3RF Rx Instructions: test 3-4 times daily as needed (DME) pen needle, diabetic [1st Tier Unifine Pentips] 29 gauge x 1/2 needle See Rx Instructions .Route Qty: 100 3RF Rx Instructions: use with lantus insulin pen as directed (DME) pen needle, diabetic [1st Tier Unifine Pentips] 29 gauge x 1/2 needle See Rx Instructions .Route Qty: 300 3RF Rx Instructions: TID with kwikpen humalog atorvastatin 80 mg tablet 80 mg PO ONCE PM Qty: 90 3RF clopidogrel 75 mg tablet 75 mg PO DAILY Qty: 90 3RF furosemide 20 mg tablet 20 mg PO DAILY Qty: 90 3RF metoprolol succinate 25 mg tablet extended release 24 hr 25 mg PO DAILY Qty: 90 3RF pantoprazole 40 mg tablet,delayed release (DR/EC) 40 mg PO DAILY Qty: 90 3RF potassium chloride 10 mEq tablet extended release 10 meq PO DAILY Qty: 90 3RF Rx Instructions: while on lasix prednisolone acetate 1 % drops,suspension 1 drp EYE-BOTH BID Discontinued Lyumjev KwikPen U-100 Insulin 100 unit/mL insulin pen See Rx Instructions SUBCUT .COMPLEX Qty: 15 11RF Rx Instructions: subcutaneously; 4 units before breakfast, 5 units before lunch and dinner, plus sliding scale as needed. Max 5 units sliding scale with each meal (for total of max 15 units of sliding scale per day) Toujeo SoloStar U-300 Insulin 300 unit/mL (1.5 mL) insulin pen 10 unit SUBCUT BEDTIME Rx Instructions: inject 10 units subcutaneously once daily Follow up/Referrals: Maurisio Burgess DO [Primary Care Provider] - Discharge Health Status Multidrug resistant organism: No MDRO Diet/Activity/Treatments Diet: Carb-consistent/Diabetic Skin/Wound/Dressing Care Report to your healthcare provider any signs of infection, such as:: chills, fever, night sweats and increased pain Visit Report/Discharge Packet Stand Alone Forms: Patient Portal/API, Stroke Signs & Symptoms Discharge Data Primary Care Provider: Maurisio Burgess Attending Provider: Juliocesar Sanders Date/Time: 07/15/23 14:48
--- NOTE | 2023-07-17 10:43 | CM.DPC ---
Addendum entered by Gina Jordan R.N. 07/17/23 11:34: Gave patient the [facility] brochure. Original Note: DCP Cont: Patient is discharging home today. Called Arabella at [facility], since referral was sent already, and left her an updated message. Did call the main [facility] number, and spoke to Yamilet, and gave her update that patient is discharging home today. Will still fax over DC summary and orders, face to face completed, included therapy notes. Gina Jordan RN/Social Science Research Assistant
--- NOTE | 2023-07-17 11:20 | ST.IPIE ---
Visit Care Team Role Provider Type Maurisio Burgess DO Primary Care Provider Physician Specialty: Family Practice Address: [address] [place] [address], [address], [place], [address] Email: [email or web address] Anjali Garcia DO Emergency Provider Physician Referring Provider Specialty: Emergency Medicine Address: [address] [place] [address], [id number] Email: [email or web address] Juliocesar Sanders DO Admit Provider Physician Attending Provider Specialty: Internal Medicine Address: [address] [place] [address], [id number] Email: [email or web address] Past Medical History (Last Reviewed 07/17/23 @ 10:12 by Tarik Chiu MD) Blindness left eye category 4, normal vision right eye (Medical) CAD (coronary artery disease) (Medical) Closed fracture of left hip (Medical) Impression 1. 79-year-old female status post ground level fall admitted for a left intertrochanteric fracture, most likely related to underlying osteoporosis. -patient is here for definitive surgery, -anticipate surgery tomorrow, orthopedic surgery, Dr. Pitts has been consulted by the ER, -DVT prophylaxis per surgery, anticipate b.i.d. dosing of aspirin -low-dose Dilaudid, Tylenol, Percocet for pain -pelvic x-ray confirms a left intratrochanteric fracture, CT of the abdomen and pelvis confirms of left intertrochanteric fracture as well 2. Nondisplaced left radial head fracture, sling will be put in place. -pain medications as above 3. Type 1 diabetes, will continue the patient's home dosing of basal bolus insulin. -patient will get blood sugars AC and HS, continue her Lantus at 12 units, will continue her pre meal insulin she was taking at home. 4. Hypertension, blood pressure elevated, likely related to underlying pain. Will continue her usual dosing of lisinopril. Will hold her hydrochlorothiazide here in the hospital 5. Hyperlipidemia, present on admission -continue home dose of atorvastatin 6. Osteoporosis, present on admission, likely the etiology of her fracture. Will resume calcium at discharge. Consider vitamin-D as an outpatient, will defer bisphosphonates at this time 7 anemia, etiology unclear, -will obtain iron studies, consider oral iron with vitamin-C postoperatively 8. Stage III chronic renal insufficiency, present on admission -will avoid nephrotoxin agents and continue to monitor closely Patient reports she is DNR, will note that on her record accordingly. Essential hypertension (Medical) Glaucoma (Medical) Hearing loss (Medical ~1944) Left tibial fracture (Medical) Osteoporosis (Medical ~1999) Ptosis of both eyelids (Medical) Retinal detachment (Medical ~2000) Thyroid nodule (Medical ~2018) ST IP Initial Evaluation Report WIN[facility]MITH Motor Speech Evaluation Start: 07/17/23 10:42 Freq: Status: Active Protocol: Document 07/17/23 10:42 MG (Rec: 07/17/23 11:20 MG [id number]) Motor Speech Evaluation Session Time Visit Start Time 09:20 Visit Stop Time 09:40 Total Visit Minutes 20 Visit Information Visit Number 1 Setting Setting Acute Care Patient History Source: [employer] Patient History Per H&P: This is an 83 year old female, with PMH of CAD ( 3v CABG in 01/10), HTN, glaucoma, CHFpEF, IDDM who presented with altered mental status and possible facial droop. Patient states she was talking with her niece, and then remembers waking up getting wheeled to the ambulance, is unsure how long her lapse in memory lasted. Per report from her son, he reports worsened speech and left sided facial droop that have now improved since the ER . She is near normal now but still has mild facial asymmetry and speech is not fully back to her usual. Per triage note glucose was in the 60s with EMS, improved to 100 prior to arrival with dextrose. Mental Status Mental Status Alert,Responsive,Cooperative Subjective Observations Subjective Pt was sitting in chair at bedside upon WINDSMITH entry. Pt agreeable to motor speech evaluation and swallow screening. Of note, the pt presents with slight slurred speech and a very slight left droop on the corner of her mouth. Per the pt, she was hard of hearing as a child and received speech/language services in childhood through college. The pt reports that she was never able to get rid of her lisp and reports she feels she is at baseline for her speech at this time. Oral Motor Lips Function Mild Impairment Observation at rest Very slight droop at corner of her left mouth. Tongue Function WFL Jaw Function WFL Soft Palate Function WFL Respiration/Phonation Phonation Quality WFL Conversation Quality WFL Diadochokinetic Rates P^ Quality Mild Impairment T^ Quality WFL K^ Quality WFL P^T^K^ Quality Mild Impairment Speech Intelligibility Awareness/Strategy Use Description Type of awareness/use Uses intermittently Findings Details Motor Speech Function Mild Impairment Type of Impairment Mild dysarthria Assessment Details Assessment Pt presents with mild dysarthria at this time. Pt reports she feels her speech is at baseline for her and does not wish to pursue further speech therapy at this time. Pt passed swallow screening; no concerns at this time. Recommendations Treatment Recommended No Patient/Family Education Education Described results of evaluation,Patient Understanding
--- NOTE | 2023-07-17 11:30 | PT.IPTN ---
Physical Therapy Treatment Note M2 PT-IP Current Condition Start: 07/16/23 12:44 Freq: NEEDED Status: Active Protocol: Document 07/16/23 10:32 AB (Rec: 07/16/23 13:05 AB [id number]) Physical Therapy Current Condition Current Condition Evaluation Date 07/16/23 Treatment Diagnosis hypoglycemia; difficulty in walking Onset Date 07/15/23 M3 PT-IP Subjective Start: 07/16/23 12:44 Freq: NEEDED Status: Active Protocol: Document 07/17/23 11:56 TS (Rec: 07/17/23 12:07 TS [id number]) Subjective Physical Therapy Visit Type Type Treatment Note Visit Start Time 11:30 Visit Stop Time 11:55 Number of [employer] Visits 1 Physical Therapy Visit Comments Patient Comments Pt found resting in chair, is agreeable to PT. M4 PT-IP Mobility and Gait Start: 07/16/23 12:44 Freq: NEEDED Status: Active Protocol: Document 07/17/23 11:56 TS (Rec: 07/17/23 12:07 TS [id number]) PT-Transfer Assessment Sit to and From Stand Sit to and from Stand Standby Assistance,Use of Upper Extremities Equipment Transfer Assistive Device Gait Belt,Front Wheeled Walker Orthotic/Prosthetic Devices or Brace: No Comments Mobility Comments Sit to stand from chair with FWW SBA, pt uses BUE support pushing from arms of chair to come into standing. She ambulated ~200' SBA with FWW, is slightly unsteady but has no buckling or LOB. She performed stairs x3 with single rail support SBA. She ambulated back to room, sat in chair. Pt was left in chair, all needs met. Gait Assessment Gait Gait Assistance Required: Standby Assistance Distance (Feet) 200 Able to Maintain Weight Bearing Status Yes During Gait Assistive Devices Assistive Device Gait Belt,Front Wheeled Walker Orthotic/Prosthetic Devices or Brace: No Gait Deviations General Gait Pattern Decreased Stride Length, Decreased Feet Clearance Factors Limiting Gait Function Factors Limiting Gait Function Decreased Activity Tolerance, Decreased Strength,Limited Range of Motion,Poor Balance, Poor Safety Awareness Comments Gait Comments See mobility comments Stair Climbing Assessment Evaluation Level of Assist On Stairs Standby Assistance Devices Stair Climbing Assistive Devices Left Railing Technique/Endurance Stair Climbing Direction Ascend and Descend Stair Climbing Technique Step to Step Number of Steps Climbed 3 Comments Stair Climbing Comments See mobility comments PT-Balance Assessment Sitting Balance and Reactions Static Sitting Balance Ability Good Dynamic Sitting Balance Ability Good Standing Balance and Reactions Static Standing Balance Ability Fair Dynamic Standing Balance Ability Fair Device Used FWW Comments Other Balance Tests/Deviations/Treatment See mobility comments : M5 PT-IP Objective Assessments Start: 07/16/23 12:44 Freq: NEEDED Status: Active Protocol: Document 07/16/23 10:32 AB (Rec: 07/16/23 13:05 AB [id number]) Orientation Orientation/Cognition Level of Alertness Alert Language Function Ability Hard of Hearing Safety Awareness Decreased Safety Awareness Memory Description Short Term Impaired Gross Range of Motion Lower Extremity ROM Assessment Within Functional Limits Strength Lower Extremity Strength Hip 4-/5 Knee 4-/5 Muscle Tone Muscle Tone WNL Yes M6 PT-IP Treatment Start: 07/16/23 12:44 Freq: NEEDED Status: Active Protocol: Document 07/17/23 11:56 TS (Rec: 07/17/23 12:07 TS [id number]) Physical Therapy Treatment Education Education Provided Safety M7 PT-IP Assessment and Plan Start: 07/16/23 12:44 Freq: NEEDED Status: Active Protocol: Document 07/17/23 11:56 TS (Rec: 07/17/23 12:07 TS [id number]) PT Summary Assessment and Plan Potential Rehabilitation Potential Fair Summary Impairments Pain,ROM,Strength,Balance, Coordination,Sensation,Tone, Cognition,Bed Mobility, Transfers,Gait,Activity Tolerance Progress Towards Goals Progressing Toward Goals Assessment Summary Meredith is making good progress with her mobility. She progressed her STS to SBA with FWW. She progressed her gait to ~200' SBA with FWW. She performed steps x3 with single rail SBA with no cueing. PT is recommending pt return home with assist and HHPT. Goals Bed Mobility Goal Independent Transfer Goal Independent,Front Wheeled Walker,Four Wheeled Walker Gait Goal Independent,Front Wheel Walker ,Four Wheel Walker Gait Distance 300 Other Goals up/down 1 step L grab bar SBA Days to Meet Goals 5 Frequency of Treatment Frequency Of Treatment Once a Day Treatment Plan Physical Therapy Treatment Plan Bed Mobility Training,Transfer Training,Gait Training, Therapeutic Exercise,Balance Retraining,Discharge Planning, Hot or Cold Pack,Neuromuscular Re-ed,Coordination Retraining Precautions Other Precautions falls Recommendations To Nursing Amount of Assist Needed Standby Assistance Discharge Recommendations PT Discharge Recommendations Home with Assistance,Home Health Transportation Needs at Discharge Private Vehicle,Wheelchair/ Cabulance
[2023-07-17] MEDS: METOPROLOL ER 25 MG TABLET PO (11:44)
[2023-07-17] MEDS: FUROSEMIDE 20 MG TABLET PO (11:44)
[2023-07-17] MEDS: POTASSIUM CHLORIDE 10 MEQ TAB PO (11:44)
[2023-07-17] MEDS: PANTOPRAZOLE DR 40 MG TABLET PO (11:45)
[2023-07-17] MEDS: SODIUM CHLORIDE 0.9% FLUSH 10 ML IV (11:45)
[2023-07-17] MEDS: LOSARTAN 50 MG TABLET 100 MG PO (11:45)
[2023-07-17] MEDS: CLOPIDOGREL 75 MG TABLET PO (11:45)
[2023-07-17] MEDS: ASPIRIN EC 81 MG TABLET PO (11:47)
== END 2023-07-17 12:35 | disposition home or self-care (01) ==
LOC: ED 13:35 → AC 14:48
PROVIDERS: Hospitalist; Admitting Provider Internal Medicine; Emergency Provider Emergency Medicine; PCP Family Medicine; Referring Provider Emergency Medicine; Visit Provider Internal Medicine
DX: G93.41 Metabolic encephalopathy (principal); R29.702 NIHSS score 2; I25.10 Atherosclerotic heart disease of native coronary artery without angina pectoris; E11.9 Type 2 diabetes mellitus without complications; I10 Essential (primary) hypertension; H40.9 Unspecified glaucoma; Z11.52 Encounter for screening for COVID-19; Z79.4 Long term (current) use of insulin; Z95.1 Presence of aortocoronary bypass graft
CPT/HCPCS: 36415; 70450; 70496; 70498; 70551; 71045; 80048; 80053; 80305; 80320; 81001; 82550; 82947; 82962; 83036; 83605; 83735; 83880; 84439; 84443; 84484; 85025; 85610; 85730; 87635; 92522; 93005; 96372; 97116; 97129; 97161; 97165; 97530; 97535; 99284; G0378; J1815; Q9967

== ENCOUNTER 2023-09-05 19:30 | Inpatient (IN) | payer MEDICARE, OTHER, SELFPAY ==
[2023-07-15 16:34] VITALS: BMI 25.2
[2023-09-05] VITALS (13 sets, daily range): BP systolic 128–182; BP diastolic 44–74; PULSE 69–82; RESP 19–37; TEMP 36.4–36.8; O2SAT 86–98; BMI 23.1
--- NOTE | 2023-09-05 19:43 | PC.NURSE ---
son states pt had a recent fall breaking a rib, for the last 3 days she has not been eating and appears to be weak, pt unable to take deep breaths d/t pain, + moist cough noted, O2 sat 83% on arrival and pt placed on O2 @ 2LNC
--- NOTE | 2023-09-05 19:44 | DI.RAD.S_ITS ---
PROCEDURE: XR CHEST 1V INDICATIONS: SOB TECHNIQUE: One view of the chest was acquired. COMPARISON: [facility], CR, XR CHEST 1V, 07/15/2023, 14:59. FINDINGS: Surgical changes and devices: Sternal wires. Right femoral fixation and partially visualized left shoulder arthroplasty. Lungs and pleura: Lungs are clear. No pleural effusions or pneumothorax. Mediastinum: Mediastinal contours appear normal. Heart size is enlarged. Bones and chest wall: No suspicious bony lesions. Overlying soft tissues appear unremarkable. IMPRESSION: No acute pulmonary process. Dictated by: Karmen Denis M.D. on 09/05/2023 at 19:56 Approved by: Karmen Denis M.D. on 09/05/2023 at 19:57
[2023-09-05 19:52] LABS: Add Manual Diff / Slide Review NO; Basophils Absolute Auto 0 /uL (0-100); Basophils Percent Auto 0.2 % (0-2); Eosinophils Absolute Auto 0 /uL (0-450); Hematocrit 29.1 % (36-46); Hemoglobin 9.6 g/dL (12.0-16.0); Lymphocytes Absolute Auto 1200 /uL (1100-4500); Lymphocytes Percent Auto 12.5 % (25-40); Mean Corpuscular Hemoglobin 28.7 PG (26-34); Monocytes Absolute Auto 700 /uL (0-900); Neutrophils Absolute Auto 7600 /uL (1500-7000); Neutrophils Percent Auto 80.3 % (50-75); Platelet Count 285 X10^3/uL (150-400); Red Blood Cell Count 3.35 X10^6/uL (4.0-5.2); Red Cell Distribution Width 16.1 % (11.6-14.8); White Blood Cell Count 9.5 X10^3/uL (4.5-11.0)
[2023-09-05 19:58] LABS: INR 1.1 (0.9-1.3); Prothrombin Time 12.2 SECONDS (9.4-12.5)
[2023-09-05] MEDS: SODIUM CHLORIDE 0.9% 1,000 ML 125 ML IV (20:00)
[2023-09-05 20:01] LABS: PTT Partial Thromboplastin Tim 33 SECONDS (25.1-36.5)
[2023-09-05 20:03] LABS: Alanine Aminotransferase 17 IU/L (<35); Albumin 3.7 g/dL (3.5-5.0); Albumin Globulin Ratio 0.9 (1.0-2.8); Alkaline Phosphatase 237 U/L (38-126); Aspartate Aminotransferase 34 IU/L (14-36); BUN Creatinine Ratio 41.2 (6-22); Blood Urea Nitrogen 40 mg/dL (7-17); Calcium 9.2 mg/dL (8.4-10.2); Carbon Dioxide 25 mmol/L (22-32); Chloride 100 mmol/L (98-107); Creatine Kinase 65 U/L (30-135); Estimated Glomerular Filt Rate 59 mL/min (>60); Ethanol (ETOH) < 10 mg/dL; Globulin 4.1 g/dL (1.7-4.1); Glucose 237 mg/dL (80-110); HEMOLYSIS < 15 (0-50); Lipase 99 U/L (23-300); Magnesium 1.8 mg/dL (1.6-2.3); Phosphorous 2.2 mg/dL (2.8-4.1); Potassium 4.4 mmol/L (3.4-5.1); Sodium 133 mmol/L (137-145); Total Protein 7.8 g/dL (6.3-8.2)
[2023-09-05 20:04] LABS: Lactate (Lactic Acid) 2.5 mmol/L (0.7-2.1)
[2023-09-05 20:14] LABS: NT-proBNP (BNP-Adult 18+) 14900 pg/mL (<450)
[2023-09-05 20:17] LABS: Troponin I 0.367 ng/mL (0.01-0.034)
--- NOTE | 2023-09-05 20:18 | DI.CT.S_ITS ---
PROCEDURE: CT ANGIO CHEST PE PROTOCOL INDICATIONS: eval for PE TECHNIQUE: After the administration of intravenous contrast, 2 mm thick sections acquired from the pulmonary apices to the posterior costophrenic angles. 3-dimensional maximum intensity projection (MIP) coronal and sagittal reformats were then acquired through the thorax. For radiation dose reduction, the following was used: automated exposure control, adjustment of mA and/or kV according to patient size. COMPARISON: [facility], CT, CT ANGIO CHEST PE PROTOCOL, 05/29/2023, 0:07. FINDINGS: Image quality: Diagnostic. Pulmonary arteries: Pulmonary arteries are normal in size, and demonstrate no intraluminal filling defects to suggest central pulmonary embolism. Lower Neck: There is a nodule deep to the right thyroid lobe, lymph node versus thyroid nodule. Thyroid: A thyroid is not well seen due to streak artifact. Axillae: No bulky lymph nodes. Numerous tiny axillary nodes bilaterally. Chest Wall: Unremarkable. Bones: Median sternotomy. Severe degeneration in both shoulders. Several displaced and nondisplaced left-sided rib fractures, known. Moderate compression fracture of T5, new. Lungs and Pleura: There is respiratory motion artifact throughout the lungs. There is diffuse scattered tree-in-bud nodularity throughout the right lung and in the mid and lower left lung. There are areas of scattered ground-glass opacity in the right upper lobe, nodular opacities in the lower lobes, and minor consolidation at both lung bases, left greater than right. Very small right pleural effusion is present. Heart: Mild cardiomegaly. Prior CABG changes. No pericardial effusion. Thoracic Vessels: No aortic aneurysm. Mediastinum and Brandy: Paratracheal mediastinal and mild right hilar adenopathy is present. This is slightly increased compared to the prior exam. Esophagus: No wall thickening. No hiatal hernia. Upper Abdomen: Visualized upper abdomen solid organs and bowel loops appear normal. IMPRESSION: No pulmonary embolus. Bilateral and diffuse airspace disease, most likely infectious or inflammatory. Probably reactive mediastinal and hilar adenopathy. Known left rib fractures and new T5 compression fracture. Dictated by: Yolande Zaman M.D. on 09/05/2023 at 21:36 Approved by: Yolande Zaman M.D. on 09/05/2023 at 21:46
[2023-09-05] MEDS: ASPIRIN 81 MG CHEW TAB 324 MG PO (20:41)
[2023-09-05] MEDS: FUROSEMIDE 60 MG in SODIUM CHLORIDE 0.9% 50 ML 112 MG IV (20:41)
[2023-09-05 20:55] LABS: Adenovirus Not Detected (Not Detect); B. parapertussis Not Detected (Not Detecte); Bordetella pertussis Not Detected (Not Detect); Chlamydophila pneumoniae Not Detected (Not Detect); Coronavirus 229E Not Detected (Not Detect); Coronavirus HKU1 Not Detected (Not Detect); Coronavirus NL 63 Not Detected (Not Detect); Coronavirus OC43 Not Detected (Not Detect); Human Metapneumovirus Not Detected (Not Detect); Human Rhinovirus/Enterovirus Not Detected (Not Detect); Influenza A H1-2009 Detected (Not Detect); Influenza B Not Detected (Not Detect); Mycoplasma pneumoniae Not Detected (Not Detect); Parainfluenza Virus 1 Not Detected (Not Detect); Parainfluenza Virus 2 Not Detected (Not Detect); Parainfluenza Virus 3 Not Detected (Not Detect); Parainfluenza Virus 4 Not Detected (Not Detect); Respiratory Syncytial Virus Not Detected (Not Detect); SARS- CoV-2 Not Detected (Not Detecte)
[2023-09-05] MEDS: ASPIRIN 81 MG CHEW TAB PO (20:57)
--- NOTE | 2023-09-05 21:20 | ED.GENADULT ---
HPI - General Adult General Chief complaint: Fever Stated complaint: post rib inj/cough/wont eat/diabetic Time Seen by Provider: 09/05/23 19:41 Source: patient and family Mode of arrival: Wheelchair History of Present Illness HPI narrative: 83-year-old female here with son for evaluation of a cough, fevers, confusion, decreased oral intake of both food and fluids. Patient's son provided some of the HPI. He stated that approximately 10 days ago the patient fell. Was seen at an outside facility. Was diagnosed with a rib fracture. Was told to be on the lookout for potential pneumonia related to this. He states for the past 2 days she is become more confused, not eating or drinking as much, confused about her insulin doses. Patient reports no chest pain, shortness of breath, she does report a cough. She denies abdominal pain, nausea, vomiting, abdominal pain or skin rashes. She denies headache. Patient states she was not quite sure why she was here. Related Data Home Medications Medication Instructions Recorded Confirmed latanoprost 0.005 % eye drops 1 drp OPHTH BEDTIME ##0 02/11/12 08/03/23 (Xalatan) acetaminophen 500 mg tablet 500 mg PO Q4H PRN Pain (Scale 01/12/23 08/03/23 (Tylenol Extra Strength) Score 1-3) insulin syringe-needle U-100 0.3 #10 ea 01/12/23 08/03/23 mL 30 gauge x 11/03 (TRUEplus Insulin) prednisolone acetate 1 % eye 1 drp EYE-BOTH BID 07/15/23 08/03/23 drops,suspension Previous Rx's Medication Instructions Recorded pen needle, diabetic 31 gauge x #400 ea 01/12/23 5/16 (Unifine Pentips Plus) lancets 28 gauge (Safety Lancets) #400 ea 01/14/23 pen needle, diabetic 29 gauge x #100 ea 01/14/23 12 (1st Tier Unifine Pentips) pen needle, diabetic 29 gauge x #300 ea 01/14/23 12 (1st Tier Unifine Pentips) aspirin 81 mg chewable tablet 1 tab PO DAILY #30 tabs 01/18/23 atorvastatin 80 mg tablet 80 mg PO ONCE PM for cholesterol 05/25/23 #90 ea clopidogrel 75 mg tablet 75 mg PO DAILY heart disease #90 05/25/23 tabs furosemide 20 mg tablet 20 mg PO DAILY for edema #90 ea 05/25/23 metoprolol succinate 25 mg 25 mg PO DAILY for blood pressure 05/25/23 tablet,extended release 24 hr #90 tabs pantoprazole 40 mg tablet,delayed 40 mg PO DAILY heartburn #90 tabs 05/25/23 release potassium chloride 10 mEq 10 meq PO DAILY #90 tabs 05/25/23 tablet,extended release losartan 100 mg tablet 100 mg PO DAILY blood pressure #90 06/09/23 tabs insulin glargine 100 unit/mL (3 8 unit (0.08 mL) SUBCUT 2100 #30 mL 07/17/23 mL) subcutaneous pen (Lantus Solostar U-100 Insulin) insulin lispro 100 unit/mL 5 unit (0.05 mL) SUBCUT AC #30 mL 07/17/23 subcutaneous solution (Humalog U-100 Insulin) Allergies Allergy/AdvReac Type Severity Reaction Status Date / Time No Known Drug Allergies Allergy Verified 08/03/23 09:35 Review of Systems Review of Systems ROS Unobtainable: All systems reviewed & are unremarkable except as noted in HPI and below Patient History Medical History CAD (coronary artery disease) Ptosis of both eyelids Essential hypertension Osteoporosis (~1999) Retinal detachment (~2000) Hearing loss (~1944) Thyroid nodule (~2018) Left tibial fracture Glaucoma Blindness left eye category 4, normal vision right eye Closed fracture of left hip Surgical History H/O three vessel coronary artery bypass Anesthesia History of shoulder surgery History of elbow surgery History of eye surgery History of cataract removal with insertion of prosthetic lens History of total right hip arthroplasty Family History Father Suicide Mother Myocardial infarction Grandfather History of heart disease Family/Other Diabetes mellitus Social History household members: none Smoking Status: Never smoker alcohol intake: current Smoking Status: Never smoker alcohol intake frequency: holidays/special occasions only Alcohol type: wine Substance Use Type: does not use Exam Initial Vital Signs Initial Vital Signs: Vital Signs Pulse Rate 81 09/05/23 19:39 Pulse Oximetry 95 09/05/23 19:39 Const General: cooperative, comfortable and No ill appearing HENMT Head: normal to inspection and normocephalic Resp Effort & Inspection: cough, no respiratory distress, no retractions and tachypneic Auscultation: clear to auscultation bilaterally Cardio Rate: regular rate Rhythm: regular rhythm GI Inspection: normal to inspection and non-distended Palpation: soft Skin General: no rashes or lesions noted Neuro General: patient alert, patient awake and moves all extremities Other: Patient was oriented to person and place but not quite sure as to why she was here. Extrem General: normal to inspection and capillary refill normal Scores GCS [place] coma scale eye opening: Spontaneous [place] coma scale verbal response: Orientated [place] coma scale motor response: Obey commands Esthela coma scale total score: 15 Course Orders Ordered: ED Orders 09/05/23 19:44 XR chest 1V Stat Complete Blood Count AUTO DIFF Stat Comprehensive Metabolic Panel Stat Ethanol (ETOH) Stat Lactate (Lactic Acid) Stat Lipase Stat Magnesium Stat NT-proBNP (BNP-Adult 18+) Stat PTT Partial Thromboplastin Mitesh Stat Phosphorous Stat Prothrombin Time INR Stat Troponin & CK Cardiac Panel Stat EKG-12 Lead Stat 09/05/23 19:55 Respiratory Panel (Film Array) Stat 09/05/23 20:05 Blood Culture Stat 09/05/23 20:18 CT angio chest PE protocol Stat 09/05/23 21:35 Troponin & CK Cardiac Panel Stat 09/05/23 22:35 Urinalysis and Microscopic Stat Urine Culture Stat Sodium Chloride (Normal Saline 0.9%) 1,000 mls @ 125 mls/hr IV CONT ROBERT Last Admin: 09/05/23 20:00 Dose: 125 mls/hr Documented By: MARYURI Discontinued Medications Aspirin (Aspirin 81 Mg Chew Tab) 324 mg PO NOW ONE Stop: 09/05/23 20:20 Last Admin: 09/05/23 20:41 Dose: 243 mg Documented By: MARYURI Aspirin (Aspirin 81 Mg Chew Tab) 81 mg PO NOW ONE Stop: 09/05/23 20:54 Last Admin: 09/05/23 20:57 Dose: 81 mg Documented By: MARYURI Furosemide 60 mg/ Sodium (Chloride) 56 mls @ 112 mls/hr IV NOW ONE Stop: 09/05/23 20:20 Last Infusion: 09/05/23 21:20 Dose: Infused Documented By: Admin: 09/05/23 20:41 Dose: 112 mls/hr Documented By: MARYURI Oseltamivir Phosphate (Oseltamivir 75 Mg Capsule) 75 mg PO NOW ONE Stop: 09/05/23 22:20 Last Admin: 09/05/23 22:28 Dose: 75 mg Documented By: MARYURI Vital Signs Vital signs: Vital Signs - 8 hr 09/05/23 19:39 09/05/23 19:41 09/05/23 20:00 Temperature 98.3 F Pulse Rate 81 77 75 Respiratory Rate 21 35 H Blood Pressure 132/62 Pulse Oximetry 95 86 L 98 Oxygen Delivery Method Room Air 09/05/23 20:41 09/05/23 20:42 09/05/23 20:42 Temperature Pulse Rate 71 71 Respiratory Rate 35 H 37 H Blood Pressure 157/67 H Pulse Oximetry 98 97 Oxygen Delivery Method 09/05/23 21:00 09/05/23 21:00 09/05/23 21:30 Temperature Pulse Rate 71 71 Respiratory Rate 33 H 35 H Blood Pressure 182/74 H Pulse Oximetry 98 93 Oxygen Delivery Method 09/05/23 21:31 09/05/23 21:31 09/05/23 22:00 Temperature Pulse Rate 71 72 Respiratory Rate 30 H 31 H Blood Pressure 152/70 H Pulse Oximetry 93 93 Oxygen Delivery Method 09/05/23 22:00 09/05/23 22:30 Temperature Pulse Rate 82 Respiratory Rate 34 H Blood Pressure 161/68 H Pulse Oximetry Oxygen Delivery Method Medical Decision Making Medical Records Medical records reviewed: Yes I reviewed the patient's medical records. Lab Data Lab results reviewed: Yes I reviewed the patient's lab results. 09/05/23 19:44 09/05/23 19:44 Labs: Lab Results 09/05/23 09/05/23 09/05/23 Range/Units 19:44 19:55 21:35 WBC 9.5 (4.5-11.0) X10^3/uL RBC 3.35 L (4.0-5.2) X10^6/uL Hgb 9.6 L (12.0-16.0) g/dL Hct 29.1 L (36-46) % MCV 87.0 (80-100) fL MCH 28.7 (26-34) PG MCHC 33.0 (30-36) % RDW 16.1 H (11.6-14.8) % Plt Count 285 (150-400) X10^3/uL Neut % (Auto) 80.3 H (50-75) % Lymph % (Auto) 12.5 L (25-40) % [place] % (Auto) 7.0 (3-14) % Eos % (Auto) 0.0 L (2-4) % Baso % (Auto) 0.2 (0-2) % Neut # (Auto) 7600 H (6589-3948) /uL Lymph # (Auto) 1200 (3554-7298) /uL [place] # (Auto) 700 (0-900) /uL Eos # (Auto) 0 (0-450) /uL Baso # (Auto) 0 (0-100) /uL PT 12.2 (9.4-12.5) SECONDS INR 1.1 (0.9-1.3) APTT 33 (25.1-36.5) SECONDS Sodium 133 L (137-145) mmol/L Potassium 4.4 (3.4-5.1) mmol/L Chloride 100 (98-107) mmol/L Carbon Dioxide 25 (22-32) mmol/L BUN 40 H (7-17) mg/dL Creatinine 0.97 (0.52-1.04) mg/dL Estimated GFR 59 L (>60) mL/min BUN/Creatinine Ratio 41.2 H (6-22) Glucose 237 H (80-110) mg/dL Lactate 2.5 H 0.8 (0.7-2.1) mmol/L Calcium 9.2 (8.4-10.2) mg/dL Phosphorus 2.2 L (2.8-4.1) mg/dL Magnesium 1.8 (1.6-2.3) mg/dL Total Bilirubin 1.0 (0.2-1.3) mg/dL AST 34 (14-36) IU/L ALT 17 (<35) IU/L Alkaline Phosphatase 237 H (38-126) U/L Total Creatine Kinase 65 56 (30-135) U/L Troponin I 0.367 H* 0.348 H* (0.01-0.034) ng/mL NT-Pro-B Natriuret Pep 33473 H (<450) pg/mL Total Protein 7.8 (6.3-8.2) g/dL Albumin 3.7 (3.5-5.0) g/dL Globulin 4.1 (1.7-4.1) g/dL Albumin/Globulin Ratio 0.9 L (1.0-2.8) Lipase 99 (23-300) U/L Urine Color Urine Appearance Urine pH (4.5-8.0) Ur Specific [place] (1.000-1.035) Urine Protein (Negative) Urine Glucose (UA) (Negative) g/dL Urine Ketones (NEGATIVE) Urine Occult Blood (Negative) Urine Nitrate (Negative) Urine Bilirubin (NEGATIVE) Urine Urobilinogen (0.2) E.U./dL Ur Leukocyte Esterase (NEGATIVE) Urine RBC (0-5/HPF) Urine WBC (0-5/HPF) Ur Squamous Epith Cells (0-5/HPF) Amorphous Sediment Urine Bacteria (None) Vol Urine Centrifuged Ethyl Alcohol < 10 ( - 10) mg/dL Chlamy pneumoniae PCR Not detected (Not Detect) Adenovirus (PCR) Not detected (Not Detect) B.parapertussis DNA PCR Not detected (Not Detecte) Coronavirus OC43 (PCR) Not detected (Not Detect) Coronavirus HKU1 (PCR) Not detected (Not Detect) Coronavirus 229E (PCR) Not detected (Not Detect) SARS-CoV-2 (PCR) Not detected (Not Detecte) Coronavirus NL63 (PCR) Not detected (Not Detect) Human Metapneumovir PCR Not detected (Not Detect) Influ A (H1N1 Seas) PCR Detected H (Not Detect) Influenza Type B (PCR) Not detected (Not Detect) M. pneumoniae (PCR) Not detected (Not Detect) Parainfluenza 1 (PCR) Not detected (Not Detect) Parainfluenza 2 (PCR) Not detected (Not Detect) Parainfluenza 3 (PCR) Not detected (Not Detect) Parainfluenza 4 (PCR) Not detected (Not Detect) RSV (PCR) Not detected (Not Detect) Entero/Rhino (PCR) Not detected (Not Detect) 09/05/23 Range/Units 22:35 WBC (4.5-11.0) X10^3/uL RBC (4.0-5.2) X10^6/uL Hgb (12.0-16.0) g/dL Hct (36-46) % MCV (80-100) fL MCH (26-34) PG MCHC (30-36) % RDW (11.6-14.8) % Plt Count (150-400) X10^3/uL Neut % (Auto) (50-75) % Lymph % (Auto) (25-40) % [place] % (Auto) (3-14) % Eos % (Auto) (2-4) % Baso % (Auto) (0-2) % Neut # (Auto) (8892-9059) /uL Lymph # (Auto) (5457-9503) /uL [place] # (Auto) (0-900) /uL Eos # (Auto) (0-450) /uL Baso # (Auto) (0-100) /uL PT (9.4-12.5) SECONDS INR (0.9-1.3) APTT (25.1-36.5) SECONDS Sodium (137-145) mmol/L Potassium (3.4-5.1) mmol/L Chloride (98-107) mmol/L Carbon Dioxide (22-32) mmol/L BUN (7-17) mg/dL Creatinine (0.52-1.04) mg/dL Estimated GFR (>60) mL/min BUN/Creatinine Ratio (6-22) Glucose (80-110) mg/dL Lactate (0.7-2.1) mmol/L Calcium (8.4-10.2) mg/dL Phosphorus (2.8-4.1) mg/dL Magnesium (1.6-2.3) mg/dL Total Bilirubin (0.2-1.3) mg/dL AST (14-36) IU/L ALT (<35) IU/L Alkaline Phosphatase (38-126) U/L Total Creatine Kinase (30-135) U/L Troponin I (0.01-0.034) ng/mL NT-Pro-B Natriuret Pep (<450) pg/mL Total Protein (6.3-8.2) g/dL Albumin (3.5-5.0) g/dL Globulin (1.7-4.1) g/dL Albumin/Globulin Ratio (1.0-2.8) Lipase (23-300) U/L Urine Color Yellow Urine Appearance Clear Urine pH 5.5 (4.5-8.0) Ur Specific [place] 1.010 (1.000-1.035) Urine Protein 1+ H (Negative) Urine Glucose (UA) Negative (Negative) g/dL Urine Ketones Trace H (NEGATIVE) Urine Occult Blood Trace-intact (Negative) Urine Nitrate Negative (Negative) Urine Bilirubin Negative (NEGATIVE) Urine Urobilinogen 0.2 (0.2) E.U./dL Ur Leukocyte Esterase Negative (NEGATIVE) Urine RBC None seen (0-5/HPF) Urine WBC 0-1/hpf (0-5/HPF) Ur Squamous Epith Cells None seen (0-5/HPF) Amorphous Sediment 1+ Urine Bacteria None seen (None) Vol Urine Centrifuged 10ml (spun) Ethyl Alcohol ( - 10) mg/dL Chlamy pneumoniae PCR (Not Detect) Adenovirus (PCR) (Not Detect) B.parapertussis DNA PCR (Not Detecte) Coronavirus OC43 (PCR) (Not Detect) Coronavirus HKU1 (PCR) (Not Detect) Coronavirus 229E (PCR) (Not Detect) SARS-CoV-2 (PCR) (Not Detecte) Coronavirus NL63 (PCR) (Not Detect) Human Metapneumovir PCR (Not Detect) Influ A (H1N1 [place]) PCR (Not Detect) Influenza Type B (PCR) (Not Detect) M. pneumoniae (PCR) (Not Detect) Parainfluenza 1 (PCR) (Not Detect) Parainfluenza 2 (PCR) (Not Detect) Parainfluenza 3 (PCR) (Not Detect) Parainfluenza 4 (PCR) (Not Detect) RSV (PCR) (Not Detect) Entero/Rhino (PCR) (Not Detect) Imaging Data Chest x-ray: Radiologist's Impression: PROCEDURE: XR CHEST 1V INDICATIONS: SOB TECHNIQUE: One view of the chest was acquired. COMPARISON: [facility], , XR CHEST 1V, 07/15/2023, 14:59. FINDINGS: Surgical changes and devices: Sternal wires. Right femoral fixation and partially visualized left shoulder arthroplasty. Lungs and pleura: Lungs are clear. No pleural effusions or pneumothorax. Mediastinum: Mediastinal contours appear normal. Heart size is enlarged. Bones and chest wall: No suspicious bony lesions. Overlying soft tissues appear unremarkable. IMPRESSION: No acute pulmonary process. CT scan - chest: Radiologist's Impression: PROCEDURE: CT ANGIO CHEST PE PROTOCOL INDICATIONS: eval for PE TECHNIQUE: After the administration of intravenous contrast, 2 mm thick sections acquired from the pulmonary apices to the posterior costophrenic angles. 3-dimensional maximum intensity projection (MIP) coronal and sagittal reformats were then acquired through the thorax. For radiation dose reduction, the following was used: automated exposure control, adjustment of mA and/or kV according to patient size. COMPARISON: [facility], CT, CT ANGIO CHEST PE PROTOCOL, 05/29/2023, 0:07. FINDINGS: Image quality: Diagnostic. Pulmonary arteries: Pulmonary arteries are normal in size, and demonstrate no intraluminal filling defects to suggest central pulmonary embolism. Lower Neck: There is a nodule deep to the right thyroid lobe, lymph node versus thyroid nodule. Thyroid: A thyroid is not well seen due to streak artifact. Axillae: No bulky lymph nodes. Numerous tiny axillary nodes bilaterally. Chest Wall: Unremarkable. Bones: Median sternotomy. Severe degeneration in both shoulders. Several displaced and nondisplaced left-sided rib fractures, known. Moderate compression fracture of T5, new. Lungs and Pleura: There is respiratory motion artifact throughout the lungs. There is diffuse scattered tree-in-bud nodularity throughout the right lung and in the mid and lower left lung. There are areas of scattered ground-glass opacity in the right upper lobe, nodular opacities in the lower lobes, and minor consolidation at both lung bases, left greater than right. Very small right pleural effusion is present. Heart: Mild cardiomegaly. Prior CABG changes. No pericardial effusion. Thoracic Vessels: No aortic aneurysm. Mediastinum and Brandy: Paratracheal mediastinal and mild right hilar adenopathy is present. This is slightly increased compared to the prior exam. Esophagus: No wall thickening. No hiatal hernia. Upper Abdomen: Visualized upper abdomen solid organs and bowel loops appear normal. IMPRESSION: No pulmonary embolus. Bilateral and diffuse airspace disease, most likely infectious or inflammatory. Probably reactive mediastinal and hilar adenopathy. Known left rib fractures and new T5 compression fracture. ECG Data Attestation: I personally reviewed and interpreted this ECG as follows: Interpretation: Sinus rhythm Ventricular rate is 74 Normal axis LVH Nonspecific ST T wave changes Unchanged from EKG dated 07/15/2023 [facility] Narrative Medical decision making narrative: Patient denies shortness of breath or chest pain. Her EKG is unchanged from prior. She does have a significantly elevated BNP above baseline. She was given Lasix here in the ER. She was also influenza A positive. Was started on Tamiflu. Troponin is elevated however is unchanged with a [address] changes on the EKG and patient denies chest pain. No lower extremity swelling. CT scan shows no pulmonary embolism. Will hold on antibiotics. Patient was given an aspirin. We will hold on heparin. Discussed the case with hospitalist on-call who will admit for further evaluation and treatment. Discussed the need for admission with the patient and her son at bedside who expressed understanding and agreement. Review of her medical record shows that she did see Cardiology earlier this year. There was a mention of a relatively normal echocardiogram but does not give specific ejection fraction. Discharge Plan Departure Patient Disposition: Admitted As Inpatient Clinical Impression: Influenza A, CHF (congestive heart failure), Hypoxia Admit Date/Time: 09/05/23 22:47 Admit Provider: Wisam Medina
[2023-09-05 21:24] LABS: Reflexed Lactate in 2 Hours Y
[2023-09-05 22:02] LABS: Creatine Kinase 56 U/L (30-135)
[2023-09-05 22:03] LABS: Lactate 2HR (Lactic Acid Rflx) 0.8 mmol/L (0.7-2.1)
[2023-09-05 22:23] LABS: Troponin I 0.348 ng/mL (0.01-0.034)
[2023-09-05] MEDS: OSELTAMIVIR 75 MG CAPSULE PO (22:28)
[2023-09-05 22:50] LABS: Appearance Urine UA CLEAR; Bilirubin Urine UA NEGATIVE (NEGATIVE); Color Urine UA YELLOW; Glucose Urine UA NEGATIVE (Negative); Ketones Urine UA TRACE (NEGATIVE); Leukocyte Esterase Urine UA NEGATIVE (NEGATIVE); Nitrite Urine UA NEGATIVE (Negative); Occult Blood Urine UA TRACE-INTACT (Negative); Protein Urine UA 1+ (Negative); Urobilinogen Urine UA 0.2 E.U./dL (0.2)
[2023-09-05 22:57] LABS: pH Urine UA 5.5 (4.5-8.0)
[2023-09-05 22:59] LABS: Amorphous Sediment Urine 1+; RBC Urine None Seen (0-5/HPF); Squamous Epithelial Cell Urine None Seen (0-5/HPF); Urine Volume 10mL (spun); WBC Urine 0-1/HPF (0-5/HPF)
[2023-09-05 23:00] LABS: Bacteria Urine None Seen
--- NOTE | 2023-09-05 23:38 | P.HP_ITS ---
History of Present Illness History of Present Illness Date Patient Seen: 09/05/23 Chief complaint: post rib inj/cough/wont eat/diabetic Narrative: 83 y/o with PMH of CAD, s/p CABg, HTN, mild HFrEF, DM, HLD, presented to ED with generalized weakness, poor oral intake, shortness of breath, cough, confusion. Tested positive for Influenza A, CXR with b/l infiltrates, hypoxemic. Elevated BNP with mild congestion and elevated troponin. Without chest pain. Vital signs stable apart from tachypnea and hypoxemia. Given Lasix and Tamiflu and admitted to medical telemetry. [facility] Medical History CAD (coronary artery disease) Ptosis of both eyelids Essential hypertension Osteoporosis (~1999) Retinal detachment (~2000) Hearing loss (~194) Thyroid nodule (~2018) Left tibial fracture Glaucoma Blindness left eye category 4, normal vision right eye Closed fracture of left hip Surgical History H/O three vessel coronary artery bypass Anesthesia History of shoulder surgery History of elbow surgery History of eye surgery History of cataract removal with insertion of prosthetic lens History of total right hip arthroplasty Family History Father Suicide Mother Myocardial infarction Grandfather History of heart disease Family/Other Diabetes mellitus Social History household members: none Smoking Status: Never smoker alcohol intake: current Meds Home Medications and Allergies Home Medications Medication Instructions Recorded Confirmed Type latanoprost 0.005 % eye drops 1 drp OPHTH BEDTIME ##0 02/11/12 09/05/23 History (Xalatan) acetaminophen 500 mg tablet 500 mg PO Q4H PRN Pain (Scale 01/12/23 09/05/23 History (Tylenol Extra Strength) Score 1-3) insulin syringe-needle U-100 0.3 #10 ea 01/12/23 08/03/23 History mL 30 gauge x 5/16 (TRUEplus Insulin) pen needle, diabetic 31 gauge x #400 ea 01/12/23 08/03/23 Rx 5/16 (Unifine Pentips Plus) lancets 28 gauge (Safety Lancets) #400 ea 01/14/23 08/03/23 Rx pen needle, diabetic 29 gauge x #100 ea 01/14/23 08/03/23 Rx 1/2 (1st Tier Unifine Pentips) pen needle, diabetic 29 gauge x #300 ea 01/14/23 08/03/23 Rx 1/2 (1st Tier Unifine Pentips) aspirin 81 mg chewable tablet 1 tab PO DAILY #30 tabs 01/18/23 09/05/23 Rx atorvastatin 80 mg tablet 80 mg PO ONCE PM for cholesterol 05/25/23 09/05/23 Rx #90 ea clopidogrel 75 mg tablet 75 mg PO DAILY heart disease #90 05/25/23 09/05/23 Rx tabs furosemide 20 mg tablet 20 mg PO DAILY for edema #90 ea 05/25/23 09/05/23 Rx metoprolol succinate 25 mg 25 mg PO DAILY for blood pressure 05/25/23 09/05/23 Rx tablet,extended release 24 hr #90 tabs pantoprazole 40 mg tablet,delayed 40 mg PO DAILY heartburn #90 tabs 05/25/23 09/05/23 Rx release potassium chloride 10 mEq 10 meq PO DAILY #90 tabs 05/25/23 09/05/23 Rx tablet,extended release losartan 100 mg tablet 100 mg PO DAILY blood pressure #90 06/09/23 09/05/23 Rx tabs prednisolone acetate 1 % eye 1 drp EYE-BOTH BID 07/15/23 08/03/23 History drops,suspension insulin glargine 100 unit/mL (3 8 unit (0.08 mL) SUBCUT 2100 #30 mL 07/17/23 09/05/23 Rx mL) subcutaneous pen (Lantus Solostar U-100 Insulin) insulin lispro 100 unit/mL 5 unit (0.05 mL) SUBCUT AC #30 mL 07/17/23 09/05/23 Rx subcutaneous solution (Humalog U-100 Insulin) Allergies Allergy/AdvReac Type Severity Reaction Status Date / Time No Known Drug Allergies Allergy Verified 08/03/23 09:35 Review of Systems Constitutional Comments: Generalized weakness Eyes Comments: chronic vision loss in Lt eye Cardiovascular Comments: w/o palpitations or chest pain Respiratory Comments: short of breath, cough Musculoskeletal Comments: mid-back pain Exam Vital Signs (past 8 hours): - 09/05/23 19:39 09/05/23 19:41 09/05/23 20:00 Temperature 98.3 F Pulse Rate 81 77 75 Respiratory Rate 21 35 H Blood Pressure 132/62 Pulse Oximetry 95 86 L 98 Oxygen Delivery Method Room Air 09/05/23 20:41 09/05/23 20:42 09/05/23 20:42 Temperature Pulse Rate 71 71 Respiratory Rate 35 H 37 H Blood Pressure 157/67 H Pulse Oximetry 98 97 Oxygen Delivery Method 09/05/23 21:00 09/05/23 21:00 09/05/23 21:30 Temperature Pulse Rate 71 71 Respiratory Rate 33 H 35 H Blood Pressure 182/74 H Pulse Oximetry 98 93 Oxygen Delivery Method 09/05/23 21:31 09/05/23 21:31 09/05/23 22:00 Temperature Pulse Rate 71 72 Respiratory Rate 30 H 31 H Blood Pressure 152/70 H Pulse Oximetry 93 93 Oxygen Delivery Method 09/05/23 22:00 09/05/23 22:30 09/05/23 22:50 Temperature Pulse Rate 82 77 Respiratory Rate 34 H 28 H Blood Pressure 161/68 H Pulse Oximetry 93 Oxygen Delivery Method 09/05/23 22:50 09/05/23 23:00 09/05/23 23:00 Temperature Pulse Rate 75 Respiratory Rate 31 H Blood Pressure 132/63 128/60 Pulse Oximetry 91 Oxygen Delivery Method Oxygen Delivery Method Room Air Const Other: Laying in bed in no distress HENMT Other: b/l hearing loss Eyes Other: Lt eye blindness Resp Other: b/l rhonchi, wheezes Cardio Other: RRR Skin Other: w/o rashes Extrem Other: w/o swelling Objective Labs 09/05/23 19:44 09/05/23 19:44 Labs: Laboratory Results - last 24 hr 09/05/23 09/05/23 09/05/23 19:44 19:55 21:35 WBC 9.5 RBC 3.35 L Hgb 9.6 L Hct 29.1 L MCV 87.0 MCH 28.7 MCHC 33.0 RDW 16.1 H Plt Count 285 Neut % (Auto) 80.3 H Lymph % (Auto) 12.5 L [place] % (Auto) 7.0 Eos % (Auto) 0.0 L Baso % (Auto) 0.2 Neut # (Auto) 7600 H Lymph # (Auto) 1200 [place] # (Auto) 700 Eos # (Auto) 0 Baso # (Auto) 0 PT 12.2 INR 1.1 APTT 33 Sodium 133 L Potassium 4.4 Chloride 100 Carbon Dioxide 25 BUN 40 H Creatinine 0.97 Estimated GFR 59 L BUN/Creatinine Ratio 41.2 H Glucose 237 H Lactate 2.5 H 0.8 Calcium 9.2 Phosphorus 2.2 L Magnesium 1.8 Total Bilirubin 1.0 AST 34 ALT 17 Alkaline Phosphatase 237 H Total Creatine Kinase 65 56 Troponin I 0.367 H* 0.348 H* NT-Pro-B Natriuret Pep 40637 H Total Protein 7.8 Albumin 3.7 Globulin 4.1 Albumin/Globulin Ratio 0.9 L Lipase 99 Urine Color Urine Appearance Urine pH Ur Specific [place] Urine Protein Urine Glucose (UA) Urine Ketones Urine Occult Blood Urine Nitrate Urine Bilirubin Urine Urobilinogen Ur Leukocyte Esterase Urine RBC Urine WBC Ur Squamous Epith Cells Amorphous Sediment Urine Bacteria Vol Urine Centrifuged Ethyl Alcohol < 10 Chlamy pneumoniae PCR Not detected Adenovirus (PCR) Not detected B.parapertussis DNA PCR Not detected Coronavirus OC43 (PCR) Not detected Coronavirus HKU1 (PCR) Not detected Coronavirus 229E (PCR) Not detected SARS-CoV-2 (PCR) Not detected Coronavirus NL63 (PCR) Not detected Human Metapneumovir PCR Not detected Influ A (H1N1 [place]) PCR Detected H Influenza Type B (PCR) Not detected M. pneumoniae (PCR) Not detected Parainfluenza 1 (PCR) Not detected Parainfluenza 2 (PCR) Not detected Parainfluenza 3 (PCR) Not detected Parainfluenza 4 (PCR) Not detected RSV (PCR) Not detected Entero/Rhino (PCR) Not detected 09/05/23 22:35 WBC RBC Hgb Hct MCV MCH MCHC RDW Plt Count Neut % (Auto) Lymph % (Auto) [place] % (Auto) Eos % (Auto) Baso % (Auto) Neut # (Auto) Lymph # (Auto) [place] # (Auto) Eos # (Auto) Baso # (Auto) PT INR APTT Sodium Potassium Chloride Carbon Dioxide BUN Creatinine Estimated GFR BUN/Creatinine Ratio Glucose Lactate Calcium Phosphorus Magnesium Total Bilirubin AST ALT Alkaline Phosphatase Total Creatine Kinase Troponin I NT-Pro-B Natriuret Pep Total Protein Albumin Globulin Albumin/Globulin Ratio Lipase Urine Color Yellow Urine Appearance Clear Urine pH 5.5 Ur Specific [place] 1.010 Urine Protein 1+ H Urine Glucose (UA) Negative Urine Ketones Trace H Urine Occult Blood Trace-intact Urine Nitrate Negative Urine Bilirubin Negative Urine Urobilinogen 0.2 Ur Leukocyte Esterase Negative Urine RBC None seen Urine WBC 0-1/hpf Ur Squamous Epith Cells None seen Amorphous Sediment 1+ Urine Bacteria None seen Vol Urine Centrifuged 10ml (spun) Ethyl Alcohol Chlamy pneumoniae PCR Adenovirus (PCR) B.parapertussis DNA PCR Coronavirus OC43 (PCR) Coronavirus HKU1 (PCR) Coronavirus 229E (PCR) SARS-CoV-2 (PCR) Coronavirus NL63 (PCR) Human Metapneumovir PCR Influ A (H1N1 Se[place]) PCR Influenza Type B (PCR) M. pneumoniae (PCR) Parainfluenza 1 (PCR) Parainfluenza 2 (PCR) Parainfluenza 3 (PCR) Parainfluenza 4 (PCR) RSV (PCR) Entero/Rhino (PCR) Assessment & Plan Assessment and plan (1) Influenza A with pneumonia: Status: Acute (2) Acute hypoxemic respiratory failure: Status: Acute (3) Acute on chronic systolic (congestive) heart failure: Status: Acute (4) CAD (coronary artery disease): Qualifiers: Associated angina: without angina Coronary Disease-Associated Artery/Lesion type: bypass graft, autologous vein Qualified Code(s): I25.810 - Atherosclerosis of coronary artery bypass graft(s) without angina pectoris Status: Chronic (5) H/O three vessel coronary artery bypass: Status: Chronic (6) Chronic kidney disease (CKD) stage G3a/A2, moderately decreased glomerular filtration rate (GFR) between 45-59 mL/min/1.73 square meter and albuminuria creatinine ratio between 30-299 mg/g: Status: Chronic (7) Mixed diabetic hyperlipidemia associated with type 1 diabetes mellitus: Status: Chronic (8) Type 1 diabetes mellitus with stage 3a chronic kidney disease: Status: Chronic (9) Anemia associated with stage 3 chronic renal failure: Status: Chronic (10) Essential hypertension: Status: Chronic Plan 1. Influenza A with PNA and acute hypoxemia - Tamiflu, oxygen, bronchodilator - supportive care 2. CAD / s/p CABg x 3 / elevated troponin - w/o chest pain or obvious ischemic changes - continue statin, ASA, Plavix, BB - telemetry monitoring 4. CHF /HTN / CKD - Losartan 100 mg daily held - lasix 20 mg daiy at home - given 60 mg x 1 in the ED, continue with 40 mg daily - recent echocardiogram with mild borderline-low EF - Is/Os, weights 5. DM - Lantus, prandial insulin, CCD DVT prophylaxis - heparin, SCDs
[2023-09-06 00:11] VITALS: BMI 23.1
[2023-09-06] MEDS: guaiFENesin Solution 100 MG/5 ML UDC PO ×3 (01:46→18:53)
--- NOTE | 2023-09-06 02:35 | PC.NURSE ---
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 Patient is weak and fatigued. Alert & oriented to self, place, situation, month/year, however is forgetful at times. VSS, O2 saturation 96% on 2L oximask. Coarse crackles & rhonchi heard upon auscultation. Patient has moist-sounding cough w/o sputum production, Robitussin given. Hearing impaired, hearing aid in right ear. Vision impaired, states that left eye is blind & right eye is blurry, but can still read. Patient states that she lives alone and uses a FWW at baseline. States that she had a fall a couple weeks ago after sliding from the toilet seat (MD aware). Complaints of back pain while moving, denies pain at rest. Purewick placed per patient comfort. Plan of care ongoing. Son (Joseph) is DANISHLucio
[2023-09-06 05:00] VITALS: BP 150/68; PULSE 86; RESP 16; TEMP 36.4; O2SAT 98
[2023-09-06 05:31] LABS: Add Manual Diff / Slide Review NO; Basophils Absolute Auto 0 /uL (0-100); Basophils Percent Auto 0.1 % (0-2); Eosinophils Absolute Auto 0 /uL (0-450); Hematocrit 29.3 % (36-46); Hemoglobin 9.6 g/dL (12.0-16.0); Lymphocytes Absolute Auto 1000 /uL (1100-4500); Lymphocytes Percent Auto 12.8 % (25-40); Mean Corpuscular HGB Conc 32.6 % (30-36); Mean Corpuscular Hemoglobin 29.3 PG (26-34); Mean Corpuscular Volume 89.8 fL (80-100); Monocytes Absolute Auto 500 /uL (0-900); Monocytes Percent Auto 5.9 % (3-14); Neutrophils Absolute Auto 6500 /uL (1500-7000); Neutrophils Percent Auto 81.2 % (50-75); Platelet Count 247 X10^3/uL (150-400); Red Blood Cell Count 3.27 X10^6/uL (4.0-5.2); Red Cell Distribution Width 16.3 % (11.6-14.8)
[2023-09-06 05:41] LABS: BUN Creatinine Ratio 41.4 (6-22); Blood Urea Nitrogen 41 mg/dL (7-17); Calcium 8.7 mg/dL (8.4-10.2); Carbon Dioxide 23 mmol/L (22-32); Chloride 98 mmol/L (98-107); Estimated Glomerular Filt Rate 57 mL/min (>60); Glucose 447 mg/dL (80-110); HEMOLYSIS < 15 (0-50); Potassium 4.2 mmol/L (3.4-5.1); Sodium 133 mmol/L (137-145)
[2023-09-06] MEDS: INSULIN LISPRO 100 UNIT/ML 3ML VIAL SUBCUT ×6 (08:17→21:42)
[2023-09-06] MEDS: POTASSIUM CHLORIDE 10 MEQ TAB PO (08:21)
[2023-09-06] MEDS: CLOPIDOGREL 75 MG TABLET PO (08:21)
[2023-09-06] MEDS: ASPIRIN 81 MG CHEW TAB PO (08:21)
[2023-09-06] MEDS: OSELTAMIVIR 75 MG CAPSULE PO ×2 (08:22→21:38)
[2023-09-06] MEDS: PANTOPRAZOLE DR 40 MG TABLET PO (08:22)
[2023-09-06] MEDS: HEPARIN 5,000 UNIT/ML VIAL 5000 UNIT SUBCUT ×2 (08:22→21:38)
--- NOTE | 2023-09-06 08:41 | PC.NURSE ---
Patients blood sugar 500. 8u of sliding scale insulin given to patient, along with her heparin injection. Patient does have some confusion this morning. She thinks that the insulin we are giving her will bring her blood sugar up, explained to patient that it will actually help lower it. She took her medicatoins whole with water. We are going to reposition her every could of hours as she does have a red/purple bottom that is blanchable. No open area's noted. Patient is tolerating her breakfast now and actually states that she is hungry.
[2023-09-06 08:42] VITALS: O2SAT 98
[2023-09-06 09:00] VITALS: BP 133/44; PULSE 86; RESP 16; TEMP 36.9; O2SAT 97
[2023-09-06] MEDS: prednisoLONE OPHTH SUSP 1 DROPS EYE-BOTH ×2 (10:32→21:38)
--- NOTE | 2023-09-06 11:38 | P.PN_ITS ---
Subjective Subjective Interval history: 83 F with PMH of diabetes, admitted with respiratory failure, influenza with possible bacterial PNA, and elevated troponin. Troponin downtrended this morning. Glucose uncontrolled this morning. Patient feels well with no complaints. Exam Vital Signs (past 8 hours): - 09/06/23 05:00 09/06/23 08:42 09/06/23 09:00 Temperature 97.5 F L 98.4 F Pulse Rate 86 86 Respiratory Rate 16 16 Blood Pressure 150/68 H 133/44 L Pulse Oximetry 98 98 97 Oxygen Delivery Method Nasal Cannula Oxygen Flow Rate 2 2 1 Fraction of Inspired Oxygen 28 Fraction of Inspired Oxygen 28 SaO2/FiO2 Ratio 350 Oxygen Delivery Method Nasal Cannula Oxygen Flow Rate 1 Narrative Exam Narrative: GEN: Very pleasant elderly female, Alert and oriented x 3, NAD HEENT:NC, Face symmetric CHEST: Respiratory excursions symmetric, coarse but CTAB CV: RRR, no M/R/G ABD: Soft, NT/ND, BT present in all 4 quadrants, no organomegaly or masses EXTR: warm, well perfused, no C/C/E SKIN: warm and dry, no rash NEURO: Alert and oriented x 3, nonfocal Objective Labs 09/06/23 05:10 09/06/23 05:10 Labs: Laboratory Results - last 24 hr 09/05/23 09/05/23 09/05/23 19:44 19:55 21:35 WBC 9.5 RBC 3.35 L Hgb 9.6 L Hct 29.1 L MCV 87.0 MCH 28.7 MCHC 33.0 RDW 16.1 H Plt Count 285 Neut % (Auto) 80.3 H Lymph % (Auto) 12.[address] [place] % (Auto) 7.0 Eos % (Auto) 0.0 L Baso % (Auto) 0.2 Neut # (Auto) 7600 H Lymph # (Auto) 1200 [place] # (Auto) 700 Eos # (Auto) 0 Baso # (Auto) 0 PT 12.2 INR 1.1 APTT 33 Sodium 133 L Potassium 4.4 Chloride 100 Carbon Dioxide 25 BUN 40 H Creatinine 0.97 Estimated GFR 59 L BUN/Creatinine Ratio 41.2 H Glucose 237 H Lactate 2.5 H 0.8 Calcium 9.2 Phosphorus 2.2 L Magnesium 1.8 Total Bilirubin 1.0 AST 34 ALT 17 Alkaline Phosphatase 237 H Total Creatine Kinase 65 56 Troponin I 0.367 H* 0.348 H* NT-Pro-B Natriuret Pep 07855 H Total Protein 7.8 Albumin 3.7 Globulin 4.1 Albumin/Globulin Ratio 0.9 L Lipase 99 Urine Color Urine Appearance Urine pH Ur Specific [place] Urine Protein Urine Glucose (UA) Urine Ketones Urine Occult Blood Urine Nitrate Urine Bilirubin Urine Urobilinogen Ur Leukocyte Esterase Urine RBC Urine WBC Ur Squamous Epith Cells Amorphous Sediment Urine Bacteria Vol Urine Centrifuged Ethyl Alcohol < 10 Chlamy pneumoniae PCR Not detected Adenovirus (PCR) Not detected B.parapertussis DNA PCR Not detected Coronavirus OC43 (PCR) Not detected Coronavirus HKU1 (PCR) Not detected Coronavirus 229E (PCR) Not detected SARS-CoV-2 (PCR) Not detected Coronavirus NL63 (PCR) Not detected Human Metapneumovir PCR Not detected Influ A (H1N1 [place]) PCR Detected H Influenza Type B (PCR) Not detected M. pneumoniae (PCR) Not detected Parainfluenza 1 (PCR) Not detected Parainfluenza 2 (PCR) Not detected Parainfluenza 3 (PCR) Not detected Parainfluenza 4 (PCR) Not detected RSV (PCR) Not detected Entero/Rhino (PCR) Not detected 09/05/23 09/06/23 22:35 05:10 WBC 8.0 RBC 3.27 L Hgb 9.6 L Hct 29.3 L MCV 89.8 MCH 29.3 MCHC 32.6 RDW 16.3 H Plt Count 247 Neut % (Auto) 81.2 H Lymph % (Auto) 12.[address] [place] % (Auto) 5.9 Eos % (Auto) 0.0 L Baso % (Auto) 0.1 Neut # (Auto) 6500 Lymph # (Auto) [address] [place] # (Auto) 500 Eos # (Auto) 0 Baso # (Auto) 0 PT INR APTT Sodium 133 L Potassium 4.2 Chloride 98 Carbon Dioxide 23 BUN 41 H Creatinine 0.99 Estimated GFR 57 L BUN/Creatinine Ratio 41.4 H Glucose 447 H D Lactate Calcium 8.7 Phosphorus Magnesium Total Bilirubin AST ALT Alkaline Phosphatase Total Creatine Kinase Troponin I NT-Pro-B Natriuret Pep Total Protein Albumin Globulin Albumin/Globulin Ratio Lipase Urine Color Yellow Urine Appearance Clear Urine pH 5.5 Ur Specific [place] 1.010 Urine Protein 1+ H Urine Glucose (UA) Negative Urine Ketones Trace H Urine Occult Blood Trace-intact Urine Nitrate Negative Urine Bilirubin Negative Urine Urobilinogen 0.2 Ur Leukocyte Esterase Negative Urine RBC None seen Urine WBC 0-1/hpf Ur Squamous Epith Cells None seen Amorphous Sediment 1+ Urine Bacteria None seen Vol Urine Centrifuged 10ml (spun) Ethyl Alcohol Chlamy pneumoniae PCR Adenovirus (PCR) B.parapertussis DNA PCR Coronavirus OC43 (PCR) Coronavirus HKU1 (PCR) Coronavirus 229E (PCR) SARS-CoV-2 (PCR) Coronavirus NL63 (PCR) Human Metapneumovir PCR Influ A (H1N1 [place]) PCR Influenza Type B (PCR) M. pneumoniae (PCR) Parainfluenza 1 (PCR) Parainfluenza 2 (PCR) Parainfluenza 3 (PCR) Parainfluenza 4 (PCR) RSV (PCR) Entero/Rhino (PCR) [facility] Medical History CAD (coronary artery disease) Ptosis of both eyelids Essential hypertension Osteoporosis (~1999) Retinal detachment (~2000) Hearing loss (~1944) Thyroid nodule (~2019) Left tibial fracture Glaucoma Blindness left eye category 4, normal vision right eye Closed fracture of left hip Surgical History H/O three vessel coronary artery bypass Anesthesia History of shoulder surgery History of elbow surgery History of eye surgery History of cataract removal with insertion of prosthetic lens History of total right hip arthroplasty Family History Father Suicide Mother Myocardial infarction Grandfather History of heart disease Family/Other Diabetes mellitus Social History household members: none Smoking Status: Never smoker alcohol intake: current Assessment & Plan Assessment & Plan narrative: (1) Acute respiratory failure with hypoxia, secondary to influenza and acute on chronic systolic heart failure - flu positive - continue supportive care and oseltimivir - diuresed as noted below. wean O2 as tolerated Goal O2 90-96%. (2) Acute on chronic systolic (congestive) heart failure: given 60 mg IV lasix in the ER, now appears improved will continue PO lasix with slight increase in home dosing to 40 mg daily. (3) CAD (coronary artery disease) with myocardial injury -Elevated troponins likely in setting of demand. No EKG changes or chest pain. Now downtrended. - unless continued hypoxia will not repeat TTE at this time. - continue home asa, plavix, and statin. (4) H/O three vessel coronary artery bypass: - continue home asa and plavix (5) Chronic kidney disease (CKD) stage G3a/A2, moderately decreased glomerular filtration rate (GFR) between 45-59 mL/min/1.73 square meter and albuminuria creatinine ratio between 30-299 mg/g: Status: Chronic - monitor creatinine with daily labs. Okay today with creatinine around baseline at 1. (6) Mixed diabetic hyperlipidemia associated with type 1 diabetes mellitus: Status: Chronic - uncontrolled today. Glucose >400. Issues with hypoglycemia last admit. Will increase Lantus to 10 U at bedtime, continue 5 AC lispro for meals, and sliding scale today. (7) Anemia associated with stage 3 chronic renal failure: Status: Chronic (8) Essential hypertension: Status: Chronic Code: full, surrogate is patient's son, DPOA Discussed with case management, overnight hospitalist to formulate above assessment and plan. Dispo: likely home, pending improvement in hypoxia and blood sugar control.
--- NOTE | 2023-09-06 12:10 | OT.IP.EVAL ---
Current Diagnoses Anemia in chronic kidney disease (09/05/23) Type 1 diabetes mellitus with diabetic chronic kidney disease (09/05/23) Type 1 diabetes mellitus with other specified complication (09/05/23) Mixed hyperlipidemia (09/05/23) Essential (primary) hypertension (09/05/23) Atherosclerosis of coronary artery bypass graft(s) without angina pectoris (09/05/23) Acute on chronic systolic (congestive) heart failure (09/05/23) Influenza due to identified novel influenza A virus with pneumonia (09/05/23) Acute respiratory failure with hypoxia (09/05/23) Chronic kidney disease, stage 3 unspecified (09/05/23) Chronic kidney disease, stage 3a (09/05/23) Presence of aortocoronary bypass graft (09/05/23) Past Medical History (Last Reviewed 09/05/23 @ 23:43 by Wisam Lloyd MD) Blindness left eye category 4, normal vision right eye CAD (coronary artery disease) Closed fracture of left hip Essential hypertension Glaucoma Hearing loss (~1944) Left tibial fracture Osteoporosis (~1999) Ptosis of both eyelids Retinal detachment (~2000) Thyroid nodule (~2019) Surgical History (Last Reviewed 09/05/23 @ 23:43 by Wisam Lloyd MD) Anesthesia H/O three vessel coronary artery bypass History of cataract removal with insertion of prosthetic lens History of elbow surgery History of eye surgery History of shoulder surgery History of total right hip arthroplasty Occupational Therapy Inpatient Evaluation/Re-Eval M1 PT/OT-IP Prior Functional Status Start: 09/06/23 12:22 Freq: NEEDED Status: Active Protocol: Document 09/06/23 12:22 CGR (Rec: 09/06/23 12:34 CGR [id number]) Medical Review Prior Functional Status Medical History Reviewed Yes Communication Pt is an effective verbal communicator and wears hearing aids. Mobility and Gait Pt was MOD I using a 3ww per son. Activities of Daily Living and IADL's Pt was IND for simple ADLs but gets assist with all IADLS and uses LB dressing equipment for dressing. Prior Functional Level (Other details) Son lives near by and checks on his mother daily. Social History Household Members none Living Arrangements House Number of Floors (Floors) One Floor Number of Stairs To Enter/Railing? 1 step to enter with L grab bar at door. Home Environment Standard Height Toilet,Walk in Shower Home Equipment Front Wheel Walker,Shower Seat with Backrest,Hand Held Shower,Long Handled Sponge, Long Handled Shoe Horn,Draw Frame Tender ,Sock Aid,Grab Bars In Shower Additional Social History Comment Pt has adjustable bed. M2 OT-IP Current Condition Start: 09/06/23 12:22 Freq: Status: Active Protocol: Document 09/06/23 12:22 CGR (Rec: 09/06/23 12:34 CGR [id number]) Occupational Therapy Current Condition Current Condition Evaluation Date 09/06/23 Treatment Diagnosis Influenza A Diagnosis Onset Date 09/05/23 M3 OT- IP Subjective and Pain Start: 09/06/23 12:22 Freq: Status: Active Protocol: Document 09/06/23 12:22 CGR (Rec: 09/06/23 12:34 CGR [id number]) OT- Subjective Occupational Therapy Visit Type Type Initial Evaluation Visit Start Time 11:48 Visit Stop Time 12:10 Notes Pt's son present throughout session Occupational Therapy Visit Comments Patient Comments my back side hurts OT Pain Assessment Pain When Pain Assessed At Rest Pain Present Pain Present Pain Reported Location Buttock Scale Used did not rate Management Techniques Distraction,Modification of Treatment,Re-positioning M4 OT- IP ADL's Start: 09/06/23 12:22 Freq: Status: Active Protocol: Document 09/06/23 12:22 CGR (Rec: 09/06/23 12:34 CGR [id number]) OT [id number] General Evaluation Self-Feeding Ability Independent Comments OT Self-Feeding Comments lunch arrived at end of session OT ADL-Grooming Comments OT Grooming Comments not performed OT ADL-Oral Care Comments Oral Care Comments not performed OT ADL-Dressing Comments OT Dressing Comments not performed, but pt states that she uses LB dressing equipment at baseline. OT ADL-Toileting General Evaluation Toileting Ability Standby Assistance Comments OT Toileting Comments Pt urinated seated on toielt and attempted BM but was unable. OT ADL-Bathing Comments OT Bathing Comments not performed M5 OT- IP IADL's Start: 09/06/23 12:22 Freq: Status: Active Protocol: Document 09/06/23 12:22 CGR (Rec: 09/06/23 12:34 CGR [id number]) OT-Instrumental Activities of Daily Living Deficits IADL Deficits Identified No Deficits Home Safety Awareness Awareness of Need for Assistance at Home Good Awareness Ability to Problem Solve Emergency Able to Problem Solve Situations Medication Management Medication Management Caregiver Administers Money Management Money Management Caregiver Provides Assistance Meal Preparation Meal Preparation Caregiver Provides Assist Vice President Industrial Relations Vice President Industrial Relations Caregiver Provides Assist Driving Driving Comments Pt does not drive at baseline. M6 OT- IP Functional Cognition Start: 09/06/23 12:22 Freq: Status: Active Protocol: Document 09/06/23 12:22 CGR (Rec: 09/06/23 12:34 CGR [id number]) Cognitive Factors Limiting Selfcare Function Cognitive Ability Level of Alertness Alert Patient Orientation Name,Age,Birthday,Month,Date, Year,Day of Week,Place, Situation Attention Span Ability Capable of Focused Attention, Capable of Sustained Attention Ability to Follow Commands Able to Follow One Step Commands with Increased Time, Able to Follow One Step Commands with Repetition OT- Vision and Hearing OT- Hearing Assessment OT- Hearing Assessment Hearing Impaired,Use of Hearing Aids OT- Vision Assessment Visual Acuity WFL,Glasses All The Time Visual Attentiveness WFL Occular Pursuits WFL Vision Assessment Comments Pt is wearing bifocals and 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 M7 OT- IP Mobility and Balance Start: 09/06/23 12:22 Freq: Status: Active Protocol: Document 09/06/23 12:22 CGR (Rec: 09/06/23 12:34 CGR [id number]) OT-Transfer Assessment Sit to and From Stand Sit to and from Stand Contact Guard Assistance Transfers Transfer Ability Contact Guard Assistance Technique Transfer Destination Chair,Toilet Transfer Technique Stand Step Pivot Devices Transfer Assistive Devices Gait Belt,Front Wheeled Walker Comments Mobility Comments Pt needs VC on hand placement for sit to stand OT- Balance Assessment Sitting Balance and Reactions Static Sitting Balance Ability Good Dynamic Sitting Balance Ability Good M8 OT- IP Objective Assessments Start: 09/06/23 12:22 Freq: Status: Active Protocol: Document 09/06/23 12:22 CGR (Rec: 09/06/23 12:34 CGR [id number]) OT Gross Range of Motion Upper Extremity Range of Motion Assessment Within Functional Limits OT Strength Upper Extremity Strength Assessment Bilaterally Impaired Comments Strength Comments Pt is grossly weak 4-/5 OT- Coordination Assessment Upper Extremity Finger to Nose Test Within Functional Limits Finger Tapping Test Within Functional Limits OT-Muscle Tone Assessment Muscle Tone WNL Yes OT Sensation Assessment Edema Edema Absent M9 OT- IP Assessment and Plan Start: 09/06/23 12:22 Freq: Status: Active Protocol: Document 09/06/23 12:22 CGR (Rec: 09/06/23 12:34 CGR [id number]) OT Summary Assessment and Plan Potential Rehabilitation Potential Good Analytic Complexity at Evaluation Moderate Summary OT Impairments Pain,Strength,Functional Mobility,Grooming,Dressing, Toileting,Bathing,Toilet Transfers,Shower Transfers, Activity Tolerance Progress Towards Goals Slow Progress due to Activity Tolerance Assessment Summary Pt presents as a moderate complexity evaluation s/p admit for influenza A with SOB . Pt is stating 88-92 on room air and mobilizes with CGA. Pt and son are requesting SNF as pt is weaker than her baseline. She has good family support and is likely to progress quickly. Recommendation for discharge is SNF vs home depending on progress. Goals Grooming Goal Independent Dressing Goal Independent Toileting Goal Independent Bathing Goal Independent Toilet Transfer Goal Independent Shower Transfer Goal Independent Days to Meet Goals 10 Frequency of Treatment Frequency Of Treatment Once a Day Treatment Plan OT Treatment Plan ADL Training,Functional Mobility,Patient/Family Education,Discharge Planning Other Treatment Recommendations and Next ADLs standing, endurance Treatment Focus Discharge Recommendations OT Discharge Recommendations Home vs SNF Transportation Needs at Discharge Private Vehicle
[2023-09-06 12:30] VITALS: TEMP 37.7
--- NOTE | 2023-09-06 12:48 | CM.DANOTE ---
Addendum entered by CRISTINA Sutton 09/06/23 13:28: Bambi from reports pt has a new 100 medicare days for SNF rehab placement. SL Original Note: DCP Assessment Note Pt is an 83yo F here under INPT status following flu/acute resp failure, and elevated troponins. Recent PMH of broken ribs from fall 10 days ago, treated at another facility. was at [facility] for an unclear amount of time. PCP Maurisio Burgess Payer Medicare and Katerina EVANS reviewed EMR. Per chart review, pt has been confused throughout stay here. Per RN, issues with pt's blood sugar. Per OT, home vs SNF vs HH, pending how she perks up within day or two from current flu. Per PT pending. HEALTH CENTER ASSOCIATE met with pt/son Joseph/KARLA in room. Pt lives alone in [facility]. Son Joseph brings groceries/transports/assists with ADLs in the home/is an involved support but is not there with her all the time. Pt has hx of [facility] but son new preference is [facility] if SNF placement recommended. Hx of [facility], agreeable to resuming if recommended. Hx of [facility] respite care but pt hated it and wants to remain home. Son interested in PP CGs, HEALTH CENTER ASSOCIATE provided son with [employer] booklet for more information on PP CGs in the home. Pt uses a walker at baseline. Son reports open to PP SNF placement if indicated. Son interested in SNF placement to get pt stronger prior to returning home either indep or with PP CGs. Son worried about her being home alone with flu while he works. HEALTH CENTER ASSOCIATE emailed Bambi at regarding new referral. Bambi reports they can take her and is looking into remaining available Medicare days. (3rd midnight would make placement available Wed if SNF placement indicated) PASRR needed. HEALTH CENTER ASSOCIATE spoke with Elvia from [facility] on phone. Report they attempted to start care twice and were unable to with pt due to hospitalizations. Agreeable to review. Likely for RN/PT/OT/HEALTH CENTER ASSOCIATE. F2f and order needed. Plan: home with son to transport/support and potential [facility] CGs vs [facility] vs [facility]. Pending PT rec/pt's improvement within next 24 hours. CM team will continue to follow closely. CRISTINA Sutton Discharge Planning/Care Management CM Discharge Assessment Start: 09/06/23 12:46 Freq: Status: Active Protocol: Document 09/06/23 12:46 SL (Rec: 09/06/23 12:48 [id number]) Discharge Planning Assessment Assigned Senior Business Intelligence Analyst CRISTINA Torrez DPOA/Assigned Designee Name jorge Ruiz Contact Information [phone] Advance Directives? Yes Advance Directives on File Yes History Provided By Patient,Family Member,Medical Record Prior Living Arrangements House Household Members none Type of transporation used prior to Relies on Others admit Comment son Joseph or cousin Maryann transports her Independent with ADL's No Is patient alert and oriented? Yes Needs Assistance With Meal Prep,Home Chores / Shopping DME Already Rented / Owned FWW / Walker Patient/Family Preference [facility],Home with Home Health Comment Home vs SNF vs HH. Discharge Plan Home Transportation Arrangement family to transport if safe for home. Referrals Initiated None needed,Penitentiary, Home Health Additional Comment [facility] and [facility] reviewing If patient plan is home with home health No : Has signed face to face form been completed? If patient plan is SNF: Has PASSR been Yes completed? SNF/HH Preference [facility] vs [facility] Has Agency SNF been contacted Yes Whiteboard Updated in Patient Room with Yes name and ext. # of Senior Business Intelligence Analyst Review Status In Process Next Review Type Continued Stay Review
--- NOTE | 2023-09-06 13:40 | PT.IIE ---
Current Diagnoses Anemia in chronic kidney disease (09/05/23) Type 1 diabetes mellitus with diabetic chronic kidney disease (09/05/23) Type 1 diabetes mellitus with other specified complication (09/05/23) Mixed hyperlipidemia (09/05/23) Essential (primary) hypertension (09/05/23) Atherosclerosis of coronary artery bypass graft(s) without angina pectoris (09/05/23) Acute on chronic systolic (congestive) heart failure (09/05/23) Influenza due to identified novel influenza A virus with pneumonia (09/05/23) Acute respiratory failure with hypoxia (09/05/23) Chronic kidney disease, stage 3 unspecified (09/05/23) Chronic kidney disease, stage 3a (09/05/23) Presence of aortocoronary bypass graft (09/05/23) Surgical History (Last Reviewed 09/05/23 @ 23:43 by Wisam Lloyd MD) Anesthesia H/O three vessel coronary artery bypass History of cataract removal with insertion of prosthetic lens History of elbow surgery History of eye surgery History of shoulder surgery History of total right hip arthroplasty Medical History (Last Reviewed 09/05/23 @ 23:43 by Wisam Lloyd MD) Blindness left eye category 4, normal vision right eye CAD (coronary artery disease) Closed fracture of left hip Essential hypertension Glaucoma Hearing loss (~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 Mobility and Gait Pt was MOD I using a 3ww per son. Activities of Daily Living and IADL's Pt was IND for simple ADLs but gets assist with all IADLS and uses LB dressing equipment for dressing. Prior Functional Level (Other details) Son lives near by and checks on his mother daily. Social History Household Members none Living Arrangements House Number of Floors (Floors) One Floor Number of Stairs To Enter/Railing? 1 step to enter with L grab bar at door. Home Environment Standard Height Toilet,Walk in Shower Home Equipment Front Wheel Walker,Shower Seat with Backrest,Hand Held Shower,Long Handled Sponge, Long Handled Shoe Horn,Assistant Director Of Admissions ,Sock Aid,Grab Bars In Shower Additional Social History Comment Pt has adjustable bed. M2 PT-IP Current Condition Start: 09/06/23 11:24 Freq: NEEDED Status: Active Protocol: Document 09/06/23 11:25 MB (Rec: 09/06/23 13:40 MB [id number]) Physical Therapy Current Condition Current Condition Evaluation Date 09/06/23 Treatment Diagnosis PNA and Flu, recent fall and left rib fx, T5 fx M3 PT-IP Subjective Start: 09/06/23 11:24 Freq: NEEDED Status: Active Protocol: Document 09/06/23 11:25 MB (Rec: 09/06/23 13:40 MB [id number]) Subjective Physical Therapy Visit Type Type Initial Evaluation Visit Start Time 11:25 Visit Stop Time 11:41 Number of GOVERNMENT EMPLOYEE Visits 0 Physical Therapy Visit Comments Patient Comments Son nearby and states that goal would be for pt to go home with services but they are open to short-term SNF stay before d/c home. Therapy Pain Assessment Pain When Pain Assessed At Rest Pain Present Pain Present Denied Pain M4 PT-IP Mobility and Gait Start: 09/06/23 11:24 Freq: NEEDED Status: Active Protocol: Document 09/06/23 11:25 MB (Rec: 09/06/23 13:40 MB [id number]) PT-Bed Mobility Assessment Rolling Type of Rolling Roll to Left Level of Assist Standby Assistance,1 Person Assistance Supine to Sit Supine to Sit Standby Assistance,Head of Bed Elevated,Bedrails Scooting Scooting to Edge of Bed Standby Assistance PT-Transfer Assessment Sit to and From Stand Sit to and from Stand Contact Guard Assistance,1 Person Assistance,Use of Upper Extremities Equipment Transfer Assistive Device Gait Belt,Front Wheeled Walker Orthotic/Prosthetic Devices or Brace: No Transfers Transfer Destination Chair Transfer Technique Stepping Transfer Ability Level of Assist Contact Guard Assistance,1 Person Assistance,Use of Upper Extremities Comments Mobility Comments Pt moves slowly and she has some VICTORIA and O2 sats on RA remain over 90% with mobility Gait Assessment Gait Gait Assistance Required: Standby Assistance,1 Person Assist Distance (Feet) 3 Able to Maintain Weight Bearing Status Yes During Gait Assistive Devices Assistive Device Gait Belt,Front Wheeled Walker Orthotic/Prosthetic Devices or Brace: No Gait Deviations General Gait Pattern Decreased Stride Length, Decreased Feet Clearance, Flexed Trunk Factors Limiting Gait Function Factors Limiting Gait Function Decreased Activity Tolerance, Poor Balance,Poor Safety Awareness,Respiratory Distress Comments Gait Comments Pt gait trains with increased effort d/t VICTORIA and she requires cues and CGA with RW for mobility PT-Balance Assessment Sitting Balance and Reactions Static Sitting Balance Ability Good Dynamic Sitting Balance Ability Good Standing Balance and Reactions Static Standing Balance Ability Good Dynamic Standing Balance Ability Fair Device Used RW M5 PT-IP Objective Assessments Start: 09/06/23 11:24 Freq: NEEDED Status: Active Protocol: Document 09/06/23 11:25 MB (Rec: 09/06/23 13:40 [id number]) Orientation Orientation/Cognition Level of Alertness Alert Orientation Name,Age,Birthday,Month,Date, Year,Day of Week,Place, Situation Language Function Ability No Deficits Noted Safety Awareness Understands Safety Issues Memory Description No Deficits Noted Gross Range of Motion Upper Extremity ROM Impairments Defer to OT Lower Extremity ROM Assessment Within Functional Limits Strength Lower Extremity Strength Assessment Within Functional Limits M6 PT-IP Treatment Start: 09/06/23 11:24 Freq: NEEDED Status: Active Protocol: Document 09/06/23 11:25 MB (Rec: 09/06/23 13:40 [id number]) Physical Therapy Treatment Education Education Provided Safety M7 PT-IP Assessment and Plan Start: 09/06/23 11:24 Freq: NEEDED Status: Active Protocol: Document 09/06/23 11:25 MB (Rec: 09/06/23 13:40 [id number]) PT Summary Assessment and Plan Potential Rehabilitation Potential Good Status of Condition at Evaluation Evolving Summary Impairments Balance,Bed Mobility,Transfers ,Gait,Activity Tolerance Progress Towards Goals Slow Progress due to Activity Tolerance Assessment Summary Pt is a pleasant 83 y/o female and her son is nearby for assessment and he tends to answer most questions. Pt lives in her own home at baseline, had a fall and rib fracture recently and returned home. Her son states that he failed to set-up HH services afterwards. She had HH in the past and a loved one assists her with bathing. She uses [facility] in the home, [facility] outside of the home and the goal is to get her back home and they are agreeable to short stay at SNF if needed at d/c. Pt with VICTORIA, functional weakness and imbalance with mobility. Goals Bed Mobility Goal Independent Transfer Goal Independent,Front Wheeled Walker,Four Wheeled Walker Gait Goal Independent,Front Wheel Walker ,Four Wheel Walker Gait Distance 100 Other Goals Pt will ascend and descend 1 step with LRAD or left rail to allow safe home entrance. Days to Meet Goals 5 Frequency of Treatment Frequency Of Treatment Once a Day Treatment Plan Physical Therapy Treatment Plan Bed Mobility Training,Transfer Training,Gait Training, Therapeutic Exercise,Balance Retraining,Discharge Planning, Hot or Cold Pack,Neuromuscular Re-ed Precautions Other Precautions Flu, droplet Weight Bearing Status Weight Bearing Status Weight Bear as Tolerated Recommendations To Nursing Amount of Assist Needed 1 Person Assist Discharge Recommendations PT Discharge Recommendations Home vs SNF Transportation Needs at Discharge Private Vehicle
--- NOTE | 2023-09-06 15:41 | DIET.CONS ---
Dietary Consultation Note Admission Date: 09/05/2023 22:47 Assessment: 83 y F admitted for respiratory failure, influenza, and elevated troponin. PMH of diabetes. Nutrition consulted for decrease in PO intake per pt and son/low MNA score. Met with pt at bedside. She is resting with mostly empty yogurt container in hand and reports she had 2 today. She reports a decrease in appetite while in the hospital, but is unsure of appetite outside of hospital, if any weight loss has occurred, or UBW. Per chart review, son reported she has been confused and not eating or drinking as much for the past 2 days. Nutrition focused physical exam postponed. Not appropriate due to confusion. Ht: 162.56 cm Wt: 62 kg BMI: 23.1 UBW: *noted lasix 08/03/23: per chart 64.864 kg, 4.4% weight loss in 1 month (non-severe) 05/30/23: per chart 63.5 kg, 2.4% weight loss in 3 months (non-severe) 08/21/22: per chart 72.745, 14.8% weight loss in 1 year (non-severe) Last BM: 09/05/23 (09/06/23 00:11) MNA: 8 Edgar Score: 18 Diet: 09/06/23 Breakfast Carbohydrate Consistent Diet Diet Modifications: Carbohydrate level: Medium (3 CHO) Reflex DM orders: No Nutrition Percent Meal Consumed 25% 09/06/23 13:02 Percent Meal Consumed 15% 09/06/23 10:03 Labs: RBC 3.27 X10^6/uL (4.0-5.2) L 09/06/23 05:10 Hgb 9.6 g/dL (12.0-16.0) L 09/06/23 05:10 Hct 29.3 % (36-46) L 09/06/23 05:10 Creatinine 0.99 mg/dL (0.52-1.04) 09/06/23 05:10 Lactate 0.8 mmol/L (0.7-2.1) 09/05/23 21:35 NT-Pro-B Natriuret Pep 72979 pg/mL (<450) H 09/05/23 19:44 Nutrition Diagnosis: Inadequate oral intake r/t to decrease in ability to consume sufficient energy as evidenced by recorded PO intakes, confusion, reported decrease in oral intake per son. Interventions: 1. Oral nutrition supplement, Ensure Original, added once/day 2. Nutrition focused physical exam postponed 3. Encouraged adequate intake EER: 6303-8498 kcals/day (25-27 kcals/kg + 7% increase for every body temperature degree over 98.6) 70-80 grams of protein/day (1.2 grams/kg per EAL for HF) Monitoring/Evaluations: PO intake, ONS tolerance, f/u in 3 days Electronically Signed by: Libby White 09/06/23 15:41 Clinical Dietitian [address] [address]
[2023-09-06 17:54] VITALS: BP 116/44; PULSE 84; RESP 16; TEMP 36.9; O2SAT 95
[2023-09-06 21:08] VITALS: BP 137/47; PULSE 81; RESP 19; TEMP 37.1; O2SAT 94
[2023-09-06] MEDS: ATORVASTATIN 20 MG TABLET 80 MG PO (21:38)
[2023-09-06] MEDS: INSULIN GLARGINE 100 UNIT/ML 3ML PEN 12 UNIT SUBCUT (21:40)
[2023-09-07] VITALS (8 sets, daily range): BP systolic 108–153; BP diastolic 44–64; PULSE 58–87; RESP 16–19; TEMP 36.2–37.3; O2SAT 91–94
[2023-09-07] MEDS: HYDROCODONE/ACET 5/325 TABLET 1 TAB PO (04:45)
[2023-09-07 05:43] LABS: Add Manual Diff / Slide Review NO; Basophils Absolute Auto 0 /uL (0-100); Basophils Percent Auto 0.2 % (0-2); Eosinophils Absolute Auto 0 /uL (0-450); Hematocrit 27.2 % (36-46); Hemoglobin 9.2 g/dL (12.0-16.0); Lymphocytes Absolute Auto 1100 /uL (1100-4500); Lymphocytes Percent Auto 15.1 % (25-40); Mean Corpuscular HGB Conc 33.7 % (30-36); Mean Corpuscular Hemoglobin 29.3 PG (26-34); Monocytes Absolute Auto 600 /uL (0-900); Monocytes Percent Auto 7.6 % (3-14); Neutrophils Absolute Auto 5700 /uL (1500-7000); Neutrophils Percent Auto 77.1 % (50-75); Platelet Count 270 X10^3/uL (150-400); Red Blood Cell Count 3.12 X10^6/uL (4.0-5.2); Red Cell Distribution Width 16.4 % (11.6-14.8); White Blood Cell Count 7.4 X10^3/uL (4.5-11.0)
[2023-09-07 06:01] LABS: Alanine Aminotransferase 13 IU/L (<35); Albumin Globulin Ratio 0.9 (1.0-2.8); Alkaline Phosphatase 200 U/L (38-126); Aspartate Aminotransferase 28 IU/L (14-36); BUN Creatinine Ratio 47.1 (6-22); Blood Urea Nitrogen 48 mg/dL (7-17); Calcium 8.8 mg/dL (8.4-10.2); Carbon Dioxide 30 mmol/L (22-32); Chloride 98 mmol/L (98-107); Estimated Glomerular Filt Rate 55 mL/min (>60); Globulin 3.5 g/dL (1.7-4.1); Glucose 270 mg/dL (80-110); HEMOLYSIS < 15 (0-50); Magnesium 1.7 mg/dL (1.6-2.3); Potassium 3.9 mmol/L (3.4-5.1); Sodium 133 mmol/L (137-145); Total Protein 6.5 g/dL (6.3-8.2)
[2023-09-07] MEDS: HEPARIN 5,000 UNIT/ML VIAL 5000 UNIT SUBCUT (08:14)
[2023-09-07] MEDS: INSULIN LISPRO 100 UNIT/ML 3ML VIAL SUBCUT ×6 (08:15→17:23)
[2023-09-07] MEDS: prednisoLONE OPHTH SUSP 1 DROPS EYE-BOTH (08:16)
[2023-09-07] MEDS: CLOPIDOGREL 75 MG TABLET PO (08:17)
[2023-09-07] MEDS: ACETAMINOPHEN 325 MG TABLET 650 MG PO (08:17)
[2023-09-07] MEDS: OSELTAMIVIR 75 MG CAPSULE PO ×2 (08:17→20:37)
[2023-09-07] MEDS: POTASSIUM CHLORIDE 10 MEQ TAB PO (08:17)
[2023-09-07] MEDS: ASPIRIN 81 MG CHEW TAB PO (08:17)
[2023-09-07] MEDS: PANTOPRAZOLE DR 40 MG TABLET PO (08:18)
[2023-09-07] MEDS: METOPROLOL ER 25 MG TABLET PO ×2 (08:18→11:23)
--- NOTE | 2023-09-07 08:36 | PC.NURSE ---
Addendum entered by Sneha Benítez R.N. 09/07/23 11:42: Patients heart rate tachy, given additional Metoprolol 25mg and her blood sugar is 187. Will give her insulin. Original Note: Assess- Patient is alert oriented x2. She is forgetful at times. Patient given larger pills first and then some smaller ones, she did cough some but was able to get her medication down. Will give her meds in apple sauce next time. Patient had no problems swallowing her medication yesterday. Eye gtts applied in both eyes. Lung sounds clear to auscultation and heart rate regular. She ate half of her breakfast and blood sugar is 289. 10u of insulin given and patient has been tolerating this well. She is sitting up in her chair comfortably and waiting for her son to come and visit.
--- NOTE | 2023-09-07 10:17 | PT.IPTN ---
Current Diagnoses Anemia in chronic kidney disease (09/05/23) Type 1 diabetes mellitus with diabetic chronic kidney disease (09/05/23) Type 1 diabetes mellitus with other specified complication (09/05/23) Mixed hyperlipidemia (09/05/23) Essential (primary) hypertension (09/05/23) Atherosclerosis of coronary artery bypass graft(s) without angina pectoris (09/05/23) Acute on chronic systolic (congestive) heart failure (09/05/23) Influenza due to identified novel influenza A virus with pneumonia (09/05/23) Acute respiratory failure with hypoxia (09/05/23) Chronic kidney disease, stage 3 unspecified (09/05/23) Chronic kidney disease, stage 3a (09/05/23) Presence of aortocoronary bypass graft (09/05/23) Physical Therapy Treatment Note M2 PT-IP Current Condition Start: 09/06/23 11:24 Freq: NEEDED Status: Active Protocol: Document 09/06/23 11:25 MB (Rec: 09/06/23 13:40 MB [id number]) Physical Therapy Current Condition Current Condition Evaluation Date 09/06/23 Treatment Diagnosis PNA and Flu, recent fall and left rib fx, T5 fx M3 PT-IP Subjective Start: 09/06/23 11:24 Freq: NEEDED Status: Active Protocol: Document 09/07/23 10:41 TS (Rec: 09/07/23 10:56 TS [id number]) Subjective Physical Therapy Visit Type Type Treatment Note Visit Start Time 10:17 Visit Stop Time 10:40 Number of BIOMEDICAL EQUIPMENT TECHNICIAN Visits 1 Physical Therapy Visit Comments Patient Comments Pt found resting in chair on RA, family in room, pt is agreeable to PT. M4 PT-IP Mobility and Gait Start: 09/06/23 11:24 Freq: NEEDED Status: Active Protocol: Document 09/07/23 10:41 TS (Rec: 09/07/23 10:56 TS [id number]) PT-Transfer Assessment Sit to and From Stand Sit to and from Stand Standby Assistance,Use of Upper Extremities Equipment Transfer Assistive Device Gait Belt,Front Wheeled Walker Orthotic/Prosthetic Devices or Brace: No Transfer Ability Level of Assist Standby Assistance,Use of Upper Extremities Comments Mobility Comments Pt is impulsive to stand from chair before therapist is ready. STS from chair with FWW SBA, Pt ambulated in room ~15 'CGA/SBA with FWW, pt is unsteady and requires cues for avoiding obstacles in room. pt sat on EOB, nurse in to dispsense medication. STS from bed SBA with FWW. She ambulated ~30' more in room CGA/SBA with FWW, continues to be unsteady and running into obstacles in room. She perfor sit to supine SBA and supine to sit Mo with CLINIC CMA for uprighting trunk. Pt performed stand step pivot transfer to chair SBA. Once back in chair, Spo2 83%, required ~10secs to increase to low 90's on RA. Pt was left in chair, alarm on , family in room. Gait Assessment Gait Gait Assistance Required: Standby Assistance,Contact Guard Assist,1 Person Assist Distance (Feet) 45 Able to Maintain Weight Bearing Status Yes During Gait Assistive Devices Assistive Device Gait Belt,Front Wheeled Walker Orthotic/Prosthetic Devices or Brace: No Gait Deviations General Gait Pattern Decreased Stride Length, Decreased Feet Clearance, Flexed Trunk Factors Limiting Gait Function Factors Limiting Gait Function Decreased Activity Tolerance, Poor Balance,Poor Safety Awareness,Respiratory Distress Comments Gait Comments Poor safety awareness with gait. Pt runs into objects in room and requires assist for FWW management. PT-Balance Assessment Sitting Balance and Reactions Static Sitting Balance Ability Good Dynamic Sitting Balance Ability Good Standing Balance and Reactions Static Standing Balance Ability Good Dynamic Standing Balance Ability Fair Device Used RW M5 PT-IP Objective Assessments Start: 09/06/23 11:24 Freq: NEEDED Status: Active Protocol: Document 09/06/23 11:25 MB (Rec: 09/06/23 13:40 MB [id number]) Orientation Orientation/Cognition Level of Alertness Alert Orientation Name,Age,Birthday,Month,Date, Year,Day of Week,Place, Situation Language Function Ability No Deficits Noted Safety Awareness Understands Safety Issues Memory Description No Deficits Noted Gross Range of Motion Upper Extremity ROM Impairments Defer to OT Lower Extremity ROM Assessment Within Functional Limits Strength Lower Extremity Strength Assessment Within Functional Limits M6 PT-IP Treatment Start: 09/06/23 11:24 Freq: NEEDED Status: Active Protocol: Document 09/07/23 10:41 TS (Rec: 09/07/23 10:56 TS [id number]) Physical Therapy Treatment Education Education Provided Safety M7 PT-IP Assessment and Plan Start: 09/06/23 11:24 Freq: NEEDED Status: Active Protocol: Document 09/07/23 10:41 TS (Rec: 09/07/23 10:56 TS [id number]) PT Summary Assessment and Plan Potential Rehabilitation Potential Good Summary Impairments Balance,Bed Mobility,Transfers ,Gait,Activity Tolerance Progress Towards Goals Slow Progress due to Activity Tolerance,Slow Progress - Other Assessment Summary Meredith is making some progress with her mobility but remains limited by poor activity tolerance and poor safety awareness. She is SBA for STS with use of FWW, she was impulsive to stand before therapist was and even when told not to. She ambulated in room ~15 and another 30' CGA/ SBA with FWW. She is unsteady and lacks good safety awareness. She bumps into objects often in room and requires assist with FWW management. Her o2 does desat to low 80's on RA with mobility, increased to low 90' s at rest on RA. PT is recommending Home 24/7 vs SNF at this time. Pt could benefit from SNF to improve strength, functional mobility and activity tolerance before d/c home. Pt lives alone and would require 24/7 assist at this time. Goals Bed Mobility Goal Independent Transfer Goal Independent,Front Wheeled Walker,Four Wheeled Walker Gait Goal Independent,Front Wheel Walker ,Four Wheel Walker Gait Distance 100 Other Goals Pt will ascend and descend 1 step with LRAD or left rail to allow safe home entrance. Days to Meet Goals 5 Frequency of Treatment Frequency Of Treatment Once a Day Treatment Plan Physical Therapy Treatment Plan Bed Mobility Training,Transfer Training,Gait Training, Therapeutic Exercise,Balance Retraining,Discharge Planning, Hot or Cold Pack,Neuromuscular Re-ed Precautions Other Precautions Flu, droplet Weight Bearing Status Weight Bearing Status Weight Bear as Tolerated Recommendations To Nursing Amount of Assist Needed 1 Person Assist Discharge Recommendations PT Discharge Recommendations Home with 24/7 Assist Available,Home Health,SNF Rehab,Home vs SNF Transportation Needs at Discharge Private Vehicle
[2023-09-07] MEDS: FUROSEMIDE 40 MG TABLET PO (10:23)
[2023-09-07] MEDS: MAGNESIUM CHLORIDE 64 MG TABLET 128 MG PO (10:23)
--- NOTE | 2023-09-07 11:20 | CM.DPNOTE ---
DCP Cont Therapies continue to recommend home assist vs SNF; patient and family have decided on [facility] at discharge. Bambi at [facility] confirms she can accept patient tomorrow, transport arranged for 1130. Updated provider, RN and patient/family; all agreeable to this plan. PASRR 1 completed. Plan: Discharge to [facility] H+R via cabulance expected tomorrow at 1130 JW
--- NOTE | 2023-09-07 11:33 | DI.ECHO.S_ITS ---
[facility] +---------+ Hospital +---------+ : : [address] : : : : [id number] : : : : Phone: [phone]+ Echocardiogram Report + + :Name: CHILO FERGUSON Study Date: 09/07/2023 Height: 64 in : :[facility] ReadingLocation: Weight: 136 lb : : Gender: Female BSA: 1.7 m2 : :: 1940 Age: 83 yrs BP: 120/63 mmHg: :Reason For Study: EJECTION FRACTION : :Ordering Physician: LEONIDES, : :KWAN SORENSON Performed By: Abi Fong : :Referring: KWAN COYLE : + + Interpretation Summary The ejection fraction is estimated to be 50-55%. The right ventricle is normal size. Right ventricular systolic function is mildly reduced. Compared to the prior study dated 07/29/2023, the left ventricle appears slightly less dynamic. Procedure: A two-dimensional transthoracic echocardiogram with color flow Doppler was performed. The study quality was technically adequate. Comparison is made with the echocardiogram of 07/29/2023. The heart rate ranged between 64-75 bpm during the study. The patient had occasional PVCs during the exam. Left Ventricle: The left ventricle is normal in size and wall thickness. The ejection fraction is estimated to be 50-55%. Right Ventricle: The right ventricle is normal size. Right ventricular systolic function is mildly reduced. Great Vessels: The IVC is of normal diameter and collapses greater than 50% with a sniff. This suggests a low right atrial pressure of 3 mm Hg. Pericardium/ Pleura There is no pericardial effusion. There is no pleural effusion. MMode/2D Measurements & Calculations LVIDd: 3.9 cm IVC diam: 0.78 cm LVIDs: 2.9 cm FS: 26.2 % IVSd: 0.75 cm LVPWd: 0.88 cm LV barclay. diameter/BSA (cm/m^2): 2.3 LV sys. diameter/BSA (cm/m^2): 1.7 Reading Physician:02:16 PM
[2023-09-07] MEDS: APIXABAN 5 MG TABLET PO ×2 (12:05→20:39)
--- NOTE | 2023-09-07 13:18 | P.PN_ITS ---
Subjective Subjective Interval history: 83 F with PMH of diabetes, admitted with respiratory failure, influenza with possible bacterial PNA, and elevated troponin. Glucose better this morning, patient continues to feel well, but still weak. Plan for SNF tomorrow. Developed afib / flutter this morning with RVR. Gave extra dose of metoprolol and increased to BID dosing with improvement. Now started on apixaban given new afib diagnosis. Exam Vital Signs (past 8 hours): - 09/07/23 08:00 09/07/23 08:14 Temperature 98.3 F Pulse Rate 85 Respiratory Rate 18 Blood Pressure 120/63 Pulse Oximetry 91 91 Oxygen Delivery Method Nasal Cannula Oxygen Flow Rate 1 1 Fraction of Inspired Oxygen 28 SaO2/FiO2 Ratio 350 Oxygen Delivery Method Nasal Cannula Oxygen Flow Rate 1 Narrative Exam Narrative: GEN: Very pleasant elderly female, Alert and oriented x 3, NAD HEENT:NC, Face symmetric CHEST: Respiratory excursions symmetric, coarse but CTAB CV: RRR, no M/R/G previously tachycardic, irregularly irregular. ABD: Soft, NT/ND, BT present in all 4 quadrants, no organomegaly or masses EXTR: warm, well perfused, no C/C/E SKIN: warm and dry, no rash NEURO: Alert and oriented x 3, nonfocal Objective Labs 09/07/23 05:08 09/07/23 05:08 Labs: Laboratory Results - last 24 hr 09/07/23 05:08 WBC 7.4 RBC 3.12 L Hgb 9.2 L Hct 27.2 L MCV 87.0 MCH 29.3 MCHC 33.7 RDW 16.4 H Plt Count 270 Neut % (Auto) 77.1 H Lymph % (Auto) 15.1 L [place] % (Auto) 7.6 Eos % (Auto) 0.0 L Baso % (Auto) 0.2 Neut # (Auto) 5700 Lymph # (Auto) 1100 [place] # (Auto) 600 Eos # (Auto) 0 Baso # (Auto) 0 Sodium 133 L Potassium 3.9 Chloride 98 Carbon Dioxide 30 BUN 48 H Creatinine 1.02 Estimated GFR 55 L BUN/Creatinine Ratio 47.1 H Glucose 270 H D Calcium 8.8 Magnesium 1.7 Total Bilirubin 1.0 AST 28 ALT 13 Alkaline Phosphatase 200 H Total Protein 6.5 Albumin 3.0 L Globulin 3.5 Albumin/Globulin Ratio 0.9 L PFSH Medical History CAD (coronary artery disease) Ptosis of both eyelids Essential hypertension Osteoporosis (~1999) Retinal detachment (~2000) Hearing loss (~1944) Thyroid nodule (~2019) Left tibial fracture Glaucoma Blindness left eye category 4, normal vision right eye Closed fracture of left hip Surgical History H/O three vessel coronary artery bypass Anesthesia History of shoulder surgery History of elbow surgery History of eye surgery History of cataract removal with insertion of prosthetic lens History of total right hip arthroplasty Family History Father Suicide Mother Myocardial infarction Grandfather History of heart disease Family/Other Diabetes mellitus Social History household members: none Smoking Status: Never smoker alcohol intake: current Assessment & Plan Assessment & Plan narrative: (1) Acute respiratory failure with hypoxia, secondary to influenza and acute on chronic systolic heart failure - flu positive - continue supportive care and oseltimivir - diuresed as noted below. wean O2 as tolerated Goal O2 90-96%. - start antibiotics for possible superimposed bacterial pnuemonia with amox. pot clavulanate for 5 days. (2) Acute on chronic systolic (congestive) heart failure: given 60 mg IV lasix in the ER, now appears improved will continue PO lasix with slight increase in home dosing to 40 mg daily. Can reduce to 20 mg once reliably off supplemental oxygen, currently she is on and off supplemental therapy. 3. NEW diagnosis of atrial fibrillation / flutter with RVR - improved with additional metoprolol dose this AM. Now back in NSR. - started apixaban, watch with caution as patient is also on asa/plavix - continue metoprolol 25 mg BID, continue telemetry today. - repeat limited TTE ordered. Last complete TTE was 07/29/23 at [facility], showed EF 55-60%, grade I diastolic dysfunction, mildly reduced RV function, no significant valvular disorders. (4) CAD (coronary artery disease) with myocardial injury -Elevated troponins likely in setting of demand. No EKG changes or chest pain. Now downtrended. - unless continued hypoxia will not repeat TTE at this time. - continue home asa, plavix, and statin. (5) H/O three vessel coronary artery bypass: - continue home asa and plavix (6) Chronic kidney disease (CKD) stage G3a/A2, moderately decreased glomerular filtration rate (GFR) between 45-59 mL/min/1.73 square meter and albuminuria creatinine ratio between 30-299 mg/g: Status: Chronic - monitor creatinine with daily labs. Okay today with creatinine around baseline at 1. (7) Mixed diabetic hyperlipidemia associated with type 1 diabetes mellitus: Status: Chronic - uncontrolled today. Glucose >400. Issues with hypoglycemia last admit. Will increase Lantus to 10 U at bedtime, continue 5 AC lispro for meals, and sliding scale today. (8) Anemia associated with stage 3 chronic renal failure: Status: Chronic (9) Essential hypertension: Status: Chronic Code: full, surrogate is patient's son, DPOA Discussed with case management, overnight hospitalist to formulate above assessment and plan. Dispo: likely home, pending improvement in hypoxia and blood sugar control.
--- NOTE | 2023-09-07 13:57 | OT.IPNOTE ---
Attempted to see pt for OT services multiple times in AM. Pt in with nursing, in with P.T., and then getting echo. Attempted to see pt again later and pt states she would like to rest for a bit longer. Will hold today and continue to follow.
[2023-09-07] MEDS: AMOXICILLIN/CLAV 875/125 MG 1 TAB PO (20:37)
[2023-09-07] MEDS: ATORVASTATIN 20 MG TABLET 80 MG PO (20:39)
[2023-09-07] MEDS: INSULIN GLARGINE 100 UNIT/ML 3ML PEN 12 UNIT SUBCUT (20:54)
[2023-09-08] VITALS: BP 130/68; PULSE 72; RESP 16; TEMP 37.1; O2SAT 96
[2023-09-08 04:25] VITALS: BP 136/88; PULSE 80; RESP 16; TEMP 36.6; O2SAT 98
[2023-09-08 05:55] LABS: Add Manual Diff / Slide Review NO; Basophils Absolute Auto 0 /uL (0-100); Basophils Percent Auto 0.2 % (0-2); Eosinophils Absolute Auto 0 /uL (0-450); Eosinophils Percent Auto 0.1 % (2-4); Hematocrit 27.9 % (36-46); Hemoglobin 9.4 g/dL (12.0-16.0); Lymphocytes Absolute Auto 1700 /uL (1100-4500); Lymphocytes Percent Auto 25.1 % (25-40); Mean Corpuscular HGB Conc 33.9 % (30-36); Mean Corpuscular Hemoglobin 29.4 PG (26-34); Mean Corpuscular Volume 86.7 fL (80-100); Monocytes Absolute Auto 600 /uL (0-900); Monocytes Percent Auto 8.7 % (3-14); Neutrophils Absolute Auto 4400 /uL (1500-7000); Neutrophils Percent Auto 65.9 % (50-75); Platelet Count 287 X10^3/uL (150-400); Red Blood Cell Count 3.21 X10^6/uL (4.0-5.2); Red Cell Distribution Width 16.3 % (11.6-14.8); White Blood Cell Count 6.7 X10^3/uL (4.5-11.0)
[2023-09-08 06:00] LABS: Alanine Aminotransferase 13 IU/L (<35); Albumin 3.2 g/dL (3.5-5.0); Albumin Globulin Ratio 0.8 (1.0-2.8); Alkaline Phosphatase 201 U/L (38-126); Aspartate Aminotransferase 28 IU/L (14-36); BUN Creatinine Ratio 44.7 (6-22); Bilirubin Total 0.8 mg/dL (0.2-1.3); Blood Urea Nitrogen 46 mg/dL (7-17); Carbon Dioxide 34 mmol/L (22-32); Chloride 102 mmol/L (98-107); Estimated Glomerular Filt Rate 55 mL/min (>60); Globulin 3.8 g/dL (1.7-4.1); HEMOLYSIS < 15 (0-50); Magnesium 1.9 mg/dL (1.6-2.3); Potassium 3.8 mmol/L (3.4-5.1); Sodium 137 mmol/L (137-145)
--- NOTE | 2023-09-08 06:17 | PC.NURSE ---
Purchasing Coordinator Patient awoke requesting food at 0530, BG was checked BG meter read value below 40. RN/SWEATER OPERATOR immediately administered OJ oral while getting D5NS per AUG. rechecked BG at 15mins BG 65 then rechecked at 0600 BG was 185. Patient denied SOB or vertigo; Patient stated am just hungry. fnp notified. will recheck BG at 645.
[2023-09-08 06:32] LABS: Glucose 38 mg/dL (80-110)
[2023-09-08] MEDS: prednisoLONE OPHTH SUSP 1 DROPS EYE-BOTH (08:10)
[2023-09-08] MEDS: PANTOPRAZOLE DR 40 MG TABLET PO (08:10)
[2023-09-08] MEDS: OSELTAMIVIR 75 MG CAPSULE PO (08:10)
[2023-09-08] MEDS: FUROSEMIDE 40 MG TABLET PO (08:10)
[2023-09-08] MEDS: APIXABAN 5 MG TABLET PO (08:10)
[2023-09-08 08:11] VITALS: BP 136/88
[2023-09-08] MEDS: POTASSIUM CHLORIDE 10 MEQ TAB PO (08:11)
[2023-09-08] MEDS: AMOXICILLIN/CLAV 875/125 MG 1 TAB PO (08:11)
[2023-09-08] MEDS: ASPIRIN 81 MG CHEW TAB PO (08:11)
[2023-09-08] MEDS: METOPROLOL ER 25 MG TABLET PO (08:11)
[2023-09-08] MEDS: INSULIN LISPRO 100 UNIT/ML 3ML VIAL SUBCUT ×2 (08:11)
[2023-09-08] MEDS: CLOPIDOGREL 75 MG TABLET PO (08:11)
--- NOTE | 2023-09-08 09:03 | PM.DS.1 ---
History of Present Illness History of Present Illness Date Patient Seen: 09/08/23 Time Patient Seen: 09:03 Chief complaint: post rib inj/cough/wont eat/diabetic Narrative: Per admitting provider, 83 y/o with PMH of CAD, s/p CABg, HTN, mild HFrEF, DM, HLD, presented to ED with generalized weakness, poor oral intake, shortness of breath, cough, confusion. Tested positive for Influenza A, CXR with b/l infiltrates, hypoxemic. Elevated BNP with mild congestion and elevated troponin. Without chest pain. Vital signs stable apart from tachypnea and hypoxemia. Given Lasix and Tamiflu and admitted to medical telemetry. Discharge Providers Provider Date of admission: 09/05/23 22:47 Discharge Date: 09/08/23 Primary care physician: Maurisio Burgess DO Consults: 09/06/23 00:20 Consult to Dietitian, Adult Routine Comment: Reason For Exam: pt and son state she has not been eating, diabetic 09/06/23 09:59 Consult to Occupational Therapy Evaluate & Treat Comment: Physician Instructions: Evaluate and treat Consult to Physical Therapy Evaluate & Treat Comment: Physician Instructions: Evaluate and Treat Discharge provider: Juliocesar Sanders DO Summary Hospital Course Discharge Diagnosis: Please see hospital course by problem list noted below. Hospital Course: 1) Acute respiratory failure with hypoxia, secondary to influenza and acute on chronic systolic heart failure - flu positive - continued supportive care and oseltimivir. With improvement can discontinue oseltimivir at discharge. - diuresed as noted below initially. was able to wean off supplemental oxygen. - started antibiotics 09/06 for possible superimposed bacterial pnuemonia with amox. pot clavulanate for 5 days. (2) Acute on chronic systolic (congestive) heart failure: given 60 mg IV lasix in the ER, then continued PO lasix as inpatient with slight increase in home dosing to 40 mg daily. Can reduce back to home dosing of 20 mg at discharge. limited echo as discussed below, no significant changes. 3. NEW diagnosis of atrial fibrillation / flutter with RVR - improved with additional metoprolol dosing. Increased metoprolol from 25 mg daily to BID. - started apixaban, watch with caution for bleeding at SNF as patient is also on asa/plavix - repeat limited TTE ordered and showed an EF of approx 50-55%. No significant change to last complete TTE was 2/8/24 at [facility], showed EF 55-60%, grade I diastolic dysfunction, mildly reduced RV function, no significant valvular disorders. (4) CAD (coronary artery disease) with myocardial injury - Elevated troponins likely in setting of demand. No EKG changes or chest pain. Downtrended quickly. - continue home asa, plavix, and statin. (5) H/O three vessel coronary artery bypass: - continue home asa and plavix (6) Chronic kidney disease (CKD) stage G3a/A2, moderately decreased glomerular filtration rate (GFR) between 45-59 mL/min/1.73 square meter and albuminuria creatinine ratio between 30-299 mg/g: Status: Chronic (7) Mixed diabetic hyperlipidemia associated with type 1 diabetes mellitus: - Very labile blood sugars over the course of admission. Initially glucose >400, increased Lantus from 8 to 12 with the following day blood sugar improved but developed hypoglycemia on AM 09/07. Reduced Lantus back to 8 which had been working fairly well for her previously. Ultimately no changes on discharge from previous, recommend consistent carb diet and regular meals. (8) Anemia associated with stage 3 chronic renal failure: Status: Chronic (9) Essential hypertension: Status: Chronic - had to reduce losartan from 100 mg daily, to 25 mg daily on discharge as was held here. Dispo: transfer to SNF for continued rehab treatments per PT/OT recommendations. Time Spent with Patient Time spent: Greater than 30 minutes Exam Vital Signs (past 8 hours): - 09/08/23 04:25 09/08/23 08:11 Temperature 97.8 F Pulse Rate 80 Respiratory Rate 16 Blood Pressure 136/88 136/88 Pulse Oximetry 98 Oxygen Flow Rate 0 Fraction of Inspired Oxygen 28 SaO2/FiO2 Ratio 350 Oxygen Delivery Method Room Air Oxygen Flow Rate 0 Narrative Exam Narrative: GEN: Very pleasant elderly female, Alert and oriented x 3, NAD HEENT:NC, Face symmetric CHEST: Respiratory excursions symmetric, coarse but CTAB CV: RRR, no M/R/G previously tachycardic, irregularly irregular. ABD: Soft, NT/ND, BT present in all 4 quadrants, no organomegaly or masses EXTR: warm, well perfused, no C/C/E SKIN: warm and dry, no rash NEURO: Alert and oriented x 3, nonfocal Objective Labs 09/08/23 05:10 09/08/23 05:10 Labs: Laboratory Results - last 24 hr 09/08/23 05:10 WBC 6.7 RBC 3.21 L Hgb 9.4 L Hct 27.9 L MCV 86.7 MCH 29.4 MCHC 33.9 RDW 16.3 H Plt Count 287 Neut % (Auto) 65.9 Lymph % (Auto) 25.1 [place] % (Auto) 8.7 Eos % (Auto) 0.1 L Baso % (Auto) 0.2 Neut # (Auto) 4400 Lymph # (Auto) 1700 [place] # (Auto) 600 Eos # (Auto) 0 Baso # (Auto) 0 Sodium 137 Potassium 3.8 Chloride 102 Carbon Dioxide 34 H BUN 46 H Creatinine 1.03 Estimated GFR 55 L BUN/Creatinine Ratio 44.7 H Glucose 38 L* D Calcium 9.0 Magnesium 1.9 Total Bilirubin 0.8 AST 28 ALT 13 Alkaline Phosphatase 201 H Total Protein 7.0 Albumin 3.2 L Globulin 3.8 Albumin/Globulin Ratio 0.8 L PFSH Medical History CAD (coronary artery disease) Ptosis of both eyelids Essential hypertension Osteoporosis (~1999) Retinal detachment (~2000) Hearing loss (~1944) Thyroid nodule (~2019) Left tibial fracture Glaucoma Blindness left eye category 4, normal vision right eye Closed fracture of left hip Surgical History H/O three vessel coronary artery bypass Anesthesia History of shoulder surgery History of elbow surgery History of eye surgery History of cataract removal with insertion of prosthetic lens History of total right hip arthroplasty Family History Father Suicide Mother Myocardial infarction Grandfather History of heart disease Family/Other Diabetes mellitus Social History household members: none Smoking Status: Never smoker alcohol intake: current Discharge Plan Discharge Plan Patient Disposition: SNF Transfer to: [facility] Provider Discharge Comment: 83 F with difficult to control diabetes, hypoglycemia admitted with respiratory failure due to flu, possible bacterial PNA. Improved with supportive therapy. Recommended for SNF for continued therapies after discharge. Her glucose was initially in the 400s, lantus was increased from 8 to 12 with subsequent development of hypoglycemia resolved with orange juice administration on 09/07. Lantus reduced back down to 8. She has a history of labile blood sugars, watch carefully. She was also noted to have atrial fibrillation this admission, improved with increases in home metoprolol. Losartan needed to be adjusted down in dosing to accommodate changes in BP. Discharge orders & Medications Prescriptions: New aspirin 81 mg Tablet,Chewable 81 mg PO DAILY Qty: 30 0RF atorvastatin 80 mg tablet 80 mg PO BEDTIME Qty: 90 0RF acetaminophen 325 mg Tablet 650 mg PO Q6H PRN (Reason: Fever/Mild Pain (1-3)) Qty: 60 0RF metoprolol succinate 25 mg Tablet Extended Release 24 Hr 25 mg PO BID Qty: 60 0RF amoxicillin-pot clavulanate 875-125 mg Tablet 1 tab PO BID 4 Days Qty: 8 0RF Eliquis 5 mg Tablet 5 mg PO BID Qty: 180 0RF sennosides [senna] 8.6 mg Tablet 17.2 mg PO DAILY PRN (Reason: constipation) Qty: 30 0RF losartan 25 mg tablet 25 mg PO DAILY Qty: 30 0RF Continued latanoprost [Xalatan] 0.005 % drops 1 drp OPHTH BEDTIME Qty: 0 (DME) insulin syringe-needle U-100 [TRUEplus Insulin] 0.3 mL 30 gauge x 5/16 syringe See Rx Instructions .ROUTE .MEDSUPPLY Qty: 10 Patient Comments: [NO ORIGINAL SIG] Rx Instructions: As directed (DME) pen needle, diabetic [Unifine Pentips Plus] 31 gauge x 5/16 needle See Rx Instructions .ROUTE .MEDSUPPLY Qty: 400 3RF Rx Instructions: use daily with lantus and TID with Lispro, as directeed (DME) lancets [Safety Lancets] 28 gauge misc See Rx Instructions .Route Qty: 400 3RF Rx Instructions: test 3-4 times daily as needed (DME) pen needle, diabetic [1st Tier Unifine Pentips] 29 gauge x 1/2 needle See Rx Instructions .Route Qty: 100 3RF Rx Instructions: use with lantus insulin pen as directed (DME) pen needle, diabetic [1st Tier Unifine Pentips] 29 gauge x 1/2 needle See Rx Instructions .Route Qty: 300 3RF Rx Instructions: TID with kwikpen humalog clopidogrel 75 mg tablet 75 mg PO DAILY Qty: 90 3RF furosemide 20 mg tablet 20 mg PO DAILY Qty: 90 3RF pantoprazole 40 mg tablet,delayed release (DR/EC) 40 mg PO DAILY Qty: 90 3RF potassium chloride 10 mEq tablet extended release 10 meq PO DAILY Qty: 90 3RF Rx Instructions: while on lasix prednisolone acetate 1 % drops,suspension 1 drp EYE-BOTH BID insulin lispro [Humalog U-100 Insulin] 100 unit/mL Solution 5 unit SUBCUT AC Qty: 30 2RF insulin glargine [Lantus Solostar U-100 Insulin] 100 unit/mL (3 mL) Insulin Pen 8 unit SUBCUT 2100 Qty: 30 2RF Discontinued losartan 100 mg tablet 100 mg PO DAILY Qty: 90 3RF metoprolol succinate 25 mg tablet extended release 24 hr 25 mg PO DAILY Qty: 90 3RF Follow up/Referrals: Maurisio Burgess DO [Primary Care Provider] - Discharge Health Status Precautions: [place] Diet/Activity/Treatments Diet: Diet as Tolerated and Carb-consistent/Diabetic Liquid consistency: Normal/Thin Food texture: Regular Activity: As tolerated, no restrictions Special Rehabilitation Services Reason for rehabilitation: Recovery r/t decondition Rehab type: Physical therapy and Occupational therapy Visit Report/Discharge Packet Stand Alone Forms: Patient Portal/API Discharge Data Primary Care Provider: Maurisio Burgess
[2023-09-08 09:09] VITALS: BP 136/66; PULSE 75; O2SAT 97
--- NOTE | 2023-09-08 10:15 | CM.DPNOTE ---
DC Note Patient discharged. Bambi at [facility] accepts for admission today. Reviewed plan with son Joseph who remains agreeable and will follow patient from the hospital over to [facility]. SUSIE Ye, coordinating this discharge, updating RN, RUSH and DC ppk/PASRR sent to Bambi at [facility]. supervisor polishing arranged for [id number]. Plan: Discharge to [facility] H+R via cabulance JW
--- NOTE | 2023-09-08 11:40 | PC.NURSE ---
Report giving to Tony at [facility]- no further questions. IV and telemetry removed and belongings packed. Patient wheeled out via wheelchair with [facility] transport.
== END 2023-09-08 11:43 | DRG 193 ==
LOC: ED 19:41 → AC 22:48
PROVIDERS: Internal Medicine; Admitting Provider Internal Medicine; Emergency Provider Emergency Medicine; PCP Family Medicine; Referring Provider Emergency Medicine; Visit Provider Internal Medicine
DX: J10.00 Influenza due to other identified influenza virus with unspecified type of pneumonia (principal); I50.23 Acute on chronic systolic (congestive) heart failure; J96.01 Acute respiratory failure with hypoxia; I13.0 Hypertensive heart and chronic kidney disease with heart failure and stage 1 through stage 4 chronic kidney disease, or unspecified chronic kidney disease; I5A Non-ischemic myocardial injury (non-traumatic); I25.10 Atherosclerotic heart disease of native coronary artery without angina pectoris; E10.22 Type 1 diabetes mellitus with diabetic chronic kidney disease; N18.31 Chronic kidney disease, stage 3a; E78.2 Mixed hyperlipidemia; D63.1 Anemia in chronic kidney disease; I48.91 Unspecified atrial fibrillation; H40.9 Unspecified glaucoma; Z95.1 Presence of aortocoronary bypass graft
CPT/HCPCS: 36415; 71045; 71275; 80048; 80053; 80320; 81001; 82550; 82962; 83605; 83690; 83735; 83880; 84100; 84484; 85025; 85610; 85730; 87040; 87086; 87633; 93005; 93307; 94762; 96365; 97116; 97161; 97166; 97530; 97535; 99284; 99285; J1644; J1815; J1940; Q9967